=== PATIENT | male | born 1960 | race Caucasian/White ===

== ENCOUNTER 2018-02-27 03:28 | Emergency (ER) | payer OTHER | END 2018-02-27 05:11 | disposition home or self-care (01) | LOC: M ED 03:28 | DX: K91.840 Postprocedural hemorrhage of a digestive system organ or structure following a digestive system procedure (principal); F17.200 Nicotine dependence, unspecified, uncomplicated | CPT/HCPCS: 99282 ==

== ENCOUNTER 2018-12-14 16:41 | Emergency (ER) | payer OTHER ==
[~2018-12-14] VITALS: Ht 170.2 cm; Wt 72.7 kg
[2018-12-14 16:41] VITALS: BP 149/91
[2018-12-14] MEDS ORDERED: NAPROXEN 250 MG TAB PO ONE (17:15)
--- NOTE | 2018-12-14 18:35 | REP ---
Clinical: Trauma. Technique: AP, lateral, bilateral oblique views left wrist . Findings: The carpal bones, surrounding osseous structures, soft tissues, and joint spaces demonstrate generalized age-related changes. There is no evidence for acute fracture or dislocation. No subcutaneous emphysema or radiodense foreign body. Impression: Generalized age-related changes. No acute fracture or dislocation Electronically Signed by Austyn Heredia MD 12/14/2018 06:27 P
--- NOTE | 2018-12-14 18:36 | REP ---
Clinical: Trauma. Technique: AP and lateral views of the chest. Findings: Mediastinum and cardiac silhouette appear grossly normal. Lung hernandez demonstrate chronic changes superimposed bibasilar atelectasis (left greater than right). No pneumothorax. No obvious acute fracture. Impression: Bibasilar atelectasis (left greater than right). Electronically Signed by Austyn Heredia MD 12/14/2018 06:28 P
== END 2018-12-14 18:15 | disposition home or self-care (01) ==
LOC: M ED 16:41
DX: S20.212A Contusion of left front wall of thorax, initial encounter (principal); S63.502A Unspecified sprain of left wrist, initial encounter; W00.9XXA Unspecified fall due to ice and snow, initial encounter; Y92.410 Unspecified street and highway as the place of occurrence of the external cause; Y93.9 Activity, unspecified; Y99.9 Unspecified external cause status; J98.11 Atelectasis; Z72.0 Tobacco use

== ENCOUNTER → 2019-07-30 | Outpatient (REF) | payer OTHER ==
[2019-07-30 15:07] LABS: ALBUMIN 3.9 GM/DL (3.2-5.2); ALT/SGPT 172 U/L (12-78); BILIRUBIN,DIRECT 0.1 MG/DL (0.0-0.2); BILIRUBIN,TOTAL 0.4 MG/DL (0.2-1.0); TOTAL PROTEIN 7.2 GM/DL (6.4-8.2)
[2019-07-31 09:16] LABS: HEPATITIS B SURFACE ANTIBODY POSITIVE (POSITIVE)
[2019-07-31 09:26] LABS: HEPATITIS B SURFACE ANTIGEN NEGATIVE (NEGATIVE)
[2019-07-31 09:56] LABS: HIV 1&2 SCREEN CENTAUR NEGATIVE (NEGATIVE)
[2019-07-31 10:19] LABS: HEPATITIS C VIRUS ABY INDEX > 11.0 INDEX (<0.8)
== END ==
LOC: M SFHCPLAZ 11:43
PROVIDERS: ATTEND Dermatology
DX: Z79.899 Other long term (current) drug therapy (principal)

== ENCOUNTER → 2019-10-01 | Outpatient (CLI) | payer OTHER ==
--- NOTE | 2019-10-01 08:53 | REP ---
Two-view chest: 10/01/2019. Indication: Tuberculosis. Comparison: 12/14/2018. Findings: The lungs are clear. There is no pleural effusion or pneumothorax. The cardiomediastinal silhouette is unremarkable. Impression: No acute cardiopulmonary process. Electronically Signed by Babatunde Herrera DO 10/01/2019 08:45 A
--- NOTE | 2019-10-01 09:57 | REP ---
RIGHT UPPER QUADRANT ULTRASOUND: Real-time sonographic evaluation of the right upper quadrant performed. Gallbladder demonstrates multiple 2 mm polyps without evidence of gallstones, gallbladder wall thickening or pericholecystic fluid. Common bile duct is upper limits of normal in diameter at 7 mm. There is no intrahepatic biliary dilatation. Liver demonstrates somewhat increased echotexture suggesting fibrofatty infiltration. Pancreas demonstrates no gross mass. Right kidney demonstrates no hydronephrosis with normal size 10.6 cm in length. Parapelvic cysts are noted, meauring 1.5 x 0.8 x 1.3 cm, 0.9 x 0.8 x 0.7 cm and 1.8 x 1.0 x 1.1 cm. Trace fluid is seen adjacent to the dome of the liver in the midline. IMPRESSION: Multiple 2 mm polyps in the gallbladder without evidence of gallstones, gallbladder wall thickening, pericholecystic fluid or biliary dilatation. There appears to be some degree of diffuse fibrofatty infiltration of the liver. Right renal cysts. Trace ascites in the midline above the liver. Electronically Signed by Jorge Rodas MD 10/01/2019 11:46 A
[2019-10-02 12:55] LABS: HEPATITIS B SURFACE ANTIBODY POSITIVE (POSITIVE); HEPATITIS B SURFACE ANTIGEN NEGATIVE (NEGATIVE); HIV 1&2 SCREEN CENTAUR NEGATIVE (NEGATIVE)
[2019-10-05 14:07] LABS: HEPATITIS C QUANTITATION 547940 IU/mL (.)
== END ==
LOC: M RAD 08:22
PROVIDERS: ATTEND Nurse Practitioner Family
DX: N28.1 Cyst of kidney, acquired (principal); K82.4 Cholesterolosis of gallbladder; B18.2 Chronic viral hepatitis C; A15.9 Respiratory tuberculosis unspecified

== ENCOUNTER → 2019-10-06 | Outpatient (REF) | payer OTHER ==
[2019-10-06 11:52] LABS: BASO # 0.1 10^3/uL (0.0-0.2); EOS # 0.2 10^3/uL (0.0-0.5); EOS % 3.9 % (0.0-3.0); HEMATOCRIT 44.1 % (42.0-52.0); HEMOGLOBIN 14.7 g/dl (13.5-17.5); LYMPH # 1.7 10^3/uL (1.5-5.0); LYMPH % 34.3 % (24.0-44.0); MEAN CORPUSCULAR HEMOGLOBIN 29.5 pg (27.0-33.0); MEAN CORPUSCULAR HGB CONC 33.3 g/dl (32.0-36.5); MEAN CORPUSCULAR VOLUME 88.4 fl (80.0-96.0); MONO # 0.5 10^3/uL (0.0-0.8); MONO % 9.9 % (0.0-5.0); NEUTROPHILS # 2.6 10^3/uL (1.5-8.5); NEUTROPHILS % 50.5 % (36.0-66.0); PLATELET COUNT, AUTOMATED 162 10^3/uL (150-450); RED BLOOD COUNT 4.99 10^6/uL (4.30-6.10); WHITE BLOOD COUNT 5.1 10^3/uL (4.0-10.0)
[2019-10-06 12:04] LABS: INR 1.05; PROTHROMBIN TIME 13.4 SECONDS (11.8-14.0)
== END ==
LOC: M SFHCPLAZ 09:32
PROVIDERS: ATTEND Internal Medicine Infectious Disease
DX: R18.8 Other ascites (principal); B18.2 Chronic viral hepatitis C

== ENCOUNTER → 2020-02-04 | Outpatient (REF) | payer OTHER ==
[2020-02-04 13:39] LABS: BILIRUBIN,DIRECT 0.1 MG/DL (0.0-0.2); BILIRUBIN,TOTAL 0.5 MG/DL (0.2-1.0); TOTAL PROTEIN 7.5 GM/DL (6.4-8.2)
[2020-02-08 08:06] LABS: HEPATITIS C QUANTITATION HCV Not Detected IU/mL (.)
== END ==
LOC: M SFHCPLAZ 11:40
PROVIDERS: ATTEND Internal Medicine Infectious Disease
DX: B18.2 Chronic viral hepatitis C (principal)

== ENCOUNTER 2020-06-06 03:00 | Inpatient (IN) | payer OTHER ==
[2020-06-06] MEDS ORDERED: traZODone 50 MG TAB ONE (05:42)
[2020-06-06] MEDS ORDERED: HEPARIN SOD (PORCINE) 5000UNITS/ML VIAL (J1644 PER 1000UNITS) ONE (05:42)
[2020-06-06] MEDS ORDERED: FUROSEMIDE 40MG/4ML VIAL (J1940) ONE ×3 (05:42→11:26)
[2020-06-06] MEDS ORDERED: METOPROLOL TART 25 MG TABLET ONE ×3 (05:42→11:28)
[2020-06-06] MEDS ORDERED: LORazepam 1 MG TAB ONE (05:42)
[2020-06-06] MEDS ORDERED: METOPROLOL 5 MG/5 ML VIAL ONE ×2 (06:35→11:26)
[2020-06-06] MEDS ORDERED: FUROSEMIDE 40MG/4ML VIAL (J1940) As Ordered ONE ×3 (06:35→21:29)
[2020-06-06] MEDS ORDERED: METOPROLOL 5 MG/5 ML VIAL As Ordered ONE ×2 (08:02→11:26)
[2020-06-06] MEDS ORDERED: METOPROLOL TART 25 MG TABLET As Ordered ONE ×3 (11:25→23:28)
[2020-06-06] MEDS ORDERED: ACETAMINOPHEN 325 MG TAB ONE (11:26)
[2020-06-06] MEDS ORDERED: NICOTINE 14 MG/24 HR TRANSDERMAL ONE (11:26)
[2020-06-06] MEDS ORDERED: ATROPINE SULF 1MG/10ML SYRINGE (J0461) ONE (13:00)
[2020-06-06] MEDS ORDERED: NICOTINE 14 MG/24 HR TRANSDERMAL As Ordered ONE (16:19)
[2020-06-06] MEDS ORDERED: ACETAMINOPHEN 325 MG TAB As Ordered ONE (16:20)
[2020-06-06] MEDS ORDERED: HEPARIN SOD (PORCINE) 5000UNITS/ML VIAL (J1644 PER 1000UNITS) As Ordered ONE (21:29)
[2020-06-06] MEDS ORDERED: traZODone 50 MG TAB As Ordered ONE (21:29)
[2020-06-06] MEDS ORDERED: LORazepam 1 MG TAB As Ordered ONE (22:20)
[2020-06-07] MEDS ORDERED: FUROSEMIDE 40MG/4ML VIAL (J1940) As Ordered ONE (05:58)
[2020-06-07] MEDS ORDERED: METOPROLOL TART 25 MG TABLET As Ordered ONE (05:58)
[2020-06-07] MEDS ORDERED: HEPARIN SOD (PORCINE) 5000UNITS/ML VIAL (J1644 PER 1000UNITS) As Ordered ONE ×2 (05:59→21:12)
[2020-06-07] MEDS ORDERED: NICOTINE 14 MG/24 HR TRANSDERMAL ONE (10:05)
[2020-06-07] MEDS ORDERED: METOPROLOL TART 25 MG TABLET ONE ×2 (12:54→17:41)
[2020-06-07] MEDS ORDERED: RIVAROXABAN 20 MG TAB (XARELTO) ONE (17:41)
[2020-06-07] MEDS ORDERED: POTASSIUM CHLORIDE 10 MEQ SR TABLET ONE (17:41)
[2020-06-07] MEDS ORDERED: traZODone 50 MG TAB As Ordered ONE (21:12)
[2020-06-07] MEDS ORDERED: LORazepam 1 MG TAB ONE (21:36)
[2020-06-08] MEDS ORDERED: METOPROLOL TART 25 MG TABLET As Ordered ONE ×4 (00:16→18:43)
[2020-06-08] MEDS ORDERED: METOPROLOL TART 25 MG TABLET ONE ×4 (00:16→18:43)
[2020-06-08] MEDS ORDERED: NICOTINE 14 MG/24 HR TRANSDERMAL As Ordered ONE (09:41)
[2020-06-08] MEDS ORDERED: FUROSEMIDE 100MG/10ML VIAL (J1940) ONE (09:41)
[2020-06-08] MEDS ORDERED: NICOTINE 14 MG/24 HR TRANSDERMAL ONE (09:41)
[2020-06-08] MEDS ORDERED: FUROSEMIDE 100MG/10ML VIAL (J1940) As Ordered ONE (09:41)
[2020-06-08] MEDS ORDERED: ACETAMINOPHEN TAB 650MG DOSE (2X325MG) ONE (12:49)
[2020-06-08] MEDS ORDERED: ACETAMINOPHEN TAB 650MG DOSE (2X325MG) As Ordered ONE (13:04)
[2020-06-08] MEDS ORDERED: RIVAROXABAN 20 MG TAB (XARELTO) As Ordered ONE (18:43)
[2020-06-08] MEDS ORDERED: RIVAROXABAN 20 MG TAB (XARELTO) ONE (18:43)
[2020-06-08] MEDS ORDERED: ACETAMINOPHEN 650 MG SUPP As Ordered ONE (21:46)
[2020-06-08] MEDS ORDERED: ACETAMINOPHEN 650 MG SUPP ONE (21:46)
[2020-06-08] MEDS ORDERED: HEPARIN 25,000 UNITS/250 ML D5W BAG (100 UNITS/ML) (J1644 PER 1000UNITS) ONE (21:46)
[2020-06-08] MEDS ORDERED: TENECTEPLASE 50 MG KIT (TNKase) (J3101 PER 1MG) ONE (22:00)
[2020-06-08] MEDS ORDERED: HEPARIN 25,000 UNITS/250 ML D5W BAG (100 UNITS/ML) (J1644 PER 1000UNITS) As Ordered ONE (22:01)
[2020-07-03 17:21] LABS: ALBUMIN 3.5 GM/DL (3.2-5.2); BILIRUBIN,DIRECT 0.1 MG/DL (0.0-0.2); BILIRUBIN,TOTAL 0.2 MG/DL (0.2-1.0); CALCIUM LEVEL 8.1 MG/DL (8.5-10.1); CREATININE FOR GFR 1.5 MG/DL (0.70-1.30); ETHYL ALCOHOL (ETHANOL) 0.12 % (0.000-0.010); FREE T4 0.86 NG/DL (0.76-1.46); GLOMERULAR FILTRATION RATE 51.4 (>56); POTASSIUM SERUM 4.3 MEQ/L (3.5-5.1); THYROID STIMULATING HORMONE 4.38 uIU/ML (0.358-3.740); TOTAL PROTEIN 6.4 GM/DL (6.4-8.2)
[2020-07-10 14:06] LABS: BASO # 0.1 10^3/uL (0.0-0.2); BASO % 0.7 % (0.0-1.0); EOS # 0.3 10^3/uL (0.0-0.5); EOS % 2.6 % (0.0-3.0); HEMATOCRIT 42.4 % (42.0-52.0); HEMOGLOBIN 13.8 g/dl (13.5-17.5); LYMPH # 3.5 10^3/uL (1.5-5.0); LYMPH % 36.4 % (24.0-44.0); MEAN CORPUSCULAR HEMOGLOBIN 29.7 pg (27.0-33.0); MEAN CORPUSCULAR HGB CONC 32.5 g/dl (32.0-36.5); MEAN CORPUSCULAR VOLUME 91.4 fl (80.0-96.0); MONO # 0.8 10^3/uL (0.0-0.8); MONO % 8.5 % (0.0-5.0); NEUTROPHILS # 4.9 10^3/uL (1.5-8.5); NEUTROPHILS % 51.5 % (36.0-66.0); PLATELET COUNT, AUTOMATED 174 10^3/uL (150-450); RED BLOOD COUNT 4.64 10^6/uL (4.30-6.10); WHITE BLOOD COUNT 9.6 10^3/uL (4.0-10.0)
[2020-07-10 14:07] LABS: INR 1.21; PARTIAL THROMBOPLASTIN TIME 24.8 SECONDS (25.0-38.4); PROTHROMBIN TIME 15.6 SECONDS (11.8-14.0)
[2020-07-13 14:43] LABS: APPEARANCE, URINE CLEAR (CLEAR); BACTERIA, URINE AUTO NEGATIVE (NEGATIVE); BILIRUBIN, URINE AUTO NEGATIVE (NEGATIVE); BLOOD, URINE BLOOD 1+ (NEGATIVE); COLOR, URINE COLORLESS (YELLOW); GLUCOSE, URINE (UA) AUTO NEGATIVE (NEGATIVE); KETONE, URINE AUTO NEGATIVE (NEGATIVE); LEUKOCYTE ESTERASE, URINE AUTO NEGATIVE (NEGATIVE); MUCUS, URINE SMALL (NEGATIVE); NITRITE, URINE AUTO NEGATIVE (NEGATIVE); PROTEIN, URINE AUTO NEGATIVE (NEGATIVE); RBC, URINE AUTO 2 /HPF (0-3); SPECIFIC GRAVITY URINE AUTO 1.005 (1.002-1.035); SQUAMOUS EPITHELIAL CELL UR AU 0 /HPF (0-6); UROBILINOGEN, URINE AUTO 0.2 mg/dL (0.0-2.0); WBC, URINE AUTO 0 /HPF (0-3)
== END 2020-06-08 22:28 | disposition short-term general hospital (02) | DRG 190 ==
LOC: M ED 03:00 → M MSPAV 13:30
PROVIDERS: ADMIT Internal Medicine; ATTEND Internal Medicine
DX: I21.4 Non-ST elevation (NSTEMI) myocardial infarction (principal); I50.31 Acute diastolic (congestive) heart failure; J90 Pleural effusion, not elsewhere classified; N17.9 Acute kidney failure, unspecified; I11.0 Hypertensive heart disease with heart failure; I27.20 Pulmonary hypertension, unspecified; I31.3 Pericardial effusion (noninflammatory); I48.91 Unspecified atrial fibrillation; I34.0 Nonrheumatic mitral (valve) insufficiency; F10.10 Alcohol abuse, uncomplicated; B18.2 Chronic viral hepatitis C; K21.9 Gastro-esophageal reflux disease without esophagitis; F17.200 Nicotine dependence, unspecified, uncomplicated; L40.9 Psoriasis, unspecified; Z20.1 Contact with and (suspected) exposure to tuberculosis; Z79.899 Other long term (current) drug therapy

== ENCOUNTER 2020-12-31 21:59 | Emergency (ER) | payer OTHER ==
[~2020-12-31] VITALS: Ht 170.2 cm; Wt 77.3 kg
[2020-12-31] MEDS ORDERED: NS 1,000 ML IV SCH (22:04)
--- OUTSIDE RECORDS SUMMARY | 2020-12-31 22:05 | CCD ---
Author Author [facility] Organization [facility] Address Unknown Phone Unavailable Care Team Providers Care Orchestra Teacher Name Role Phone Marlon Norris MD Unavailable Unavailable Marlon Norris MD Unavailable Unavailable Marlon Norris MD Unavailable Unavailable Marlon Norris MD Unavailable Unavailable Marlon Norris MD Unavailable Unavailable Marlon Norris MD Unavailable Unavailable Marlon Norris MD Unavailable Unavailable Marlon Norris MD Unavailable Unavailable Marlon Norris MD Unavailable Unavailable Marlon Norris MD Unavailable Unavailable Marlon Norris MD Unavailable Unavailable Marlon Norris MD Unavailable Unavailable Marlon Norris MD Unavailable Unavailable Marlon Norris MD Unavailable Unavailable Marlon Norris MD Unavailable Unavailable Marlon Norris MD Unavailable Unavailable Marlon Norris MD Unavailable Unavailable Marlon Norris MD Unavailable Unavailable Marlon Norris MD Unavailable Unavailable Marlon Norris MD Unavailable Unavailable Marlon Norris MD Unavailable Unavailable Marlon Norris MD Unavailable Unavailable Marlon Norris MD Unavailable Unavailable Marlon Norris MD Unavailable Unavailable Marlon Norris MD Unavailable Unavailable Marlon Norris MD Unavailable Unavailable Marlon Norris MD Unavailable Unavailable Marlon Norris MD Unavailable Unavailable Marlon Norris MD Unavailable Unavailable Marlon Norris MD Unavailable Unavailable Marlon Norris MD Unavailable Unavailable Marlon Norris MD Unavailable Unavailable SleMarlon goodman MD Unavailable Unavailable SleMarlon goodman MD Unavailable Unavailable SleMarlon goodman MD Unavailable Unavailable SleMarlon goodman MD Unavailable Unavailable SleMarlon goodman MD Unavailable Unavailable SleMarlon goodman MD Unavailable Unavailable SlezkaMarlon MD Unavailable Unavailable SleLeanna goodmantech Unavailable Unavailable SlezkaCameronjtech Unavailable Unavailable SleMarlon goodman MD Unavailable Unavailable SleLeanna goodmantech Unavailable Unavailable SleMarlon goodman MD Unavailable Unavailable SlesammykaCameronjtech Unavailable Unavailable SleMarlon goodman MD Unavailable Unavailable SlesammykaCameronjtech Unavailable Unavailable SleMarlon goodman MD Unavailable Unavailable SleMarlon goodman MD Unavailable Unavailable SleMarlon goodman MD Unavailable Unavailable SleMarlon goodman MD Unavailable Unavailable SleMarlon goodman MD Unavailable Unavailable SleMarlon goodman MD Unavailable Unavailable SleMarlon goodman MD Unavailable Unavailable Marlon Norris MD Unavailable Unavailable SleMarlon goodman MD Unavailable Unavailable SleMarlon goodman MD Unavailable Unavailable Marlon Norris MD Unavailable Unavailable FISCHI, Cornelius HODGES MD Unavailable Unavailable FISCHI, Cornelius HODGES MD Unavailable Unavailable FISCHI, Cornelius HODGES MD Unavailable Unavailable FISCHI, Cornelius HODGES MD Unavailable Unavailable FISCHI, Cornelius HODGES MD Unavailable Unavailable FISCHI, Cornelius HODGES MD Unavailable Unavailable FISCHI, Cornelius HODGES MD Unavailable Unavailable FISCHI, Cornelius HODGES MD Unavailable Unavailable FISCHI, Cornelius HODGES MD Unavailable Unavailable FISCHI, Cornelius HODGES MD Unavailable Unavailable FISCHI, Cornelius HOGDES MD Unavailable Unavailable FISCHI, Cornelius HODGES MD Unavailable Unavailable FISCHI, Cornelius HODGES MD Unavailable Unavailable FISCHI, Cornelius HODGES MD Unavailable Unavailable FISCHI, Cornelius HODGES MD Unavailable Unavailable FISCHI, Conrelius HODGES MD Unavailable Unavailable FISCHI, Cornelius HODGES MD Unavailable Unavailable FISMARIA DE JESUS, Cornelius HODGES MD Unavailable Unavailable FISCHI, Cornelius HODGES MD Unavailable Unavailable FISCHI, Cornelius HODGES MD Unavailable Unavailable FISCHI, Cornelius HODGES MD Unavailable Unavailable FISCHI, Cornelius HODGES MD Unavailable Unavailable FISMARIA DE JESUS, Cornelius HODGES MD Unavailable Unavailable FISMARIA DE JESUS, Cornelius HODGES MD Unavailable Unavailable FISCHI, Cornelius HODGES MD Unavailable Unavailable FISCHI, Cornelius HODGES MD Unavailable Unavailable FISCHI, Cornelius HODGES MD Unavailable Unavailable FISCHI, Cornelius HODGES MD Unavailable Unavailable FISCHI, Cornelius HODGES MD Unavailable Unavailable FISCHI, Cornelius HODGES MD Unavailable Unavailable FISCHI, Cornelius HODGES MD Unavailable Unavailable FISCHI, Cornelius HODGES MD Unavailable Unavailable FISCHI, Cornelius HODGES MD Unavailable Unavailable FISCHI, Cornelius HODGES MD Unavailable Unavailable FISCHI, Cornelius HODGES MD Unavailable Unavailable FISCHI, Cornelius HODGES MD Unavailable Unavailable FISCHI, Cornelius HODGES MD Unavailable Unavailable FISCHI, Cornelius HODGES MD Unavailable Unavailable FISCHI, Cornelius HODGES MD Unavailable Unavailable FISCHI, Cornelius HODGES MD Unavailable Unavailable FISCHI, Cornelius HODGES MD Unavailable Unavailable FISCHI, Cornelius HODGES MD Unavailable Unavailable FISCHI, Cornelius HODGES MD Unavailable Unavailable FISCHI, Cornelius HODGES MD Unavailable Unavailable FISCHI, Cornelius HODGES MD Unavailable Unavailable FISCHI, Cornelius HODGES MD Unavailable Unavailable FISCHI, Cornelius HODGES MD Unavailable Unavailable FISCHI, Cornelius HODGES MD Unavailable Unavailable FISCHI, Cornelius HODGES MD Unavailable Unavailable FISCHI, Cornelius HODGES MD Unavailable Unavailable FISCHI, Cornelius HODGES MD Unavailable Unavailable FISCHI, Cornelius HODGES MD Unavailable Unavailable FISCHI, Cornelius HODGES MD Unavailable Unavailable FISCHI, Cornelius HODGES MD Unavailable Unavailable FISCHI, Cornelius HODGES MD Unavailable Unavailable FISCHI, Cornelius HODGES MD Unavailable Unavailable FISCHI, Cornelius HODGES MD Unavailable Unavailable FISCHI, Cornelius HODGES MD Unavailable Unavailable FISCHI, Cornelius HODGES MD Unavailable Unavailable FISCHI, Cornelius HODGES MD Unavailable Unavailable FISCHI, Cornelius HODGES MD Unavailable Unavailable FISCHI, Cornelius HODGES MD Unavailable Unavailable FISCHI, Cornelius HODGES MD Unavailable Unavailable FISCHI, Cornelius HODGES MD Unavailable Unavailable FISCHI, Cornelius HODGES MD Unavailable Unavailable FISCHI, Cornelius HODGES MD Unavailable Unavailable FISCHI, Cornelius HODGES MD Unavailable Unavailable FISCHI, Cornelius HODGES MD Unavailable Unavailable FISCHI, Cornelius HODGES MD Unavailable Unavailable FISCHI, Cornelius HODGES MD Unavailable Unavailable FISCHI, Cornelius HODGES MD Unavailable Unavailable FISCHI, Cornelius HODGES MD Unavailable Unavailable FISCHI, Cornelius HODGES MD Unavailable Unavailable FISCHI, Cornelius HODGES MD Unavailable Unavailable FISCHI, Cornelius HODGES MD Unavailable Unavailable FISCHI, Cornelius HODGES MD Unavailable Unavailable FISCHI, Cornelius HODGES MD Unavailable Unavailable FISCHI, Cornelius HODGES MD Unavailable Unavailable Gian Lara MD Unavailable Unavailable Gian Lara MD Unavailable Unavailable Gian Lara MD Unavailable Unavailable Gian Lara MD Unavailable Unavailable Gian Lara MD Unavailable Unavailable Gian Lara MD Unavailable Unavailable Gian Lara MD Unavailable Unavailable Gian Lara MD Unavailable Unavailable Gian Lara MD Unavailable Unavailable Gian Lara MD Unavailable Unavailable Gian Lara MD Unavailable Unavailable Gian Lara MD Unavailable Unavailable Gian Lara MD Unavailable Unavailable Jordyn Enriquez MD Unavailable Unavailable VignJordyn lozano MD Unavailable Unavailable VignJordyn lozano MD Unavailable Unavailable VignJordyn lozano MD Unavailable Unavailable VignJoby lozanoa MD Unavailable Unavailable VignJoby lozanoa MD Unavailable Unavailable VignPeter lozanodra MD Unavailable Unavailable VignJoby lozanoa MD Unavailable Unavailable VignPeter lozanodra MD Unavailable Unavailable VignJoby lozanoa MD Unavailable Unavailable VignPeter lozanodra MD Unavailable Unavailable VignPeter lozanodra MD Unavailable Unavailable Joby Enriqueza MD Unavailable Unavailable Joby Enriqueza MD Unavailable Unavailable VignJoby lozanoa MD Unavailable Unavailable Peter Enriquezdra MD Unavailable Unavailable VignaraPeter hinesdra MD Unavailable Unavailable GRAHAM, MERY DION RPA-C Unavailable Unavailable GRAHAM, MERY DION RPA-C Unavailable Unavailable GRAHAM, MERY DION RPA-C Unavailable Unavailable GRAHAM, MERY DION RPA-C Unavailable Unavailable GRAHAM, MERY DION RPA-C Unavailable Unavailable GRAHAM, MERY DION RPA-C Unavailable Unavailable GRAHAM, MERY DION RPA-C Unavailable Unavailable GRAHAM, MERY DION RPA-C Unavailable Unavailable GRAHAM, MERY DION RPA-C Unavailable Unavailable GRAHAM, MERY DION RPA-C Unavailable Unavailable GRAHAM, MERY DION RPA-C Unavailable Unavailable GRAHAM, MERY DION RPA-C Unavailable Unavailable GRAHAM, MERY DION RPA-C Unavailable Unavailable GRAHAM, MERY DION RPA-C Unavailable Unavailable GRAHAM, MERY DION RPA-C Unavailable Unavailable GRAHAM, MERY DION RPA-C Unavailable Unavailable GRAHAM, MERY DION RPA-C Unavailable Unavailable GRAHAM, MERY DION RPA-C Unavailable Unavailable GRAHAM, MERY DION RPA-C Unavailable Unavailable GRAHAM, MERY DION RPA-C Unavailable Unavailable GRAHAM, MERY DION RPA-C Unavailable Unavailable GRAHAM, MERY DION RPA-C Unavailable Unavailable GRAHAM, MERY DION RPA-C Unavailable Unavailable GRAHAM, MERY DION RPA-C Unavailable Unavailable GRAHAM, MERY DION RPA-C Unavailable Unavailable GRAHAM, MERY DION RPA-C Unavailable Unavailable GRAHAM, MERY DION RPA-C Unavailable Unavailable GRAHAM, MERY DION RPA-C Unavailable Unavailable GRAHAM, MERY DION RPA-C Unavailable Unavailable GRAHAM, MERY DION RPA-C Unavailable Unavailable GRAHAM, MERY DION RPA-C Unavailable Unavailable GRAHAM, MERY DION RPA-C Unavailable Unavailable GRAHAM, MERY DION RPA-C Unavailable Unavailable GRAHAM, MERY DION RPA-C Unavailable Unavailable GRAHAM, MERY DION RPA-C Unavailable Unavailable GRAHAM, MERY DION RPA-C Unavailable Unavailable GRAHAM, MERY DION RPA-C Unavailable Unavailable GRAHAM, MERY DION RPA-C Unavailable Unavailable GRAHAM, MERY DION RPA-C Unavailable Unavailable Jordon, Leslie PAPER TUBE MACHINE OPERATOR PAPER TUBE MACHINE OPERATOR Unavailable Unavailable [facility], RFROST GRAHAM PA DION Unavailable Unavailable Jordon, A Leslie PAPER TUBE MACHINE OPERATOR Unavailable Unavailable Jordon, A Leslie PAPER TUBE MACHINE OPERATOR Unavailable Unavailable Jordon, A Leslie PAPER TUBE MACHINE OPERATOR Unavailable Unavailable Jordon, A Leslie PAPER TUBE MACHINE OPERATOR Unavailable Unavailable Jordon, A Leslie PAPER TUBE MACHINE OPERATOR Unavailable Unavailable Jordon, A Leslie PAPER TUBE MACHINE OPERATOR Unavailable Unavailable Jordon, A Leslie PAPER TUBE MACHINE OPERATOR Unavailable Unavailable Jordon, A Leslie PAPER TUBE MACHINE OPERATOR Unavailable Unavailable Jordon, A Leslie PAPER TUBE MACHINE OPERATOR Unavailable Unavailable Jordon, A Leslie PAPER TUBE MACHINE OPERATOR Unavailable Unavailable Jordon, A Leslie PAPER TUBE MACHINE OPERATOR Unavailable Unavailable Jordon, A Leslie PAPER TUBE MACHINE OPERATOR Unavailable Unavailable Jordon, A Leslie PAPER TUBE MACHINE OPERATOR Unavailable Unavailable Jordon, A Leslie PAPER TUBE MACHINE OPERATOR Unavailable Unavailable Jordon, A Leslie PAPER TUBE MACHINE OPERATOR Unavailable Unavailable Jordon, A Elslie PAPER TUBE MACHINE OPERATOR Unavailable Unavailable Jordon, A Leslie PAPER TUBE MACHINE OPERATOR Unavailable Unavailable Jordon, A Leslie PAPER TUBE MACHINE OPERATOR Unavailable Unavailable Jordon, A Leslie PAPER TUBE MACHINE OPERATOR Unavailable Unavailable Jordon, A Leslie PAPER TUBE MACHINE OPERATOR Unavailable Unavailable Jordon, A Leslie PAPER TUBE MACHINE OPERATOR Unavailable Unavailable Jordon, A Leslie PAPER TUBE MACHINE OPERATOR Unavailable Unavailable Jordon, A Leslie PAPER TUBE MACHINE OPERATOR Unavailable Unavailable Jordon, A Leslie PAPER TUBE MACHINE OPERATOR Unavailable Unavailable Jordon, A Leslie PAPER TUBE MACHINE OPERATOR Unavailable Unavailable Jordon, A Leslie PAPER TUBE MACHINE OPERATOR Unavailable Unavailable Jordon, A Leslie PAPER TUBE MACHINE OPERATOR Unavailable Unavailable Jordon, A Leslie PAPER TUBE MACHINE OPERATOR Unavailable Unavailable Re-disclosure Warning The records that you are about to access may contain information from federally-assisted alcohol or drug abuse programs. If such information is present, then the following federally mandated warning applies: This information has been disclosed to you from records protected by federal confidentiality rules (42 CFR part 2). The federal rules prohibit you from making any further disclosure of this information unless further disclosure is expressly permitted by the written consent of the person to whom it pertains or as otherwise permitted by 42 CFR part 2. A general authorization for the release of medical or other information is NOT sufficient for this purpose. The Federal rules restrict any use of the information to criminally investigate or prosecute any alcohol or drug abuse patient.The records that you are about to access may contain highly sensitive health information, the redisclosure of which is protected by Article 27-F of the [facility] Public Health law. If you continue you may have access to information: Regarding HIV / AIDS; Provided by facilities licensed or operated by the [facility] Office of Mental Health; or Provided by the [facility] Office for People With Developmental Disabilities. If such information is present, then the following [facility] mandated warning applies: This information has been disclosed to you from confidential records which are protected by state law. State law prohibits you from making any further disclosure of this information without the specific written consent of the person to whom it pertains, or as otherwise permitted by law. Any unauthorized further disclosure in violation of state law may result in a fine or penitentiary sentence or both. A general authorization for the release of medical or other information is NOT sufficient authorization for further disc losure. Family History Family Member Name Family Member Gender Family Member Status Date o f Status Description Data Source(s) Unknown Male Problem [facility] ([facility], ) Encounters Encounter Providers Location Date Indications Data Source(s ) [facility]: [facility]: [facility]/29/2020 03:2 9:02 PM EDT [facility] Out[facility]: [facility] 08/23/2020 05:4 6:04 PM EDT [facility]: [facility] 08/22/2020 12:08:00 P M EDT [facility] Outpatient Attender: Leslie Ruvalcaba [facility] 07/29/2020 10:1 5:02 AM EDT [facility] Outpatient Attender: Leslie Ruvalcaba [facility] 07/29/2020 10:1 2:02 AM EDT [facility] Outpatient Attender: ZACK Ruvalcaba [facility] 07/29/2020 10:12:01 A M EDT [facility] Outpatient Attender: ZACK Ruvalcaba [facility] 07/28/2020 10:48:02 A M EDT [facility] Outpatient Attender: ZACK Ruvalcaba [facility] 07/28/2020 09:23:01 A M EDT [facility] 05[facility]16:03 PM EDT [facility] Outpatient Attender: DION ALFORD [facility] 07/22/2020 05:16:01 PM EDT [facility] Outpatient Attender: DION ALFORD [facility] 07/15/2020 02:14:01 PM EDT [facility] 02:14:00 PM EDT [facility] 08:51:05 AM EDT [facility] Outpatient Attender: DION ALFORD [facility] 07/11/2020 08:51:04 AM EDT [facility] Outpatient Attender: LAUREN ADAMS [facility] 06/12 04:07:03 PM EDT [facility] Outpatient Attender: DION ALFORD [facility] 07/08/2020 04:07:01 PM EDT [facility] 08:37:00 AM EDT [facility] 06/23/2020 11:22:02 A M EDT [facility] 06/23/2020 10:30:00 A M EDT [facility] Outpatient Attender: Marlon Norris MD [email or web address] 06/11 12:00:00 AM EDT - 06/23/2020 08:54:36 AM EDT [facility] Outpatient Attender: eLslie CABA 06/19/2020 06:3 7:02 PM EDT [facility] Inpatient Attender: Jordyn conner MDAttender: Gian Lara MDAttender: TRACIE GALVEZ MDAdmitter: TRACIE GALVEZ MD [id number] 12:26:45 AM EDT - 06/16/2020 11:56:00 AM EDT [facility] Patient discharged. Outpatient Attender: Leslie CABA 06/03/2020 11:0 4:01 AM EDT [facility] Outpatient Attender: ZACK CABA 06/02/2020 10:32:01 A M EDT [address] [address] 04/05/2020 12:00:00 AM EDT [facility] Outpatient Attender: Leslie CABA 04/01/2020 11:5 3:01 AM EDT [facility] Outpatient Attender: Leslie CABA 03/03/2020 12:2 2:01 AM EDT [facility] [address] [place] [phone] 02/29/2020 12:00:00 AM EDT eCW1 ([facility] [address] [place] [phone] 02/29/2020 12:00:00 AM EDT [facility]CW[facility] ([facility]) [facility] [address] [address] 02/29/2020 12:00:00 AM EDT [facility] ([facility]) [facility] [address] [address] 02/08/2020 12:00:00 AM EDT [facility] ([facility]) [facility] [address] [place] [address], [place] [address] 02/04/2020 12:00:00 AM EDT [facility] ([facility]) Outpatient Attender: ZACK DIXON FP 01/28/2020 09:01:08 P M EDT [facility] Outpatient Attender: Leslie DIXON FP 01/24/2020 12:3 4:59 PM EDT [address] [address] 01/11/2020 12:00:00 AM EST [facility] ([facility]) Outpatient Attender: Leslie DIXON FP 12/25/2019 05:0 3:59 PM EST [address] [address] 12/24/2019 12:00:00 AM EST [facility] ([facility]) [address] [address] 12/22/2019 12:00:00 AM EST [facility] ([facility]) [address] [address] 12/22/2019 12:00:00 AM EST [facility]1 ([facility]) [address] [address] 12/10/2019 12:00:00 AM EST eCW1 ([facility]) Outpatient Attender: Leslie DIXON FP 11/26/2019 08:4 2:01 AM EST [facility] Outpatient Attender: ZACK DIXON FP 11/24/2019 04:06:00 P M EST [address] [address] 11/12/2019 12:00:00 AM EST [facility] ([facility]) Medications Medication Brand Name Start Date Product Form Dose Route Admi nistrative Instructions Pharmacy Instructions Status Indications Reaction Description Data Source(s) 40 mg 12/13/2020 12:00:00 AM EST capsule,delayed release (DR/EC) 30 TAKE ONE CAPSULE BY MOUTH EVERY DAY TAKE ONE CAPSULE BY MOUTH EVERY DAY SOLD: 12/14/2020 [facility] 0.05 % 12/12/2020 12:00:00 AM EST ointment 15 APPLY TO AFFECTED AREA OF PSORIATIC PLAQUES TWO TIMES A DAY APPLY TO AFFECTED AREA OF PSORIATIC PLAQ UES TWO TIMES A DAY SOLD: 12/14/2020 [facility] 0.05 % 12/12/2020 12:00:00 AM EST gel 50 APPLY TO RASH TWO TIMES A DAY - DO NOT USE ON FACE APPLY TO RASH TWO TIMES A DAY - DO NOT USE ON FACE ERNESTO [facility] 81 mg 11/01/2020 12:00:00 AM EST tablet,delayed release (DR/EC) 30 TAKE ONE TABLET BY MOUTH EVERY DAY TAKE ONE TABLET BY MOUTH EVERY DAY SOLD: 12/14/2020 [facility] 81 mg 11/01/2020 12:00:00 AM EST tablet,delayed release (DR/EC) 30 TAKE ONE TABLET BY MOUTH EVERY DAY TAKE ONE TABLET BY MOUTH EVERY DAY SOLD: 11/09/2020 [facility] Trazodone Hydrochloride 100 MG Oral Tablet TRAZODONE HCL 10/15/2020 12:00:00 AM EST tablet 30 TAKE ONE TABLET BY MOUTH CARMINE DAY TAKE ONE TABLET BY MOUTH EVERY DAY SOLD: 11/13/2020 [facility] Trazodone Hydrochloride 100 MG Oral Tablet TRAZODONE HCL 10/15/2020 12:00:00 AM EST tablet 30 TAKE ONE TABLET BY MOUTH CARMINE DAY TAKE ONE TABLET BY MOUTH EVERY DAY SOLD: 10/21/2020 [facility] Trazodone Hydrochloride 100 MG Oral Tablet TRAZODONE HCL 10/15/2020 12:00:00 AM EST tablet 30 TAKE ONE TABLET BY MOUTH CARMINE RY DAY TAKE ONE TABLET BY MOUTH EVERY DAY SOLD: 12/14/2020 [facility] 5 mg 10/12/2020 12:00:00 AM EST tablet 60 TAKE ONE TABLET BY MOUTH TWICE A DAY TAKE ONE TABLET BY MOUTH TWICE A DAY SOLD: 10/13/2020 [facility] 80 mg 10/12/2020 12:00:00 AM EST tablet 30 TAKE ONE TABLET BY MOUTH EVERY DAY TAKE ONE TABLET BY MOUTH EVERY DAY SOLD: 11/13/2020 [facility] Ramipril 5 MG Oral Capsule RAMIPRIL 10/12/2020 12:00:00 AM EST capsul e 30 TAKE ONE CAPSULE BY MOUTH EVERY DAY TAKE ONE CAPSULE BY MOUTH EVERY DAY SOLD: 11/13/2020 [facility] Potassium Chloride 10 MEQ Extended Release Oral Tablet POTAS SIUM CHLORIDE 10/12/2020 12:00:00 AM EST tablet extended release 60 TAKE ONE TABLET BY MOUTH TWICE A DAY TAKE ONE TABLET BY MOUTH TWICE A DAY SOLD: 11/13/2020 [facility] 1 mg 10/12/2020 12:00:00 AM EST tablet 30 TAKE ONE TABLET BY MOUTH EVERY DAY TAKE ONE TABLET BY MOUTH EVERY DAY SOLD: 12/14/2020 [facility] Ramipril 5 MG Oral Capsule RAMIPRIL 10/12/2020 12:00:00 AM EST capsul e 30 TAKE ONE CAPSULE BY MOUTH EVERY DAY TAKE ONE CAPSULE BY MOUTH EVERY DAY SOLD: 12/14/2020 [facility] 40 mg 10/12/2020 12:00:00 AM EST tablet 30 TAKE ONE TABLET BY MOUTH EVERY DAY TAKE ONE TABLET BY MOUTH EVERY DAY SOLD: 11/13/2020 [facility] 5 mg 10/12/2020 12:00:00 AM EST tablet 60 TAKE ONE TABLET BY MOUTH TWICE A DAY TAKE ONE TABLET BY MOUTH TWICE A DAY SOLD: 12/14/2020 [facility] 100 mg 10/12/2020 12:00:00 AM EST tablet 30 TAKE ONE TABLET BY MOUTH EVERY DAY TAKE ONE TABLET BY MOUTH EVERY DAY SOLD: 11/13/2020 [facility] 40 mg 10/12/2020 12:00:00 AM EST tablet 30 TAKE ONE TABLET BY MOUTH EVERY DAY TAKE ONE TABLET BY MOUTH EVERY DAY SOLD: 12/14/2020 [facility] 40 mg 10/12/2020 12:00:00 AM EST tablet 30 TAKE ONE TABLET BY MOUTH EVERY DAY TAKE ONE TABLET BY MOUTH EVERY DAY SOLD: 10/13/2020 [facility] 5 mg 10/12/2020 12:00:00 AM EST tablet 60 TAKE ONE TABLET BY MOUTH TWICE A DAY TAKE ONE TABLET BY MOUTH TWICE A DAY SOLD: 11/13/2020 [facility] 80 mg 10/12/2020 12:00:00 AM EST tablet 30 TAKE ONE TABLET BY MOUTH EVERY DAY TAKE ONE TABLET BY MOUTH EVERY DAY SOLD: 10/13/2020 [facility] 100 mg 10/12/2020 12:00:00 AM EST tablet extended release 24 hr 30 TAKE ONE TABLET BY MOUTH EVERY DAY TAKE ONE TABLET BY MOUTH EVERY DAY SOLD: 11/13/2020 [facility] 1 mg 10/12/2020 12:00:00 AM EST tablet 30 TAKE ONE TABLET BY MOUTH EVERY DAY TAKE ONE TABLET BY MOUTH EVERY DAY SOLD: 11/13/2020 [facility] 100 mg 10/12/2020 12:00:00 AM EST tablet 30 TAKE ONE TABLET BY MOUTH EVERY DAY TAKE ONE TABLET BY MOUTH EVERY DAY SOLD: 10/13/2020 [facility] Potassium Chloride 10 MEQ Extended Release Oral Tablet POTAS SIUM CHLORIDE 10/12/2020 12:00:00 AM EST tablet extended release 60 TAKE ONE TABLET BY MOUTH TWICE A DAY TAKE ONE TABLET BY MOUTH TWICE A DAY SOLD: 12/14/2020 [facility] 100 mg 10/12/2020 12:00:00 AM EST tablet 30 TAKE ONE TABLET BY MOUTH EVERY DAY TAKE ONE TABLET BY MOUTH EVERY DAY SOLD: 12/14/2020 [facility] [facility] 80 mg 10/12/2020 12:00:00 AM EST tablet 30 TAKE ONE TABLET BY MOUTH EVERY DAY TAKE ONE TABLET BY MOUTH EVERY DAY SOLD: 12/14/2020 [facility] Potassium Chloride 10 MEQ Extended Release Oral Tablet POTAS SIUM CHLORIDE 10/12/2020 12:00:00 AM EST tablet extended release 60 TAKE ONE TABLET BY MOUTH TWICE A DAY TAKE ONE TABLET BY MOUTH TWICE A DAY SOLD: 10/13/2020 [facility] 100 mg 10/12/2020 12:00:00 AM EST tablet extended release 24 hr 30 TAKE ONE TABLET BY MOUTH EVERY DAY TAKE ONE TABLET BY MOUTH EVERY DAY SOLD: 12/14/2020 [facility] 100 mg 10/12/2020 12:00:00 AM EST tablet extended release 24 hr 30 TAKE ONE TABLET BY MOUTH EVERY DAY TAKE ONE TABLET BY MOUTH EVERY DAY SOLD: 10/13/2020 [facility] Ramipril 5 MG Oral Capsule RAMIPRIL 10/12/2020 12:00:00 AM EST capsul e 30 TAKE ONE CAPSULE BY MOUTH EVERY DAY TAKE ONE CAPSULE BY MOUTH EVERY DAY SOLD: 10/13/2020 [facility] 1 mg 10/12/2020 12:00:00 AM EST tablet 30 TAKE ONE TABLET BY MOUTH EVERY DAY TAKE ONE TABLET BY MOUTH EVERY DAY SOLD: 10/13/2020 [facility] 40 mg 09/15/2020 12:00:00 AM EST capsule,delayed release (DR/EC) 30 TAKE ONE CAPSULE BY MOUTH EVERY DAY TAKE ONE CAPSULE BY MOUTH EVERY DAY SOLD: 09/19/2020 [facility] 40 mg 09/15/2020 12:00:00 AM EST capsule,delayed release (DR/EC) 30 TAKE ONE CAPSULE BY MOUTH EVERY DAY TAKE ONE CAPSULE BY MOUTH EVERY DAY SOLD: 11/13/2020 [facility] 40 mg 09/15/2020 12:00:00 AM EST capsule,delayed release (DR/EC) 30 TAKE ONE CAPSULE BY MOUTH EVERY DAY TAKE ONE CAPSULE BY MOUTH EVERY DAY SOLD: 10/13/2020 [facility] 100 mg 08/23/2020 12:00:00 AM EDT tablet 30 TAKE ONE TABLET BY MOUTH EVERY DAY TAKE ONE TABLET BY MOUTH EVERY DAY SOLD: 08/26/2020 [facility] 100 mg 08/23/2020 12:00:00 AM EDT tablet 30 TAKE ONE TABLET BY MOUTH EVERY DAY TAKE ONE TABLET BY MOUTH EVERY DAY SOLD: 09/26/2020 [facility] 100 mg 07/12/2020 12:00:00 AM EDT tablet extended release 24 hr 30 TAKE ONE TABLET BY MOUTH EVERY DAY TAKE ONE TABLET BY MOUTH EVERY DAY SOLD: 08/17/2020 [facility] 100 mg 07/12/2020 12:00:00 AM EDT tablet extended release 24 hr 30 TAKE ONE TABLET BY MOUTH EVERY DAY TAKE ONE TABLET BY MOUTH EVERY DAY SOLD: 07/20/2020 [facility] Ramipril 5 MG Oral Capsule RAMIPRIL 07/12/2020 12:00:00 AM EDT capsul e 30 TAKE ONE CAPSULE BY MOUTH EVERY DAY TAKE ONE CAPSULE BY MOUTH EVERY DAY SOLD: 08/17/2020 [facility] 1 mg 07/12/2020 12:00:00 AM EDT tablet 30 TAKE ONE TABLET BY MOUTH EVERY DAY TAKE ONE TABLET BY MOUTH EVERY DAY SOLD: 07/20/2020 [facility] Potassium Chloride 10 MEQ Extended Release Oral Tablet POTAS SIUM CHLORIDE 07/12/2020 12:00:00 AM EDT tablet extended release 60 TAKE ONE TABLET BY MOUTH TWICE A DAY TAKE ONE TABLET BY MOUTH TWICE A DAY SOLD: 08/17/2020 [facility] 40 mg 07/12/2020 12:00:00 AM EDT tablet 30 TAKE ONE TABLET BY MOUTH EVERY DAY TAKE ONE TABLET BY MOUTH EVERY DAY SOLD: 08/17/2020 [facility] 5 mg 07/12/2020 12:00:00 AM EDT capsule 30 TAKE ONE CAPSULE BY MOUTH EVERY DAY TAKE ONE CAPSULE BY MOUTH EVERY DAY SOLD: 07/20/2020 [facility] 5 mg 07/12/2020 12:00:00 AM EDT tablet 60 TAKE ONE TABLET BY MOUTH TWICE A DAY TAKE ONE TABLET BY MOUTH TWICE A DAY SOLD: 07/20/2020 [facility] atorvastatin 80 MG Oral Tablet ATORVASTATIN CALCIUM 07/12/2020 1 2:00:00 AM EDT tablet 30 TAKE ONE TABLET BY MOUTH EVERY D AY TAKE ONE TABLET BY MOUTH EVERY DAY SOLD: 08/17/2020 [facility] atorvastatin 80 MG Oral Tablet ATORVASTATIN CALCIUM 07/12/2020 1 2:00:00 AM EDT tablet 30 TAKE ONE TABLET BY MOUTH EVERY D AY TAKE ONE TABLET BY MOUTH EVERY DAY SOLD: 07/20/2020 [facility] 1 mg 07/12/2020 12:00:00 AM EDT tablet 30 TAKE ONE TABLET BY MOUTH EVERY DAY TAKE ONE TABLET BY MOUTH EVERY DAY SOLD: 08/17/2020 [facility] Potassium Chloride 10 MEQ Extended Release Oral Tablet POTAS SIUM CHLORIDE 07/12/2020 12:00:00 AM EDT tablet extended release 60 TAKE ONE TABLET BY MOUTH TWICE A DAY TAKE ONE TABLET BY MOUTH TWICE A DAY SOLD: 07/20/2020 [facility] 5 mg 07/12/2020 12:00:00 AM EDT tablet 60 TAKE ONE TABLET BY MOUTH TWICE A DAY TAKE ONE TABLET BY MOUTH TWICE A DAY SOLD: 08/17/2020 [facility] 40 mg 07/12/2020 12:00:00 AM EDT tablet 30 TAKE ONE TABLET BY MOUTH EVERY DAY TAKE ONE TABLET BY MOUTH EVERY DAY SOLD: 07/20/2020 [facility] MULTIVITAMIN 07/11/2020 12:00:00 AM EDT tablet 30 TAKE ONE TABLET BY MOUTH EVERY DAY TAKE ONE TABLET BY MOUTH EVERY DAY SOLD: 07/20/2020 [facility] 100 mg 07/11/2020 12:00:00 AM EDT tablet 30 TAKE ONE TABLET BY MOUTH EVERY DAY TAKE ONE TABLET BY MOUTH EVERY DAY SOLD: 08/17/2020 [facility] 100 mg 07/11/2020 12:00:00 AM EDT tablet 30 TAKE ONE TABLET BY MOUTH EVERY DAY TAKE ONE TABLET BY MOUTH EVERY DAY SOLD: 07/20/2020 [facility] MULTIVITAMIN 07/11/2020 12:00:00 AM EDT tablet 30 TAKE ONE TABLET BY MOUTH EVERY DAY TAKE ONE TABLET BY MOUTH EVERY DAY SOLD: 08/17/2020 [facility] 100 mg 06/23/2020 12:00:00 AM EDT tablet 30 TAKE ONE TABLET BY MOUTH EVERY DAY TAKE ONE TABLET BY MOUTH EVERY DAY SOLD: 06/28/2020 [facility] 100 mg 06/23/2020 12:00:00 AM EDT tablet 30 TAKE ONE TABLET BY MOUTH EVERY DAY TAKE ONE TABLET BY MOUTH EVERY DAY SOLD: 07/20/2020 [facility] 7 mg/24 hr 06/23/2020 12:00:00 AM EDT patch 24 hour 28 APPLY 1 PATCH DAILY , REMOVE AND REPLACE EVERY 24 HOURS APPLY 1 PATCH DAILY , REMOVE AND REPLACE EVERY 24 HOURS SOLD: 06/28/2020 [facility] 7 mg/24 hr 06/23/2020 12:00:00 AM EDT patch 24 hour 28 APPLY 1 PATCH DAILY , REMOVE AND REPLACE EVERY 24 HOURS APPLY 1 PATCH DAILY , REMOVE AND REPLACE EVERY 24 HOURS SOLD: 07/20/2020 [facility] apixaban 5 MG Oral Tablet Apixaban (ELIQUIS) tablet 5 mg Apixaban (ELIQUIS) tablet 5 mg 06/16/2020 10:00:00 AM EDT 5 mg Oral active 5 mg, Oral, 2 times daily, First dose on Brigette 06/16/20 at 1000
Current dose selected for any 2 criteria of: Serum Cr < 1.5 mg/dL, age < 80 years, & weight > 60 kgDo not combine with strong 3A4 or p-Gp inhibitors (ketoconazole, itraconazole, ritonavir, clarithromycin)
[facility] Medication administered onsite clopidogrel 75 MG Oral Tablet clopidogrel (PLAVIX) tab let 75 mg clopidogrel (PLAVIX) tablet 75 mg 06/16/2020 09:00:00 AM EDT 75 mg Oral active 75 mg, Oral, Daily, First dose on Sat06/16/20 at 0900 [facility] Medication administered onsite 40 mg 06/16/2020 12:00:00 AM EDT tablet 30 TAKE ONE TABLET BY MOUTH EVERY DAY TAKE ONE TABLET BY MOUTH EVERY DAY SOLD: 06/16/2020 [facility] 5 mg 06/16/2020 12:00:00 AM EDT tablet 60 TAKE ONE TABLET BY MOUTH TWICE A DAY TAKE ONE TABLET BY MOUTH TWICE A DAY SOLD: 06/16/2020 [facility] MULTIVITAMIN 06/16/2020 12:00:00 AM EDT tablet 30 TAKE ONE TABLET BY MOUTH EVERY DAY TAKE ONE TABLET BY MOUTH EVERY DAY SOLD: 06/16/2020 [facility] apixaban 5 MG Oral Tablet Apixaban (ELIQUIS) 5 MG TABS tablet Apixaban (ELIQUIS) 5 MG TABS tablet 06/16/2020 12:00:00 AM EDT 5 mg Oral a ctive Take 1 tablet (5 mg total) by mouth 2 (two) times a day [facility] Furosemide 40 MG Oral Tablet furosemide (LASIX) 40 MG tablet furosemide (LASIX) 40 MG tablet 06/16/2020 12:00:00 AM EDT 40 mg Oral activ e Take 1 tablet (40 mg total) by mouth daily [facility] Potassium Chloride 10 MEQ Extended Relea se Oral Tablet potassium chloride (K- DUR) 10 MEQ tablet potassium chloride (K-DUR) 10 MEQ tablet 06/16/2020 12 :00:00 AM EDT 10 meq Oral active Take 1 t ablet (10 mEq total) by mouth 2 (two) times a day [facility] Potassium Chloride 10 MEQ Extended Release Oral Tablet POTAS SIUM CHLORIDE 06/16/2020 12:00:00 AM EDT tablet extended release 60 TAKE ONE TABLET BY MOUTH TWICE A DAY TAKE ONE TABLET BY MOUTH TWICE A DAY SOLD: 06/16/2020 [facility] 24 HR metoprolol succinate 100 MG Extend ed Release Oral Tablet metoprolol succinate (TOPROL-XL) 100 MG 24 hr tablet metoprolol succinate (TOPROL-XL) 100 MG 24 hr tablet 06/16/2020 12:00:00 AM EDT 100 mg Oral ac tive Take 1 tablet (100 mg total) by mouth daily [facility] Thiamine 100 MG Oral Tablet thiamine 100 MG tablet thiamine 100 MG tablet 06/16/2020 12:00:00 AM EDT 100 mg Oral active Take 1 tablet (100 mg total) by mouth daily [facility] Nitroglycerin 0.4 MG Sublingual Tablet n itroglycerin (NITROSTAT) 0.4 MG SL tablet nitroglycerin (NITROSTAT) 0.4 MG SL tablet 06/16/2020 12:00:00 A M EDT 0.[address] 1 t ablet (0.4 mg total) under the tongue every 5 (five) minutes as needed for chest pain [facility] 81 mg 06/16/2020 12:00:00 AM EDT tablet,chewable 30 CHEW ONE TABLET BY MOUTH EVERY DAY CHEW ONE TABLET BY MOUTH EVERY DAY SOLD: 06/16/2020 [facility] Ramipril 5 MG Oral Capsule ramipril (ALTACE) 5 MG caps ule ramipril (ALTACE) 5 MG capsule 06/16/2020 12:00:00 AM EDT 5 mg Oral active Take 1 capsule (5 mg total) by mouth daily [facility] 1 mg 06/16/2020 12:00:00 AM EDT tablet 30 TAKE ONE TABLET BY MOUTH EVERY DAY TAKE ONE TABLET BY MOUTH EVERY DAY SOLD: 06/16/2020 [facility] 0.4 mg 06/16/2020 12:00:00 AM EDT tablet, sublingual 25 PLACE ONE TABLET UNDER THE TONGUE EVERY 5 MINUTES FOR UP TO 3 DOSES NEEDED FOR CHEST PAIN. IF CHEST PAIN STILL PERSISTS CONTACT [address] ONE TABLET UNDER THE TONGUE EVERY 5 MINUTES FOR UP TO 3 DOSES NEEDED FOR CHEST PAIN. IF CHEST PAIN STILL PERSISTS CONTACT 911 SOLD: 06/16/2020 [employer] [facility] DAILY OZIEL (THERAGRAN) per tablet [id number] 06/16/2020 12:00:00 AM EDT 1 {tbl} Oral active Take 1 tablet by mouth d katherine [facility] Folic Acid 1 MG Oral Tablet folic acid (FOLVITE) 1 MG tablet folic acid (FOLVITE) 1 MG tablet 06/16/2020 12:00:00 AM EDT 1 mg Oral active Take 1 tablet (1 mg total) by mouth daily [facility] Aspirin 81 MG Chewable Tablet aspirin 81 MG chewable t ablet aspirin 81 MG chewable tablet 06/16/2020 12:00:00 AM EDT 81 mg Oral ac tive Chew 1 tablet (81 mg total) daily [facility] atorvastatin 80 MG Oral Tablet atorvastatin (LIPITOR) 80 MG tablet atorvastatin (LIPITOR) 80 MG tablet 06/16/2020 12:00:00 AM EDT 80 mg Oral active Take 1 tablet (80 mg total) by mouth daily [facility] 5 mg 06/16/2020 12:00:00 AM EDT capsule 30 TAKE ONE CAPSULE BY MOUTH EVERY DAY TAKE ONE CAPSULE BY MOUTH EVERY DAY SOLD: 06/16/2020 [facility] 100 mg 06/16/2020 12:00:00 AM EDT tablet extended release 24 hr 30 TAKE ONE TABLET BY MOUTH EVERY DAY TAKE ONE TABLET BY MOUTH EVERY DAY SOLD: 06/16/2020 [facility] 100 mg 06/16/2020 12:00:00 AM EDT tablet 30 TAKE ONE TABLET BY MOUTH EVERY DAY TAKE ONE TABLET BY MOUTH EVERY DAY SOLD: 06/16/2020 [facility] atorvastatin 80 MG Oral Tablet ATORVASTATIN CALCIUM 06/16/2020 1 2:00:00 AM EDT tablet 30 TAKE ONE TABLET BY MOUTH EVERY D AY TAKE ONE TABLET BY MOUTH EVERY DAY SOLD: 06/16/2020 [facility] Diphenhydramine Hydrochloride 25 MG Oral Capsule diphenhydrAMINE (BENADRYL) capsule 25 mg diphenhydrAMINE (BENADRYL) capsule 25 mg 06/15/2020 11 :00:00 PM EDT 25 mg Oral completed 25 mg, Oral, Once, Sat06/15/20 at 2300, For 1 dose, Pre-op [facility] Medication administered onsite sodium chloride 0.9% (NS) infusion [id number] 06/15/2020 11:00:00 A M EDT Intravenous aborted at 100 mL/hr, Intravenous, Continuous, Starting Sat06/15/20 at 1100, For 2 hours, Post-op [facility] Medication administered onsite iopamidol (ISOVUE-370) 76 % [id number] 06/15/2020 09:57:16 AM EDT active As needed, Starting Sat06/15/20 at 0957, Intra-Procedur e [facility] Medication administered onsite 1 ML heparin sodium, porcine 1000 UNT/ML Injection hep candice (porcine) injection heparin (porcine) injection 06/15/2020 09:49:15 AM EDT active As needed, Starting Sat06/15/20 at 0949, Intra-Procedure [facility] Medication administered onsite NITROGLYCERIN 0.4 MG/ML IV SOLN [id number] 06/15/2020 09:49:03 AM EDT active As needed, Starting Sat at 0949, Intra-Procedure [facility] Medication administered onsite lidocaine 1 % injection [id number] 06/15/2020 09:48:03 AM EDT active As needed, Starting Sat06/15/20 a t 0948, Intra-Procedure [facility] Medication administered onsite fentaNYL Citrate (PF) (SUBLIMAZE) injection [id number] 06/15/2020 09:44:56 AM EDT active As neede d, Starting Sat06/15/20 at 0944, Intra-Procedure [facility] Medication administered onsite 2 ML Midazolam 1 MG/ML Injection midazolam (VERSED) in jection midazolam (VERSED) injection 06/15/2020 09:44:43 AM EDT active As needed, Starting Sat06/15/20 at 0944, Intra-Procedure [facility] Medication administered onsite 24 HR metoprolol succinate 100 MG Extend ed Release Oral Tablet metoprolol succinate (TOPROL-XL) 24 hr tablet 100 mg metoprolol succinate (TOPROL-XL) 24 hr tablet 100 mg 06/15/2020 09:00:00 AM EDT 100 mg Oral acti ve 100 mg, Oral, Daily, First dose on Sat06/15/20 at 0900 [facility] Medication administered onsite Ramipril 5 MG Oral Capsule ramipril (ALTACE) capsule 5 mg ramipril (ALTACE) capsule 5 mg 06/15/2020 09:00:00 AM EDT 5 mg Oral activ e 5 mg, Oral, Daily, First dose on Sat06/15/20 at 0900
Hold for sbp <120
[facility] Medication administered onsite normal saline flush 0.9 % injection 3 mL [id number] 06/14/2020 10:00:00 PM EDT 3 mL Intravenous active 3 mL , Intravenous, PROTOCOL, First dose on Sat06/14/20 at 2200, Pre-op
flush per protocol, D/C Main IV fluid if appropriate
[facility] Medication administered onsite quetiapine 25 MG Oral Tablet QUEtiapine (SEROquel) tab let 25 mg QUEtiapine (SEROquel) tablet 25 mg 06/14/2020 09:00:00 PM EDT 25 mg Oral active 25 mg, Oral, Nightly, First dose on Sat06/14/20 at 2100 [facility] Medication administered onsite sodium chloride 0.9% (NS) infusion [id number] 06/14/2020 07:00:00 PM EDT 100 mL/h Intravenous aborted at 100 m L/hr, 100 mL/hr, Intravenous, Continuous, Starting Sat06/14/20 at 1900, Pre-op
Start two hours prior to scheduled start time
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
"Maximum dose of acetaminophen is 4,000 mg from all sources in 24 hours."
[facility] Medication administered onsite Metoprolol Tartrate 50 MG Oral Tablet me toprolol tartrate (LOPRESSOR) tablet 50 mg metoprolol tartrate (LOPRESSOR) tablet 50 mg 06/13/2020 11:00:00 AM EDT 50 mg Oral aborted 50 mg, Ora l, 2 times daily, First dose on Sat06/13/20 at 1100 [facility] Medication administered onsite fentaNYL Citrate (PF) (SUBLIMAZE) injection 25 mcg [id number] 06/13/2020 04:00:00 AM EDT 25 ug Intravenous completed 25 mcg, Intravenous, Once, Sat06/13/20 at 0400, For 1 dose [facility] Medication administered onsite sennosides, SENIOR LIVING 8.6 MG Oral Tablet senna (SENOKOT) tab let 8.6 mg senna (SENOKOT) tablet 8.6 mg 06/12/2020 09:00:00 PM EDT 8.6 mg Oral acti ve 8.6 mg, Oral, Nightly, First dose on 06/12/20 at 2100
Hold for loose stools.If patient is unable to swallow the tablet, nursing should crush and dissolve tablet in 10-15 ml of water prior to administration
[facility] Medication administered onsite Docusate Sodium 100 MG Oral Capsule docusate sodium (C OLACE) capsule 100 mg docusate sodium (COLACE) capsule 100 mg 06/12/2020 09:00:00 PM EDT 100 mg Oral active 100 mg, Oral, 2 times daily, First dose on 06/12/20 at 2100
hold for loose stools
[facility] Medication administered onsite 1 ML Lorazepam 2 MG/ML Injection LORazepam (ATIVAN) in jection 1 mg LORazepam (ATIVAN) injection 1 mg 06/12/2020 02:21:00 PM EDT 1 mg Intraveno us completed 1 mg, Intravenous, E very 6 hours (relative), First dose on 06/12/20 at 1500, For 3 days
immediately prior to intravenous use, lorazepam injection must be diluted with an equal volume of sodium chloride 0.9%
[facility] Medication administered onsite Ramipril 2.5 MG Oral Capsule ramipril (ALTACE) capsule 2.5 mg ramipril (ALTACE) capsule 2.5 mg 06/12/2020 09:00:00 AM EDT 2.5 mg Oral abo rted 2.5 mg, Oral, Daily, First dose on 06/12/20 at 0900
Hold for sbp <120
[facility] Medication administered onsite 1 ML Lorazepam 2 MG/ML Injection LORazepam (ATIVAN) in jection 1-3 mg LORazepam (ATIVAN) injection 1-3 mg 06/12/2020 08:27:33 AM EDT Intravenous active 1-3 mg, Intravenous, As need ed, GMAW, Starting 06/12/20 at 0827, For 7 days
GMAW Score IVP/IM dose 0 None 1 to 3 1 mg 4 to 7 2 mg 8 to 10 3 mg GMAW reassessment is every 2 hours for 5 days.If treatment is neededprior, notify provider.
[facility] Medication administered onsite Microfibrillar Rosana Hemostat MISC 1 each [id number] 06/12/2020 03 :00:00 AM EDT 1 {each} Apply externally completed 1 e ach, Apply externally, Once, 06/12/20 at 0300, For 1 dose [facility] Medication administered onsite Digoxin 0.25 MG/ML Injectable Solution digoxin (LANOXI N) injection 250 mcg digoxin (LANOXIN) injection 250 mcg 06/12/2020 03:00:00 AM EDT 2 50 ug Intravenous completed 250 mcg, Intr avenous, Every 6 hours (relative), First dose on 06/12/20 at 0300, For 2 doses [facility] Medication administered onsite dextrose 10 % infusion [id number] 06/11/2020 09:00:00 PM EDT 50 mL/h Intravenous aborted 50 mL/hr, Int ravenous, at 50 mL/hr, Continuous, Starting 06/11/20 at 2100 [facility] Medication administered onsite Digoxin 0.25 MG/ML Injectable Solution digoxin (LANOXI N) injection 500 mcg digoxin (LANOXIN) injection 500 mcg 06/11/2020 09:00:00 PM EDT 5 00 ug Intravenous completed 500 mcg, Intr avenous, Once, 06/11/20 at 2100, For 1 dose [facility] Medication administered onsite Trazodone Hydrochloride 50 MG Oral Tablet traZODone (D ESYREL) tablet 50 mg traZODone (DESYREL) tablet 50 mg 06/11/2020 09:00:00 PM EDT 50 mg Oral active 50 mg, Oral, Nightly, First dose on 06/11/20 at 2100 [facility] Medication administered onsite calcium gluconate 1 g in sodium chloride 50 mL IVPB [id number] 06/11/2020 08:00:00 AM EDT 1 g Intravenous completed 1 g, Intravenous, Administer over 60 Minutes, Once, 06/11/20 at 0800, For 1 dose [facility] Medication administered onsite Dexmedetomidine HCl 400 mcg in sodium chloride (NS) 0.9 % 10 0 mL infusion 06/11/2020 05:00:00 AM EDT Intravenous aborted 0.2-0.7 mcg/kg/hr 75 kg (3.75-13.125 mL/hr, rounded to 3.8-13.1 mL/hr), Intravenous, Continuous, Starting 06/11/20 at 0500, Until 06/11/20 at 1709, at 3.8-13.1 mL/hr [facility] Medication administered onsite Dexmedetomidine HCl 200 MCG/2ML SOLN [id number] 06/11/2020 04:19:04 AM EDT completed Starting Sat 06/11 at 0419, For 1 dose
Soco Jones: cabinet override
[facility] Medication administered onsite 1 ML Lorazepam 2 MG/ML Injection LORazepam (ATIVAN) in jection 2 mg LORazepam (ATIVAN) injection 2 mg 06/11/2020 04:00:00 AM EDT 2 mg Intraveno us completed 2 mg, Intravenous, O nce, 06/11/20 at 0400, For 1 dose
immediately prior to intravenous use, lorazepam injection must be diluted with an equal volume of sodium chloride 0.9%
[facility] Medication administered onsite potassium chloride (KLOR-CON) packet 40 mEq [id number] 06/10/2020 06:00:00 AM EDT 40 meq completed 40 mEq , Per NG tube, Every 3 hours, First dose on Sat06/10/20 at 0600, For 2 doses [facility] Medication administered onsite sennosides, S[facility] LIVING 1.76 MG/ML Oral Solution Senna (SENEXON) 8.8 MG/5ML oral syrup 8.8 mg Senna (SENEXON) 8.8 MG/5ML oral syrup 8.8 mg 06/09/2020 09:0 0:00 PM EDT 5 mL aborted 8.8 mg (5 mL), P er G Tube, Nightly, First dose on Brigette 06/09/20 at 2100
hold for loose stools
[facility] Medication administered onsite Dobutamine 2 MG/ML Injectable Solution D OBUTamine (DOBUTREX) STANDARD STRENGTH 500mg/250 mL (premix) DOBUTamine (DOBUTREX) STANDARD STRENGTH 500mg/250 mL (premix) 06/09/2020 02:00:00 PM EDT Intravenous abor spencer 0-10 mcg/kg/min 74.8 kg (0-22.44 mL/hr, rounded to 0-22.4 mL/hr), Intravenous, at 0-22.4 mL/hr, Continuous, Starting Brigette 06/09/20 at 1400
"Start at 2.5 mcg/kg/min, titrate to goal of MAP > 70, max dose 10 mcg/kg/min. Unless otherwise specified, titrate by no more than 2.5 mcg/kg/min every 5 minutes. Infuse via single port IV tubing ([employer] Set reference #[id number]). Medication and tubing is to be discarded if infusion off for 4 hours."
[facility] Medication administered onsite Dobutamine 2 MG/ML Injectable Solution D OBUTamine (DOBUTREX) 2 MG/ML PREMIX infusion DOBUTamine (DOBUTREX) 2 MG/ML PREMIX infusion 06/09/20 20 01:43:14 PM EDT completed Starti ng [facility] 06/09/20 at 1343, For 1 dose
Heather Michael: cabinet override
[facility] Medication administered onsite sodium chloride 0.9% (NS) bolus 500 mL [id number] 0 11:00:00 AM EDT 500 mL Intravenous completed 500 mL, In travenous, Administer over 1 Hours, Once, Brigette 06/09/20 at 1100, For 1 dose [facility] Medication administered onsite 24 HR Nicotine 0.875 MG/HR Transdermal P atch nicotine (NICODERM CQ) 21 MG/24HR 1 patch nicotine (NICODERM CQ) 21 MG/24HR 1 patch 06/09/2020 09:00:00 AM EDT 1 {patch} Transdermal aborted 1 patch, Transdermal, Administer over 24 Hours, Daily, First dose on Brigette 06/09/20 at 0900 [facility] Medication administered onsite Famotidine (PEPCID) injection 20 mg [id number] 06/09/2020 09:00:0 0 AM EDT 20 mg Intravenous aborted 20 mg, I ntravenous, 2 times daily, First dose on Brigette 06/09/20 at 0900
Refrigerated only product.Located in med refrigerator on unit.Dilute with sodium chloride 0.9% to equal 10 ml. Administration Rate = 20mg/2 minutes
[facility] Medication administered onsite Docusate Sodium 10 MG/ML Oral Suspension docusate (COLACE) 50 MG/5ML liquid 100 mg docusate (COLACE) 50 MG/5ML liquid 100 mg 06/09/2020 09:00:00 AM EDT 100 mg aborted 100 mg, Pe r G Tube, 2 times daily, First dose on Sat06/09/20 at 0900
hold for loose stools
[facility] Medication administered onsite Aspirin 81 MG Chewable Tablet aspirin chewable tablet 81 mg aspirin chewable tablet 81 mg 06/09/2020 09:00:00 AM EDT 81 mg Oral activ e 81 mg, Oral, Daily, First dose on Brigette 06/09/20 at 0900 [facility] Medication administered onsite 1 ML Lorazepam 2 MG/ML Injection LORazepam (ATIVAN) in jection 2 mg LORazepam (ATIVAN) injection 2 mg 06/09/2020 09:00:00 AM EDT 2 mg Intraveno us aborted 2 mg, Intravenous, E very 4 hours (relative), First dose on Brigette 06/09/20 at 0900, For 7 days
immediately prior to intravenous use, lorazepam injection must be diluted with an equal volume of sodium chloride 0.9%
[facility] Medication administered onsite DAILY OZIEL (THERAGRAN) 1 tablet [id number] 06/09/2020 09:00:00 AM EDT 1 {tbl} Oral active 1 tablet, Oral, Daily, First dose on Brigette 06/09/20 at 0900 [facility] Medication administered onsite Folic Acid 1 MG Oral Tablet folic acid (FOLVITE) table t 1 mg folic acid (FOLVITE) tablet 1 mg 06/09/2020 09:00:00 AM EDT 1 mg Oral active 1 mg, Oral, Daily, First dose on Brigette 06/09/20 at 0900 [facility] Medication administered onsite Thiamine 100 MG Oral Tablet thiamine tablet 100 mg thiamine tablet 100 mg 06/09/2020 09:00:00 AM EDT 100 mg Oral active 100 mg, Oral, Daily, First dose on Brigette 06/09/20 at 0900 [facility] Medication administered onsite atorvastatin 80 MG Oral Tablet atorvastatin (LIPITOR) tablet 80 mg atorvastatin (LIPITOR) tablet 80 mg 06/09/2020 09:00:00 AM EDT 80 mg Oral active 80 mg, Oral, Daily, First dose on Brigette 06/09/20 at 0900 [facility] Medication administered onsite clopidogrel 75 MG Oral Tablet clopidogrel (PLAVIX) tab let 75 mg clopidogrel (PLAVIX) tablet 75 mg 06/09/2020 09:00:00 AM EDT 75 mg Oral aborted 75 mg, Oral, Daily, First dose on Brigette 06/09/20 at 0900 [facility] Medication administered onsite fentaNYL (SUBLIMAZE) infusion [id number] 06/09/2020 08:00:00 AM E DT Intravenous aborted 0-200 mcg/hr (0-4 mL/hr), Intravenous, at 0-4 mL/hr, Continuous, Starting Brigette 06/09/20 at 0800, For 7 days
Initiate at 25 mcg/hr and titrate to max 200 mcg/hr to maintain CPOT less than 2 Bolus Doses as follows: (Use fentanyl bolus order to document on JAN)- If infusion rate is 0 to 100 mcg/hr, give fentanyl 25mcg IV every 30 minutes as needed for CPOT of 2 or greater. If 2 or more doses are given within 2 hours, increase infusion by 25 mcg/hr.- If infusion rate is 101 to 200 mcg/hr, give fentanyl 50 mcg IV every 30 minutes as needed for CPOT of 2 or greater. If 2 or more doses are given within 2 hours, increase infusion by 25mcg/hr to max of 200 mcg/hr. If max infusion reached, contact MD/CA.
[facility] Medication administered onsite Propofol (DIPRIVAN) infusion 1000mg/100ml [id number] 06/09/2020 08:00:00 AM EDT Intravenous aborted 0-35 mcg/kg/min 74.9 kg (0-15.729 mL/hr, rounded to 0-15.7 mL/hr), Intravenous, at 0-15.7 mL/hr, Continuous, Starting Brigette 06/09/20 at 0800
Start at 15 mcg/kg/min. Titrate by 5 mcg/kg/min every 5 to 10 minutes to maintain target RASS score 0 to -2
[facility] Medication administered onsite normal saline flush 0.9 % injection 3 mL [id number] 06/09/2020 08:00:00 AM EDT 3 mL Intravenous aborted 3 mL , Intravenous, Every 8 hours (scheduled), First dose on Brigette 06/09/20 at 0800
Rapid push positive pressure flushing shall be performed with a 10 cc normal saline syringe to check the PATENCY of a PIV site prior to any infusion therapy initiation unless resistance is met.
[facility] Medication administered onsite fentaNYL Citrate (PF) (SUBLIMAZE) injection 50 mcg [id number] 06/09/2020 07:00:00 AM EDT 50 ug Intravenous completed 50 mcg, Intravenous, Once, Brigette 06/09/20 at 0700, For 1 dose [facility] Medication administered onsite diphenhydrAMINE (BENADRYL) injection 50 mg [id number] 06/09/2020 07:00:00 AM EDT 50 mg Intravenous completed 50 mg, Intravenous, Once, Brigette 06/09/20 at 0700, For 1 dose [facility] Medication administered onsite Bisacodyl 10 MG Rectal Suppository bisacodyl (DULCOLAX ) suppository 10 mg bisacodyl (DULCOLAX) suppository 10 mg 06/09/2020 06:44:46 AM EDT 10 mg Rectal active 10 mg, Rectal, Daily PRN, constipation, Starting Brigette 06/09/20 at 0644
hold for loose stools
[facility] Medication administered onsite fentaNYL Citrate (PF) (SUBLIMAZE) injection 50 mcg [id number] 06/09/2020 06:43:57 AM EDT 50 ug Intravenous aborted 50 mcg, Intravenous, Every 15 min PRN, for pain, Starting Brigette 06/09/20 at 0643, For 7 days
Initial suggested dose is 25 to 50 mcg. If unable to control pain with 2-3 bolus doses per hour, begin continuous infusion
[facility] Medication administered onsite fentaNYL Citrate (PF) (SUBLIMAZE) 100 MCG/2ML injection [id number] 06/09/2020 06:07:47 AM EDT completed Starting Brigette 06/09/20 at 0607, For 1 dose
Bhumi Macias: cabinet override
[facility] Medication administered onsite Dexmedetomidine HCl 400 mcg in sodium chloride (NS) 0.9 % 10 0 mL infusion 06/09/2020 05:00:00 AM EDT Intravenous aborted 0.2-1.5 mcg/kg/hr 74.9 kg (3.745-28.0875 mL/hr, rounded to 3.7-28.1 mL/hr), Intravenous, Continuous, Starting Brigette 06/09/20 at 0500, Until Brigette 06/09/20 at 0913, at 3.7-28.1 mL/hr [facility] Medication administered onsite 500 ML heparin sodium, porcine 50 UNT/ML Injection heparin infusion 25,000 units in 500 mL 0.45% NaCl heparin infusion 25,000 units in 500 mL 0.45% NaCl 06/09/2020 02:00:00 AM EDT 19 U/kg/h Intravenous aborted 19 Units/kg/hr 74.9 kg (28.462 mL/hr, rounded to 28.5 mL/hr), Intravenous, at 28.5 mL/hr, Continuous, Starting Brigette 06/09/20 at 0200
For Cardiac/BridgeaPTT (seconds) Heparin Dose (weight based)< 34 Bolus: 60 units/kg IV (Maximum bolus: 5,000 units) and increase infusion 3 units/kg/hr IV34 - 50 Bolus: 30 units/kg IV (Maximum bolus: 5,000 units) and increase infusion 2 units/kg/hr IV50.1 - 58 No bolus. Increase infusion 1 unit/kg/hr IV58.1 - 87 Therapeutic, No Iayhnd28.1 - 97 Decrease infusion 1 unit/kg/hr IV 97.1 - 110Hold infusion for 30 minutes & decrease infusion 2 units/kg/hr IV> 110 Call MD if patient is bleeding. Hold infusion for 60 minutes & decrease infusion 3 units/kg/hr IVInitial heparin IV infusion rate:Do not exceed 1000 units/hr or 12 units/kg/hr initially (whichever is less)Infuse this medication only through single port tubing (SmartSite Infusion Set ref [id number]). Medication and tubing is to be discarded if infusion off for 4 hours.
[facility] Medication administered onsite normal saline flush 0.9 % injection 3 mL [id number] 06/09/2020 01:00:00 AM EDT 3 mL Intravenous aborted 3 mL , Intravenous, Every 8 hours (scheduled), First dose on Brigette 06/09/20 at 0100
Rapid push positive pressure flushing shall be performed with a 10 cc normal saline syringe to check the PATENCY of a PIV site prior to any infusion therapy initiation unless resistance is met.
[facility] Medication administered onsite 500 ML heparin sodium, porcine 50 UNT/ML Injection heparin infusion 25,000 units in 500 mL 0.45% NaCl heparin infusion 25,000 units in 500 mL 0.45% NaCl 06/09/2020 01:00:00 AM EDT 12 U/kg/h Intravenous aborted 12 Units/kg/hr, Intravenous, Continuous, Starting Brigette 06/09/20 at 0100
For Cardiac/BridgeaPTT (seconds) Heparin Dose (weight based)< 34 Bolus: 60 units/kg IV (Maximum bolus: 5,000 units) and increase infusion 3 units/kg/hr IV34 - 50 Bolus: 30 units/kg IV (Maximum bolus: 5,000 units) and increase infusion 2 units/kg/hr IV50.1 - 58 No bolus. Increase infusion 1 unit/kg/hr IV58.1 - 87 Therapeutic, No Goawui09.1 - 97 Decrease infusion 1 unit/kg/hr IV 97.1 - 110Hold infusion for 30 minutes & decrease infusion 2 units/kg/hr IV> 110 Call MD if patient is bleeding. Hold infusion for 60 minutes & decrease infusion 3 units/kg/hr IVInitial heparin IV infusion rate:Do not exceed 1000 units/hr or 12 units/kg/hr initially (whichever is less)Infuse this medication only through single port tubing (SmartSite Infusion Set ref [id number]). Medication and tubing is to be discarded if infusion off for 4 hours.
[facility] Medication administered onsite Lorazepam 2 MG Oral Tablet LORazepam (ATIVAN) 2 MG tab let LORazepam (ATIVAN) 2 MG tablet 06/09/2020 12:43:31 AM EDT complete d Starting Brigette 06/09/20 at 0043, For 1 dose
Soco Jones: cabinet override
[facility] Medication administered onsite 1 ML Lorazepam 2 MG/ML Injection LORazepam (ATIVAN) in jection 1-3 mg LORazepam (ATIVAN) injection 1-3 mg 06/09/2020 12:33:44 AM EDT Intrave nous aborted 1-3 mg, Intravenous, As needed, GMAW, Starting Brigette 06/09/20 at 0033, For 7 days
GMAW Score IVP/IM dose 0 None 1 to 3 1 mg 4 to 7 2 mg 8 to 10 3 mg GMAW reassessment is every 2 hours for 5 days.If treatment is neededprior, notify provider.
[facility] Medication administered onsite Nitroglycerin 0.4 MG Sublingual Tablet n itroglycerin (NITROSTAT) SL tablet 0.4 mg nitroglycerin (NITROSTAT) SL tablet 0.4 mg 06/09/2020 12:11:39 A M EDT 0.4 mg Sublingual active 0.4 mg, S ublingual, Every 5 min PRN, chest pain, Starting Brigette 7/30/20 at 0011
Hold for SBP less than 100 or if patient has taken Viagra (sildenafil) or Levitra (vardenafil) within 24 hours, or Cialis (tadalafil) within 48 hours
[facility] Medication administered onsite 1 ML heparin sodium, porcine 1000 UNT/ML Injection heparin (porcine) injection 100-5,000 Units heparin (porcine) injection 100-5,000 Units 06/09/2020 12:11:39 AM EDT Intravenous aborted 100- 5,000 Units, Intravenous, As needed, other, Starting Brigette 06/09/20 at 0011
Round dose to nearest 100 unitsaPTT:< 34 Bolus: 60 units/kg IV (Maximum bolus: 5,000 units) 34 - 50 Bolus: 30 units/kg IV (Maximum bolus: 5,000 units)
[facility] Medication administered onsite 50 mg 06/03/2020 12:00:00 AM EDT tablet 30 TAKE ONE TABLET BY MOUTH EVERY DAY TAKE ONE TABLET BY MOUTH EVERY DAY SOLD: 06/04/2020 [facility] 10 mg 06/03/2020 12:00:00 AM EDT tablet 30 TAKE ONE TABLET BY MOUTH EVERY DAY TAKE ONE TABLET BY MOUTH EVERY DAY SOLD: 06/04/2020 [facility] 800 mg 04/01/2020 12:00:00 AM EDT tablet 60 TAKE ONE TABLET BY MOUTH THREE TIMES A DAY NEEDED WITH FOOD TAKE ONE TABLET BY MOUTH THREE TIMES A D AY NEEDED WITH FOOD SOLD: 05/22/2020 [facility] 800 mg 04/01/2020 12:00:00 AM EDT tablet 60 TAKE ONE TABLET BY MOUTH THREE TIMES A DAY NEEDED WITH FOOD TAKE ONE TABLET BY MOUTH THREE TIMES A D AY NEEDED WITH FOOD SOLD: 06/16/2020 [facility] 800 mg 04/01/2020 12:00:00 AM EDT tablet 60 TAKE ONE TABLET BY MOUTH THREE TIMES A DAY NEEDED WITH FOOD TAKE ONE TABLET BY MOUTH THREE TIMES A D AY NEEDED WITH FOOD SOLD: 04/07/2020 [facility] 800 mg 04/01/2020 12:00:00 AM EDT tablet 60 TAKE ONE TABLET BY MOUTH THREE TIMES A DAY NEEDED WITH FOOD TAKE ONE TABLET BY MOUTH THREE TIMES A D AY NEEDED WITH FOOD SOLD: 04/27/2020 [facility] 21 mg/24 hr 03/03/2020 12:00:00 AM EDT patch 24 hour 28 APPLY ONE PATCH TO THE SKIN EVERY DAY ROTATE SITE DAILY APPLY ONE PATCH TO THE SKIN EVERY DAY ROTATE SITE DAILY SOLD: 03/07/2020 [facility] 21 mg/24 hr 03/03/2020 12:00:00 AM EDT patch 24 hour 28 APPLY ONE PATCH TO THE SKIN EVERY DAY ROTATE SITE DAILY APPLY ONE PATCH TO THE SKIN EVERY DAY ROTATE SITE DAILY SOLD: 04/27/2020 [facility] 0.1 % 03/02/2020 12:00:00 AM EDT ointment 15 APPLY TWO TIMES A DAY TO PSORIASIS AREAS ON FACE APPLY TWO TIMES A DAY TO PSORIASIS AREAS ON FACE SOLD: 03/02/2020 [facility] 0.1 % 03/02/2020 12:00:00 AM EDT ointment 15 APPLY TWO TIMES A DAY TO PSORIASIS AREAS ON FACE APPLY TWO TIMES A DAY TO PSORIASIS AREAS ON FACE SOLD: 03/30/2020 [facility] 0.05 % 02/29/2020 12:00:00 AM EDT gel 50 APPLY TO SCALP RASH TWO TIMES A DAY ; DO NOT USE ON FACE APPLY TO SCALP RASH TWO TIMES A DAY ; DO NOT USE ON FA CE SOLD: 03/02/2020 [facility] Rifampin 300 MG Oral Capsule Rifampin 300 MG 02/29/2020 12:00:00 AM EDT active 2 capsule eCW1 (Formerly [facility]) 300 mg 02/29/2020 12:00:00 AM EDT capsule 60 TAKE TWO CAPSULES BY MOUTH EVERY DAY TAKE TWO CAPSULES BY MOUTH EVERY DAY SOLD: 03/30/2020 [facility] prednicarbate 0.001 MG/MG Topical Ointment Prednicarba te 0.1 % Prednicarbate 0.1 % 02/29/2020 12:00:00 AM EDT active 1 application [email or web address] (Formerly [facility]) 0.05 % 02/29/2020 12:00:00 AM EDT gel 50 APPLY TO SCALP RASH TWO TIMES A DAY ; DO NOT USE ON FACE APPLY TO SCALP RASH TWO TIMES A DAY ; DO NOT USE ON FA CE SOLD: 04/27/2020 [facility] 300 mg 02/29/2020 12:00:00 AM EDT capsule 60 TAKE TWO CAPSULES BY MOUTH EVERY DAY TAKE TWO CAPSULES BY MOUTH EVERY DAY SOLD: 03/02/2020 [facility] 300 mg 02/29/2020 12:00:00 AM EDT capsule 60 TAKE TWO CAPSULES BY MOUTH EVERY DAY TAKE TWO CAPSULES BY MOUTH EVERY DAY SOLD: 05/27/2020 [facility] 300 mg 02/29/2020 12:00:00 AM EDT capsule 60 TAKE TWO CAPSULES BY MOUTH EVERY DAY TAKE TWO CAPSULES BY MOUTH EVERY DAY SOLD: 04/27/2020 [facility] 0.05 % 02/29/2020 12:00:00 AM EDT gel 50 APPLY TO SCALP RASH TWO TIMES A DAY ; DO NOT USE ON FACE APPLY TO SCALP RASH TWO TIMES A DAY ; DO NOT USE ON FA CE SOLD: 08/17/2020 [facility] 0.05 % 02/29/2020 12:00:00 AM EDT gel 50 APPLY TO SCALP RASH TWO TIMES A DAY ; DO NOT USE ON FACE APPLY TO SCALP RASH TWO TIMES A DAY ; DO NOT USE ON FA CE SOLD: 03/30/2020 [facility] 50 mg 02/26/2020 12:00:00 AM EDT tablet 30 TAKE ONE TABLET BY MOUTH EVERY DAY TAKE ONE TABLET BY MOUTH EVERY DAY SOLD: 04/27/2020 [facility] 50 mg 02/26/2020 12:00:00 AM EDT tablet 30 TAKE ONE TABLET BY MOUTH EVERY DAY TAKE ONE TABLET BY MOUTH EVERY DAY SOLD: 02/29/2020 [facility] 50 mg 02/26/2020 12:00:00 AM EDT tablet 30 TAKE ONE TABLET BY MOUTH EVERY DAY TAKE ONE TABLET BY MOUTH EVERY DAY SOLD: 03/30/2020 [facility] 10 mg 01/25/2020 12:00:00 AM EDT tablet 30 TAKE ONE TABLET BY MOUTH EVERY DAY TAKE ONE TABLET BY MOUTH EVERY DAY SOLD: 01/25/2020 [facility] 10 mg 01/25/2020 12:00:00 AM EDT tablet 30 TAKE ONE TABLET BY MOUTH EVERY DAY TAKE ONE TABLET BY MOUTH EVERY DAY SOLD: 03/02/2020 [facility] 10 mg 01/25/2020 12:00:00 AM EDT tablet 30 TAKE ONE TABLET BY MOUTH EVERY DAY TAKE ONE TABLET BY MOUTH EVERY DAY SOLD: 04/27/2020 [facility] 10 mg 01/25/2020 12:00:00 AM EDT tablet 30 TAKE ONE TABLET BY MOUTH EVERY DAY TAKE ONE TABLET BY MOUTH EVERY DAY SOLD: 03/30/2020 [facility] 0.05 % 01/18/2020 12:00:00 AM EDT gel 50 APPLY TO THE AFFECTED AREA OF FACE AND SCALP TWO TIMES A DAY APPLY TO THE AFFECTED AREA OF FACE AND S CALP TWO TIMES A DAY SOLD: 01/20/2020 [facility] 40 mg 12/26/2019 12:00:00 AM EST capsule,delayed release (DR/EC) 30 TAKE ONE CAPSULE BY MOUTH EVERY DAY TAKE ONE CAPSULE BY MOUTH EVERY DAY SOLD: 06/19/2020 [facility] 800 mg 12/26/2019 12:00:00 AM EST tablet 60 TAKE ONE TABLET BY MOUTH THREE TIMES A DAY NEEDED WITH FOOD TAKE ONE TABLET BY MOUTH THREE TIMES A D AY NEEDED WITH FOOD SOLD: 03/11/2020 [facility] 40 mg 12/26/2019 12:00:00 AM EST capsule,delayed release (DR/EC) 30 TAKE ONE CAPSULE BY MOUTH EVERY DAY TAKE ONE CAPSULE BY MOUTH EVERY DAY SOLD: 07/20/2020 [facility] 40 mg 12/26/2019 12:00:00 AM EST capsule,delayed release (DR/EC) 30 TAKE ONE CAPSULE BY MOUTH EVERY DAY TAKE ONE CAPSULE BY MOUTH EVERY DAY SOLD: 08/17/2020 [facility] 800 mg 12/26/2019 12:00:00 AM EST tablet 60 TAKE ONE TABLET BY MOUTH THREE TIMES A DAY NEEDED WITH FOOD TAKE ONE TABLET BY MOUTH THREE TIMES A D AY NEEDED WITH FOOD SOLD: 01/20/2020 [facility] 800 mg 12/26/2019 12:00:00 AM EST tablet 60 TAKE ONE TABLET BY MOUTH THREE TIMES A DAY NEEDED WITH FOOD TAKE ONE TABLET BY MOUTH THREE TIMES A D AY NEEDED WITH FOOD SOLD: 12/29/2019 [facility] 800 mg 12/26/2019 12:00:00 AM EST tablet 60 TAKE ONE TABLET BY MOUTH THREE TIMES A DAY NEEDED WITH FOOD TAKE ONE TABLET BY MOUTH THREE TIMES A D AY NEEDED WITH FOOD SOLD: 02/18/2020 [facility] 40 mg 12/26/2019 12:00:00 AM EST capsule,delayed release (DR/EC) 30 TAKE ONE CAPSULE BY MOUTH EVERY DAY TAKE ONE CAPSULE BY MOUTH EVERY DAY SOLD: 12/29/2019 [facility] 50 mg 11/26/2019 12:00:00 AM EST tablet 30 TAKE ONE TABLET BY MOUTH EVERY DAY TAKE ONE TABLET BY MOUTH EVERY DAY SOLD: 12/03/2019 [facility] 50 mg 11/26/2019 12:00:00 AM EST tablet 30 TAKE ONE TABLET BY MOUTH EVERY DAY TAKE ONE TABLET BY MOUTH EVERY DAY SOLD: 01/25/2020 [facility] 50 mg 11/26/2019 12:00:00 AM EST tablet 30 TAKE ONE TABLET BY MOUTH EVERY DAY TAKE ONE TABLET BY MOUTH EVERY DAY SOLD: 01/01/2020 [facility] 21 mg/24 hr 10/28/2019 12:00:00 AM EST patch 24 hour 28 APPLY 1 PATCH DAILY , MAY ROTATE SITE DAILY APPLY 1 PATCH DAILY , MAY ROTATE SITE DAILY SOLD: 11/25/2019 [facility] 800 mg 09/07/2019 12:00:00 AM EDT tablet 60 TAKE ONE TABLET BY MOUTH THREE TIMES A DAY NEEDED WITH FOOD TAKE ONE TABLET BY MOUTH THREE TIMES A D AY NEEDED WITH FOOD SOLD: 11/25/2019 [facility] 10 mg 08/27/2019 12:00:00 AM EDT tablet 30 TAKE ONE TABLET BY MOUTH EVERY DAY TAKE ONE TABLET BY MOUTH EVERY DAY SOLD: 12/24/2019 [facility] 10 mg 08/27/2019 12:00:00 AM EDT tablet 30 TAKE ONE TABLET BY MOUTH EVERY DAY TAKE ONE TABLET BY MOUTH EVERY DAY SOLD: 11/25/2019 [facility] Augmented Betamethasone 0.0005 MG/MG Topical Ointment 0.05 % BETAMETHASONE DIPROPIONATE/PROPYLENE GLYCOL 07/30/2019 12:00:00 AM EDT ointment 15 APPLY EXTERNALLY TO BODY AREAS AFFECTED BY PSORIATIC PLAQUES TWO TIMES A DAY APPLY EXTERNALLY TO BODY AREAS AFFECTED BY PSORIATIC PLAQUES TWO TIMES A DAY SOLD: 03/02/2020 [facility] Augmented Betamethasone 0.0005 MG/MG Topical Ointment 0.05 % BETAMETHASONE DIPROPIONATE/PROPYLENE GLYCOL 07/30/2019 12:00:00 AM EDT ointment 15 APPLY EXTERNALLY TO BODY AREAS AFFECTED BY PSORIATIC PLAQUES TWO TIMES A DAY APPLY EXTERNALLY TO BODY AREAS AFFECTED BY PSORIATIC PLAQUES TWO TIMES A DAY SOLD: 04/27/2020 [facility] Augmented Betamethasone 0.0005 MG/MG Topical Ointment 0.05 % BETAMETHASONE DIPROPIONATE/PROPYLENE GLYCOL 07/30/2019 12:00:00 AM EDT ointment 15 APPLY EXTERNALLY TO BODY AREAS AFFECTED BY PSORIATIC PLAQUES TWO TIMES A DAY APPLY EXTERNALLY TO BODY AREAS AFFECTED BY PSORIATIC PLAQUES TWO TIMES A DAY SOLD: 01/20/2020 [facility] Augmented Betamethasone 0.0005 MG/MG Topical Ointment 0.05 % BETAMETHASONE DIPROPIONATE/PROPYLENE GLYCOL 07/30/2019 12:00:00 AM EDT ointment 15 APPLY EXTERNALLY TO BODY AREAS AFFECTED BY PSORIATIC PLAQUES TWO TIMES A DAY APPLY EXTERNALLY TO BODY AREAS AFFECTED BY PSORIATIC PLAQUES TWO TIMES A DAY SOLD: 11/25/2019 [facility] Augmented Betamethasone 0.0005 MG/MG Topical Ointment 0.05 % BETAMETHASONE DIPROPIONATE/PROPYLENE GLYCOL 07/30/2019 12:00:00 AM EDT ointment 15 APPLY EXTERNALLY TO BODY AREAS AFFECTED BY PSORIATIC PLAQUES TWO TIMES A DAY APPLY EXTERNALLY TO BODY AREAS AFFECTED BY PSORIATIC PLAQUES TWO TIMES A DAY SOLD: 03/30/2020 [facility] Augmented Betamethasone 0.0005 MG/MG Topical Ointment 0.05 % BETAMETHASONE DIPROPIONATE/PROPYLENE GLYCOL 07/30/2019 12:00:00 AM EDT ointment 15 APPLY EXTERNALLY TO BODY AREAS AFFECTED BY PSORIATIC PLAQUES TWO TIMES A DAY APPLY EXTERNALLY TO BODY AREAS AFFECTED BY PSORIATIC PLAQUES TWO TIMES A DAY SOLD: 12/24/2019 [facility] 0.05 % 07/30/2019 12:00:00 AM EDT gel 50 APPLY TO AFFECTED AREA(S) OF FACE AND SCALP TWO TIMES A DAY FOR 30 DAYS APPLY TO AFFECTED AREA(S) OF FACE AND SCALP TWO TIMES A DAY FOR 30 DAYS SOLD: 12/24/2019 [facility] 0.05 % 07/30/2019 12:00:00 AM EDT gel 50 APPLY TO AFFECTED AREA(S) OF FACE AND SCALP TWO TIMES A DAY FOR 30 DAYS APPLY TO AFFECTED AREA(S) OF FACE AND SCALP TWO TIMES A DAY FOR 30 DAYS SOLD: 11/25/2019 [facility] Augmented Betamethasone 0.0005 MG/MG Topical Ointment 0.05 % BETAMETHASONE DIPROPIONATE/PROPYLENE GLYCOL 07/30/2019 12:00:00 AM EDT ointment 15 APPLY EXTERNALLY TO BODY AREAS AFFECTED BY PSORIATIC PLAQUES TWO TIMES A DAY APPLY EXTERNALLY TO BODY AREAS AFFECTED BY PSORIATIC PLAQUES TWO TIMES A DAY SOLD: 04/13/2020 [facility] 0.1 % 07/10/2019 12:00:00 AM EDT cream 15 APPLY TO AFFECTED AREA(S) TWO TIMES A DAY NEEDED APPLY TO AFFECTED AREA(S) TWO TIMES A DAY NEEDED SO LD: 03/30/2020 [facility] 0.1 % 07/10/2019 12:00:00 AM EDT cream 15 APPLY TO AFFECTED AREA(S) TWO TIMES A DAY NEEDED APPLY TO AFFECTED AREA(S) TWO TIMES A DAY NEEDED SO LD: 11/25/2019 [facility] 0.1 % 07/10/2019 12:00:00 AM EDT cream 15 APPLY TO AFFECTED AREA(S) TWO TIMES A DAY NEEDED APPLY TO AFFECTED AREA(S) TWO TIMES A DAY NEEDED SO LD: 12/24/2019 [facility] 0.1 % 07/10/2019 12:00:00 AM EDT cream 15 APPLY TO AFFECTED AREA(S) TWO TIMES A DAY NEEDED APPLY TO AFFECTED AREA(S) TWO TIMES A DAY NEEDED SO LD: 04/27/2020 [facility] 0.1 % 07/10/2019 12:00:00 AM EDT cream 15 APPLY TO AFFECTED AREA(S) TWO TIMES A DAY NEEDED APPLY TO AFFECTED AREA(S) TWO TIMES A DAY NEEDED SO LD: 03/02/2020 [facility] 40 mg 07/10/2019 12:00:00 AM EDT capsule,delayed release (DR/EC) 30 TAKE ONE CAPSULE BY MOUTH EVERY DAY TAKE ONE CAPSULE BY MOUTH EVERY DAY SOLD: 11/25/2019 [facility] 0.1 % 07/10/2019 12:00:00 AM EDT cream 15 APPLY TO AFFECTED AREA(S) TWO TIMES A DAY NEEDED APPLY TO AFFECTED AREA(S) TWO TIMES A DAY NEEDED SO LD: 01/20/2020 [facility] Amlodipine 10 MG Oral Tablet amLODIPine (NORVASC) 10 M G tablet amLODIPine (NORVASC) 10 MG tablet 10 mg Oral aborted T gurdeep 10 mg by mouth daily [facility] Ibuprofen 800 MG Oral Tablet ibuprofen (ADVIL,MOTRIN) 800 MG tablet ibuprofen (ADVIL,MOTRIN) 800 MG tablet 800 mg Oral aborted Take 800 mg by mouth 3 (three) times a day as needed [facility] Rifampin 300 MG Oral Capsule rifampin (RIFADIN) 300 MG capsule rifampin (RIFADIN) 300 MG capsule 600 mg Oral aborted Take 600 mg by mouth daily [facility] Trazodone Hydrochloride 50 MG Oral Tablet traZODone (D ESYREL) 50 MG tablet traZODone (DESYREL) 50 MG tablet 50 mg Oral abort ed Take 50 mg by mouth nightly [facility] Rifampin 300 MG Oral Capsule rifampin (RIFADIN) 300 MG capsule rifampin (RIFADIN) 300 MG capsule 300 mg Oral aborted Take 300 mg by mouth 2 (two) times a day [facility] Insurance Providers Payer name Policy type / Coverage type Policy ID Covered alliance party ID Covered alliance party's relationship to corado Policy [place] Plan Information [facility] [id number] SP [id number] Medicaid S [id number] S [id number] Managed Care [facility] Community Plan P [id number] S [id number] [facility] O [id number] S [id number] [facility] [id number] SP [id number] Medicaid S [id number] [facility] MEDICAID [id number] Carissa [id number] [facility] MEDICAID [id number] 1 Managed Care - [facility] Community Plan P [id number] S [id number] Managed Care - Community Plan [facility] P [id number] S [id number] [facility] [employer] Maintenance Organization (HMO) [id number] Self [id number] Problems, Conditions, and Diagnoses Code Display Name Description Problem Type Effective Dates Data Source(s) V04.81 Needs influenza immunization Needs influenza immunizat ion 07/28/2020 10:47:25 AM EDT [facility] V12.59 History of myocardial infarction History of myocardial infarction 06/23/2020 11:21:53 AM EDT [facility] [id number] Unspecified atrial fibrillation Unspecified atrial fib rillation 06/23/2020 11:21:53 AM EDT [facility] I50.41 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 combined systolic (congestive) and diastolic (congestive) heart failure 06/23/2020 11:21:53 AM EDT [facility] V85.1 BMI 23.0-23.9 BMI 23.0-23.9 06/23/2020 11:21:53 AM EDT [facility] R93.1 Cardiac LV ejection fraction 21-30% Cardiac LV e jection fraction 21-30% [id number] 06/16/2020 12:00:00 AM EDT [facility] I50.43 Acute on chronic combined sy stolic (congestive) and diastolic (congestive) heart failure Acute on chronic combined systolic (angelita estive) and diastolic (congestive) heart failure [id number] 06/10/2020 12:00:00 AM EDT [facility] N17.9 KELI (acute kidney injury) KELI (acute kidney injury) [id number] 06/09/2020 12:00:00 AM EDT [facility] F17.210 Cigarette nicotine dependence without co mplication Cigarette nicotine dependence without complication [id number] 06/09/2020 12:00:00 AM EDT [facility] F19.10 Polysubstance abuse Polysubstance abuse [id number] 06/09/2020 12:00:00 AM EDT [facility] F10.10 Alcohol abuse Alcohol abuse [id number] 06/09/2020 12:00:00 AM EDT [facility] [facility] I48.91 New onset a-fib New onset a-fib [id number] 06/09/2020 12:0 0:00 AM EDT [facility] I50.33 Acute on chronic diastolic congestive he art failure Acute on chronic diastolic congestive heart failure [id number] 06/09/2020 12:00:00 AM ED T [facility] I50.43 Acute on chronic combined sy stolic (congestive) and diastolic (congestive) heart failure Acute on chronic combined systolic (angelita Diagnosis 06/23/2020 08:21:30 AM EDT [facility] I50.33 Acute on chronic diastolic (congestive) heart failure Acute on chronic diastolic (congestive) Diagnosis 06/23/2020 08:21:30 AM EDT [facility] I48.91 Unspecified atrial fibrillation Unspecified atri al fibrillation Diagnosis 06/23/2020 08:21:30 AM EDT [facility] R57.0 Cardiogenic shock Cardiogenic shock Diagnosis 06/09/2020 12:26:45 AM EDT [facility] I21.9 Acute myocardial infarction, unspecified Acute myocardial infarction, unspecified Diagnosis 06/09/2020 12:26:45 AM EDT [facility] I21.3 ST elevation (STEMI) myocardial infarcti on of unspecified site ST elevation (STEMI) myocardial infarcti Diagnosis 06/09/2020 12:26:45 AM EDT [facility] Surgeries/Procedures Procedure Description Date Indications Data Source(s) BLOOD COUNT COMPLETE AUTOMATED CBC Add-On 06/16/2020 8:01 A M EDT 06/16/2020 12:01:00 PM EDT [facility] BASIC METABOLIC PANEL CALCIUM TOTAL BASIC METABOLIC PANEL Routi ne 06/16/2020 8:01 AM EDT 06/16/2020 12:01:00 PM EDT [facility] GLUC BLD GLUC MNTR DEV CLEARED FDA SPEC HOME USE POCT GLUCOSE Routine 06/16/2020 4:28 AM EDT 06/16/2020 08:28:00 AM EDT [facility] SWALLOWING FUNCJ W/CINERADIOGRAPY/VIDRADIOG XR MOD BARIUM SWALL OW Routine 06/15/2020 1:47 PM EDT 06/15/2020 05:47:36 PM EDT [facility] GLUC BLD GLUC MNTR DEV CLEARED FDA SPEC HOME USE POCT GLUCOSE Routine 06/15/2020 12:44 PM EDT 06/15/2020 04:44:00 PM EDT [facility] CARDIAC CATHETERIZATION CARDIAC CATHETERIZATION Routine 06/15/2020 9:[address] elevation myocardial infarction (STEMI), unspecified artery 06/15/2020 01:55:[address] elevation myocardial infarction (STEMI), unspecified artery [facility] Acute ST elevation myocardial infarction (STEMI), unspecified artery BLOOD COUNT COMPLETE AUTOMATED CBC Routine 06/15/2020 9:01 A M EDT 06/15/2020 01:01:00 PM EDT [facility] ECG ROUTINE ECG W/LEAST 12 LDS TRCG ONLY W/O I&R ECG 12-LEAD Routine 06/15/2020 5:34 AM EDT 06/15/2020 09:34:49 AM EDT [facility] GLUC BLD GLUC MNTR DEV CLEARED FDA SPEC HOME USE POCT GLUCOSE Routine 06/15/2020 5:24 AM EDT 06/15/2020 09:24:00 AM EDT [facility] THROMBOPLASTIN TIME PARTIAL PLASMA/WHOLE BLOOD APTT Routine 06/15/2020 5:01 AM EDT 06/15/2020 09:01:00 AM EDT [facility] PROTHROMBIN TIME PROTIME-INR Routine 06/15/2020 5:01 AM EDT 06/15/2020 09:01:00 AM EDT [facility] BASIC METABOLIC PANEL CALCIUM TOTAL BASIC METABOLIC PANEL Add-O n 06/15/2020 5:01 AM EDT 06/15/2020 09:01:00 AM EDT [facility] GLUC BLD GLUC MNTR DEV CLEARED FDA SPEC HOME USE POCT GLUCOSE Routine 06/14/2020 11:25 PM EDT 06/15/2020 03:25:00 AM EDT [facility] XR CHEST PORTABLE XR CHEST PORTABLE Routine 06/14/2020 6:58 PM EDT 06/14/2020 10:58:11 PM EDT [facility] GLUC BLD GLUC MNTR DEV CLEARED FDA SPEC HOME USE POCT GLUCOSE Routine 06/14/2020 5:25 PM EDT 06/14/2020 09:25:00 PM EDT [facility] GLUC BLD GLUC MNTR DEV CLEARED FDA SPEC HOME USE POCT GLUCOSE Routine 06/14/2020 12:47 PM EDT 06/14/2020 04:47:00 PM EDT [facility] GLUC BLD GLUC MNTR DEV CLEARED FDA SPEC HOME USE POCT GLUCOSE Routine 06/14/2020 5:03 AM EDT 06/14/2020 09:03:00 AM EDT [facility] NT PRO BNP NT PRO BNP STAT 06/14/2020 4:25 AM EDT 06/14/2020 08:25:00 AM EDT [facility] BLOOD COUNT COMPLETE AUTOMATED CBC Timed 06/14/2020 4:25 A M EDT 06/14/2020 08:25:00 AM EDT [facility] BASIC METABOLIC PANEL CALCIUM TOTAL BASIC METABOLIC PANEL Timed 06/14/2020 4:25 AM EDT 06/14/2020 08:25:00 AM EDT [facility] GLUC BLD GLUC MNTR DEV CLEARED FDA SPEC HOME USE POCT GLUCOSE Routine 06/13/2020 11:55 PM EDT 06/14/2020 03:55:00 AM EDT [facility] GLUC BLD GLUC MNTR DEV CLEARED FDA SPEC HOME USE POCT GLUCOSE Routine 06/13/2020 7:31 PM EDT 06/13/2020 11:31:00 PM EDT [facility] GLUC BLD GLUC MNTR DEV CLEARED FDA SPEC HOME USE POCT GLUCOSE Routine 06/13/2020 12:25 PM EDT 06/13/2020 04:25:00 PM EDT [facility] GLUC BLD GLUC MNTR DEV CLEARED FDA SPEC HOME USE POCT GLUCOSE Routine 06/13/2020 8:25 AM EDT 06/13/2020 12:25:00 PM EDT [facility] BLOOD COUNT COMPLETE AUTOMATED CBC Timed 06/13/2020 3:00 A M EDT 06/13/2020 07:00:00 AM EDT [facility] DRUG SCREEN QUALITATIVE DIGOXIN DIGOXIN LEVEL Routine 020 3:00 AM EDT 06/13/2020 07:00:00 AM EDT [facility] BASIC METABOLIC PANEL CALCIUM TOTAL BASIC METABOLIC PANEL Timed 06/13/2020 3:00 AM EDT 06/13/2020 07:00:00 AM EDT [facility] GLUC BLD GLUC MNTR DEV CLEARED FDA SPEC HOME USE POCT GLUCOSE Routine 06/12/2020 7:59 PM EDT 06/12/2020 11:59:00 PM EDT [facility] GLUC BLD GLUC MNTR DEV CLEARED FDA SPEC HOME USE POCT GLUCOSE Routine 06/12/2020 12:06 PM EDT 06/12/2020 04:06:00 PM EDT [facility] XR CHEST PORTABLE XR CHEST PORTABLE Routine 06/12/2020 6:45 AM EDT 06/12/2020 10:45:29 AM EDT [facility] GLUC BLD GLUC MNTR DEV CLEARED FDA SPEC HOME USE POCT GLUCOSE Routine 06/12/2020 5:45 AM EDT 06/12/2020 09:45:00 AM EDT [facility] THROMBOPLASTIN TIME PARTIAL PLASMA/WHOLE BLOOD APTT Routine 06/12/2020 3:20 AM EDT 06/12/2020 07:20:00 AM EDT [facility] BLOOD COUNT COMPLETE AUTOMATED CBC Timed 06/12/2020 3:20 A M EDT 06/12/2020 07:20:00 AM EDT [facility] BASIC METABOLIC PANEL CALCIUM TOTAL BASIC METABOLIC PANEL Timed 06/12/2020 3:20 AM EDT 06/12/2020 07:20:00 AM EDT [facility] GLUC BLD GLUC MNTR DEV CLEARED FDA SPEC HOME USE POCT GLUCOSE Routine 06/11/2020 11:37 PM EDT 06/12/2020 03:37:00 AM EDT [facility] GLUC BLD GLUC MNTR DEV CLEARED FDA SPEC HOME USE POCT GLUCOSE Routine 06/11/2020 8:14 PM EDT 06/12/2020 12:14:00 AM EDT [facility] GLUC BLD GLUC MNTR DEV CLEARED FDA SPEC HOME USE POCT GLUCOSE Routine 06/11/2020 5:27 PM EDT 06/11/2020 09:27:00 PM EDT [facility] THROMBOPLASTIN TIME PARTIAL PLASMA/WHOLE BLOOD APTT Routine 06/11/2020 5:26 PM EDT 06/11/2020 09:26:00 PM EDT [facility] GLUC BLD GLUC MNTR DEV CLEARED FDA SPEC HOME USE POCT GLUCOSE Routine 06/11/2020 11:18 AM EDT 06/11/2020 03:18:00 PM EDT [facility] THROMBOPLASTIN TIME PARTIAL PLASMA/WHOLE BLOOD APTT Routine 06/11/2020 11:16 AM EDT 06/11/2020 03:16:00 PM EDT [facility] GLUC BLD GLUC MNTR DEV CLEARED FDA SPEC HOME USE POCT GLUCOSE Routine 06/11/2020 5:03 AM EDT 06/11/2020 09:03:00 AM EDT [facility] TROPONIN QUANTITATIVE TROPONIN I Routine 06/11/2020 3:11 AM EDT 06/11/2020 07:11:00 AM EDT [facility] THROMBOPLASTIN TIME PARTIAL PLASMA/WHOLE BLOOD APTT Routine 06/11/2020 3:11 AM EDT 06/11/2020 07:11:00 AM EDT [facility] BLOOD COUNT COMPLETE AUTOMATED CBC Timed 06/11/2020 3:11 A M EDT 06/11/2020 07:11:00 AM EDT [facility] BASIC METABOLIC PANEL CALCIUM TOTAL BASIC METABOLIC PANEL Routi ne 06/11/2020 3:11 AM EDT 06/11/2020 07:11:00 AM EDT [facility] GLUC BLD GLUC MNTR DEV CLEARED FDA SPEC HOME USE POCT GLUCOSE Routine 06/10/2020 11:28 PM EDT 06/11/2020 03:28:00 AM EDT [facility] GLUC BLD GLUC MNTR DEV CLEARED FDA SPEC HOME USE POCT GLUCOSE Routine 06/10/2020 11:26 PM EDT 06/11/2020 03:26:00 AM EDT [facility] THROMBOPLASTIN TIME PARTIAL PLASMA/WHOLE BLOOD APTT STAT 06/10/2020 6:47 PM EDT 06/10/2020 10:47:00 PM EDT [facility] GLUC BLD GLUC MNTR DEV CLEARED FDA SPEC HOME USE POCT GLUCOSE Routine 06/10/2020 5:58 PM EDT 06/10/2020 09:58:00 PM EDT [facility] LACTATE LACTIC ACID Timed 06/10/2020 3:26 PM EDT 06/10/2020 07:26:00 PM EDT [facility] COMPREHENSIVE METABOLIC PANEL COMPREHENSIVE METABOLIC PANEL Rou zeny 06/10/2020 3:26 PM EDT 06/10/2020 07:26:00 PM EDT [facility] TROPONIN QUANTITATIVE TROPONIN I Routine 06/10/2020 1:00 PM EDT 06/10/2020 05:00:00 PM EDT [facility] THROMBOPLASTIN TIME PARTIAL PLASMA/WHOLE BLOOD APTT STAT 06/10/2020 1:00 PM EDT 06/10/2020 05:00:00 PM EDT [facility] GLUC BLD GLUC MNTR DEV CLEARED FDA SPEC HOME USE POCT GLUCOSE Routine 06/10/2020 12:06 PM EDT 06/10/2020 04:06:00 PM EDT [facility] TROPONIN QUANTITATIVE TROPONIN I Routine 06/10/2020 8:41 AM EDT 06/10/2020 12:41:00 PM EDT [facility] POTASSIUM SERUM PLASMA/WHOLE BLOOD POTASSIUM Routine 06/10/2020 8:41 AM EDT 06/10/2020 12:41:00 PM EDT [facility] THROMBOPLASTIN TIME PARTIAL PLASMA/WHOLE BLOOD APTT STAT 06/10/2020 2:44 AM EDT 06/10/2020 06:44:00 AM EDT [facility] BLOOD COUNT COMPLETE AUTOMATED CBC Timed 06/10/2020 2:44 A M EDT 06/10/2020 06:44:00 AM EDT [facility] PHOSPHORUS INORGANIC PHOSPHORUS Routine 06/10/2020 2:44 AM EDT 06/10/2020 06:44:00 AM EDT [facility] MAGNESIUM MAGNESIUM Routine 06/10/2020 2:44 AM EDT 06/10/2020 06:44:00 AM EDT [facility] HEMOGLOBIN GLYCOSYLATED A1C HEMOGLOBIN A1C Add-On 06/10/2020 2:44 AM EDT 06/10/2020 06:44:00 AM EDT [facility] BASIC METABOLIC PANEL CALCIUM TOTAL BASIC METABOLIC PANEL Routi ne 06/10/2020 2:44 AM EDT 06/10/2020 06:44:00 AM EDT [facility] GLUC BLD GLUC MNTR DEV CLEARED FDA SPEC HOME USE POCT GLUCOSE Routine 06/10/2020 1:03 AM EDT 06/10/2020 05:03:00 AM EDT [facility] GLUC BLD GLUC MNTR DEV CLEARED FDA SPEC HOME USE POCT GLUCOSE Routine 06/09/2020 6:34 PM EDT 06/09/2020 10:34:00 PM EDT [facility] THROMBOPLASTIN TIME PARTIAL PLASMA/WHOLE BLOOD APTT STAT 06/09/2020 6:30 PM EDT 06/09/2020 10:30:00 PM EDT [facility] GLUC BLD GLUC MNTR DEV CLEARED FDA SPEC HOME USE POCT GLUCOSE Routine 06/09/2020 4:44 PM EDT 06/09/2020 08:44:00 PM EDT [facility] BASIC METABOLIC PANEL CALCIUM TOTAL BASIC METABOLIC PANEL Routi ne 06/09/2020 3:16 PM EDT 06/09/2020 07:16:00 PM EDT [facility] XR CHEST PORT POST LINE PLCMNT-BIOPSY OR OTHER PROCEDU RE XR CHEST PORT POST LINE PLCMNT-BIOPSY OR OTHER PROCEDURE STAT 06/09/2020 1:21 PM EDT 06/09/2020 05:21:14 PM EDT [facility] ECHO TTHRC R-T 2D W/WOM-MODE COMPL SPEC&COLR DOP ECHOCARDIO GRAM TRANSTHORACIC Routine 06/09/2020 12:21 PM EDT 06/09/2020 04:21:57 PM EDT [facility] THROMBOPLASTIN TIME PARTIAL PLASMA/WHOLE BLOOD APTT STAT 06/09/2020 11:36 AM EDT 06/09/2020 03:36:00 PM EDT [facility] TROPONIN QUANTITATIVE TROPONIN I Timed 06/09/2020 9:12 AM EDT 06/09/2020 01:12:00 PM EDT [facility] LACTATE LACTIC ACID STAT 06/09/2020 9:12 AM EDT 06/09/2020 01:12:00 PM EDT [facility] GLUC BLD GLUC MNTR DEV CLEARED FDA SPEC HOME USE POCT GLUCOSE Routine 06/09/2020 9:10 AM EDT 06/09/2020 01:10:00 PM EDT [facility] POC ARTERIAL BLOOD GAS POC ARTERIAL BLOOD GAS Routine 020 7:23 AM EDT 06/09/2020 11:23:00 AM EDT [facility] XR CHEST PORTABLE XR CHEST PORTABLE STAT 06/09/2020 7:11 AM EDT 06/09/2020 11:11:02 AM EDT [facility] TROPONIN QUANTITATIVE TROPONIN I Timed 06/09/2020 5:53 AM EDT 06/09/2020 09:53:00 AM EDT [facility] ECG ROUTINE ECG W/LEAST 12 LDS TRCG ONLY W/O I&R ECG 12-LEAD STAT 06/09/2020 3:54 AM EDT 06/09/2020 07:54:43 AM EDT [facility] LACTATE LACTIC ACID Timed 06/09/2020 3:46 AM EDT 06/09/2020 07:46:00 AM EDT [facility] TROPONIN QUANTITATIVE TROPONIN I Routine 06/09/2020 3:45 AM EDT 06/09/2020 07:45:00 AM EDT [facility] THROMBOPLASTIN TIME PARTIAL PLASMA/WHOLE BLOOD APTT Routine 06/09/2020 3:45 AM EDT 06/09/2020 07:45:00 AM EDT [facility] URINE CULTURE HOLD SPECIMEN URINE CULTURE HOLD SPECIMEN Routine 06/09/2020 1:49 AM EDT 06/09/2020 05:49:00 AM EDT [facility] DRUG SCR QUAL 1 DRUG CLASS METH EA DRUG CLASS DRUGS O F ABUSE, URINE (STAT, ER/INPATIENT) Routine 06/09/2020 1:49 AM EDT 06/09/2020 0 5:49:00 AM EDT [facility] CMB CMB STAT 06/09/2020 1:47 AM EDT 06/09/20 20 05:47:00 AM EDT [facility] NT PRO BNP NT PRO BNP STAT 06/09/2020 1:47 AM EDT 06/09/2020 05:47:00 AM EDT [facility] TROPONIN QUANTITATIVE TROPONIN I STAT 06/09/2020 1:47 AM EDT 06/09/2020 05:47:00 AM EDT [facility] BLOOD COUNT COMPLETE AUTO&AUTO DIFRNTL WBC COUNT CBC AND DIFFER ENTIAL STAT 06/09/2020 1:47 AM EDT 06/09/2020 05:47:00 AM EDT [facility] THYROID STIMULATING HORMONE TSH TSH STAT 06/09/2020 1:47 AM EDT 06/09/2020 05:47:00 AM EDT [facility] THYROXINE FREE T4, FREE STAT 06/09/2020 1:47 AM EDT 06/09/2020 05:47:00 AM EDT [facility] PHOSPHORUS INORGANIC PHOSPHORUS STAT 06/09/2020 1:47 AM EDT 06/09/2020 05:47:00 AM EDT [facility] MAGNESIUM MAGNESIUM STAT 06/09/2020 1:47 AM EDT 06/09/2020 05:47:00 AM EDT [facility] LACTATE LACTIC ACID Routine 06/09/2020 1:47 AM EDT 06/09/2020 05:47:00 AM EDT [facility] CREATINE KINASE MB FRACTION ONLY CKMB STAT 06/09/2020 1:47 AM EDT 06/09/2020 05:47:00 AM EDT [facility] CALCIUM IONIZED CALCIUM, IONIZED STAT 06/09/2020 1:47 AM EDT 06/09/2020 05:47:00 AM EDT [facility] ALCOHOL ANY SPECIMEN EXCEPT BREATH ETHANOL STAT 06/09/2020 1: 47 AM EDT 06/09/2020 05:47:00 AM EDT [facility] COMPREHENSIVE METABOLIC PANEL COMPREHENSIVE METABOLIC PANEL STA T 06/09/2020 1:47 AM EDT 06/09/2020 05:47:00 AM EDT [facility] XR CHEST PORTABLE XR CHEST PORTABLE STAT 06/09/2020 1:07 AM EDT 06/09/2020 05:07:18 AM EDT [facility] GLUC BLD GLUC MNTR DEV CLEARED FDA SPEC HOME USE POCT GLUCOSE Routine 06/09/2020 12:24 AM EDT 06/09/2020 04:24:00 AM EDT [facility] LACTATE LACTIC ACID Routine 06/09/2020 12:10 AM EDT 06/09/2020 04:10:00 AM EDT [facility] ECG ROUTINE ECG W/LEAST 12 LDS I&R ONLY ECG 12-LEAD STAT 06/08/2020 11:57 PM EDT 06/09/2020 03:57:07 AM EDT [facility] Results ID Date Data Source [id number] 07/28/2020 09:21:54 AM EDT [facility] Measurements & CalculationsHeight: 67 inches (5 ft. 7 in.) 170.18 cm Weight: 151.6 pounds 68.91 kg Body Mass Index (BMI): 23.83BMI Interpretation: Healthy WeightBody Surface Area (BSA): 1.80Weight Management Education Done (Nutrition/Physical Activity)Vital SignsTemperature: 96.3F 35.72C tympanic Pulse Rate: 71 beats/minuteRespiratory Rate: 16 respirations/minuteBlood Pressure: 119/75 right arm sitting automaticO2 Saturation: 97% room air sittingVital Signs performed by: Shawna Jason MA, July 28, 2020 9:33 AMVital Signs performed by: Shawna Jason MA, July 28, 2020 9:33 AMMultiple Vital SignsInitial BP: 124/90Vitals #2BP: 119/75 (primary)Initial Intake Information From: patientRoom #: 9Infectious Disease / Travel ScreeningRecent travel for you or any close contacts? NoHave you had any close contact with anyone diagnosed with or under investigation for COVID-19 (coronavirus)? NoFever? NoRespiratory symptoms: cough, cold, congestion, shortness of breath, difficulty breathing? NoLoss of smell? NoLoss of taste? NoSmoking, Tobacco, Vaping or Smoke Exposure StatusSmoke Status: current every day smokerTobacco Use: YesAdv to Quit: YesDo you vape? NoPassive Smoke Exposure: NoPassive Smoke Exposure comments: familyHealthcare HistorySince your last office visit...Have you been admitted to the hospital? No - [facility] admission date reported today: 06/16/2020Have you been to an emergency room (ER) or urgent care clinic? No - urgent care for heart burn, psoriasisEmergency room (ER) or urgent care date reported today: 01/13/2019Have you seen another healthcare provider? Yes [facility] you seen a dentist? NoIntake performed by: Shawna Jason MA, July 28, 2020 9:26 AMRate Your HealthIn general, would you say your health is? FairPain AssessmentAre you currently having any pain which... You would like your provider to address? No Affects your activity level? NoDepression Screening - PHQ-2Over the last two weeks, have you... Had little interest or pleasure in doing things? Not at all Been feeling down, depressed, or hopeless? Not at all PHQ-2 Score: 0Anxiety Screening - JOSE-2Over the last two weeks, have you been... Feeling nervous, anxious, or on edge? Not at all Unable to stop or control worrying? Not at all JOSE-2 Score: 0Food InsecurityWithin the past year...Did you worry whether your food would run out before you got money to buy more? Never trueWas there a time when the food you bought didn't last and you didn't have money to get more? Never trueScreening, Brief Intervention, & Referral to Treatment (SBIRT)Pre-Screening Questions How many times have you have 5 or more drinks in a day? 0How many times have you used an illegal drug or used a prescription medication for a non-medical reason? 0Performed by: Shawna Jason MA, July 28, 2020 9:27 AMPatient History Medical History:psoriasiscardiac arreststent in heartSurgical History:left leg stent in heartFamily History:noneSocial/Personal History: Advised to Quit/Tobacco Education: YesChief Complaintfollow-up visit insomniaHistory of Present Illness (HPI)59 YO male here for insomnia follow up. Needs refill on trazodone. Requested flu shot.Pt states tolerating Trazadone well. pt states will continue at same dose for now. . Pt states was recently [facility]. Pt statesn had stent placement. Pt states followed by cardioly, pt states has follow up visit with battery tester next week. Pt states doing well. Pt denies chest pain. Pt denies dizziness. Pt denies sob. Pt denies chest palpitation. Pt states was having blood in stool so only taking blood thinner once daily. HPI performed by: Leslie DIXON, July 28, 2020 10:12 AMTransitions of Care InboundProblem ReviewProblem List was reviewed and/or updated during this visit.Medication Reconciliation & ReviewMedication List was reviewed and/or updated during this visit, including review of any oxwu-nav-riwnfat medications, herbal therapies, and/or supplements.Allergy ReviewAllergy List was reviewed and/or updated during this visit.Adult Preventive CareProvider Calculated and Reviewed all Clinical Protocols for patient today. Screening Tobacco Screening: Smoking Status: current every day smoker (07/28/2020) Tobacco Use: Currently (07/28/2020) Advised to Quit: Yes (07/28/2020)Labs/Meds/Other Counseling- Nutrition and Physical Activity:BMI Interpretation: Healthy Weight (07/28/2020) Counseling: Done (07/28/2020) Physical Activity: Done (07/28/2020)Review of Systems General: Denies loss of appetite, chills, dizziness, fatigue, fever, continued fever, headache, feeling ill, sweats, night sweats, sleep disturbances, weight loss. Eyes: Denies blurring of vision, double vision, irritation, discharge, vision loss, eye pain, eye swelling, droopy eyelid, sensitivity to light, redness, itching. Ears/Nose/Throat: Denies earache, ear d ischarge, ringing in ears, decreased hearing, nasal congestion, nosebleeds, runny nose, sore throat, hoarseness, difficulty swallowing, dry mouth, tooth pain, bleeding gums, swollen glands. Cardiovascular: Denies chest pain, palpitations, feeling faint, trouble breathing w/exertion, SOB upon lying down, SOB at night, peripheral edema, elevated blood pressure, decreased heart rate. Respiratory: Denies cough, difficulty breathing, shortness of breath, excessive sputum, coughing up blood, wheezing, chest pain. Breast: Denies discoloration, tenderness, breast changes, breast lump, nipple discharge. Gastrointestinal: Denies nausea, vomiting, bleeding, burning, itching, irritation, cramps, diarrhea. Genitourinary: Denies urinary incontinence, pain with urination, burning with urination, urinary frequency, urinary hesitancy, urinary urgency, urinary urgency at night, incomplete emptying, blood in urine. Musculoskeletal: Denies back pain, joint pain, leg pain, other pain-see comments, joint swelling, body aches, muscle aches, muscle cramps, muscle weakness, stiffness, recent injury. Skin: Denies rash, hives, redness, itching, dryness, nail changes, suspicious lesions, athlete's foot, rash on palms, rash on bottom of feet. Neurologic: Denies muscle impairment, weakness, numbness/tingling, seizures, slurred speech, feeling faint, tremors, vertigo, paralysis on one side, paralysis on both sides. Psychiatric: Denies depression, anxiety, memory loss, mental disturbance, suicidal ideation, homicidal ideation, hallucinations, paranoia, feeling stressed, hearing voices. Endocrine: Denies cold intolerance, heat intolerance, excessive thirst, excessive hunger, excessive urination, weight loss, weight gain. Physical ExamGeneral Appearance: well nourished, well hydrated, no acute distressEyes, External: conjunctivae and lids normal, EOMIRespiratory, Auscultation: clear to auscultation bilaterally; no rales, rhonchi, or wheezesRespiratory, Effort: no intercostal retractions or use of accessory musclesCardiovascular, Auscultation: S1, S2 audible; no murmur, rub, or gallop; RRRPeripheral Circulation: no clubbing, cyanosis, edema, or varicositiesAbdomen: soft, non-tender, no masses, bowel sounds normalGait & Station: normalSkin, Inspection: no rashes, lesions, or ulcerationsOrientation: oriented to time, place, and personMood & Affect: no depression, anxiety, or agitationJudgment & Insight: intactCare Management Plan Transitions of CareInboundRate Your HealthIn general, would you say your health is? FairAssessment & Plan Problems:Added: Needs influenza immunization (ICD-V04.81) (KMB14-C63.3) Assessment: Instructions: You have had your flu vaccine done today. There may be soreness at the injection site. Please report any adverse reactions.Assessed:Insomnia, unspecified (STP07-K20.00) Assessment: Instructions: Pleae continue medication as prescribed. Please try to avoid nighttime stimullants. try to avoid smoking, cell phone or television 30 minutes to an hour prior to bedtime. May take warm shower or bath prior to bedtime.History of myocardial infarction (ICD-V12.59) (WAF38-B48.2) Assessment: Instructions: Please continue medications as prescribed. Please c ontinue healthy diet and physical activities. Please try to avoid added sodum in your diet. Please report any leg swelling, shortness of bereath, dizziness or chest palpitations. Please report weight gain of 2 pounds daily or 5 pounds weekly.Nicotine dependence, cigarettes, uncomplicated (HDC64-M12.210) Assessment: Pt states smoking 5 cigarettes daily Instructions: Please continue to try cut down on your smoking with a goal to quit smoking. Please let us know if you need additional assistance in doing so.Hypertension (ICD-401.9) (ICD10- I10) Assessment: Instructions: Your Blood Pressure is at goal today. Please continue medication as prescribed. Please continue lifestyle changes to include healthy diet and physical activities. Please try to avoid added sodium in your diet. Please try to avoid processed foods.Health Screening (ICD-V70.0) (ICD10- Z13.9) Assessment: Instructions: fasting labs ordered for you today. Please return prior to your next visit to have labs done. Please fast for 8-10 hours prior.Patient Instructions/Care Plan: Insomnia- unspecified: Pleae continue medication as prescribed. Please try to avoid nighttime stimullants. try to avoid smoking, cell phone or television 30 minutes to an hour prior to bedtime. May take warm shower or bath prior to bedtime.History of myocardial infarction: Please continue medications as prescribed. Please continue healthy diet and ph ysical activities. Please try to avoid added sodum in your diet. Please report any leg swelling, shortness of bereath, dizziness or chest palpitations. Please report weight gain of 2 pounds daily or 5 pounds weekly.Nicotine dependence- cigarettes- uncomplicated: Please continue to try cut down on your smoking with a goal to quit smoking. Please let us know if you need additional assistance in doing so.Hypertension: Your Blood Pressure is at goal today. Please continue medication as prescribed. Please continue lifestyle changes to include healthy diet and physical activities. Please try to avoid added sodium in your diet. Please try to avoid processed foods.Health Screening: fasting labs ordered for you today. Please return prior to your next visit to have labs done. Please fast for 8-10 hours prior.Needs influenza immunization: You have had your flu vaccine done today. There may be soreness at the injection site. Please report any adverse reactions. Plan developed in collaboration with patient and/or familyMedications:NICOTINE 7 MG/24HR TRANSDERMAL PATCH 24 HOURFOLIC ACID 1 MG ORAL TABLETB-1 100 MG ORAL TABLETALTACE 5 MG ORAL CAPSULEKLOR-CON 10 10 MEQ ORAL TABLET EXTENDED RELEASENITROGLYCERIN 0.4 MG SUBLINGUAL TABLET SUBLINGUALMETOPROLOL SUCCINATE ER 100 MG ORAL TABLET EXTENDED RELEASE 24 HOURFUROSEMIDE 40 MG ORAL TABLETANIMI-3/VITAMIN D 1 MG ORAL CAPSULEATORVASTATIN CALCIUM 80 MG ORAL TABLETASPIRIN 81 81 MG ORAL TABLET CHEWABLEELIQUIS 5 MG ORAL TABLETTRAZODONE HCL 100 MG ORAL TABLETOMEPRAZOLE 40 MG ORAL CAPSULE DELAYED RELEASEAllergies:No Known Allergies (updated 06/23/2020) Orders:Administration of Influenza Virus Vaccine [CPT-G0008] COMP METABOLIC PANEL [CPT-18791] CBC W/DIFF [CPT-99766] LIPID PANEL [CPT-05979] TSH [CPT-95254] T-4 free [CPT-57623] Vitamin D 250H Unspecified [CPT-30347] HgBA1c [CPT-15111] PROSTATE CANCER SCREENING; PSA TEST [CPT-G0103] Adult - Ofc Vst, EST, Level IV [CPT-96319] 04530 - Immo Admin (over 19 yrs), 1st Vaccine [CPT-57072] Follow-Up Return to clinic: 4-6 weeks for follow up Clinical Visit Summary CompletedAdult Questionnaire1) Does the patient have a long-term health problem with heart disease, lung disease, asthma, kidney disease, metabolic disease (e.g., diabetes), anemia, or other blood disorder? No2) Does the patient have allergies to medications, food, a vaccine component, or latex? No3) Does the patient have cancer, leukemia, AIDS, or any other immune system problem? No4) Does the patient live with or expect to have close contact with a person whose immune system is severely compromised and who must be in protective isolation (e.g., an isolation room of a bone marrow transplant unit)? No5) Does the patient take cortisone, prednisone, other steroids, or anticancer drugs, or has the patient had radiation treatments? No6) During the past year, has the patient received a transfusion of blood or blood products, or been given immune (gamma) globulin or an antiviral drug? No7) For women: Is the patient or is there a chance she could become during the next month? No8) Has the patient ever had a serious reaction to a vaccine in the past? No9) Has the patient had a seizure or a brain or other nervous system problem? No10) Has the patient received any vaccinations in the past 4 weeks? No11) Is the patient older than age 49 years? No12) Is the patient sick today? No13) Vaccine information given and explained to patient? YesVaccines Administered/Entered:Vaccination Group: InfluenzaSeries: 1Vaccination: Flulaval Quadrivalent Intramuscular Suspension Prefilled Syringe 0.5 MLMfr / Lot# / Exp.Date: [employer] / [id number] 1Amt. Given / Route / Site: 0.5 mL / IM / Left Upper ArmNDC / CVX: [id number] / 150Administered Date: 07/28/2020 11:00VFC Eligibility: Not VFC EligibleVIS Date: 06/25/2019VIS Given / VIS Given On: Yes / 07/28/2020Comments: Administered by: Bárbara Fischer LPN Name Value Range Interpretation Code Description Data Vale rce(s) Supporting Document(s) ID Date Data Source [id number] 06/23/2020 10:47:06 AM EDT [facility] Measurements & CalculationsHeight: 67 inches (5 ft. 7 in.) 170.18 cm Weight: 149 pounds 2 oz. 67.79 kg Body Mass Index (BMI): 23.44BMI Interpretation: Healthy WeightBody Surface Area (BSA): 1.79Weight Management Education Done (Nutrition/Physical Activity)Vital SignsTemperature: 97.4F 36.33C tympanic Pulse Rate: 62 beats/minuteRespiratory Rate: 17 respirations/minuteBlood Pressure: 114/86 right arm sitting automaticO2 Saturation: 98% Vital Signs performed by: Kristina Lemon LPN, June 23, 2020 10:49 AMVital Signs performed by: Dion HIGGINS, June 23, 2020 11:07 AMInitial Intake Information From: patientRoom #: 1Infectious Disease / Travel ScreeningRecent travel for you or any close contacts? NoHave you had any close contact with anyone diagnosed with or under investigation for COVID-19 (coronavirus)? NoFever? NoRespiratory symptoms: cough, cold, congestion, shortness of breath, difficulty breathing? NoLoss of smell? NoLoss of taste? NoSmoking, Tobacco, Vaping or Smoke Exposure StatusSmoke Status: current every day smokerTobacco Use: YesAdv to Quit: YesDo you vape? NoPassive Smoke Exposure: YesHealthcare HistorySince your last office visit...Have you been admitted to the hospital? Yes - [facility] admission date reported today: 06/16/2020Have you been to an emergency room (ER) or urgent care clinic? NoHave you seen another healthcare provider? NoHave you seen a dentist? NoIntake performed by: Kristina Lemon LPN, June 23, 2020 10:50 AMRate Your [facility], would you say your health is? FairPain AssessmentAre you currently having any pain which... You would like your provider to address? No Affects your activity level? NoDepression Screening - PHQ-2Over the last two weeks, have you... Had little interest or pleasure in doing things? Not at all Been feeling down, depressed, or hopeless? Not at all PHQ-2 Score: 0Anxiety Screening - JOSE-2Over the last two weeks, have you been... Feeling nervous, anxious, or on edge? Not at all Unable to stop or control worrying? Not at all JOSE-2 Score: 0Food InsecurityWithin the past year...Did you worry whether your food would run out before you got money to buy more? NoWas there a time when the food you bought didn't last and you didn't have money to get more? NoScreening, Brief Intervention, & Referral to Treatment (SBIRT)Pre-Screening Questions How many times have you have 5 or more drinks in a day? 0How many times have you used an illegal drug or used a prescription medication for a non- medical reason? 0Performed by: Kristina Lemon LPN, June 23, 2020 10:51 AMPatient History Medical History:psoriasisSurgical History:left leg Family History:noneSocial/Personal History: Advised to Quit/Tobacco Education: YesChief Complaintfollow-up visitHistory of Present Illness (HPI)59 yo male presents for hospital d/c.Pt was admitted 06/09-06/16/2020 for acute STEMI, new onset atrial fib , alcohol/substance abuse, and acute on chronic CHF. Pt underwent catheterization, advised lifestyle modification and monitoring, started on metorpolol and Eliquis for a. fib. Pt was seen outpatient this morning by Dr. Norris cardiology for hospital follow-up, no meds were changed and he sees him back in about 6 weeks. Pt has no concerns today. Pt would like assistance with smoking cessation. Also reports insomnia that is refractory to current trazodone. Transitions of Care InboundProblem ReviewProblem List was reviewed and/or updated during this visit.Medication Reconciliation & ReviewMedication List was reviewed and/or updated during this visit, including review of any oedd-cqy-ovzeaym medications, herbal therapies, and/or supplements.Allergy ReviewAllergy List was reviewed and/or updated during this visit. Patient has no known allergies.Adult Preventive CareScreening Tobacco Screening: Smoking Status: current every day smoker (06/23/2020) Tobacco Use: Currently (06/23/2020) Advised to Quit: Yes (06/23/2020)Labs/Meds/Other Counseling- Nutrition and Physical Activity:BMI Interpretation: Healthy Weight (06/23/2020) Counseling: Done (06/23/2020) Physical Activity: Done (06/23/2020)Review of Systems General: Complains of sleep disturbances. Denies loss of appetite, chills, dizziness, fatigue, fever, headache, feeling ill. Cardiovascular: Denies chest pain, palpitations, feeling faint, peripheral edema, elevated blood pressure. Respiratory: Denies cough, difficulty breathing, shortness of breath, wheezing. Gastrointestinal: Denies nausea, vomiting, diarrhea, constipation, pain or discomfort, blood in stool, black or tarry stools. Genitourinary: Denies blood in urine. Neurologic: Denies weakness, feeling faint. Psychiatric: Denies depression, anxiety. Heme/Lymphatic: Denies bleeding. Physical ExamGeneral Appearance: well nourished, well hydrated, no acute distressEyes, External: conjunctivae and lids normal, EOMIRespiratory, Auscultation: clear to auscultation bilaterally; no rales, rhonchi, or wheezesCardiovascular, Auscultation: S1, S2 audible; no murmur, rub, or gallop; RRRPeripheral Circulation: no clubbing, cyanosis, edema, or varicositiesAbdomen: soft, non-tender, no masses, bowel sounds normalGait & Station: normalSkin, Inspection: no rashes, lesions, or ulcerationsOrientation: oriented to time, place, and personMood & Affect: no depression, anxiety, or agitationJudgment & Insight: intactCare Management Plan Transitions of CareInboundRate Your HealthIn general, would you say your health is? FairAssessment & Plan Problems:Added: BMI 23.0-23.9 (ICD-V85.1) (TDC16-F47.23)Acute combined systolic (congestive) and diastolic (congestive) heart failure (OOF37-K37.41) Assessment: Instructions: Continue as scheduled with Dr. Norris, your battery tester. Continue all medications as prescribed.History of myocardial infarction (ICD- V12.59) (FAY39-F87.2) Assessment: Instructions: Keep Nitro on you at all times for emergency useUnspecified atrial fibrillation (UHY02-J91.91) Assessment: Instructions: As above.Assessed:Insomnia, unspecified (ICD10- G47.00) Assessment: Instructions: Increase Trazodone to 100mg at bedtime. Follow-up in 4 weeks with PCP.Nicotine dependence, cigarettes, uncomplicated (FAC73-X91.210) Assessment: Instructions: Start Nicotine patch 7mg, sent to your pharmacy today. Smoking cessation counseling was recommended with patient today.Hypertension (ICD-401.9) (MQW72-B51) Assessment: Instructions: BP at goal today.Patient Instructions/Care Plan: Acute combined systolic (congestive) and diastolic (congestive) heart failure: Continue as scheduled with Dr. Norris, your battery tester. Continue all medications as prescribed.History of myocardial infarction: Keep Nitro on you at all times for emergency useUnspecified atrial fibrillation: As above.Insomnia- unspecified: Increase Trazodone to 100mg at bedtime. Follow-up in 4 weeks with PCP.Nicotine dependence- cigarettes- uncomplicated: Start Nicotine patch 7mg, sent to your pharmacy today. Smoking cessation counseling was recommended with patient today.Hypertension: BP at goal today. Plan developed in collaboration with patient and/or familyMedications:NICOTINE 7 MG/24HR TRANSDERMAL PATCH 24 HOURFOLIC ACID 1 MG ORAL TABLETB-1 100 MG ORAL TABLETALTACE 5 MG ORAL CAPSULEKLOR-CON 10 10 MEQ ORAL TABLET EXTENDED RELEASENITROGLYCERIN 0.4 MG SUBLINGUAL TABLET SUBLINGUALMETOPROLOL SUCCINATE ER 100 MG ORAL TABLET EXTENDED RELEASE 24 HOURFUROSEMIDE 40 MG ORAL TABLETANIMI-3/VITAMIN D 1 MG ORAL CAPSULEATORVASTATIN CALCIUM 80 MG ORAL TABLETASPIRIN 81 81 MG ORAL TABLET CHEWABLEELIQUIS 5 MG ORAL TABLETTRAZODONE HCL 100 MG ORAL TABLETOMEPRAZOLE 40 MG ORAL CAPSULE DELAYED RELEASEMedication Changes:Added: ELIQUIS 5 MG ORAL TABLET-take 1 tablet by mouth twice dailyASPIRIN 81 81 MG ORAL TABLET CHEWABLE-chew 1 tablet dailyATORVASTATIN CALCIUM 80 MG ORAL TABLET-take one tablet by mouth dailyANIMI-3/VITAMIN D 1 MG ORAL CAPSULE-take one tablet by mouth dailyFUROSEMIDE 40 MG ORAL TABLET-take one tablet by mouth dailyMETOPROLOL SUCCINATE ER 100 MG ORAL TABLET EXTENDED RELEASE 24 HOUR-take one tablet by mouth dailyNITROGLYCERIN 0.4 MG SUBLINGUAL TABLET SUBLINGUAL-place one tablet under tongue every five minutes as needed for chest painKLOR-CON 10 10 MEQ ORAL TABLET EXTENDED RELEASE-take one tablet by mouth 2 times a day.ALTACE 5 MG ORAL CAPSULE-take one capsule by mouth dailyB-1 100 MG ORAL TABLET-take one tablet by mouth dailyFOLIC ACID 1 MG ORAL TABLET-take 1 tablet po daily QAMRefilled:TRAZODONE HCL 100 MG ORAL TABLET-take one tablet by mouth daily Qty: 30[Tablet] Refills: 1 Method: ElectronicNew Prescription:NICOTINE 7 MG/24HR TRANSDERMAL PATCH 24 HOUR-Apply 1 patch daily, remove and replace q 24 hrs Qty: 30[Patch] Refills: 1 Method: ElectronicRemoved:IBUPROFEN 800 MG ORAL TABLET-take one tablet by mouth three times daily as needed. ( Take with food) Qty: 60[Tablet] Refills: 3, BETAMETHASONE DIPROPIONATE AUG 0.05 % EXTERNAL GEL-apply to affected area twice daily as needed, ERYTHROMYCIN BASE 250 MG ORAL CAPSULE DELAYED RELEASE PARTICLES-take one tablet by mouth twice daily for 10 days, NORVASC 10 MG ORAL TABLET-take one tablet by mouth daily Qty: 30[Tablet] Refills: 3, NICOTINE 21 MG/24HR TRANSDERMAL PATCH 24 HOUR-apply one patch daily. may rotate site daily. Qty: 30[Patch] Refills: 1, TRIAMCINOLONE ACETONIDE 0.1 % EXTERNAL CREAM-Apply to affected areas twice daily as needed Qty: 3[Tube] Refills: 3Changed:From: ORAL TRAZODONE HCL 50 MG ORAL TABLET Qty: [id number] Refills: 30[Tablet] To: TRAZODONE HCL 100 MG ORAL TABLET-take one tablet by mouth daily Qty: 30[Tablet] Refills: 1Allergies:No Known Allergies (updated 06/23/2020) Orders:Adult - Ofc Vst, EST, Level IV [CPT-39035] Follow-Up Return to clinic: in 4 weeks for follow upAdditional Follow-Up: insomnia, smoking with CassandraClinical Visit Summary Completed Name Value Range Interpretation Code Description Data Vale rce(s) Supporting Document(s) ID Date Data Source [id number] 06/23/2020 12:00:00 AM EDT [facility] Office VisitImported By: Kristina sahu LPN 06/24/2020 4:04:05 PM External Attachment: Type: Image Comment: External Document Name Value Range Interpretation Code Description Data Vale rce(s) Supporting Document(s) ID Date Data Source [id number] 06/16/2020 09:17:02 AM EDT [facility]FORMATIONPatient MR[facility] Name Date of Age Gend*PT [id number] Arnold Moreau 1960 59 years M IPPT Location Admission Date/Time Visit ID Attending [id number] 06/09/20 0026 --- Gian Lara MD([id number]) EPI ID CSN Admitting Provider [id number] Tracie Galvez MD([id number]) [facility] DISCHARGE SUMMARYPatient Name: Arnold Moreau of : 1960 Age 59 yearsPrimary Physician: Jose Romano MD PCP Tszoxeezl Date: 06/09/2020 Discharge Date:He will be discharged from [facility] to [facility] Diagnoses:Principal Problem (Resolved): Acute ST elevation myocardial infarction (STEMI)Active Problems: New onset a- fib Alcohol abuse Polysubstance abuse Cigarette nicotine dependence without complication Acute on chronic 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 Cardiac LV ejection fraction 21-30% KELI (acute kidney injury)Resolved Problems: Cardiogenic shock Pericardial effusion Acute myocardial infarction Acute respiratory failureDischarge Medications:Current Discharge Medication ListSTART taking these medications DetailsApixaban (ELIQUIS) 5 MG TABS tablet Take 1 tablet (5 mg total) by mouth 2 (two)times a dayQty: 60 tablet, Refills: 0aspirin 81 MG chewable tablet Chew 1 tablet (81 mg total) dailyQty: 30 tablet, Refills: 0atorvastatin (LIPITOR) 80 MG tablet Take 1 tablet (80 mg total) by mouth dailyQty: 30 tablet, Refills: 0DAILY OZIEL (THERAGRAN) per tablet Take 1 tablet by mouth dailyQty: 30 tablet, Refills: 0folic acid (FOLVITE) 1 MG tablet Take 1 tablet (1 mg total) by mouth dailyQty: 30 tablet, Refills: 0furosemide (LASIX) 40 MG tablet Take 1 tablet (40 mg total) by mouth dailyQty: 30 tablet, Refills: 0metoprolol succinate (TOPROL-XL) 100 MG 24 hr tablet Take 1 tablet (100 mgtotal) by mouth dailyQty: 30 tablet, Refills: 0nitroglycerin (NITROSTAT) 0.[address] 1 tablet (0.4 mg total) underthe tongue every 5 (five) minutes as needed for chest painQty: 20 tablet, Refills: 0potassium chloride (K-DUR) 10 MEQ tablet Take 1 tablet (10 mEq total) by mouth 2(two) times a dayQty: 60 tablet, Refills: 0ramipril (ALTACE) 5 MG capsule Take 1 capsule (5 mg total) by mouth dailyQty: 30 capsule, Refills: 0thiamine 100 MG tablet Take 1 tablet (100 mg total) by mouth dailyQty: 30 tablet, Refills: 0CONTINUE these medications which have NOT CHANGED Detailsomeprazole (PRILOSEC) 40 MG capsule Take 40 mg by mouth dailytraZODone (DESYREL) 50 MG tablet Take 50 mg by mouth nightlySTOP taking these medications amLODIPine (NORVASC) 10 MG tablet ibuprofen (ADVIL,MOTRIN) 800 MG tablet rifampin (RIFADIN) 300 MG capsuleFollow Up Instructions:The patient was given an after visit summary.Patient will follow up with PCP in 3-7 days.Cardiology call to scheduleItems needing special attention:Follow-up closely with primary care providerNeeds lifestyle modificationCounseled for drug abuseBrief Hospital Course:In summary this is a 59-year-old male he is very unfortunate with history ofalcohol abuse and drug abuse he tested positive for cocaine and admission [facility] post thrombo-lysis for an acute MIpatient was admitted there on 727 with dilated cardiomyopathy presumed due toalcohol abuse and diastolic CHF with exacerbation and new onset A. fibtransferred [facility] secondary to acute STelevation NC he was initially placed in critical care he was noted to havemoderate to large pericardial effusion echocardiogram at [facility] CT chestreported as mild was asymptomatic he was stabilized and repeat echo was donehere and was reviewedHe did have acute on chronic diastolic congestive heart failure which improvedwith [place] was assessed by cardiology and he underwent cardiac catheterization thatshowed mild CAD lifestyle modification was recommended he was started onmetoprolol and he is currently in rate controlled A. FibPatient will be started on anticoagulation with EliquisPatient will be discharged today in stable condition and can follow-up withsurgical specialty center care provider and cardiology as an outpatientHighly recommended lifestyle modificationPatient was advised that there is an exhibition of symptoms to clinicalattention immediatelyDischarge Exam:Blood Pressure: BP: (!) 129/93 Pulse: Heart Rate: 106Temperature: Temp: 98 F Respirations: Resp: 20Admission Weight: Weight: 74.9 kg (165 lb 2 oz) O2 Saturation: SpO2: 94 %Discharge Weight: Weight: 68.9 kg (151 lb 14.4 oz) BMI: Body mass index is 25.28kg/m .Physical Exam General alert, in no apparent distress HEENT Normal Lungs decreased breath sounds bilateral bases Heart regular rate and rhythm Abdomen soft, non-tender, non-distended, no organomegaly or masses Musculoskeletal negative Neuro normal without focal findings and mental status, speech normal, alertand oriented [id number]:Imaging:Echocardiogram done on 06/09/2020Interpretation Summary 1. Left ventricular cavity size is mildly dilated with mild increase in wallthickness. Right ventricle is mildly dilated with a significantly reducedfunction 2. LV systolic function is severely reduced with resting estimated ejectionfraction is 25-30 %. 3. The left ventricular wall motion is diffuse severe global hypokinesis 4. LV diastolic function is abnormal with elevated filling pressure 5. Left atrial size is severe biatrial enlargement 6. Estimated PA pressure is 30 mm hg . Moderate tricuspid regurgitation 7. Mild myxomatous degeneration of the mitral leaflet, mild mitral annularcalcification, moderate to severe mitral regurgitation 8. Aortic valve is mildly sclerotic, no stenosis or regurgitationXray with barium swallowIMPRESSION: No penetration or aspiration. Unremarkable swallow. Please seespeech pathology report for full details.Procedures:Cath on 06/16/2020 Mid LAD lesion is 25% stenosed. RV Branch lesion is 45% stenosed. Prox RCA to Mid RCA lesion is 35% stenosed. Angiographically mild CAD. Medical management and lifestyle modificationsrecommended.Consultants:CardsCritical careRecent Labs:BMP:Lab ResultsComponent Value Date NA 143 06/15/2020 K 4.0 06/15/2020 CL 112 (H) 06/15/2020 CO2 24 06/15/2020 ANIONGAP 7 06/15/2020 CALCIUM 8.8 06/15/2020 GLU 83 06/15/2020 BUN 13 06/15/2020 CREATININE 0.97 06/15/2020 GFRAA >60 06/15/2020 GFR NONAA >60 06/15/2020Cardiac:Lab ResultsComponent Value Date TROPONINI 20.30 (HH) 06/11/2020 PROBNP 8,895 (H) 06/14/2020CBC with Diff:Lab ResultsComponent Value Date WBC 6.8 06/15/2020 RBC 4.67 06/15/2020 HGB 13.9 06/15/2020 HCT 41.3 06/15/2020 MCV 88.5 06/15/2020 MCH 29.8 06/15/2020 MCHC 33.6 06/15/2020 RDW 14.9 (H) 06/15/2020 PLT 147 (L) 06/15/2020 MPV 9.0 06/15/2020 LYMPHOPCT 11.1 (L) 06/09/2020 MONOPCT 5.5 06/09/2020 EOSPCT 0.5 06/09/2020 BASOPCT 0.3 06/09/2020 NEUTROABS 8.6 (H) 06/09/2020 MONOABS 0.6 06/09/2020 BASOSABS 0.0 06/09/2020Coags:Lab ResultsComponent Value Date PROTIME 13.2 (H) 06/15/2020 INR 1.27 06/15/2020 APTT 26.2 06/15/2020Gian Lara MD9:16 AMTotal time spent for discharge on date of discharge: 40 minutes Name Value Range Interpretation Code Description Data Vale rce(s) Supporting Document(s) ID Date Data Source [id number] 06/16/2020 11:02:49 AM EDT [facility] Name Value Range Interpretation Code Description Data Vale rce(s) Supporting Document(s) WBC 7.8 10*3/uL (4.1-11.0) [facility] [place] RBC 4.78 10*6/uL (4.60-6.10) [facility] HGB 14.2 g/dL (13.5-18.0) [facility] HCT 42.7 % (41.0-53.0) [facility] MCV 89.4 fL (80.0-95.0) [facility] MCH 29.8 pg (27.0-32.0) [facility] MCHC 33.3 g/dL (32.0-36.0) [facility] RDW 14.6 % (10.5-14.5) H [facility] PLT 178 10*3/uL (150-450) [facility] MPV 9.5 fL (7.1-10.7) [facility] ID Date Data Source [id number] 06/16/2020 09:17:43 AM EDT [facility] Name Value Range Interpretation Code Description Data Vale rce(s) Supporting Document(s) SODIUM 144 mmol/L (136-145) [facility] POTASSIUM 4.7 mmol/L (3.6-5.2) [facility] CHLORIDE 111 mmol/L (100-108) H [facility] CO2 30 mmol/L (22-31) [facility] ANION GAP 3 mmol/L (7-16) L [facility] UREA NITROGEN 19 mg/dL (7-24) [facility] CREATININE 1.14 mg/dL (0.80-1.30) [facility] BUN/CREAT RATIO 16.7 RATIO (10.0-20.0) [facility] GLUCOSE 88 mg/dL (70-99) [facility] CALCIUM 8.9 mg/dL (8.4-10.2) [facility] GFR >60 ml/min/1.73m2 (>59) [facility] GFR ( AMER) >60 ml/min/1.73m2 (>59) [facility] GFR INTERPRETATION [facility] --NORMAL KIDNEY FUNCTION OR MILD DISEASE - GFR >OR= 60CHRONIC KIDNEY DISEASE - GFR 15 - 59RENAL FAILURE - GFR <15 Est. GFR calculation based on the MDRDstudy equation, which assumes a steadystate for creatinine. Est. GFR should notbe used for medication dosing. ID Date Data Source [id number] 06/16/2020 04:29:30 AM EDT [facility] Name Value Range Interpretation Code Description Data [facility] rce(s) Supporting Document(s) POC NOVA GLU 97 mg/dL (70-99) [facility] [place] [facility] PERFORMED BY [facility] CLINICAL STAFF ID Date Data Source [id number] 06/15/2020 01:49:46 PM EDT [address] [address] Name: ARNOLD SHEAB: 1960ex: MOrdering Provider: GIAN Covington Prov: GIAN Cardenas Provider: Procedure Performed: XR MOD BARIUM SWALLOWExam Date: 06/15/2020 13:47MRN: [id number] Number: [id number] Class: InpatientAccount #: [id number] for Exam: dysphagiaTechnique: Fluoroscopy with no digital spot images obtained.Fluoroscopy time: 77 SecondsNumber of Spot Images: 0Comparison: NoneFindings:Please see speech pathology report for full details.No penetration or aspiration. Unremarkable swallow.IMPRESSION: No penetration or aspiration. Unremarkable swallow. Please see speech pathology report for full details.Report electronically signed by: Percy Middleton On 06/15/2020 1:49 PMWorkstation ID: [id number] Name Value Range Interpretation Code Description Data Vale rce(s) Supporting Document(s) ID Date Data Source [id number] 06/15/2020 12:49:04 PM EDT [facility] Name Value Range Interpretation Code Description Data [facility] rce(s) Supporting Document(s) POC NOVA GLU 88 mg/dL (70-99) [facility] [place] [facility] CL[facility] STA[facility] ID Date Data Source [id number] 06/15/2020 10:02:42 AM EDT [facility] Name Value Range Interpretation Code Description Data Vale rce(s) Supporting Document(s) &PDF [facility] KGOHCg8iTzHEKxZu52/COKbwRBDdb9NbRDoeJCa5SUdgXQLqD2ZfmLxcXJZRAboZUdlXMDnEBENoQSfg pYy [file] D3RNTeMmi5GzTbTC9MEs5GGpQ8BAZ4eSEiQo8UYHcrTuyESsUlEY3VYLo= ID Date Data Source [id number] 06/15/2020 10:16:43 AM EDT [facility] [place] Name Value Range Interpretation Code Description Data [facility] rce(s) Supporting Document(s) WBC 6.8 10*3/uL (4.1-11.0) [facility] [place] RBC 4.67 10*6/uL (4.60-6.10) [facility] HGB 13.9 g/dL (13.5-18.0) [facility] [place] HCT 41.3 % (41.0-53.0) [facility] MCV 88.5 fL (80.0-95.0) [facility] MCH 29.8 pg (27.0-32.0) [facility] MCHC 33.6 g/dL (32.0-36.0) [facility] RDW 14.9 % (10.5-14.5) H [facility] [place] PLT 147 10*3/uL (150-450) L [facility] [place] MPV 9.0 fL (7.1-10.7) [facility] ID Date Data Source [id number] 06/15/2020 08:31:48 AM EDT [facility] Name Value Range Interpretation Code Description Data Vale rce(s) Supporting Document(s) EKG [facility] [id number]qanb3Z1D1xPTiT0PxqBFya5qzC9XwI9NmUOVxAWTCHP7OzKZy jb2 [file] 9vm/+6gY50GMN5E0y8Iq7lPxU4i3c2JE8u1gU1aUx1 gu/G/fk2gu+W4Br+S6oklMu/t0PX6+BehO+upzFft4XW3xu3k5QIpUheE/yzmoHhUKp19dtY67K7JUHt ewEQWzDjpBeL6Gu1bYXV0/zWY42HQMC0/gLfxQi+Y9SKiLyKHnH2iatc1NRgfD487UUB5Rb08TB0tRel DQsB109T3vL1L6UBkkfH9W9OP545Dp9/MnrjevYmGN 9/QT7lvOyV483O0/director of radio services/A9aKZapfA0U/Nn9OaaTocqsmXgR2Hqdjlhjb0FiyP7GWdZ0kr+i1tzI/huWj [file] EyOTcgMDAwMDAgbiAKMDAwMDAwMTQwNiAwMDAwMCBu HXytZKGyKTB6RVluLBOtSPGgHW8iMhWkDUGnZDV4NZweGJWbVESjltINXUCkSLYwLJupUQZsOSGdEZQv DKtqALLzAWIoBZR9YNAoTMVmNR6zLlTzSLSdIVJzODQzZkD4FaPvSoEImBNjsNxuhoh8RCznP8r3RKGx OOubMJ3wfdIdGRBnVvprXj7ylSS5PVUmOigVOc2Eq7OgsrY3gfYdGnVoMuK2NftiRYISSe== ID Date Data Source [id number] 06/15/2020 05:25:49 AM EDT [facility] [place] Name Value Range Interpretation Code Description Data Vale rce(s) Supporting Document(s) POC NOVA GLU 86 mg/dL (70-99) [facility] [place] [facility] PERFORMED BY [facility] CL[facility] STA[facility] ID Date Data Source [id number] 06/15/2020 08:47:27 AM EDT [facility] Name Value Range Interpretation Code Description Data [facility] rce(s) Supporting Document(s) SODIUM 143 mmol/L (136-145) [facility] POTASSIUM 4.0 mmol/L (3.6-5.2) [facility] CHLORIDE 112 mmol/L (100-108) H [facility] CO2 24 mmol/L (22-31) [facility] ANION GAP 7 mmol/L (7-16) [facility] UREA NITROGEN 13 mg/dL (7-24) [facility] CREATININE 0.97 mg/dL (0.80-1.30) [facility] BUN/CREAT RATIO 13.4 RATIO (10.0-20.0) [facility] GLUCOSE 83 mg/dL (70-99) [facility] CALCIUM 8.8 mg/dL (8.4-10.2) [facility] GFR >60 ml/min/1.73m2 (>59) [facility] GFR ( AMER) >60 ml/min/1.73m2 (>59) [facility] GFR INTERPRETATION [facility] --NORMAL KIDNEY FUNCTION OR MILD DISEASE - GFR >OR= 60CHRONIC KIDNEY DISEASE - GFR 15 - 59RENAL FAILURE - GFR <15 Est. GFR calculation based on the MDRDstudy equation, which assumes a steadystate for creatinine. Est. GFR should notbe used for medication dosing. ID Date Data Source [id number] 06/15/2020 06:27:15 AM EDT [facility] Name Value Range Interpretation Code Description Data Vale rce(s) Supporting Document(s) APTT 26.2 s (22.0-34.3) [facility] Enrique Oliver ID Date Data Source [id number] 06/15/2020 06:27:15 AM EDT [facility] Name Value Range Interpretation Code Description Data Vale rce(s) Supporting Document(s) PT 13.2 s (9.2-11.9) H [facility] INR 1.27 [facility] SUGGESTED THERAPEUTIC RANGES USING INR F ORSTABILIZED ANTICOAGULATED PATIENTS:STANDARD DOSE THERAPY INR 2.0-3.0 DVT, PE, PREVENT DVT OR EMBOLISMHIGH DOSE THERAPY INR 2.5-3.5 PREVENT EMBOLISM FROM MECHANICAL HEART VALVE ID Date Data Source [id number] 06/14/2020 11:27:03 PM EDT [facility] Name Value Range Interpretation Code Description Data Vale rce(s) Supporting Document(s) POC NOVA GLU 86 mg/dL (70-99) [facility]YSS[facility] PERFORMED BY [facility] CLIN[facility] STA[facility] ID Date Data Source [id number] 06/14/2020 08:07:50 PM EDT [address] [address] Name: ARNOLD SHEAB: 2Sex: MOrdering Provider: GUILLERMINA Bustamante Prov: GUILLERMINA DUARTEReferrjanes Provider: Procedure Performed: XR CHEST PORTABLEExam Date: 06/14/2020 18:58MRN: [id number] Number: [id number] Class: InpatientAccount #: [id number] for Exam: Heart failureTechnique: AP portable view obtained.Comparison: 06/12/2020Findings: The heart is enlarged. Small bilateral pleural effusions are seen. No well-formed pneumonia is identified. Pulmonary vasculature appears less congested.IMPRESSION: Pulmonary vasculature appears less congested. Persistent bilateral pleural effusions are seen. Lungs appear better aerated.Report electronically signed by: XIOMARA SCALES On 06/14/2020 8:07 PMWorkstation ID: [id number] - [id number] Name Value Range Interpretation Code Description Data Vale rce(s) Supporting Document(s) ID Date Data Source [id number] 06/14/2020 05:27:31 PM EDT [facility] Name Value Range Interpretation Code Description Data [facility] rce(s) Supporting Document(s) POC NOVA GLU 97 mg/dL (70-99) [facility] [place] [facility] ID Date Data Source [id number] 06/14/2020 12:49:44 PM EDT [facility] Name Value Range Interpretation Code Description Data [facility] rce(s) Supporting Document(s) POC NOVA GLU 91 mg/dL (70-99) [facility] [place] [facility] ID Date Data Source [id number] 06/14/2020 05:04:56 AM EDT [facility] Name Value Range Interpretation Code Description Data [facility] rce(s) Supporting Document(s) POC NOVA GLU 118 mg/dL (70-99) H [facility] [place] [facility] ID Date Data Source [id number] 06/14/2020 07:46:38 PM EDT [facility] Name Value Range Interpretation Code Description Data [facility] rce(s) Supporting Document(s) NT PRO BNP 8895 pg/mL (0-125) H [facility] ID Date Data Source [id number] 06/14/2020 06:35:54 AM EDT [facility] Name Value Range Interpretation Code Description Data Vlae rce(s) Supporting Document(s) WBC 6.2 10*3/uL (4.1-11.0) [facility] [place] RBC 4.31 10*6/uL (4.60-6.10) L [facility] HGB 12.8 g/dL (13.5-18.0) L [facility] [place] HCT 38.7 % (41.0-53.0) L [facility] [place] MCV 89.9 fL (80.0-95.0) [facility] MCH 29.7 pg (27.0-32.0) [facility] MCHC 33.1 g/dL (32.0-36.0) [facility] RDW 14.4 % (10.5-14.5) [facility] PLT 125 10*3/uL (150-450) L [facility] [place] MPV 9.3 fL (7.1-10.7) [facility] ID Date Data Source [id number] 06/14/2020 06:34:08 AM EDT [facility] Name Value Range Interpretation Code Description Data [facility] rce(s) Supporting Document(s) SODIUM 143 mmol/L (136-145) [facility] POTASSIUM 4.1 mmol/L (3.6-5.2) [facility] CHLORIDE 110 mmol/L (100-108) H [facility] CO2 26 mmol/L (22-31) [facility] ANION GAP 7 mmol/L (7-16) [facility] UREA NITROGEN 11 mg/dL (7-24) [facility] CREATININE 0.84 mg/dL (0.80-1.30) [facility] BUN/CREAT RATIO 13.1 RATIO (10.0-20.0) [facility] GLUCOSE 100 mg/dL (70-99) H [facility] CALCIUM 8.4 mg/dL (8.4-10.2) [facility] GFR >60 ml/min/1.73m2 (>59) [facility] GFR ( AMER) >60 ml/min/1.73m2 (>59) [facility] GFR INTERPRETATION [facility] --NORMAL KIDNEY FUNCTION OR MILD DISEASE - GFR >OR= 60CHRONIC KIDNEY DISEASE - GFR 15 - 59RENAL FAILURE - GFR <15 Est. GFR calculation based on the MDRDstudy equation, which assumes a steadystate for creatinine. Est. GFR should notbe used for medication dosing. ID Date Data Source [id number] 06/13/2020 11:57:28 PM EDT [facility] Name Value Range Interpretation Code Description Data Vale rce(s) Supporting Document(s) POC NOVA GLU 263 mg/dL (70-99) H [facility] [place] [facility] ID Date Data Source [id number] 06/13/2020 07:33:04 PM EDT [facility] Name Value Range Interpretation Code Description Data Vale rce(s) Supporting Document(s) POC NOVA GLU 103 mg/dL (70-99) H [facility] [place] [facility] ID Date Data Source [id number] 06/13/2020 12:27:25 PM EDT [facility] Name Value Range Interpretation Code Description Data [facility] rce(s) Supporting Document(s) POC NOVA GLU 107 mg/dL (70-99) H [facility] [place] [facility] ID Date Data Source [id number] 06/13/2020 08:26:43 AM EDT [facility] Name Value Range Interpretation Code Description Data [facility] rce(s) Supporting Document(s) POC NOVA GLU 92 mg/dL (70-99) [facility] [place] [facility] ID Date Data Source [id number] 06/13/2020 05:04:31 AM EDT [facility] Name Value Range Interpretation Code Description Data [facility] rce(s) Supporting Document(s) SODIUM 140 mmol/L (136-145) [facility] POTASSIUM 4.0 mmol/L (3.6-5.2) [facility] CHLORIDE 107 mmol/L (100-108) [facility] CO2 28 mmol/L (22-31) [facility] ANION GAP 5 mmol/L (7-16) L [facility] UREA NITROGEN 8 mg/dL (7-24) [facility] CREATININE 0.94 mg/dL (0.80-1.30) [facility] BUN/CREAT RATIO 8.5 RATIO (10.0-20.0) L [facility] GLUCOSE 94 mg/dL (70-99) [facility] CALCIUM 8.0 mg/dL (8.4-10.2) L [facility] GFR >60 ml/min/1.73m2 (>59) [facility] GFR ( AMER) >60 ml/min/1.73m2 (>59) [facility] GFR INTERPRETATION [facility] --NORMAL KIDNEY FUNCTION OR MILD DISEASE - GFR >OR= 60CHRONIC KIDNEY DISEASE - GFR 15 - 59RENAL FAILURE - GFR <15 Est. GFR calculation based on the MDRDstudy equation, which assumes a steadystate for creatinine. Est. GFR should notbe used for medication dosing. ID Date Data Source [id number] 06/13/2020 05:04:31 AM EDT [facility] Name Value Range Interpretation Code Description Data Vale rce(s) Supporting Document(s) DIGOXIN 1.1 ng/mL (0.8-2.0) [facility] ID Date Data Source [id number] 06/13/2020 04:21:17 AM EDT [facility] Name Value Range Interpretation Code Description Data [facility] rce(s) Supporting Document(s) WBC 5.5 10*3/uL (4.1-11.0) [facility] [place] RBC 3.77 10*6/uL (4.60-6.10) L [facility] HGB 11.2 g/dL (13.5-18.0) L [facility] HCT 35.5 % (41.0-53.0) L [facility] MCV 94.1 fL (80.0-95.0) [facility] MCH 29.6 pg (27.0-32.0) [facility] MCHC 31.5 g/dL (32.0-36.0) L [facility] RDW 14.1 % (10.5-14.5) [facility] PLT 97 10*3/uL (150-450) L [facility] MPV 9.1 fL (7.1-10.7) [facility] ID Date Data Source [id number] 06/12/2020 08:03:50 PM EDT [facility] Name Value Range Interpretation Code Description Data Vale rce(s) Supporting Document(s) POC NOVA GLU 93 mg/dL (70-99) [facility] [place] [facility] ID Date Data Source [id number] 06/12/2020 12:10:21 PM EDT [facility] Name Value Range Interpretation Code Description Data Vale rce(s) Supporting Document(s) POC NOVA GLU 105 mg/dL (70-99) H [facility] [place] [facility] ID Date Data Source [id number] 06/12/2020 08:00:32 AM EDT [address] [address] Name: ARNOLD MOREAUDOB: 1960ex: MOrdering Provider: CORNELIO ABBASIAuthoriyazmin Prov: CORNELIO Arreguin Provider: Procedure Performed: XR CHEST PORTABLEExam Date: 06/12/2020 06:45MRN: [id number] Number: [id number] Class: InpatientAccount #: [id number] for Exam: pulmonary edemaTechnique: Single AP view obtained.Comparison: 06/09/2020Findings: PICC catheter tip in the superior vena cava.Hazy bilateral pulmonary opacity mid and lower lung zones. Possible small bilateral pleural effusions. Cardiomegaly. Mediastinum otherwise unremarkable.IMPRESSION: Hazy bilateral pulmonary opacity mid and lower lung zones which could represent moderate to advanced pulmonary edema. Bilateral pneumonia is a less likely consideration. Cardiac [place]. Probable small bilateral pleural effusions. Consider CHF.Report electronically signed by: IVÁN AWAD On 06/12/2020 8:00 AMWorkstation ID: [id number] - [id number] Name Value Range Interpretation Code Description Data Vale rce(s) Supporting Document(s) ID Date Data Source [id number] 06/12/2020 05:47:20 AM EDT [facility] Name Value Range Interpretation Code Description Data Vale rce(s) Supporting Document(s) POC NOVA GLU 90 mg/dL (70-99) [facility] [place] [facility] ID Date Data Source [id number] 06/12/2020 04:39:35 AM EDT [facility] Name Value Range Interpretation Code Description Data Vale rce(s) Supporting Document(s) SODIUM 142 mmol/L (136-145) [facility] POTASSIUM 4.4 mmol/L (3.6-5.2) [facility] CHLORIDE 111 mmol/L (100-108) H [facility] CO2 27 mmol/L (22-31) [facility] ANION GAP 4 mmol/L (7-16) L [facility] UREA NITROGEN 16 mg/dL (7-24) [facility] CREATININE 1.05 mg/dL (0.80-1.30) [facility] BUN/CREAT RATIO 15.2 RATIO (10.0-20.0) [facility] GLUCOSE 93 mg/dL (70-99) [facility] CALCIUM 8.1 mg/dL (8.4-10.2) L [facility] GFR >60 ml/min/1.73m2 (>59) [facility] GFR ( AMER) >60 ml/min/1.73m2 (>59) [facility] GFR INTERPRETATION [facility] --NORMAL KIDNEY FUNCTION OR MILD DISEASE - GFR >OR= 60CHRONIC KIDNEY DISEASE - GFR 15 - 59RENAL FAILURE - GFR <15 Est. GFR calculation based on the MDRDstudy equation, which assumes a steadystate for creatinine. Est. GFR should notbe used for medication dosing. ID Date Data Source [id number] 06/12/2020 04:06:25 AM EDT [facility] Name Value Range Interpretation Code Description Data Vale rce(s) Supporting Document(s) APTT 76.9 s (22.0-34.3) H [facility] ID Date Data Source [id number] 06/12/2020 04:00:09 AM EDT [facility] Name Value Range Interpretation Code Description Data [facility] rce(s) Supporting Document(s) WBC 5.4 10*3/uL (4.1-11.0) [facility] [place] RBC 4.00 10*6/uL (4.60-6.10) L [facility] HGB 11.8 g/dL (13.5-18.0) L [facility] HCT 36.6 % (41.0-53.0) L [facility] MCV 91.4 fL (80.0-95.0) [facility] MCH 29.4 pg (27.0-32.0) [facility] MCHC 32.1 g/dL (32.0-36.0) [facility] RDW 14.2 % (10.5-14.5) [facility] PLT 90 10*3/uL (150-450) L [facility] MPV 8.9 fL (7.1-10.7) [facility] ID Date Data Source [id number] 06/11/2020 11:39:44 PM EDT [facility] Name Value Range Interpretation Code Description Data Vale rce(s) Supporting Document(s) POC NOVA GLU 95 mg/dL (70-99) [facility] [place] [facility] ID Date Data Source [id number] 06/11/2020 08:15:55 PM EDT [facility] Name Value Range Interpretation Code Description Data [facility] rce(s) Supporting Document(s) POC NOVA GLU 77 mg/dL (70-99) [facility] [place] [facility] ID Date Data Source [id number] 06/11/2020 05:29:28 PM EDT [facility] Name Value Range Interpretation Code Description Data Vale rce(s) Supporting Document(s) POC NOVA GLU 82 mg/dL (70-99) [facility] [place] [facility] ID Date Data Source [id number] 06/11/2020 05:55:01 PM EDT [facility] Name Value Range Interpretation Code Description Data Vale rce(s) Supporting Document(s) APTT 65.4 s (22.0-34.3) H [facility] ID Date Data Source [id number] 06/11/2020 11:20:10 AM EDT [facility] Name Value Range Interpretation Code Description Data Vale rce(s) Supporting Document(s) POC NOVA GLU 85 mg/dL (70-99) [facility] [place] [facility] ID Date Data Source [id number] 06/11/2020 11:46:06 AM EDT [facility] Name Value Range Interpretation Code Description Data Vale rce(s) Supporting Document(s) APTT 63.9 s (22.0-34.3) H [facility] ID Date Data Source [id number] 06/11/2020 05:05:52 AM EDT [facility] Name Value Range Interpretation Code Description Data Vale rce(s) Supporting Document(s) POC NOVA GLU 105 mg/dL (70-99) H [facility] [place] [facility] ID Date Data Source [id number] 06/11/2020 04:43:56 AM EDT [facility] Name Value Range Interpretation Code Description Data Vale rce(s) Supporting Document(s) TROPONIN I 20.30 ng/mL (<0.05) [facility] [place] Less than 0.05: Myocardial injury unlike lyGreater than or equal to 0.05: Highly suggestive of myocardial injuryCorrelation with rise and/or fall ofserial troponins, clinical symptomsand ECG changes is necessary.ALERTED CRITICAL [place] [address] [place] [id number] ON 06/11/20 AT 4:42 [place] [id number] ID Date Data Source [id number] 06/11/2020 04:43:56 AM EDT [facility] Name Value Range Interpretation Code Description Data Vale rce(s) Supporting Document(s) SODIUM 144 mmol/L (136-145) [facility] POTASSIUM 4.4 mmol/L (3.6-5.2) [facility] CHLORIDE 112 mmol/L (100-108) H [facility] CO2 28 mmol/L (22-31) [facility] ANION GAP 4 mmol/L (7-16) L [facility] UREA NITROGEN 22 mg/dL (7-24) [facility] CREATININE 1.11 mg/dL (0.80-1.30) [facility] BUN/CREAT RATIO 19.8 RATIO (10.0-20.0) [facility] GLUCOSE 98 mg/dL (70-99) [facility] CALCIUM 7.9 mg/dL (8.4-10.2) L [facility] GFR >60 ml/min/1.73m2 (>59) [facility] GFR ( AMER) >60 ml/min/1.73m2 (>59) [facility] GFR INTERPRETATION [facility] --NORMAL KIDNEY FUNCTION OR MILD DISEASE - GFR >OR= 60CHRONIC KIDNEY DISEASE - GFR 15 - 59RENAL FAILURE - GFR <15 Est. GFR calculation based on the MDRDstudy equation, which assumes a steadystate for creatinine. Est. GFR should notbe used for medication dosing. ID Date Data Source [id number] 06/11/2020 04:27:02 AM EDT [facility] Name Value Range Interpretation Code Description Data Vale rce(s) Supporting Document(s) APTT 53.0 s (22.0-34.3) H [facility] ID Date Data Source [id number] 06/11/2020 04:12:32 AM EDT [facility] Name Value Range Interpretation Code Description Data Vale rce(s) Supporting Document(s) WBC 6.1 10*3/uL (4.1-11.0) [facility] [place] RBC 4.26 10*6/uL (4.60-6.10) L [facility] HGB 12.6 g/dL (13.5-18.0) L [facility] HCT 39.4 % (41.0-53.0) L [facility] MCV 92.5 fL (80.0-95.0) [facility] MCH 29.6 pg (27.0-32.0) [facility] MCHC 32.0 g/dL (32.0-36.0) [facility] RDW 14.9 % (10.5-14.5) H [facility] PLT 104 10*3/uL (150-450) L [facility] MPV 8.9 fL (7.1-10.7) [facility] ID Date Data Source [id number] 06/10/2020 11:30:17 PM EDT [facility] Name Value Range Interpretation Code Description Data Vale rce(s) Supporting Document(s) POC NOVA GLU 85 mg/dL (70-99) [facility] [place] [facility] ID Date Data Source [id number] 06/10/2020 11:30:17 PM EDT [facility] Name Value Range Interpretation Code Description Data [facility] rce(s) Supporting Document(s) POC NOVA GLU 73 mg/dL (70-99) [facility] [place] [facility] ID Date Data Source [id number] 06/10/2020 07:21:50 PM EDT [facility] Name Value Range Interpretation Code Description Data Vale rce(s) Supporting Document(s) APTT 51.5 s (22.0-34.3) H [facility] ID Date Data Source [id number] 06/10/2020 06:01:20 PM EDT [facility] Name Value Range Interpretation Code Description Data Vale rce(s) Supporting Document(s) POC NOVA GLU 117 mg/dL (70-99) H [facility] [place] [facility] ID Date Data Source [id number] 06/10/2020 05:17:15 PM EDT [facility] Name Value Range Interpretation Code Description Data Vale rce(s) Supporting Document(s) SODIUM 141 mmol/L (136-145) [facility] POTASSIUM 4.7 mmol/L (3.6-5.2) [facility] CHLORIDE 112 mmol/L (100-108) H [facility] CO2 26 mmol/L (22-31) [facility] ANION GAP 3 mmol/L (7-16) L [facility] UREA NITROGEN 25 mg/dL (7-24) H [facility] CREATININE 1.29 mg/dL (0.80-1.30) [facility] BUN/CREAT RATIO 19.4 RATIO (10.0-20.0) [facility] GLUCOSE 119 mg/dL (70-99) H [facility] CALCIUM 7.9 mg/dL (8.4-10.2) L [facility] TOTAL PROTEIN 5.6 g/dL (6.4-8.2) L [facility] ALBUMIN 3.0 g/dL (3.5-4.6) L [facility] GLOBULIN 2.6 g/dL (2.7-4.3) L [facility] ALB/GLOB RATIO 1.2 RATIO [facility] ALKALINE PHOSPHATASE 45 U/L (45-117) [facility] BILIRUBIN,TOTAL 0.4 mg/dL (0.0-1.0) [facility] PLEASE NOTE:Total bilirubin results may be falselyelevated in patients taking Eltrombopag. AST (SGOT) 162 U/L (11-39) [facility] ALT (SGPT) 64 U/L (12-78) [facility] GFR 57 ml/min/1.73m2 (>59) L [facility] GFR ( AMER) >60 ml/min/1.73m2 (>59) [facility] GFR INTERPRETATION [facility] --NORMAL KIDNEY FUNCTION OR MILD DISEASE - GFR >OR= 60CHRONIC KIDNEY DISEASE - GFR 15 - 59RENAL FAILURE - GFR <15 Est. GFR calculation based on the MDRDstudy equation, which assumes a steadystate for creatinine. Est. GFR should notbe used for medication dosing. ID Date Data Source [id number] 06/10/2020 04:11:16 PM EDT [facility] Name Value Range Interpretation Code Description Data Vale rce(s) Supporting Document(s) LACTIC ACID 0.6 mmol/L (0.4-2.0) [facility]AH ID Date Data Source [id number] 06/10/2020 03:01:27 PM EDT [facility] Name Value Range Interpretation Code Description Data Vale rce(s) Supporting Document(s) TROPONIN I 28.40 ng/mL (<0.05) [facility] [place] Less than 0.05: Myocardial injury unlike lyGreater than or equal to 0.05: Highly suggestive of myocardial injuryCorrelation with rise and/or fall ofserial troponins, clinical symptomsand ECG changes is necessary.ALERTED CRITICAL RESULT [id number] [place] [id number] [place] [id number] AT 1500 BY [id number] ID Date Data Source [id number] 06/10/2020 01:58:45 PM EDT [facility] Name Value Range Interpretation Code Description Data Vale rce(s) Supporting Document(s) APTT 65.3 s (22.0-34.3) [facility]SE [facility] ID Date Data Source [id number] 06/10/2020 12:09:21 PM EDT [facility] Name Value Range Interpretation Code Description Data Vale rce(s) Supporting Document(s) POC NOVA GLU 102 mg/dL (70-99) H [facility] PERFORMED BY [facility] CLINICAL STAFF ID Date Data Source [id number] 06/10/2020 10:28:49 AM EDT [facility] Name Value Range Interpretation Code Description Data Vale rce(s) Supporting Document(s) TROPONIN I 36.90 ng/mL (<0.05) [facility] [place] Less than 0.05: Myocardial injury unlike lyGreater than or equal to 0.05: Highly suggestive of myocardial injuryCorrelation with rise and/or fall ofserial troponins, clinical symptomsand ECG changes is necessary.ALERTED CRITICAL RESULT BUZZARAIlya([id number]) [place] [address] ON 06/10/20 AT 1027 [place] [address] ID Date Data Source [id number] 06/10/2020 10:21:55 AM EDT [facility] Name Value Range Interpretation Code Description Data Vale rce(s) Supporting Document(s) POTASSIUM 4.2 mmol/L (3.6-5.2) [facility] ID Date Data Source [id number] 06/11/2020 11:10:33 AM EDT [facility] Name Value Range Interpretation Code Description Data Vale rce(s) Supporting Document(s) HEMOGLOBIN A1C @ 5.8 % (4.0-6.0) [facility] Performed using Siemens Troy immunoassa y.Care must be taken when interpreting AnG1winviyjs in patients with a hemoglobin variantor decreased erythrocyte lifespan. Values 5.7 - 6.4% suggest prediabetes.Values >=6.5% are diagnostic for diabetes.REFERENCE: DIABETES CARE 2018: 41(S13-S27).PERFORMED AT [address] [place] [address] EST AVERAGE GLUCOSE 120 mg/dL [facility] ID Date Data Source [id number] 06/10/2020 06:33:14 AM EDT [facility] Name Value Range Interpretation Code Description Data Vale rce(s) Supporting Document(s) APTT 93.7 s (22.0-34.3) [facility] ALERTED CRITICAL RESULT TOAMANDA ([id number]) [place] 06.[place] [address] [place] 0632 [place] [address] ID Date Data Source [id number] 06/10/2020 03:39:53 AM EDT [facility] Name Value Range Interpretation Code Description Data Vale rce(s) Supporting Document(s) PHOSPHORUS 3.3 mg/dL (2.5-4.5) [facility] ID Date Data Source [id number] 06/10/2020 03:39:53 AM EDT [facility] Name Value Range Interpretation Code Description Data Vale rce(s) Supporting Document(s) MAGNESIUM 2.3 mg/dL (1.7-2.4) [facility] ID Date Data Source [id number] 06/10/2020 03:39:53 AM EDT [facility] Name Value Range Interpretation Code Description Data Vale rce(s) Supporting Document(s) SODIUM 142 mmol/L (136-145) [facility] POTASSIUM 3.3 mmol/L (3.6-5.2) L [facility] CHLORIDE 109 mmol/L (100-108) H [facility] CO2 28 mmol/L (22-31) [facility] ANION GAP 5 mmol/L (7-16) L [facility] UREA NITROGEN 27 mg/dL (7-24) H [facility] CREATININE 1.29 mg/dL (0.80-1.30) [facility] BUN/CREAT RATIO 20.9 RATIO (10.0-20.0) [facility] GLUCOSE 79 mg/dL (70-99) [facility] CALCIUM 7.7 mg/dL (8.4-10.2) L [facility] GFR 57 ml/min/1.73m2 (>59) L [facility] GFR ( AMER) >60 ml/min/1.73m2 (>59) [facility] GFR INTERPRETATION [facility] --NORMAL KIDNEY FUNCTION OR MILD DISEASE - GFR >OR= 60CHRONIC KIDNEY DISEASE - GFR 15 - 59RENAL FAILURE - GFR <15 Est. GFR calculation based on the MDRDstudy equation, which assumes a steadystate for creatinine. Est. GFR should notbe used for medication dosing. ID Date Data Source [id number] 06/10/2020 03:12:26 AM EDT [facility] Name Value Range Interpretation Code Description Data Vale rce(s) Supporting Document(s) WBC 6.6 10*3/uL (4.1-11.0) [facility] [place] RBC 4.28 10*6/uL (4.60-6.10) L [facility] HGB 12.7 g/dL (13.5-18.0) [facility] HCT 39.3 % (41.0-53.0) [facility] MCV 91.8 fL (80.0-95.0) [facility] MCH 29.6 pg (27.0-32.0) [facility] MCHC 32.3 g/dL (32.0-36.0) [facility] RDW 15.2 % (10.5-14.5) [facility] PLT 114 10*3/uL (150-450) [facility] MPV 8.5 fL (7.1-10.7) [facility] ID Date Data Source [id number] 06/10/2020 01:05:53 AM EDT [facility] Name Value Range Interpretation Code Description Data Vale rce(s) Supporting Document(s) POC NOVA GLU 94 mg/dL (70-99) [facility] [place] [facility] ID Date Data Source [id number] 06/09/2020 06:37:32 PM EDT [facility] Name Value Range Interpretation Code Description Data Vale rce(s) Supporting Document(s) POC NOVA GLU 92 mg/dL (70-99) [facility] [place] [facility] ID Date Data Source [id number] 06/09/2020 07:07:16 PM EDT [facility] Name Value Range Interpretation Code Description Data Vale rce(s) Supporting Document(s) APTT 49.8 s (22.0-34.3) [facility] ID Date Data Source [id number] 06/09/2020 04:47:18 PM EDT [facility] Name Value Range Interpretation Code Description Data Vale rce(s) Supporting Document(s) POC NOVA GLU 72 mg/dL (70-99) [facility] [place] [facility] ID Date Data Source [id number] 06/09/2020 04:37:22 PM EDT [facility] Name Value Range Interpretation Code Description Data Vale rce(s) Supporting Document(s) SODIUM 145 mmol/L (136-145) [facility] POTASSIUM 3.8 mmol/L (3.6-5.2) [facility] CHLORIDE 113 mmol/L (100-108) H [facility] CO2 29 mmol/L (22-31) [facility] ANION GAP 3 mmol/L (7-16) L [facility] UREA NITROGEN 32 mg/dL (7-24) H [facility] CREATININE 1.36 mg/dL (0.80-1.30) H [facility] BUN/CREAT RATIO 23.5 RATIO (10.0-20.0) [facility] GLUCOSE 79 mg/dL (70-99) [facility] CALCIUM 8.3 mg/dL (8.4-10.2) L [facility] GFR 54 ml/min/1.73m2 (>59) L [facility] GFR ( AMER) >60 ml/min/1.73m2 (>59) [facility] GFR INTERPRETATION [facility] --NORMAL KIDNEY FUNCTION OR MILD DISEASE - GFR >OR= 60CHRONIC KIDNEY DISEASE - GFR 15 - 59RENAL FAILURE - GFR <15 Est. GFR calculation based on the MDRDstudy equation, which assumes a steadystate for creatinine. Est. GFR should notbe used for medication dosing. ID Date Data Source [id number] 06/09/2020 01:42:24 PM EDT [address] [id number] Name: ARNOLD SHEAB: 1960ex: MOrderjanes Provider: TRACIE Wong Prov: TRACIE Cabrera Provider: Procedure Performed: XR CHEST PORT POST LINE PLCMNT-BIOPSY OR OTHER PROCEDUREExam Date: 06/09/2020 13:21MRN: [id number] Number: [id number] Class: InpatientAccount #: [id number] for Exam: confirm PICC tip location.Technique: Single AP view obtained.Comparison: June 09, 2020Findings: A new right-sided PICC line is present with the tip projecting over the distal superior vena cava in satisf actory position.The endotracheal tube and nasogastric tube are in satisfactory position.Pulmonary edema and bilateral pleural effusions is noted which is unchanged.IMPRESSION: PICC line is in satisfactory position. Pulmonary edema and bilateral pleural effusions no significant change from previous study earlier today.Report electronically signed by: CYRIL FLETCHER On 06/09/2020 1:42 PMWorkstation ID: [id number] Name Value Range Interpretation Code Description Data Vale rce(s) Supporting Document(s) ID Date Data Source [id number] 06/09/2020 01:05:17 PM EDT [facility] Name Value Range Interpretation Code Description Data Vale rce(s) Supporting Document(s) &PDF [facility] EOZFAs7wGtKBLyRy30/BSYsmUVKkt7MhBZofLLh6ERgyPJSiU4DsvYevWGGIUszPFsoVKRpUHHIbAWwr waW SjI0ievRIftjYYi3Mkb7YcmAwdpmrRNlQnUi9HTtLjMR6vda5DWQIsIF1zyz0IZOV8XF9SnIo0SYXeK1 GnWHLaURTqn5IvDK7FID1ydFgwFGb8AC0+XKerVBQ0faRqvX0OOUTTOauu7hJNxq+w/2MdBCFDvX5E2X 7eMwyS70VlFsI1StIdZ1GysdXikXxlYw/QagSy48iE 5LLcdeNZ1guBh+K3Ow9zJaTk38+oF/cFX6L3Q80NG9PNA/JtO4wkQdfwqfNSOEz+HmgVigPkYeyjfeYH zYB+hjl63MyJq4LCriRjHftoR/W+q8ObUy3YBNXJ3WzfSx1Xz52B9zgZMRiAIm4+RqPPyGONFSGOlEiZ CazXDWeqXFK0HhdtIqG2IfO38EW0QOlTEClGic1g8Y 3pKrQmWAMazJPTZIy3YUzWiXaB22KBn3/Mv60m39KNJxUhW9TJj91XA0Lmf/RSh8FF8SyOfmaM0N1YP3 nGXerSGDnKwylWbTIK62XTtI8xPPOOOfkdUGDS7pBWyoOwe/rR1NBKNGd3oY0rkItY3/sLivYZApM/g0 Ib85CSPvfLY0DyUUy3Ahpir+AGplh7VMHWZAXgnwfT r3zQPf5vMfIvThx0pCDjP7ZrS7+UL6VErFKtQWF31sstnXYWd5VSU2xjQFmXCjcdNljVDjirA9nw/n/V AEvWHHIspcf2rCxLTw4GAHsI5re0DPZEvdEw3c4YRULdWP42FNFhIeN64jxd1zHKGkoAwl4PTw3wXk2Y sGRsj+N4aeQOv6IxQ2I8Lh2usCkxS0plB4BgXeG33e H1n4o10t828jggBVWAmBHjqUKGM8I7ALdRkYFIDk56NSldbLBaiXrnKeY5F9ZHF2S0fmc+2AEm7XdAdM jBwTuhH9V63RrRlhROo7zH9yXn2lIpbIk44JXxmdHP5ijSKlHICSc2Vl7/bKZMwtpmesm/pEqUz6LLwt Susana/BuSyVgPtmkcnR+6V9CuAbv5yC+7rswSBk1Qq1p [file] ICAgICAgICAgICAgICAgICAgICAgICAgICAgICAgICAgICAgICAgICAgICAgICAgICAgICAgICAgICAg ICAgICAgICAgICAgICAgICAgICAgICAgICAgICAgDQogICAgICAgICAgICAgICAgICAgICAgICAgICAg ICAgICAgICAgICAgICAgICAgICAgICAgICAgICAgIC AgICAgICAgICAgICAgICAgICAgICAgICAgICAgICAgICAgICAgICAgDQogICAgICAgICAgICAgICAgIC AgICAgICAgICAgICAgICAgICAgICAgICAgICAgICAgICAgICAgICAgICAgICAgICAgICAgICAgICAgIC AgICAgICAgICAgICAgICAgICAgICAgDQogICAgICAg ICAgICAgICAgICAgICAgICAgICAgICAgICAgICAgICAgICAgICAgICAgICAgICAgICAgICAgICAgICAg ICAgICAgICAgICAgICAgICAgICAgICAgICAgICAgICAgDQogICAgICAgICAgICAgICAgICAgICAgICAg ICAgICAgICAgICAgICAgICAgICAgICAgICAgICAgIC AgICAgICAgICAgICAgICAgICAgICAgICAgICAgICAgICAgICAgICAgICAgDQogICAgICAgICAgICAgIC AgICAgICAgICAgICAgICAgICAgICAgICAgICAgICAgICAgICAgICAgICAgICAgICAgICAgICAgICAgIC AgICAgICAgICAgICAgICAgICAgICAgICAgDQogICAg ICAgICAgICAgICAgICAgICAgICAgICAgICAgICAgICAgICAgICAgICAgICAgICAgICAgICAgICAgICAg ICAgICAgICAgICAgICAgICAgICAgICAgICAgICAgICAgICAgDQogICAgICAgICAgICAgICAgICAgICAg ICAgICAgICAgICAgICAgICAgICAgICAgICAgICAgIC AgICAgICAgICAgICAgICAgICAgICAgICAgICAgICAgICAgICAgICAgICAgICAgDQogICAgICAgICAgIC AgICAgICAgICAgICAgICAgICAgICAgICAgICAgICAgICAgICAgICAgICAgICAgICAgICAgICAgICAgIC AgICAgICAgICAgICAgICAgICAgICAgICAgICAgDQog ICAgICAgICAgICAgICAgICAgICAgICAgICAgICAgICAgICAgICAgICAgICAgICAgICAgICAgICAgICAg QQAtGXKvIHHzZNEjUFRkZQZuEBJsDAJqDXPxCHXsEOWpXARlYUZgFPo7P6rhDEPqAWXdPM3jJKk2Bg2+ ZKiVCxLkJAU6aeVguG9VGA0bo6FlCQmeSSLof1AzXO q1QI5KJSSoULqkFH4BSKkjtl3SNTFbIYShmOWUe8ypGmWrEPI7RXJjBmggDF0BFNWoT5bggwUgKXOqUO LLPQaiXUJCIYwoQFMQVDAxZLUqFlTlVKwpXI0Oa1DwdYH6FRt+Mo0CIQ3vk5JjCNo2ZbKiWY1cjr2RYC zRTmBcC4Z9iPPvF7F6ZLugTp3UZISeGWFmLWNpXKXQ EBhpZD6JUK8xjmG2PD6ZjUPhRFSyVFJlkMPnLFf3S10maFWbNCyeBZ7GCXJ+Wilbert+Ow3LKDYmFOZuSYNn LaNzYDNVImRiZ33kkHPtRIHnVDGnIXYvLm5VIFHhD2XyusOjzXrapoFiZQUrWLLDKZ3PRJrputRqlEXa gHhaXQ66zDlqFD2GUj9ZAsToYO5niq1OpMVrQo1AIS J0Sw4SQJMqADBaWBFzFBW0ROYmQvAxYXetEHJdJXCjJEL8YRLzVNBkPF7GWsFnYQRqSwO4MOWbNKKmLP Jgho6SMZPxJOX1TwN7YSCyPQSoZSLqZGjqSKYwIAVxLMi4WEDvJBKpNA6BGqPnUSNyAKIwRnZyQWAoNJ Sxip7RTDQxYLOxEsN1SCMrQRIvMXNwRWkuWEHnBGY4 FFWtWJXcAEOsEI3ZEvDeZZFnDXUjEHLqTDHxHRXrnv1VKFIhSXFmKyH0FbUiMEErABLtZHfyVBByJVB4 FdzqEXZqVXSzAA2SGpFmLOWxPUi1YERnYTXuWRYric3DHOFeOBZmBKD2HqLwYUCyMJMoZGmzMFImTMNx TVFrCOLuGEUfIR8YBsAiWOBqVUSjODjdQCSfMQKlvf 5QTOQiFYAxXMB2FoHkUJTjYTNeKEjyYXCeEHLtRCLlOOSfLOPmAP4UPsWwOXZfENF6KBLtHQHmMXVexf 1VNXOrOCIhGTw1WEGfLRPmBCZxKVddPGNzMQQnOqm3PEIgMULjBL5HBzHqABYuVCU2ZTusKWObDHOcor 0XGQKiQSZcAhR0BrHeAKEuMYHhHSbrDOGzYXI4MSRl TSRgIPZlFW7GKxUmXITbMMNcFOSrRLFcTVFdry2JIKQtDRDgSQZhMuCjNNQnZJTfZNhiRLSdFQS0CdW1 YXEoJJSuOM7BBxUiYADeIuU4LqIfLRLkJODowk5XUYNyWTArJHO2KUPlGTKdRKQdXRdbJLTyGMZ1AWA2 UMHgRLZrUJ7PVuFlSWLhPgL1WXocNGElRBOqnv1PFQ YhSMIdSZE9KHGuAGNjINVaOOtuNTWyHFA5DCLlHVDiVOPsEO9AQzTqDWDtTCY0YnogQPBlZSKxei0VSH FzTTF2Pvm6IOGiZMWkTZRwOAblOAKnXDT0DnGyJHCqFPIzNL3CApNzXKRyIXC3ZYUmHGSoVVQjuq4ZYT DjTFQ6BAJ0EVMbZARkFINrFWkrABZeFMZ1QcZwXTDo VSTuCE0DVkSuCWMvEbKxXdrfBTYdJXRnue0CSOXfOCM6DhF9MJCfGEUbLLWcOXttXELmMDkaPTB5TBMw CWReWJ6OHlYvMYHrOoJmClniZVNoPZWxpf0PQMRtNIH8TgZ7ZoAdAMNkNOCmPLo8ghZsnEZbBDp9II4F Y6RpwhMeKVOTEd4Zv242HOJbMLPgMz1WR5ihVy6tBG JsMERWFt1LUTp8NFUoZXMxCpDkH3FpZeV2CqE8YILwVHwuDqHgVFX1NQG+SWluExQ4BiJ4BWWtKjGqMB RdFVy8DcX3V7FvJkEhUauyLY1sYQKNIo8+RGlqgLPwgSttKQNQTrpaKwdjXNabMZGLIf0E ID Date Data Source [id number] 06/09/2020 12:21:49 PM EDT [facility] Name Value Range Interpretation Code Description Data Vale rce(s) Supporting Document(s) APTT 39.9 s (22.0-34.3) H [facility] ID Date Data Source [id number] 06/09/2020 10:10:35 AM EDT [facility] INFORMATIONPatient MRN Name Date of Age Gend*PT [id number] Arnold Moreau 1960 59 years M IPPT Location Admission Date/Time Visit ID Attending [id number] 06/09/20 0026 --- Tracie Galvez MD ([id number]) EPI ID CSN Admitting Provider [id number] Tracie Galvez MD([id number]) Attestation signed by Carolina Holman MD at 06/09/2020 10:10 AMI saw and evaluated the patient and reviewed Marah Ya NP's note. I agreewith the history, physical and medical decision makingSignature: GONZALO Avinaate: June 09, 2020Time: 10:10 AM Critical Care History & PhysicalWayne SingerMRN: [id number]: 1960dmission Date: (Not on file)Length of Stay:0ICU Admission Date: 06/09/20Attending: YOLANDA Summersurrent ICU Attending: Dr. Hinkle Care (outpatient): No primary care provider on file.AHD/Code status:No OrderAssessment and PlanAssessment and Plan:59 y o M, with hx of ETOH and drug abuse, [facility]. Pt was admitted there on 06/06 with dilatedcardiomyopathy presumed d/t alcohol abuse, diastolic CHF exacerbation, and newonset afib. Transferred to [facility] for interventional cardiology. Acute ST elevation myocardial infarction (STEMI)/ Cardiogenic shock Acute EKG changes this evening with ST elevations in inferior leads wi thhemodynamic decline . Received 300mg ASA, 600mg Plavix, and TNK prior totransfer. Continued ST elevations in inferior leads - but improved fromprevious. STAT labs - trend cardiac enzymes. Check lactate and trend Continue heparin infusion Continue Epinephrine infusion to keep MAP > 65, HR > 60 Continue daily ASA, Plavix, Statin Thyroid panel, fasting lipid panel in am ECHO in am NPO for possible cardiac catheterization in the am. D/w Dr. Galvez Pericardial effusion Was noted to have mod/large pericardial effusion on ECHO at [facility]. CTChest reported as mild. Was asymptomatic. Seen/evaluated by cardiology. Therewas no evidence of tamponade and no indication for operative intervention. Repeat ECHO in am If significant change in hemodynamics - will need to keep tamponade on DDx.Will need STAT ECHO. Acute on chronic diastolic congestive heart failure Findings of R sided heart failure on ECHO at [facility]. Has been diuresed onlasix. ECHO in am Hold lasix, BB, and CORA-I for now d/t shock state New onset a-fib Rate controlled. Hold BB. Continue heparin infusion Alcohol abuse At least 4 "rum & cokes"/day. GMAW with fixed and symptom triggered scoring Daily thiamine, folic, acid, MVI Polysubstance abuse Hx of extensive drug abuse - multiple drugs. Denies recent use but can nottell me when he last used. Utox Cigarette nicotine dependence without complication Continue Nicotine patch Smoking cessation education prior to dischargeDVT Prophylaxis: Heparin infusionCurrent HistoryInformant: chart review, patientReason for ICU admission: STEMI, cardiogenic shockHPI:HPI59 y o M, hx of polysubstance abuse, HTN, GERD, and Hep C (s/p treatment)transferred from [facility] with acute inferior wall STEMI. [facility] with complaint of penile and lower extremityswelling x 2 days. He reported 1-2 week hx of progressively worsening SOB/ARIZA,and orthopnea. He denied any chest pain or palpitations. He was admitted forAfib with RVR and CHF exacerbation. Underwent a CT chest and Echocardiogramshowing pericardial effusion w/out tamponade. LVEF 44%, with mod/sev Mitralinsufficiency, dilated cardiomyopathy,and mod-severe pulmonary HTN. EKG showedafib. Treated with BB, diuretics, and anticoagulation (Xarelto). On 06/08,patient became hypotensive and bradycardic. Reported L sided chest pain.Received 0.4mg atropine x 2. EKG findings consistent with inferior wall STEMI.Received 300mg ASA UT, 600mg Plavix, 50mg Tenecteplase, 4500 units IV heparin,and heparin infusion. [facility] reqiuring Epinephrine infusion.Past Medical History:Past Medical History:Diagnosis Date Exposure to TB in [facility] GERD (gastroesophageal reflux disease) Hepatitis C s/p treatment HTN (hypertension) Nicotine dependence Polysubstance abuse PsoriasisPast Surgical History:Past Surgical History:Procedure Laterality Date HERNIA REPAIR ORTHOPEDIC SURGERY L leg fracture/traumticMedications:Medications Prior to AdmissionMedication Sig Dispense Refill Last Dose amLODIPine (NORVASC) 10 MG tablet Take 10 mg by mouth daily ibuprofen (ADVIL,MOTRIN) 800 MG tablet Take 800 mg by mouth every 8 (eight)hours as needed for pain traZODone (DESYREL) 50 MG tablet Take 50 mg by mouth nightlyAllergies:Patient has no known drug allergies.Family History:Family HistoryProblem Relation Age of Onset Heart disease FatherSocial History:Social HistoryTobacco Use Smoking status: Current Every Day Smoker Packs/day: 1.00 Years: 40.00 Pack years: 40.00 Smokeless tobacco: Never UsedSubstance Use Topics Alcohol use: Yes Frequency: 4 or more times a week Drinks per session: 3 or 4 Drug use: Yes Types: Cocaine, Heroin, Marijuana Comment: "multiple different drugs"ROS:Review of Systems - History obtained from chart review and the patientGeneral ROS: negative for - chills, fatigue or feverPsychological ROS: negativeOphthalmic ROS: negativeENT ROS: negativeAllergy and Immunology ROS: negativeHematological and Lymphatic ROS: negativeEndocrine ROS: negativeRespiratory ROS: positive for - chronic coughnegative for - shortness of breathCardiovascular ROS: positive for - L sided chest pressure, no radiationGastrointestinal ROS: no abdominal pain, change in bowel habits, or black orbloody stoolsGenito-Urinary ROS: no dysuria, trouble voiding, or hematuriaMusculoskeletal ROS: positive for - back pain- chronic, restless legNeurological ROS: negativeDermatological ROS: negativePhysical ExamVS:BP 110/75 | Pulse 66 | Temp 98 F (Tympanic) | Resp (!) 44 | Wt 74.9 kg(165 lb 2 oz) | SpO2 99%Temp (72hrs), Av F, Min:98 F, Max:98 FTemp: [98 F] 98 FHeart Rate: [63-78] 66Resp: [33-44] 44BP: (96-110)/(64-75) 110/75Physical ExamConstitutional: He is oriented to person, place, and time.59 y o M, restless/agitated, awake, alert, oriented, NADHENT:Head: Normocephalic and atraumatic.Mouth/Throat: Mucous membranes are normal.Missing dentition.Eyes: Pupils are equal, round, and reactive to light. Conjunctivae are normal.No scleral icterus.Neck: Neck supple.Cardiovascular: S1 normal, S2 normal, normal heart sounds, intact distal pulsesand normal pulses. A regularly irregular rhythm present. Bradycardia present.Afib, rate 50s, no edemaPulmonary/Chest: Effort normal.Coarse breath sounds bilaterally, no wheezingAbdominal: Soft. Normal appearance and bowel sounds are normal. He exhibits nodistension. There is no tenderness.Neurological: He is alert and oriented to person, place, and time.Skin: Skin is warm, dry and intact.Multiple tattoosPsychiatric: His mood appears anxious. He is agitated.RestlessLabs, Imaging, and other DiagnosticsLabs, Imaging, and other Diagnostics:Lactate:Lab ResultsComponent Value Date LACTATE 4.9 (HH) 06/08/2020Labs pendingThe above impression and plan was discussed with Dr. Galvez and Dr. Rutledge. Anychanges to the above plan will be based on patient's clinical status and furtherdiagnostic testing.Critical Care Provider StatementCritical care time (minutes): 60Critical care time was exclusive of: separately billable procedures andtreating other patientsCritical care was necessary to treat or prevent imminent or life-threateningdeterioration of the following conditions: cardiac failure, circulatoryfailure, shock, toxidromeSignature: Marah Ya NPDate: June 09, 2020Time: 12:10 AM Name Value Range Interpretation Code Description Data Vale rce(s) Supporting Document(s) ID Date Data Source [id number] 06/09/2020 11:16:42 AM EDT [facility] Name Value Range Interpretation Code Description Data Vale rce(s) Supporting Document(s) TROPONIN I 74.80 ng/mL (<0.05) HH [facility] [place] Less than 0.05: Myocardial injury unlike lyGreater than or equal to 0.05: Highly suggestive of myocardial injuryCorrelation with rise and/or fall ofserial troponins, clinical symptomsand ECG changes is necessary.ALERTED CRITICAL RESULT TAYLOR(0160) [place] [address] [place] [address] ON 06/09/20 [place] [address]3 [place] [id number] ID Date Data Source [id number] 06/09/2020 10:14:47 AM EDT [facility] Name Value Range Interpretation Code Description Data Vale rce(s) Supporting Document(s) LACTIC ACID 1.5 mmol/L (0.4-2.0) [facility]AH ID Date Data Source [id number] 06/09/2020 09:12:14 AM EDT [facility] Name Value Range Interpretation Code Description Data Vale rce(s) Supporting Document(s) POC NOVA GLU 114 mg/dL (70-99) H [facility] PERFORMED BY [facility] CLIN[facility] STAFF ID Date Data Source [id number] 06/09/2020 09:05:54 AM EDT [facility] INFORMATIONPatient MRN Name Date of Age Gend*PT [id number] Arnold Moreau 1960 59 years M IPPT Location Admission Date/Time Visit ID Attending [id number] 06/09/20 0026 --- Tracie Galvez MD ([id number]) EPI ID CSN Admitting Provider [id number] Tracie Galvez MD([id number])Interventional Cardiology Patient is a 59-year-old man with a [facility] [place] status post successfulthrombolytis. ST's have returned to baseline. He is in atrial fibrillation.He was admitted [facility] to [facility] with a dilated cardiomyopathyand CHF felt to be due to drug abuse. The referring doctors were not able togive me much information since their computers were down. The patientapparently does not have any prior cardiac history as per his history. Wereceived verbal report that the patient had a pericardial effusion but not feltsufficient to be drained. We plan to obtain an echocardiogram today.The patient has been combative possibly secondary to withdrawal. He had to beintubated and restrained for his protection this morning. He is hemodynamicallystable and pressors have been discontinued. He is actually hypertensive at thispoint in time. Continue supportive care with heparin drip. Agree with ativan.He is not currently suitable for coronary angiography. Once he is awake andcoherent again, plan to revisit the issue and see if he is willing to proceedwith a cath.The ICU was informed that I am not in the hospital this afternoon and to callthe on-call cardiology consultation service or on-call interventionalist ifassistance is needed.Tracie Galvez MD [facility] Name Value Range Interpretation Code Description Data Vale rce(s) Supporting Document(s) ID Date Data Source [id number] 06/09/2020 07:44:16 AM EDT [address] [id number] Name: ARNOLD MOREAUB: 4Sex: MOrdering Provider: MARAH Perdomo Prov: MARAH Delgado Provider: Procedure Performed: XR CHEST PORTABLEExam Date: 06/09/2020 01:07MRN: [id number] Number: [id number] Class: InpatientAccount #: [id number] for Exam: CHEST PAINTechnique: AP portable view obtained.Comparison: NoneFindings: Cardiac silhouette is enlarged. There is some groundglass opacity at both bases which may represent layering pleural fluid. There is likely some basilar atelectasis or infiltrate as well. Upper lungs appear clear.IMPRESSION: Probable bilateral layering effusions and basilar atelectasis or infiltrate.Report electronically signed by: ABNER RICK On 06/09/2020 7:44 AMWorkstation ID: [id number] - [id number] Name Value Range Interpretation Code Description Data Vale rce(s) Supporting Document(s) ID Date Data Source [id number] 06/09/2020 07:43:44 AM EDT [address] [address]Igpyfem Name: ARNOLD SHEAB: 2Sex: MOrdering Provider: SVEN LOZANOAuthoriyazmin Prov: SVEN LOZANOReferrjanes Provider: Procedure Performed: XR CHEST PORTABLEExam Date: 06/09/2020 07:11MRN: [id number] Number: [id number] Class: InpatientAccount #: [id number] for Exam: Endotrachial Tube PositioningTechnique: AP portable view obtained.Comparison: June 09, 2020Findings: Endotracheal and nasogastric tubes appear in satisfactory position.There is increased density within the lung hernandez consistent with edema. The heart is enlarged. Small right pleural effusion is noted.IMPRESSION: Pulmonary edema with right pleural effusion. Endotracheal and nasogastric tubes appear in satisfactory position.Report electronically signed by: CYRIL FLETCHER On 06/09/2020 7:43 AMWorkstation ID: [id number] Name Value Range Interpretation Code Description Data Vale rce(s) Supporting Document(s) ID Date Data Source [id number] 06/09/2020 07:56:26 AM EDT [facility] Name Value Range Interpretation Code Description Data Vale rce(s) Supporting Document(s) POC TEMPERATURE [facility] 37.0C POC SOURCE [facility] PUNCTURE SITE [facility] O2 THERAPY [facility] POC FIO2 60 [facility] JOBY TEST [facility] MODE [facility] TIDAL VOLUME 500 mL [facility] RATE 16 BPM [facility] PEEP/MAP 8 CM H2O [facility] PRESSURE SUPPORT 14 CM H2O [facility] SP RATE 2 BMP [facility] POC PH 7.42 pH (7.35-7.45) [facility] POC PCO2 32.9 MMHG (32.0-48.0) [facility] POC PO2 73 MMHG (83-108) L [facility] POC SAT O2 95 % (95-99) [facility] POC BASE DEFICIT 3 MMOL/L (0-2) H [facility] POC HCO3 21.3 MMOL/L (21.0-29.0) [facility] POC TOTAL CO2 22 MMOL/L (23.0-32.0) L [facility] PERFORMED BY [facility] ID Date Data Source [id number] 06/09/2020 06:50:54 AM EDT [facility] INFORMATIONPatient MRN Name Date of Age Gend*PT [id number] Arnold Moreau 1960 59 years M IPPT Location Admission Date/Time Visit ID Attending Provider --- --- --- --- EPI ID CSN Admitting Prov ider [id number] ---AirwayPatient location during procedure: ICUUrgency: emergentDifficult airway: noAdvanced airway equipment used: yesStaffingPerformed by: Ilya Jaimes MDAnesthesiologist: Ilya Jaimes MDIndications and Patient ConditionIndications for airway management: respiratory distressSedation: propofol (50 mg)Paralytics: rocuroniumPressors Bolus: nonePreoxygenated: yesPatient position: sniffingIn-line stabilization: noMask ventilation: 1 - vent by maskFinal Airway/ApproachesFinal airway type: ETTNumber of attempts at final approach: 1Number of other approaches attempted: 0Final Airway DetailsFinal ETT airway: ETT - singleCuffed: yesTechnique used for successful ETT placement: GlidescopeCricoid pressure: noRSI: noInsertion site: oralBlade type/size: MAC 4 (Glidescope #4)ETT size: 8.0 mmMeasured from: lipsETT to lips: 23 cmPlacement verified by: chest auscultation and + [id number]: equal breath sounds bilateralGrade view: grade I - full view of glottis Name Value Range Interpretation Code Description Data Vale rce(s) Supporting Document(s) ID Date Data Source [id number] 06/09/2020 06:16:43 AM EDT [facility] Name Value Range Interpretation Code Description Data Vale rce(s) Supporting Document(s) EKG [facility] NBYERa4pUeRDUfVny3DqJdTfOXWqUI2quku5P7S7kPPcT9RroOHxr5rtV8GkM7QqBHAtINYRPL0HdUZt jb2 [file] 7iByZ3tM4ow312k55f3tSQpZ72d203UQgpMlqX38MI [place]+oHv2GBJLwDYV/Kmp92kxl6vE/CFmGbMOQvuqm/hYYCuSsVWpNV15PaUDNNoPHo9Myo8m4c44O5jl [file] b70Wdos4ykKnp10Znqb7icUlk42Ez921i4gw545j5tg091m8yw9+6fnoi2y7iXeR8q2PBgf6q0Qdyu4p 8Ltzk386Zgnk1WRX6iysKsxFJKK9wL58qLcLY3gza3 U2L34SkA69BpHKgmiX9fUtfMhLOunxnf2dC5by54sokpYIt7ma66sydqAVc2gf71wsfAALw8rjF3JdvT THp8hgE2JxrLKJh8wyvv725h0mo382j4ft942x2gt152o8ca1+qbDhc8fvpFkC3t3MDkh4x7Cfqg9n2W doemvPBEWBBeCOsX/u//uq9K/8Ezx3lnP4G/4RzAp9 JjnDYx5KGdWhRMQ7DJbQCz/ilh/iTPF7fcYkQ6uqyJ+xLSLyppFJbx2HFrwufWanHJgBc/0q/a5L4g/d J//nPF6lddGHUx33sW5zb29/Xoy/IAvGrdfpHhr5i/66+ggJ3lzrNMBrLg++oSHQiDvyG/Eb4B63DthS 0VJ41me38Dkt5db8rK/o7zpjPLJfU+qU8CHzEp1N0z /7L0s14t8zhvG1dl9YVnQQc3JkIykNMUy5K2lSzz15zutANr0shEAi+sR5WdW8aIb84fpFE+kF/BB/1N TC2gAsi8Lpl+HybJsPkFQp1t66Mc3wBr3hF4iqLC7tDuyrNJ/WA2CocmlkFij+oUPVaed898lL248gdo 3ppIwri9iv9Hg/1cmDt3H55+sy9lpX8g39E7+6YVKr ib909LhP77/0vxAguV36Pl+/3WQlL+X4LCuAFRw435cvwc/J6Vi3ii2M4/M9y8fcdSzZH4568MD69/Vc tfi5qW583dbaO+X3/R4bx170n+eAXbwA0Z9j9n7Oi2xGX66kjowmNnqzw82aUbahJ9R/H3w8J0VywhLW 1T0KzXEb/XkuB90/mlL/WibM9xeS99gDZ/wpCO/oa3 HALzNzB/YyP/Bh/4N7Tc6OARswnvcnWVoIh4T+bvXsi/fb3cQom7gCs6rWrI6413HHk74S/wCL5btQD/ 2pi/+zT/g//JOj5acZ5J/N8Zg17qQunrfiv2YDgRda5Wc6A1+WB9Pvi+B+G6DE4s7wT/u9fzg/X59Pos 1BOji5lykXP8Rn2AYnxoKF/hfiOw6YnpI+R35O//0X 5N1PJn7eOcbump//nkJrP/BbZX7bz/EUqm3cMk8Y+vzP6+Bch2LxLqbvRI9/F831/WuLrPL7+wg78jf/ +B4xIPL8y/A2o2fD2iV434iu85j4YYR/Mt8K1P4pZT4v4WusqU37UogV2CZKj42z2p8u/5q+/wIjyg2x 9/Xbj8Hge7T0FEK0NYlP0Z3A9+ob+C/i709+Kr4n/x 1cszv/l+X1K+m6Ab9Hkif01Tco7OuBWMoi1dza/4Mf0C6sWB58f3/2djB59h3f0d+J3tLEU5VImn8GyF r/7Amgd28eGeqji4UirdJyfMe68qXLMtedUkMGqBzHJxY78c1UsM/Dfyb+Q/4N//X7H+HwnwlSS+elbq k65KME98CcN7WCuuwn66Om42QAW+nsCib7M38nC/L7 24hMto0p4qY8/VE2A9xzF5F+lsK6EKpXyImzy7+KbN48l2+XulB5Kb2D1Ixy+++sItT0d/Uv740Tziyi 3z10+3/+KrSr/6ntEL98xDrAxVpE8el4F8IZoU1J8fPUNXEJRc2M0FMzQ3DU6g0I2TjpDbN1UpE/74H+ 1Dr9Y08or9YM/37HG+pD3jvKp93blAmKOlm/jqpWuP 90FAMq8ac/F9tyM/vu/Q7017wa4i0/yjv6HmpDo2LTjUTrjjjci4+VuV5UDbywz/o7P6/3IU+SZ5Umtn x/nxbv/UMc2dEAv/6OB/dDB/R170wl3/0S2huXhxO6UeDCjxypw/+9l9gc0rMs/1xzPwq63jetGB/16v 7rvFDiO/g4+jPf3/mK4I08weV2oa/ltBUb8h45POvz 09nB2i4Dno6kqrw/EsTku8ps8+J3Zi6DM+qp8Cd6v9duoGkT+I15DlgJ2CF/BU9IWVyvG+Ol0aP9+HiV 61jindNfl8ewQ21WilK7mX/RVFfgWfXq/uc8QnQ+jh2iOGT028O/cl4pfe+8EF/hX7w7iwAg/3darb6f lnldmeLfu8Dn3Aae1G193cg8t37/2+N+ywi2vVm0TN bQ7fLtb58br/5QyqCvk1ddlP36Y/F75v6q/ufnyl/qgl6xwfG7ViQ4R5xXOrxANMQ4koosoq7B38QDVg Vp3HthrI3B2/LhkqhpJH0Kbc46+tub19nPb3er6Tswe1A4b1Qcg7kupwNIpZk9K419IudzT/pw8v8zBn ln3D3hDs+9bW+99lmL/W+9/7iPDj0/qN+4TwC9/xrJ nnjucKG/Lc0Qosv/kkKlI8i5LCrp/10B28pNsfs9P+/j9upMZ9FJnvt++ZdK7fONu/MriIY8Le6nLsMa rj1E0U2TMwEOm/eb3yfwYLe/+6iZd6wxymuJu671O+thLRf7A0Tc0IMSohOji9DhQX6mg6INi5eP9MUT 4PrHT8DknD6xcgxU+B/tpR59O4WezG2s5c+OqFkR/f d+L7cvafr88tpHB+7iPXzah0gCqRkupEpnkn0Y5MhikJv+bpsv7blUE8zka84V1bekFO/LJkgI3lsnDj fMxRn0Q+zN/UX1V+zN/UX1UY8/dg/qb+KuWQ+qsKb+AOfiFqj73/X4X+SqG/KyeyKRihuh4OW12BWB0u +GIV3qz4mt+vo/K5Hpkdn6l/OpnuH+5K8ymNM+9/df T+V8dG+v7+g/dNX/2zdLR+944pR6z7Z/E98q9fiN/8SzGp81mu/spM9z3cf2+KqdJscuu7g3u5w4oUfG I+1navmfou9Z1Fnv8/6nzYZiGogaA9/5bnXU8mdEpaR1DlH0cmk2gybK5cpkXeXjj0J/7Wt6s4+DvaEz 2LwVViCkfl01sn94UHusFq/bPm+HYNv2I3ZL31Xhvy /7+6ev+rq/Kxnlnku2uRK4Nnp4jCNfP5K46SPiydAl/zfLDC+W0Z49bp9Mq9QdOvvrc+/b7Je+NHJ/I3 jbtH3y1XXA1SF/e6IA85ar7/28b6u26w8kAf5x4b2beAenksjv/G1H58JdcXy9EOO9cqkrkyIYP/DfM3 9Ifa7r3/Tx9D1qDoi3edfs1ydTpt+Uyp6mHIE/e877 65+0I6Ezvxv2jh0K6aJamVshUfbXtCt81y6edb3X0/Rs54DcQ4szk+zw3/+ay232Js5sXknt++ivxGF1 5K7s3ck0ND/6Oulm71q4RvB41oXn5//a1fvguu1Qmhy25dc4/FV6fa+evvsQr/0iPDv/5nik1cf/e4vp Puy7q/cYi7j45sqYsv1f07YCkylmm8cD0+0diZ4t8W uy69tbBqjNTj41kgjXpzhlyort0PROf/qYHxHJi/bG7ZEZckwsToSn4iKhAhpx2Bt4v5Bubc+StPdS8F v+qCnzsTRt6j67oApYTpKkVUsQqDv4RAGx6xzAF+HM+JUgJedDtNS19nOD/4suI0T9VJEr+H0Zz2T04H /mj1WLnm4mzf0FboCC/cdsLIWJAzduo30u5cELucOl Pso/P45Z/pd/6+MNLv/A0UL4qW2m/5/g8V44Plp7V+v/qrv1UeZHT/1imvzC4+76csh13S6+/8vY/ivr Ns1s57808E+5sxWSW3tlYkv005R4Vxzth8gJ37e5ffrxK0fH456FJ5GCmgpVNX+c0cEd61eugJ+z7DfQ BX9yju+7e/kKXPRw3v9LW/hX9Ma7H++1vhg/Tb32zb vIrYjfYK9g/5xavfoAGWdob4ixXJt91dPU86yc98+MG39lB3+Krkc/HVS/eW/5CPUmlfh4+T8D0hP8/V z274myVtfil6cV+zvXGb+Htzyo4aH4q431EknqAMg2Wps30O1pBLNb1Y+l6oWepu/vsifA1OqsC+0BJf WYWtwxvpvT+e2wjyafqhd3ctKe860R+yPB+sPBP5+7 mouXM9ga2rC601kZLYifAY09mGgkQY40qXkx80m10wNomjmO/B/4B/536M326K+iuD/pwcplXkz5v7K8 nhn3cszOqOKTvxw1YH+g0zR/7Fw8s2se3sxsRs/6/ZBh+71cZgB6g1/pybsyMztxb8P8M+yqC/MuivDP org/4ZuU1a1A/M+0pBvCQh1jjoB75iI7NatNr+wXD/ hbc4vzR2d8RR0qbpgOBzIHXwk/pMQm2ksU/F1nfYXQjRn/R+wRJfVbj3+kK4PCUvN1O/9/d7vdkPnkPt 3h/kl4kizfujIj/zz5Z4d8/mdMYAuxrydC4uwl/e5xila4Z95scK+1eW+Cq/ZeznLaczpgw33R7wC43y ogvjJ8wTVQrcya/N16B676vyGeCpyrTRuUi//Z0pk4 fsAg5yOq1E/tu9EvjSx+wTU4LcK3+lHBJfncy/Plxnia+kQIEhUqagj2xpgz3OHVo8S7Kx6l6c0Jf3L1 i/p/XtdjB/D+Yv9Fc+Gj/76Pvenvory/SJ/PLxd+viKAzvH69mmDv/X4f+yuv+VeY38G/7tr9IqgY/gE /JJq6q6rk/keP+lc/Wx/dv721J/SvH/SvH+aDPvq/i s+evz56/PtHfun+P7v3v3hY/Ji9j7O9heAdfKiNv0Af4W4v8ly11b7Gk4qfO/sql9/Jose Luis+f3y4Ki91+6 9H0Gh/3FLaNepqsjfr609g+RS6/PLvi+Esjf+yyHyvDW3IWkES/9VYYXxnPqr+9m2aB9Gt33L4LKTisF 2Nccn92/bill+euFu/zKkYzwvjOeF/h07swTC9B/gK1 8H6Zi/4o8o7n0niH72/Y54suJ7/Kx6y0GgHM6yg26PpGbhI/fbXfs+oWv/e6tn8RxfbaT0lBUK++2ufX /C5KU19i5epV/Qbg1hyW3o2//RynDfZ/DSX2V6/g5cfC7996L/6vYhU4ml78xi27m6103L6FOeGS68FC Pol6DytI44q6Hqnn/KNqT+Cfy2FHlf6gab8cQKC6i9 nwn93c8gsRU7F9bxr4w3hdmdFrgriHm0xWV0/kt8LY00Cq1ue/PA+hwYz7h/5bh/5bh/5bh/5bh/5YHx DJmByyV4kD2f/yQSA0cK7z715o3Yo2N/3eOAD/qL+1eO++2+0V/cb/eN/u5Qe63Y9rW/G/3d/f7Icb/d N+iytfX70Ln/cb/dcb/dd9/P8Y3+bvyPTu+PHPfb/U ykt/7PZ28751z/lfxP35/003jScf/KT9/fcNy/8rp/Katelin+P/GN4Gm75u6f8v1Rl+mq0u2mW1+Vc/DiK6 [file] BAE9JtkH0EqezPV4Jr6H7CqQtI9VgmYtPryYrw0YhNiGsQXgRDImZ8/lGAj0N/B9E19V/tP8N/qb+Ricki gKhwCECziB0CE7kbUy/ZsQILu822scRvqpWkxC/VBcodjAh7ntN4F/5uzN+D/p008hEkk3rBn/4uR/p7 nYV0fN+t0ZHzm4tF/2WbM2uDgkpR/V4PDyoaR/kP0s +X/76xqPbcJxZfuPe/94HFF+4yrG9WzQPA/Ug5AnnG1AN7++V249KGe2gHEr7nDT+g/n0p2ZtYL06bUg /7M7dyb1F6c1v1Wk/f+0pdylMPm51FUl0E3bXeKw2VN99V9/oyFHgnd2Mqh2/jFMOpbioc2LqiEAjCw0 oc4kSBN62+/4WV+Kh5Df2c2Ktq/n2xtpPPYt2KXs2o jAGls8ov6A/+DvudVp8c/Df4H+Tv9Wql/iq/8Ws5hZuI00f7YyJqG6foblzw+O5da0imk2ev41eH58Ic 821Dz63/63U6P7k+vf+15aTZe11oJyRBag0t3dI2Tq/5Rarvir3U8Ua0+z2CBZp1ictg8b1EhCc/9Bue +a9+I+v64as/RDQeU2FQ0apIl3pF5LjDgb60BaNerL ghWIaTtz59iMXquOwv35vCSO4ruJ/83dmXcjumlJx9141p5yQ9zlqTxg9qyI61o68+UDqQ+/qhMPZ9/F CY+o62WIa5OOIBtt2xbIeZADcK9B2mogAkZZdtxWR5qxFvopTh9a3PtwEDfY7Q9pp27d3/WomvUiY+kX 1Sh4k0nfxXq+KrSr/8jicGaqec4rD+biW+qvwGPob8 Rr3cr5hMq879x312rRcp1VgRqmS/31hs6Era4bDK1Hl0uAP09i17CBEhXl+Fch7n84s2qm1A4NPy+BjS Rye671ehvegy/xPR0f4It1F+kH4+PcZ9w/DS9+u954y578z+u/Ub9/gML551zylR7Co8/fQGK/VXxdOQ 3iwHjH60af21vO+D/9v2Kp7q3LvRHC+va4ammreMtr kcfN/RMkBo3sls2+dHK/TPZkXrhbjlcsz9O/47nnOdSXxV+bE+n438G+kH+c83/qQt2T0bUcaM58m+c0 2UU6xrgMXbcTOWQ04r8Nk1NbiuGDykGh77/72QJeibu65n3Zp0riG81h6g81sQ6t+1zoTRE0TnIbH7uw 8idNieHuO+Q+hu976F4Ot7fy+p+xwd9hT3ZWWSF/1G 3dq6Qe49Pvsy0UOlWFbpb0HrGxrtqS2SsKgbyB6a/3i3TRpcy+6bg/a70WpFt9/0/+g+OPjCt7/Ztouv YgleEg4D3Oc0A2EtLJ/dy8UrxKJ/lX1M/VXlD+S//d0V/jRMhi9joZ/8pnU+JSRq28g3jwOTWiRH4Ltx g8oll3CwHoLQtwhsd6c/Vs7HAcCxkh20/K/iB0uged t6DuuPUv/Eu7ceP4i9wevg+RDAggxKb4DfYpNh/Hn7Cve1Q/K3/yh24sV1QwQ5woxsQsMwp1w6WfT/0t UeOH8HRekj8frkqWEymUaCpfXOwY02oHry9kU52r4D+PKs5n/cUA9It39eKH384gLm+BjSez+h6aljbs 1/9dlqrT1Kum0/8puOii20+Wsi860gNFap775RDu64 ROAvfNfbi6/aRxL6XYZWtyt+/b3/oWz36P4Rs54vtBT225Las/y9+OrxsQ/b0jfHP17YI2f9nxk1zrpj fSP/Dqlf51kVZEn7GiZ7gk+Lo91LC5J+i6+qrqu/glugp06Q/uR5+don69qcs5bjM52U5eXeIHR8d2+p v8r/WjR+4pN7Gg0AyNt9/8x2r9il/651Xh6k9HcKay 4q86f+qsL4/6b+biQS9zYmqhPn//LMN7T6cw/du2X26pHmqESHk6Sq284cBpWVxqUkg929N/VXlR/9Pe zr1j3oU+mvuiTBPpFr1hrN+DhxP1GK+vNrxqt6dQq+zPDw1Wzhre4A2PguyZclz1p64FhY3jlvNGyZf6 bngy/75Q7afN9weajTygk/06d3rTTEbvjGP+9aYTgf WJgHSa7HdAwv0+Mz1yry2Q/YRIk2nPbqUYv6XZRJ0m+oracle database developer/7qhZHe+yNL/QKO7LJkfhzDEsh33nd9sVU+ amce/y28tc2sRuZrl9fq+yqW+ivN9N7/5zw1eq5Y4ue2N6s4w8Or1u9eug5qXmWPZ56r5C+NTG+8YdJ4 wxJfRfJc3//FEl+9MNIN+a7nbc4taMv44pctxMRn7G lI7/Sgn3F91/gqrTMHw13Z+CgeFiz8RiqyuxQ4MARan1bi2A1O/g8KrqC83wtAA/1d6G+eD54Kt/zrfL YYLp57bM+cWg983yhkndyQdU9X+fs89N6+7zDy4/qJL5dum+SP/qp3+4GvTPu+mWnrY++d+4jJDL0POr UffF/N1eH17zBxXaEYYY6am0YJE68By8Eu5TUwy4kK /FJ57Ca953+AvGXYZl3pxi2mV/pr6K+Plo9j/uoyo2bmt8Oe9yu986z6A+xbGii8T/rfdN16J2DyuN+f 79/r9O+4I6haM610B093w/0H6X1/3uTSDnosjoU9cdCW+dhJ27Ohu42JkvrS/C34VnI2HnwWKhn+0fp2 Cwf/QDq+g4uoqidsbI1g4mdbn2c+rauOs8g7u/cL98 C4Hqvp3/7Idp+nWOKr/KfsxhuW+qv8l/3/OB0p0hPa6a21xkVyVZjAMVdcg+Po29iXwyhf/22+Lbh4fs 0eEXWpy+QDEH7SV+X/ePmveu2f/69k/6/+Iyd297/93jWS/1ta73b7+qtV5X/nnls5gTuuTVA+lT+3/N VfzZQrUn+Vayzlq/zvu/YX8jcf1/suD3sd6S+Hg8z/ jdeqzG+6mu135rAkkI76PaLr9/v17M+Vrzzn/+qv/BiyXWS6srBbVjeq8hAa/euPZJvnOwddc/sD7402 /OrmqU0TXig9fk91+vxro+9/ivW615wve775apKg45No/uq+XezgycbdM3jri8bzp/Vgo+2FUt7CE539 PShsTpBWyuv0uvJ8KCex0DjC2uxW9TqJnS4JXPZ4eb 2avQ0hhWe32usp6vDU0xDbGk1g1g7dZP6z9LuBj6T+0YvCmwexb4jG0uY8lR8F+WpXuvsz+3xks+2Bbf b1jf8OkNv6pd2/3u9xgvy8Z8D7ZgzIybrB51a4rxv1lVzr8SFzqq9jxx3c93dvS284/Pplz5ddbnH9it u2+n7B1kJ+671b7G0pks+rzLI7gjy5CRaAOa8Z/kH+ DU1yd87Giem9UOvzN2c+y98XHgTXBIm8u1XD+qvKXyi/I2U9Lir+3932DLYN+Yb8/t2saNpJ+yvb/X9k P9Hl2oEr58NT635GlP2u9jub54rTpwV+9sKrq296lKyaL89hb7Hm+hxL/ZVk+sobd2+2kY0n7bygJbfl 5R+ZD7lkbTu0W1ZKg5fbljo8y6OitCS9n/JVlU/9Va Vbf2XW+hxL/dXK/UP6yq9p0i/okVQ2oTHT+wcnA11cl779eAjpyj/IP/2+rD9IJi7+WsyvjMdxU6t5AC zn4bX42aU7b6R+FwbW2rfkVBYD1ouveA0d6cSK3ungtlAG8j9lgF68h9+W8lX+12K0QguvT9yx92+dtl tp9S0DzQHcMaIneWeBVuo6Fkm2i1Rf6Vjm8VxGEa+P 7Cj6Y/1/nfqrSre+3U7r2+0zdCdfAC2FWgboIBILEo3/SrE6kTrFF2i+qtJoB+MNvN/YyG/7HAtF+9r7 NA7J5c4R89WUqv2r+qv8jlJ/ld/Z0Q3KIxpqk4Vd4v4u482Czl/ve14V8sXy/vtl138i/avzB9sDr8/P P8zZzuXo1XW9lxhzD/poedKvfJWyqI/2T/ElU6owcM tPSrbpaOfqn+//dKt85C2eVB2Zd4628vEgvC/k0u/Avv8YUm7o8nBiEO/7q0p/19nm3XYjEt22vU5n+p MfXNo/xaXlSS/3WjVtgvnsJ27pGey/zOiXW77E+4evSP99rdn2t1Th901p1oEaiOMFf5v3WRF+/sd99v nIIV/6WUWstdSj7/N4pH2k5eYVq0++T/F5kH/w3EB+ +9x8hrlB73F+xZjHA61H3VjqjSjJawcrLX8XD1140aM9wxhId0H8qsuQhZ+f3tjT/njkmnXl0LfB74El +sZ4d+hurOk2d6rrk/fsedgL+evbT/vhC8QR1/mAlCL2Pv6maMyfVnXd0+57vSd97BX+2x/Kk5bplDb7 dhm584yGh9H4sR4w2o9GjHL+OK6r+6/tn+UY42mEs4 r3C/7V41GOzr09WR/9Va5/bf8yT/ur/Na0/SW97K/m2bn0E2g4e0QKh4q7ZaMa/x+5Yb+alzna9Wu57E 2ZW+mh1Qcc764/f93ant/O1L8a6613/4lws1Ebwli9U0a55p0nkogX/KPBhkb5nej6e3t0xEGd/79e9u 6UyimYmrZ5GOePzak+035Gdw4VojPOYoua/+C5bQ/s 3iEGa4C/9oP/anGPG5Am/Yaflicd+iuHfOVnI3+ohAM7KKFsah496y/GC/t2L/mzxjpAj6Ojqcy76xR9 nPJVrtto/19P+SrLRJ/0Ttmux1Az/ET5hfw+42a3op2mS0/1Gx74/d5AjsAhjO//13t6rmjwhshY+fGV P7C/Oqm/qrR87Z/R/s5ntD/WYi0mCQhpXz380xNb/q rqbuT3+fcMRfuGfEO+I9+R3+/3jH6/J/VXL/2bzyL9ll1F8Xp900X+qkfzx5ix3XoOLL8b90rT71B1qn 3S+2NNJt2i8Pkx6w8lUN+/K5z9WvhrJ8IwKZ+0//6Z7b9/nD925E+y3gsmgz8/nzmR3/LkvK7Kkpwkiu 34Ffx5qj/yqsoT1e9er1w70QrH52h95NAD0VH1h/4/ [file] [id number]+AyxuoCRaqTrmOMVIINJbPQRwDvNoYZ9S ID Date Data Source [id number] 06/09/2020 06:16:37 AM EDT [facility] Name Value Range Interpretation Code Description Data Vale rce(s) Supporting Document(s) EKG [facility] CSLZZs4lBrTHExUif4IoYaPfTXEwHK6yvur2C5R0kLYeN6IaqDMss0slS8GxL4KoXYPoDGLBVX8MiJUb jb2 [file] 5RfwM/5huYb+J9Iaq9ol+E6RXx+5GTaf0J/NMNU6CRzM+Uzzcv+Xq+x/CciQCpTh4xmldDCIo9h4+Leonardo TrhxqewKjRd2PqkqVohDn22hsyzgZpxr/Y9wcf2ijZ/mpkuXS/h7+dRw6mmDI/+f4+nvdp753/NpZ77k r/uiuNsOuv5uYGe2+pY1/56uxT/4fPC52rBhZhqapk Vy/d/R7+qsZz+Bn2ndJwyY+OTeUrnyjHfA9/1oE7T1O9L012d75cx/ePfvpqm1A8zZt+jvn53rY3flfF 9a10r/vE+iZ/Qp99dUqJvE5CAsgh/FWlZ+/Q9ajJna+13BnaRhejh879bqN/6D3Jf2vyB6xi1K74ClIW 3kBk94qUnpBrI9NIUCq4rYnvP1zAOou/gWei/kL9hX WUyeXpYG3d9duaBFpCM9pztOrMMuAsW2vKL0UM5560zuSbXCeSnGFoXTFSsnPqehR6iKE/VboE6/2Q/F S5lD38hjuT56wpVxku/DVN720akHi3sSN/pxUfo5wr+Ukx3M/RI3A5ZgrY1yeHbw7t/UMYKg5I66y8Mk HE+iZ/VfUD/JQ6y9bovrgpX6faM9F/xx26NS6Gtg0V fda1tdrhEtpucD5eB2V7/qwXO7I7ZhnTy/o43v1/ZEss9SMZP0+MA6oSn4s0wUrIQ3R0PK8he6uTESoN /vX4f0n+qtIK/Ge+dsxEyL2f/W6McwO/oxzzdcw3+avsK5p/qqYvhesRH6497s+wvtH/+xJY3+SvKo31 Uuli0C6R8ToO//sS2M/CP4200//A+Q2cX/YIEp8tyq 0/z+QfBy4aa414Y96yv+9M/rcqkiT4HD7A4l7/8+uyTs6KnyJtD/4+v/PbKHeU9/13x2Q6i235+vxOyK 6k0JkJ3lzQ+dVM/jqxsy9Zs3xehI63ASZ+BgJ03ySM+oFTn2e42adu7M3+P8amSl3o7/b5siel39f3lr T6g6kVcphkyN/A0/KcKZhvya+nyLMa65M+o9u681nQ mdOup1wML09z/98J+dWE/BlGxxTsr853F8F3rYRi1wx51IS7tm7+/52z7+j8P7jSkjv7S8saSOYtcK/E yRk678C+mqiibGzw8kGres3v1J/jmko0qew+xo9UUeg1+r6aC/kW3xh9wY0g//fn6u/UAG8z9qg4I0hr 5H06ZmZaN7C2YsXTY2awgamv6klqj0Q1K/mrPC/a8s mp2M+6UF8/wDAa32kRX85Lm/9swO5prKCpHWgj4L4dovswJS30JB21IomgFL3A+txck5sMo8IyTnfxpo G+hvnaxjhxXyV/GsD3wXU+myocvNvhpvy0kdycr2J+yV/lmiZ/deS9c0/gWR/JYLlbdR2gRE+g6yUSfE djfTfWdzvGg/s5+ascW/XWZ94bWd0edutJ6oxGM/ez 50946ByEvQR/Yia1YQ1xEREp/DrOb/JXVceBH+sL/di96meFS69mga4pbGsNs1yW+znw/Q3sZ/BXM3B+ A9+kdV3G3T+V9W51nmKvE2N+qvg6eC6bMG+/R+vr/by+Xt/6WSM9ob5toKxKc9H3c+/VI1f4EMPyegQ0 K1dWQcratX1i3Xyr9+/dpp2UUSk4R/OGI10KwDvJ73 4v2U66Bq/vGr2+qnmBw35W9VUl+Wdhj3Sn375o5G81oW+tYSg/841s+6qr1tjW+d7W8+TqWO+99G++qS q3hjcpZ4jL91pP4+clzT+v5K+OjGil/GnBmJgHywoXa84m+HIcz7iRvFDeq448JVb/6snRvz09y1J55a s6fhg2Yv7kH9CNF3f+85Vqe+R1X47/aEl7jo99U5Vo v79rNv+5sV6la2O28j1n+aukw+z/sPW5i5WKtnFYj8f3dK/ODs8xA6vhGU3PjjuK3o9T6ya6Q27+kr+q defsFIHl2l4H+dNitq7tr+NUcr4Cc3bGc1eK7wnRxe85VqBi/EJ+tSC/Wnx2B/dQ2qt1gM5AM+RBfrXw Om+Vf2ekoqkjZ1hcllYuEfwcuALhGVz6Vk3ikoQWy9 qqwIPzC/8eEszn9kmR+QisM2OOG9Ukgtgtz5aalre43cU807hB+KsF/yqB99CJLQ7OxbHOx5h3OxrRbe bHruSvqnyj/gb+/u2ygG8SeZcr8/cMK/mrm+76e6Ac+nt2t2CF/WBeh31eyoKxC8G473ZK9iyWTigGlJ 2KR6upiyo36odi0026hpw1A2fq/yrh35Uulm49mycf vi6oj/V1rK/j/Dq+q36s6ih/3vzGcpxfx/j8drOHqhgpL3n9mfxSmT8Y7trp0v4A+tdvU2ujOtLCS/zV WaaxmH8OwA0hQvb3CmtzYnQJT/YpHhyNPzi2eh2d4+j9rF/k7rEiI71+7yEWNgzXzSs1qS/Ln/Xr+Sr4 K/07xudjyd86UfReWN+g0ve9aHN5eU/POvp+VvBXOv p/UJO/8kz3/ayj/xd09P+UEa08yEYM/geQW6a9F/gbX0sQrGlzN+p2awryK/7qyzqO+r7zNrE2f5Ih6K 5ec32DgnKhxiVj4smBr07zFh2mWoqgmM1aB7rdsO0kA1O6fl5es5WHH3DxdSBTQfx4bjekmkij9os/xn E4t7fjoLeBVxw2mcOb4qNz+h/+0pLadV7Wwc4tj79m /Ab8mO/pd210Sp+Mlhy5Ig18/wy7aRCjwvKO61dAA58/bvVrhGwbI6JqYInRt/BINLl3exaWy6ww9CuY 0/+Rrvcvj9fis+lylDe/bMUl2Jk3eapGV3Dmz2LUV92832m8STFq/YhGxsgq6AI3F7vX1MH0Z6+iyV9V vee1uXitGn7A26tXbVr2SfNEdc/yLqiJO842hwSu1J +Ef8h1vU8Fb6Fl8zMFK98es/U13FeG+8o2+sV+Igjnv4rySG20eo6qSR/y1p3ta2dpBt1b598c4O0f+3 ljfTfWd/f/ryZ/VXUUeLCfN/Jw3ho1xRSlU7ombYQ/b+xnb/2REb9mh00TfX+pN/+s4K/UW7+f2wfKbe 4N7FoqMfyTmik/M90poa91+P66Y/z4Rzmy70/v/wUN nF/IrzQGynF+A9/fEODp/bRSVJtAnLQ7TazbQA1P+oef33qbDbj+v4Hzm/tZ4Uq8kTX/krk11D1i+uGx 5K+i0m+a3Xg2U1b+goeB6EzUt2IzDG/LJ+3X5JSqOdZUlN+Sp4QeoTU00bJh3qc/fYN+8KOvzII4SZe+ katM4hg2GfXVdldoGskob1xP8G7t0W8v8X4acxr1Yy uaN+v+d36rn0n14PpZBQwdjvTl4pUuumWGdEjnh9X/ixvqkfrHT/82bq2wsdI+fAv15rixPm3N660x tB+vit8oWHuj3/aqEhSxqQW6Jyfr06D57mM1He1tebhQ/k58xd0q47+76yqSjHfPG+3eZG/p2iSLeGx8 9XIl2bbv7On/8XW/3/k9EJIwPOwgwdm2MG2ah1jKS/ jTBoWu4f0Jmr4/pQg/mRPR7idV1D3wkA/Lcsr0YB/4MG+ZVBfmWK+UI/bBLavN1Py4lDKB/1+wb5lUF+ ZXh/ZarAg/ML/aCpoRzrC/cOFckmRO9yiE/zay1/Nmt+0qy/Yzk8cOhPK+YFBknNRP1f0C1d9LHw7H+G /Jv7m1PaZRs/BiZ8bWAC43C+0Eo/rNH4f1K89IdK55 d76z4Mfm/6mf6bSTsNx4nd/33bLa+zvVDe//sG+IQjJe7A+QaeDTwOPGm/QXfj49CL88oX69vw+SvJ9E H0dhfXJ/9tLxlboE6pxvTDarzumf1IGu/3OeaKcgP+oapCvbeKuPX9CzuDXA5O0As/jvML/npV70NS29 j+yxY8p8NLE7s0DTfWhqefvr0kN/nG2A5/NUe2/c1X vftVomqaoF2wTa5POp1tpvn/+aZNzTGzOQW/tP/9R9w44j9GAe/1GP1EneAAf7y+/SAp6frTM4OeeA45 Vb5J3l+/B96QX+7m3FE11/v1K647v7C5B+W9n/zW31mYn8ab4GqsZ/mrGsN+1Dl5mx6HtvSVT/e08b59 f/3+eeN9+07+Tnssk8YEI97KPvEIJa0pbHcn6h5af8 SKwcfVkraOAI1AhHE7kx4i8+SwDy4B9ze/QT94mqDubyvitS5ilVWoHMP44pQA/qrKV/eb/FWlFfUxXz GMx1C+0e/RVgd1qw9+gbnB2po+2rPtNfZs+5M8S1a8xkoNDD7qt8hzGwCy40M726w8yz0zTwXhnw+8k7 +q9Ea/G+CT8uZK9TZD5sV3w9Y9ha+7E5kE055mo8VN a7ve4Sn9Ixij6mh57aca6jTViw2gav/Z96b0j9kt0mo69Gp1szY1yC8Yj/EUde8j9iLrKkyocf5CqUWG 2s77l40jm6+33JtW43f86ZuGg4s2dg9l82oV26OOlT2/dds6+k110b350k3c8gg4M15FiippCWp/SjuR gVwxuY2KVvo24Do9/mw6G+Z7+EktP7czzd+zxSU9I4 8X4d70xFzJbs1F4xdooZ2D4a/tw1/P3Hkx9020IkgwkFrbDhAk3IaAZ5584zG/F32O2egP9Ozy6L3Xj7 psnDU5O4ul9V0wGX/4Hjnu5+Zq2dr18+Nsx/fIcV+Tk8fzigf3d+34HsF+cMN+dLkaD9tHml10lr4fh0 DHp3n371795HZq/DJUy6Hn+auto service instructor/Z5hR+tDN/SDG/rB Df5qQz+0O3B1366r2Ub52zmfeV/gINc7pC+Ut/2KtaojigkHZwKlhD6zoK/yr+WT/rW+zL+ku6QUsA+C 1jowkc393BG+LfSrqK/VBsp3dI+Wt9J6ba6cnwFaR5m8wrh/H/kYKO//I8f7dh+L9ee3rS/bSh6CndX2 Mt0neq25+//IR39/fbR9mQ/Md2C+o/F5Tq3aJe5RGR DjZ3vqdQmD3I/BBesrE+KJO471x/T/r8M/g4uhvP/2CKrl86OqB868Xg+TrlmW8fI7r70Av/t9v00Sp4 jvFJT3+qbmQ8iu39zUj1Ltaeg4cLbhfo+AO60vuA/03Lezh3sAhqAbOJ+r9d0O+PXOtjQ50+6QXznetz nqEe70hSP+5Xh/5av/k2o1flPf/f/rq+0kcbT06Wt/ 931hP6/+3/cVKO/7VT29dpQV+mw6ne92VGdhP0U0JuEM/mGJbcDtn7RMrsc+IMppG4seU22RJ+4ryK8c 79tdA+ADgKT4n7ez1jl2knKo4U08Y+4xeC9q9kjL/Xmmo5IKt9cqJ0aqs6ciJQPjs/cD1d5t2R/BIb9y 2A/2lx71rc0jo+NRUcftJ97vsfTcyRC/6ONm5E66fp qUmH538Pp+Md+N+eJ9u+T0rI3UZiot6v042AhV+ETbh3BVi00lB5EqcI03u5Jw+3/SkwK0bOyb58W+k7 +p6oiIVqDB1vi7EkQgdrn/8bIrZFqI8/7CR13fQX0AS5ajZsx+v+MfMMbPRx0GyU96+CsHf+Cvqwc3bb G3edqg93I5XGsXK6370CWzuf/lvZ/j6/kG+KsAfxVf 32mrq56NcPwcU/YvJsaupiW9KHX/LnTBAm4weH0O+GcLqlOCMcAxUcK0uMB+MPC+TgFvDnxoQI5Jc+0l A/uUUV3QA1UP+Q7Md2C+A/MdG/8ykuFmJbkPvO9R+A9E3zxbwmqvMMAugnYItvszbxMbumaWtbuXhB5t HfB/FeWoDcwBmN0J3B6S4BqO/w6M7wSghYz34gsfv6 4E65wR55qcNrMu335A1VlEYhd6a8H0LXz+VeahVcS5gXvpQotXCkoxZfC6nDI+DNHgmSl0IRxcMfE9b8 H6+fvs0NEu6YlGWLW2dbhP5LmtH2On/odMx1oH5X+FWH1L0td7GKzdZdX4fJe2P1bb/UIsrC/0gwH/DA H+KqAfDOgHA/7JLf2WNaE+5p2miR3CvE6zZW46XrN/ I4ya9UH+oDeuFZKJh6zTEVtpulG+ArR7owPT4yprgm3QpcOrbyFY+ji/hvML/ipM0S/OL/qsMW2VwS9T a/1+4ULHcOC883bKlm+40X1O96fkqRxp2qyH4GDfu8+Iw1+ieSiAwfWs8lv4ZEQ3C237jYiz/ss5vBLz b55oeWfAj/UDct26IiaJn155yf98rEn89QhyOIaV0k vi8FeS+/uoD3DaBr4wn792++HtDyoc+pjha5NnU4R+FB70nUfmixuKlmyQuvgMAe8l4M2sGX4J+L8Kb3 1DcTfOlgggYs6nD8MR2hhg+kqs3l5h4cGLAF9i/W/A/8SU0zP0XibV2bsC5UxeWThilpN+PcBfBfirgP oyWZ0X7UrH/ddp7mBgpgH6GE4g8/kM4MWgrWl/DNxQ frAj/AtpsygCenohjLF85/fBO+Q7ippO7RaK4v5hf+y/THAEpAGEWr/Mo/NpIJdz3UP1xx26yluN2BDb vke/AWdv3+jesse+y/R4bKdcsRkYkQP3ixNl1lAhUAqbOFtPIziaeWd8Lo7J+YlL3u5t8FB7NjBsNMw7Bo+ [file] [id number]== ID Date Data Source [id number] 06/09/2020 07:33:59 AM EDT [facility] Name Value Range Interpretation Code Description Data Vale rce(s) Supporting Document(s) TROPONIN I 98.10 ng/mL (<0.05) [facility] Less than 0.05: Myocardial injury unlike lyGreater than or equal to 0.05: Highly suggestive of myocardial injuryCorrelation with rise and/or fall ofserial troponins, clinical symptomsand ECG changes is necessary.ALERTED CRITICAL RESULT DAWN([id number]) [place] [address] ON 06.09.2020 [place] [address]003 [place] [id number] ID Date Data Source [id number] 06/09/2020 04:37:31 AM EDT [facility] Name Value Range Interpretation Code Description Data Vale rce(s) Supporting Document(s) LACTIC ACID 3.2 mmol/L (0.4-2.0) H [facility] ID Date Data Source [id number] 06/09/2020 05:26:59 AM EDT [facility] Name Value Range Interpretation Code Description Data Vale rce(s) Supporting Document(s) TROPONIN I 50.40 ng/mL (<0.05) HH [facility] [place] Less than 0.05: Myocardial injury unlike lyGreater than or equal to 0.05: Highly suggestive of myocardial injuryCorrelation with rise and/or fall ofserial troponins, clinical symptomsand ECG changes is necessary.ALERTED CRITICAL RESULT TOSTACIE ([id number]) [place] [address] ON 06/09/20 [place] 0527 [place] [id number] ID Date Data Source [id number] 06/09/2020 04:11:48 AM EDT [facility] Name Value Range Interpretation Code Description Data Vale rce(s) Supporting Document(s) APTT 37.1 s (22.0-34.3) H [facility] ID Date Data Source [id number] 06/09/2020 03:53:31 AM EDT [facility] Name Value Range Interpretation Code Description Data Vale rce(s) Supporting Document(s) AMPHETAMINES,URINE (NEG) [facility] BARBITURATES,URINE (NEG) [facility] BENZODIAZEPINE,URINE (NEG) [facility] CANNABINOIDS,URINE (NEG) A [facility] COCAINE,URINE (NEG) A [facility] OPIATES,URINE (NEG) [facility] NOTE: Oxycodone is not sufficientlydetec spencer by this screening assay. A moresensitive assay is available upon request. PHENCYCLIDINE,URINE (NEG) [facility] PLEASE NOTE: [facility] [place] ARE REPORTED POSITIVE WHEN THE RESULT SEXCEED THE THRESHOLD (CUTOFF) INDICATED. ALIST OF POTENTIAL INTERFERENCES FOR EACHMETHOD CAN BE MADE AVAILABLE UPON REQUEST.CONFIRMATION OF A POSITIVE SCREEN CAN BE PERFORMED BY A REFERENCE LABORATORY IFREQUEST IS MADE WITHIN 48 HRS. PERFORMEDBY [address] [place] [address] ID Date Data Source [id number] 06/09/2020 03:26:05 AM EDT [facility] Name Value Range Interpretation Code Description Data Vale rce(s) Supporting Document(s) URN CULTURE HOLD [facility] FOR ADD ON CULTURE ID Date Data Source [id number] 06/09/2020 03:39:36 AM EDT [facility] Name Value Range Interpretation Code Description Data Vale rce(s) Supporting Document(s) CKMB 55.7 ng/mL (0.0-5.0) HH [facility] [facility] ALERTED CRITICAL RESULT [id number] [place] IN D3 00059 AT 0320 ON 06/09/20 81833 CKMB RELATIVE INDEX 8.9 {index_val} (0.0-4.0) H [facility] ID Date Data Source [id number] 06/09/2020 03:21:39 AM EDT [facility] Name Value Range Interpretation Code Description Data Vale rce(s) Supporting Document(s) FREE THYROXINE @ 0.95 ng/dL (0.76-1.46) [facility] AT [address] [place] [place] [address] N [place] [address] ID Date Data Source [id number] 06/09/2020 03:21:39 AM EDT [facility] Name Value Range Interpretation Code Description Data Vale rce(s) Supporting Document(s) TSH,ULTRASENSITIVE @ 10.800 mIU/L (0.360-4.170) H [facility] PER[facility] AT [address] [place] [place] [address] N Y [address] ID Date Data Source [id number] 06/09/2020 03:21:39 AM EDT [facility] Name Value Range Interpretation Code Description Data Vale rce(s) Supporting Document(s) NT PRO BNP 43808 pg/mL (0-125) H [facility] [place] ID Date Data Source [id number] 06/09/2020 03:21:39 AM EDT [facility] Name Value Range Interpretation Code Description Data Vale rce(s) Supporting Document(s) TROPONIN I 40.00 ng/mL (<0.05) [facility] [place] Less than 0.05: Myocardial injury unlike lyGreater than or equal to 0.05: Highly suggestive of myocardial injuryCorrelation with rise and/or fall ofserial troponins, clinical symptomsand ECG changes is necessary.ALERTED CRITICAL RESULT [id number] [place] IN D3 49207 AT 0320 ON 06/09/20 06734 ID Date Data Source [id number] 06/09/2020 03:21:39 AM EDT [facility] Name Value Range Interpretation Code Description Data Vale rce(s) Supporting Document(s) PHOSPHORUS 4.8 mg/dL (2.5-4.5) H [facility] ID Date Data Source [id number] 06/09/2020 03:21:39 AM EDT [facility] Name Value Range Interpretation Code Description Data Vale rce(s) Supporting Document(s) CK 629 U/L (39-308) [facility] ID Date Data Source [id number] 06/09/2020 03:21:39 AM EDT [facility] Name Value Range Interpretation Code Description Data Vale rce(s) Supporting Document(s) SODIUM 140 mmol/L (136-145) [facility] POTASSIUM 3.9 mmol/L (3.6-5.2) [facility] CHLORIDE 108 mmol/L (100-108) [facility] CO2 27 mmol/L (22-31) [facility] ANION GAP 5 mmol/L (7-16) L [facility] UREA NITROGEN 32 mg/dL (7-24) [facility] CREATININE 1.88 mg/dL (0.80-1.30) [facility] BUN/CREAT RATIO 17.0 RATIO (10.0-20.0) [facility] GLUCOSE 144 mg/dL (70-99) H [facility] CALCIUM 8.3 mg/dL (8.4-10.2) L [facility] TOTAL PROTEIN 6.7 g/dL (6.4-8.2) [facility] ALBUMIN 3.4 g/dL (3.5-4.6) L [facility] GLOBULIN 3.3 g/dL (2.7-4.3) [facility] ALB/GLOB RATIO 1.0 RATIO [facility] ALKALINE PHOSPHATASE 62 U/L (45-117) [facility] BILIRUBIN,TOTAL 0.5 mg/dL (0.0-1.0) [facility] PLEASE NOTE:Total bilirubin results may be falselyelevated in patients taking Eltrombopag. AST (SGOT) 92 U/L (11-39) H [facility] ALT (SGPT) 51 U/L (12-78) [facility] GFR 37 ml/min/1.73m2 (>59) L [facility] GFR ( AMER) 45 ml/min/1.73m2 (>59) L [facility] GFR INTERPRETATION [facility] --NORMAL KIDNEY FUNCTION OR MILD DISEASE - GFR >OR= 60CHRONIC KIDNEY DISEASE - GFR 15 - 59RENAL FAILURE - GFR <15 Est. GFR calculation based on the MDRDstudy equation, which assumes a steadystate for creatinine. Est. GFR should notbe used for medication dosing. ID Date Data Source [id number] 06/09/2020 03:08:07 AM EDT [facility] Name Value Range Interpretation Code Description Data Vale rce(s) Supporting Document(s) CALCIUM IONIZED 4.68 mg/dL (4.64-5.28) [facility] IONIZED CALCIUM NORMALIZED TO PH 7.40 AN D 37 DEGREES C. ID Date Data Source [id number] 06/09/2020 03:06:53 AM EDT [facility] Name Value Range Interpretation Code Description Data Vale rce(s) Supporting Document(s) MAGNESIUM 2.2 mg/dL (1.7-2.4) [facility] ID Date Data Source [id number] 06/09/2020 03:06:53 AM EDT [facility] Name Value Range Interpretation Code Description Data Vale rce(s) Supporting Document(s) ETHANOL <3 mg/dL (0-3) [facility] ID Date Data Source [id number] 06/09/2020 02:39:06 AM EDT [facility] Name Value Range Interpretation Code Description Data Vale rce(s) Supporting Document(s) WBC 10.4 10*3/uL (4.1-11.0) [facility] RBC 5.06 10*6/uL (4.60-6.10) [facility] HGB 15.1 g/dL (13.5-18.0) [facility] HCT 46.4 % (41.0-53.0) [facility] MCV 91.8 fL (80.0-95.0) [facility] MCH 29.8 pg (27.0-32.0) [facility] MCHC 32.4 g/dL (32.0-36.0) [facility] RDW 15.0 % (10.5-14.5) [facility] PLT 166 10*3/uL (150-450) [facility] MPV 9.0 fL (7.1-10.7) [facility] NEUT % 82.6 % (35.0-75.0) [facility] LYMPH % 11.1 % (16.0-52.0) L [facility] MONO % 5.5 % (0.0-8.0) [facility] EOS % 0.5 % (0.0-5.0) [facility] BASO % 0.3 % (0.0-4.0) [facility] NEUT # 8.6 10*3/uL (1.8-7.7) [facility] LYMPH # 1.2 10*3/uL (1.2-4.8) [facility] MONO # 0.6 10*3/uL (0.0-0.8) [facility] Eosinophils [#/volume] in Blood by Automated count 0.1 10*3/uL (0.0-0 .5) [facility] BASO # 0.0 10*3/uL (0.0-0.2) [facility] ID Date Data Source [id number] 06/09/2020 02:25:25 AM EDT [facility] Name Value Range Interpretation Code Description Data Vale rce(s) Supporting Document(s) LACTIC ACID 3.2 mmol/L (0.4-2.0) H [facility] [place] ID Date Data Source [id number] 06/09/2020 07:56:16 AM EDT [facility] Name Value Range Interpretation Code Description Data Vale rce(s) Supporting Document(s) POC NOVA GLU 188 mg/dL (70-99) H [facility] BY [facility] STA[facility] ID Date Data Source [id number] 06/10/2020 11:49:13 AM EDT [facility] Name Value Range Interpretation Code Description Data Vale rce(s) Supporting Document(s) LACTIC ACID 4.9 mmol/L (0.4-2.0) HH [facility] ALERTED CRITICAL RESULT TOAMANDA [id number] D3 [id number] [id number] ID Date Data Source [id number] 06/08/2020 09:30:00 PM EDT [facility] [address] Name Value Range Interpretation Code Description Data Vale rce(s) Supporting Document(s) TSH 6.240 microintl units/mL 0.358-3.740 H [facility] ID Date Data Source [id number] 06/08/2020 06:00:00 AM EDT [facility] 134 [address] Name Value Range Interpretation Code Description Data Vale rce(s) Supporting Document(s) ID Date Data Source [id number] 06/08/2020 06:00:00 AM EDT [facility] Name Value Range Interpretation Code Description Data Vale rce(s) Supporting Document(s) HCT 41.7 % 42.0-52.0 L [facility] HGB 13.9 g/dL 13.5-17.5 N [facility] MCH 33.3 G/DL pg 32.0-36.5 N [facility] MCHC 30.0 PG % 27.0-33.0 [facility] PLATELETS 141 10 10*3/mm3 150-450 L [facility] RBC 4.64 10 10*6/mm3 4.30-6.10 N [facility] Health RDW 13.7 % 11.5-14.5 [facility] WBC TOTAL 6.2 4.0-10.0 N [facility] ID Date Data Source [id number] 06/07/2020 06:00:00 AM EDT [facility] Name Value Range Interpretation Code Description Data Vale rce(s) Supporting Document(s) BG FASTING 91 mg/dL 70-100 N [facility] y Health ID Date Data Source [id number] 06/06/2020 08:00:00 AM EDT [facility] Name Value Range Interpretation Code Description Data Vale rce(s) Supporting Document(s) [facility] URIN 1.005 1.002-1.035 N [facility] UA COLOR COLORLESS YELLOW N [facility] Health ID Date Data Source [id number] 06/06/2020 06:35:00 AM EDT [facility] Name Value Range Interpretation Code Description Data Vale rce(s) Supporting Document(s) HCT 42.4 % 42.0-52.0 N [facility] HGB 13.8 g/dL 13.5-17.5 N [facility] MCH 32.5 G/DL pg 32.0-36.5 N [facility] Health MCHC 29.7 PG % 27.0-33.0 [facility] PLATELETS 174 10 10*3/mm3 150-450 N [facility] RBC 4.64 10 10*6/mm3 4.30-6.10 N [facility] RDW 14.3 % 11.5-14.5 [facility] WBC TOTAL 9.6 4.0-10.0 N [facility] ID Date Data Source [id number] 06/06/2020 06:35:00 AM EDT [facility] Name Value Range Interpretation Code Description Data Vale rce(s) Supporting Document(s) BG FASTING 71 mg/dL 70-100 N [facility] T4, FREE 0.86 ng/dL 0.76-1.46 N [facility] TSH 4.380 microintl units/mL 0.358-3.740 H [facility] ID Date Data Source HEPATITIS C QUANT BY PCR 02/04/2020 12:00:00 AM EDT eCW1 ([facility]) Name Value Range Interpretation Code Description Data Vale rce(s) Supporting Document(s) HCV Not Detected . HEPATITIS C QUANTIT ATION eCW1 ([facility]) TNP . Hepatitis C log10 eCW1 ([facility]) ID Date Data Source LIVER PROFILE 02/04/2020 12:00:00 AM EDT eCW1 ([facility]) Name Value Range Interpretation Code Description Data Vale rce(s) Supporting Document(s) 22 12-78 ALT/SGPT eCW1 ([facility]) 15 7-37 AST/SGOT eCW1 ([facility]) 0.1 0.0-0.2 BILIRUBIN,DIRECT eCW1 ([facility]) 0.5 0.2-1.0 BILIRUBIN,TOTAL eCW1 ([facility]) 7.5 6.4-8.2 TOTAL PROTEIN eCW1 ([facility]) 83 45-117 ALKALINE PHOSPHATASE eCW1 ([facility]) 4.0 3.2-5.2 ALBUMIN eCW1 ([facility]) 1.14 1.00-1.93 ALBUMIN/GLOBULIN RATIO eCW1 ([facility]) Procedure Social History Code Duration Value Status Description Data Source(s ) Alcohol intake 06/16/2020 12:00:00 AM EDT Yes completed [facility] Cigarette pack-years 06/16/2020 12:00:00 AM EDT UNK completed [facility] Cigarettes smoked current (pack per day) - Reported 06/16/20 20 12:00:00 AM EDT UNK completed [facility] Smoking 06/16/2020 12:00:00 AM EDT Current every day smoker co mpleted Current every day smoker [facility] Vital Signs ID Date Data Source UNK Name Value Range Interpretation Code Description Data Source(s) Oxygen saturation in Arterial blood by Pulse oximetry 98 % 98 % [facility] Respiratory rate 22 /min 22 /min [facility] Body temperature 36.5 Krista 36.5 Krista [facility] Heart rate 88 /min 88 /min [facility] Diastolic blood pressure 93 mm[Hg] 93 mm[Hg] [facility] Systolic blood pressure 139 mm[Hg] 139 mm[Hg] [facility] Body mass index (BMI) [Ratio] 25.28 kg/m2 25.28 kg/m2 [facility] Body weight 68.901 kg 68.901 kg [facility] Body height 165.1 cm 165.1 cm [facility] Diastolic blood pressure 62 mm[Hg] 62 mm[Hg] eCW1 ([facility]) Systolic blood pressure 104 mm[Hg] 104 mm[Hg] e CW1 ([facility]) Body temperature 96.1 [degF] 96.1 [degF] eCW1 ( [facility]) Respiratory rate 16 /min 16 /min eCW1 ([facility]) Heart rate 75 /min 75 /min eCW1 ([facility]) Body mass index (BMI) [Ratio] 24.74 kg/m2 24.74 kg/m2 W1 ([facility]) Body height 67 [in_us] 67 [in_us] eCW1 ([facility]) Body weight Measured 158 [lb_av] 158 [lb_av] eC W1 ([facility]) Patient Treatment Plan of Care Planned Activity Planned Date Details Description Data Source (s) Potassium Chloride 10 MEQ Extended Release Oral Tablet 06/16/2020 12:00:00 AM EDT [facility] Furosemide 40 MG Oral Tablet 06/16/2020 12:00:00 AM EDT [facility] apixaban 5 MG Oral Tablet 06/16/2020 12:00:00 AM EDT [facility] Ramipril 5 MG Oral Capsule 06/16/2020 12:00:00 AM EDT [facility] Thiamine 100 MG Oral Tablet 06/16/2020 12:00:00 AM EDT [facility] Nitroglycerin 0.4 MG Sublingual Tablet 06/16/2020 12:00:00 AM EDT [facility] 24 HR metoprolol succinate 100 MG Extended Release Ora l Tablet 06/16/2020 12:00:00 AM EDT [facility] Folic Acid 1 MG Oral Tablet 06/16/2020 12:00:00 AM EDT [facility] DAILY OZIEL (THERAGRAN) per tablet 06/16/2020 12:00:00 AM EDT [facility] atorvastatin 80 MG Oral Tablet 06/16/2020 12:00:00 AM EDT [facility] Aspirin 81 MG Chewable Tablet 06/16/2020 12:00:00 AM EDT [facility] Rifampin 300 MG Oral Capsule 02/29/2020 12:00:00 AM EDT eCW1 ([facility]) prednicarbate 0.001 MG/MG Topical Ointment 02/29/2020 12:00:00 AM E DT eCW1 ([facility]) Rifampin 300 MG Oral Capsule [facility] Ibuprofen 800 MG Oral Tablet [facility] Trazodone Hydrochloride 50 MG Oral Tablet [facility] Rifampin 300 MG Oral Capsule [facility] Amlodipine 10 MG Oral Tablet [facility]
[2020-12-31] MEDS ORDERED: ASPIRIN 325 MG TAB PO ONE (22:15)
[2020-12-31] MEDS ORDERED: FURO40TA2 (22:38)
[2020-12-31] MEDS ORDERED: FOLI1TAB11 (22:38)
[2020-12-31] MEDS ORDERED: ASPI81TA26 (22:38)
[2020-12-31] MEDS ORDERED: TRAZ-189 (22:38)
[2020-12-31] MEDS ORDERED: B-1100TA2 (22:38)
[2020-12-31] MEDS ORDERED: ATOR80TA59 (22:38)
[2020-12-31] MEDS ORDERED: METO1TAB33 (22:38)
[2020-12-31] MEDS ORDERED: RAMI1CAP24 (22:38)
[2020-12-31] MEDS ORDERED: ELIQ5TAB (22:38)
[2020-12-31] MEDS ORDERED: POTA1TAB23 (22:38)
[2020-12-31 22:39] LABS: BASO % 0.3 % (0.0-1.0); EOS # 0.2 10^3/uL (0.0-0.5); EOS % 1.5 % (0.0-3.0); HEMATOCRIT 45.3 % (42.0-52.0); HEMOGLOBIN 14.9 g/dl (13.5-17.5); LYMPH # 1.8 10^3/uL (1.5-5.0); LYMPH % 18.2 % (24.0-44.0); MEAN CORPUSCULAR HEMOGLOBIN 29.9 pg (27.0-33.0); MEAN CORPUSCULAR HGB CONC 32.9 g/dl (32.0-36.5); MEAN CORPUSCULAR VOLUME 90.8 fl (80.0-96.0); MONO # 0.5 10^3/uL (0.0-0.8); MONO % 5.3 % (2.0-8.0); NEUTROPHILS # 7.2 10^3/uL (1.5-8.5); PLATELET COUNT, AUTOMATED 163 10^3/uL (150-450); RED BLOOD COUNT 4.99 10^6/uL (4.30-6.10); WHITE BLOOD COUNT 9.8 10^3/uL (4.0-10.0)
--- NOTE | 2020-12-31 22:43 | REPVR ---
PROCEDURE INFORMATION: Exam: CT Head Without Contrast Exam date and time: 12/31/2020 10:11 PM Age: 60 years old Clinical indication: Altered mental status/memory loss TECHNIQUE: Imaging protocol: Computed tomography of the head without contrast. Radiation optimization: All CT scans at this facility use at least one of these dose optimization techniques: automated exposure control; mA and/or kV adjustment per patient size (includes targeted exams where dose is matched to clinical indication); or iterative reconstruction. COMPARISON: No relevant prior studies available. FINDINGS: Brain: Mild volume loss. No acute intracranial hemorrhage, midline shift or intracranial mass effect. Cerebral ventricles: No hydrocephalus. Bones/joints: Unremarkable. No acute fracture. Paranasal sinuses: Visualized sinuses are unremarkable. No fluid levels. Mastoid air cells: Visualized mastoid air cells are well aerated. Soft tissues: Unremarkable. IMPRESSION: No acute intracranial abnormality. Electronically signed by: Tin Alfonso On 12/31/2020 22:44:00 PM
--- NOTE | 2020-12-31 22:44 | REPVR ---
PROCEDURE INFORMATION: Exam: XR Chest, 1 View Exam date and time: 12/31/2020 10:08 PM Age: 60 years old Clinical indication: Other: Cp TECHNIQUE: Imaging protocol: XR of the chest Views: 1 view. COMPARISON: CT Chest without contrast 06/08/2020 11:33 AM FINDINGS: Lungs: Unremarkable. No consolidation. Pleural spaces: Unremarkable. No pleural effusion. No pneumothorax. Heart/Mediastinum: Cardiac silhouette is magnified by portable technique. Vasculature: Elongation of the thoracic aorta. Bones/joints: Unremarkable. IMPRESSION: No acute process. Electronically signed by: Tin Alfonso On 12/31/2020 22:44:52 PM
[2020-12-31] MEDS ORDERED: GI COCKTAIL 50ML BTL(HYOSCYAMINE/MAALOX/LIDOCAINE VISCOUS)(1:3:1) PO ONE (23:00)
--- OUTSIDE RECORDS SUMMARY | 2020-12-31 23:07 | CCD ---
Author Author [facility] Organization [facility] Address Unknown Phone Unavailable Care Team Providers Care Community [facility] Nurse Staff Name Role Phone Marlon Norris MD Unavailable [...] FISCHI, Cornelius HODGES MD Unavailable Unavailable FISCHI, Corneilus HODGES MD Unavailable Unavailable FISCHI, Cornelius HODGES [...] Unavailable Gian Lara MD Unavailable Unavailable Gian aLra MD Unavailable Unavailable Gian Lara MD Unavailable [...] Unavailable GRAHAM, MERY DION RPA-C Unavailable Unavailable RGAHAM, MERY DION RPA-C Unavailable Unavailable GRAHAM, MERY [...] MERY DION RPA-C Unavailable Unavailable Jordon, Leslie PATIENTS TRANSPORTER PATIENTS TRANSPORTER Unavailable Unavailable [facility], RFROST GRAHAM PA DION Unavailable Unavailable Jordon, A Leslie PATIENTS TRANSPORTER Unavailable Unavailable Jordon, A Leslie PATIENTS TRANSPORTER Unavailable Unavailable Jordon, A Elslie PATIENTS TRANSPORTER Unavailable Unavailable Jordon, A Leslie PATIENTS TRANSPORTER Unavailable Unavailable Jordon, A Leslie PATIENTS TRANSPORTER Unavailable Unavailable Jordon, A Leslie PATIENTS TRANSPORTER Unavailable Unavailable Jordon, A Leslie PATIENTS TRANSPORTER Unavailable Unavailable Jordon, A Leslie PATIENTS TRANSPORTER Unavailable Unavailable Jordon, A Leslie PATIENTS TRANSPORTER Unavailable Unavailable Jordon, A Leslie PATIENTS TRANSPORTER Unavailable Unavailable Jordon, A Leslie PATIENTS TRANSPORTER Unavailable Unavailable Jordon, A Leslie PATIENTS TRANSPORTER Unavailable Unavailable Jordon, A Leslie PATIENTS TRANSPORTER Unavailable Unavailable Jordon, A Leslie PATIENTS TRANSPORTER Unavailable Unavailable Jordon, A Leslie PATIENTS TRANSPORTER Unavailable Unavailable Jordon, A Leslie PATIENTS TRANSPORTER Unavailable Unavailable Jordon, A Leslie PATIENTS TRANSPORTER Unavailable Unavailable Jordon, A Leslie PATIENTS TRANSPORTER Unavailable Unavailable Jordon, A Leslie PATIENTS TRANSPORTER Unavailable Unavailable Jordon, A Leslie PATIENTS TRANSPORTER Unavailable Unavailable Jordon, A Leslie PATIENTS TRANSPORTER Unavailable Unavailable Jordon, A Leslie PATIENTS TRANSPORTER Unavailable Unavailable Jordon, A Leslie PATIENTS TRANSPORTER Unavailable Unavailable Jordon, A Leslie PATIENTS TRANSPORTER Unavailable Unavailable Jordon, A Leslie PATIENTS TRANSPORTER Unavailable Unavailable Jordon, A Leslie PATIENTS TRANSPORTER Unavailable Unavailable Jordon, A Leslie PATIENTS TRANSPORTER Unavailable Unavailable Jordon, A Leslie PATIENTS TRANSPORTER Unavailable Unavailable Re-disclosure Warning The records that [...] is protected by Article 27-F of the [facility] Public Health law. If you continue you may have access to information: Regarding HIV / AIDS; Provided by facilities licensed or operated by the [facility] Office of Mental Health; or Provided by the [facility] Office for People With Developmental Disabilities. If such information is present, then the following [facility] mandated warning applies: This information has been [...] law may result in a fine or [place] health [place] sentence or both. A general authorization for the release of medical or other information is NOT sufficient authorization for further disc losure. Family History Family Member Name Family Member Gender Family Member Status Date o f Status Description Data Source(s) Unknown Male Problem [facility] ([facility], ) Encounters Encounter Providers Location Date Indications Data Source(s ) [facility]/2020 03:2 9:02 PM EDT [facility]: [facility] 08/23/2020 05:4 6:04 PM EDT [facility] 08/22/2020 12:08:00 P M EDT [facility] Outpatient Attender: Leslie Ruvalcaba [facility] 07/29/2020 10:1 5:02 AM EDT [facility] Outpatient Attender: Leslie Ruvalcaba [facility] 07/29/2020 10:1 2:02 AM EDT [facility] Outpatient Attender: ZACK Ruvalcaba [facility] 07/29/2020 10:12:01 A M EDT [facility] Outpatient Attender: ZACK Ruvalcaba [facility] 07/28/2020 10:48:02 A M EDT [facility] Outpatient Attender: ZACK Ruvalcaba [facility] 07/28/2020 09:23:01 A M EDT [facility] 05:16:03 PM EDT [facility] Outpatient Attender: DION [facility]ORD [facility] 07/22/2020 05:16:01 PM EDT [facility] Outpatient Attender: DION ALFORD [facility] 07/15/2020 02:14:01 PM EDT [facility] 02:14:00 PM EDT [facility] 08:51:05 AM EDT [facility] Outpatient Attender: DION [facility]ORD [facility] 07/11/2020 08:51:04 AM EDT [facility] Outpatient Attender: LAUREN ADAMS [facility] 06/12 04:07:03 PM EDT [facility] Outpatient Attender: DION AL[facility]ORD [facility] 07/08/2020 04:07:01 PM EDT [facility] 08:37:00 AM EDT [facility]: [facility] 06/23/2020 11:22:02 A M EDT [facility] Outpatient Att[facility]: [facility] 06/23/2020 10:30:00 A M EDT [facility] Outpatient Attender: Marlon Norris MD [email or web address] 06/11 12:00:00 AM EDT - 06/23/2020 08:54:36 AM EDT [facility] Outpatient Attender: Leslie CABA 06/19/2020 06:3 7:02 PM EDT [facility] Inpatient Attender: Jordyn conner MDAttender: Gian Lara MDAttender: TRACIE GALVEZ MDAdmitter: TRACIE GALVEZ MD [id number] 12:26:45 AM EDT - 06/16/2020 11:56:00 AM EDT [facility] Patient discharged. Outpatient Attender: Leslie CABA 06/03/2020 11:0 4:01 AM EDT [facility] Outpatient Attender: ZACK CABA 06/02/2020 10:32:01 A M EDT [address] [address] 04/05/2020 12:00:00 AM EDT [facility] Outpatient Attender: Leslie CABA 04/01/2020 11:5 3:01 AM EDT [facility] Outpatient Attender: Leslie CABA 03/03/2020 12:2 2:01 AM EDT [facility] [address] [place] [phone] 02/29/2020 12:00:00 AM EDT eCW1 ([facility]) [facility] [address] [place] [phone] 02/29/2020 12:00:00 AM EDT [facility] ([facility]) [facility] [place] [address] 02/29/2020 12:00:00 AM EDT [facility]CW1 ([facility]) [facility] [place] [address] 02/08/2020 12:00:00 AM EDT [facility]CW1 ([facility] [address] [place] [address] [address] 02/04/2020 12:00:00 AM EDT eCW1 ([facility]) Outpatient Attender: ZACK DIXON FP 01/28/2020 09:01:08 P M EDT [facility] Outpatient Attender: Leslie DIXON FP 01/24/2020 12:3 4:59 PM EDT [address] [address] 01/11/2020 12:00:00 AM EST [facility]CW1 ([facility]) Outpatient Attender: Leslie DIXON FP 12/25/2019 05:0 3:59 PM EST [address] [address] 12/24/2019 12:00:00 AM EST [facility]CW1 ([facility] [address] [address] 12/22/2019 12:00:00 AM EST eCW1 ([facility] [address] [address] 12/22/2019 12:00:00 AM EST eCW1 ([facility]) [address] [address] 12/10/2019 12:00:00 AM EST eCW1 ([facility]) Outpatient Attender: Leslie DIXON FP 11/26/2019 08:4 2:01 AM EST [facility] Outpatient Attender: ZACK DIXON FP 11/24/2019 04:06:00 P M EST [address] [address] 11/12/2019 12:00:00 AM EST eCW1 ([facility]) Medications Medication Brand Name Start Date [...] or p-Gp inhibitors (ketoconazole, itraconazole, ritonavir, clarithromycin)
[facility] Medication administered onsite clopidogrel 75 MG Oral Tablet clopidogrel (PLAVIX) tab let 75 mg clopidogrel (PLAVIX) tablet 75 mg 06/16/2020 09:00:00 AM EDT 75 mg Oral active 75 mg, Oral, Daily, First dose on Sat06/16/20 at 0900 [facility] Medication administered onsite 40 mg 06/16/2020 12:00:00 AM EDT tablet 30 TAKE ONE TABLET BY MOUTH EVERY DAY TAKE ONE TABLET BY MOUTH EVERY DAY SOLD: 06/16/2020 [facility] 5 mg 06/16/2020 12:00:00 AM EDT tablet 60 TAKE ONE TABLET BY MOUTH TWICE A DAY TAKE ONE TABLET BY MOUTH TWICE A DAY SOLD: 06/16/2020 [facility] MULTIVITAMIN 06/16/2020 12:00:00 AM EDT tablet 30 TAKE ONE TABLET BY MOUTH EVERY DAY TAKE ONE TABLET BY MOUTH EVERY DAY SOLD: 06/16/2020 [facility] apixaban 5 MG Oral Tablet Apixaban (ELIQUIS) 5 MG TABS tablet Apixaban (ELIQUIS) 5 MG TABS tablet 06/16/2020 12:00:00 AM EDT 5 mg Oral a ctive Take 1 tablet (5 mg total) by mouth 2 (two) times a day [facility] Furosemide 40 MG Oral Tablet furosemide (LASIX) 40 MG tablet furosemide (LASIX) 40 MG tablet 06/16/2020 12:00:00 AM EDT 40 mg Oral activ e Take 1 tablet (40 mg total) by mouth daily [facility] Potassium Chloride 10 MEQ Extended Relea se Oral Tablet potassium chloride (K- DUR) 10 MEQ tablet potassium chloride (K-DUR) 10 MEQ tablet 06/16/2020 12 :00:00 AM EDT 10 meq Oral active Take 1 t ablet (10 mEq total) by mouth 2 (two) times a day [facility] Potassium Chloride 10 MEQ Extended Release Oral Tablet POTAS SIUM CHLORIDE 06/16/2020 12:00:00 AM EDT tablet extended release 60 TAKE ONE TABLET BY MOUTH TWICE A DAY TAKE ONE TABLET BY MOUTH TWICE A DAY SOLD: 06/16/2020 [facility] 24 HR metoprolol succinate 100 MG Extend ed Release Oral Tablet metoprolol succinate (TOPROL-XL) 100 MG 24 hr tablet metoprolol succinate (TOPROL-XL) 100 MG 24 hr tablet 06/16/2020 12:00:00 AM EDT 100 mg Oral ac tive Take 1 tablet (100 mg total) by mouth daily [facility] Thiamine 100 MG Oral Tablet thiamine 100 MG tablet thiamine 100 MG tablet 06/16/2020 12:00:00 AM EDT 100 mg Oral active Take 1 tablet (100 mg total) by mouth daily [facility] Nitroglycerin 0.4 MG Sublingual Tablet n itroglycerin (NITROSTAT) 0.4 MG SL tablet nitroglycerin (NITROSTAT) 0.4 MG SL tablet 06/16/2020 12:00:00 A M EDT 0.[address] 1 t ablet (0.4 mg total) under the tongue every 5 (five) minutes as needed for chest pain [facility] 81 mg 06/16/2020 12:00:00 AM EDT tablet,chewable 30 CHEW ONE TABLET BY MOUTH EVERY DAY CHEW ONE TABLET BY MOUTH EVERY DAY SOLD: 06/16/2020 [facility] Ramipril 5 MG Oral Capsule ramipril (ALTACE) 5 MG caps ule ramipril (ALTACE) 5 MG capsule 06/16/2020 12:00:00 AM EDT 5 mg Oral active Take 1 capsule (5 mg total) by mouth daily [facility] 1 mg 06/16/2020 12:00:00 AM EDT tablet 30 TAKE ONE TABLET BY MOUTH EVERY DAY TAKE ONE TABLET BY MOUTH EVERY DAY SOLD: 06/16/2020 [email or web address] 0.4 mg 06/16/2020 12:00:00 AM EDT tablet, sublingual 25 PLACE ONE TABLET UNDER THE TONGUE EVERY 5 MINUTES FOR UP TO 3 DOSES NEEDED FOR CHEST PAIN. IF CHEST PAIN STILL PERSISTS CONTACT [address] ONE TABLET UNDER THE TONGUE EVERY 5 MINUTES FOR UP TO 3 DOSES NEEDED FOR CHEST PAIN. IF CHEST PAIN STILL PERSISTS CONTACT 911 SOLD: 06/16/2020 [facility] DAILY OZIEL (THERAGRAN) per tablet 51714-289-12 06/16/2020 12:00:00 AM EDT 1 {tbl} Oral active Take 1 tablet by mouth d katherine [facility] Folic Acid 1 MG Oral Tablet folic acid (FOLVITE) 1 MG tablet folic acid (FOLVITE) 1 MG tablet 06/16/2020 12:00:00 AM EDT 1 mg Oral active Take 1 tablet (1 mg total) by mouth daily [facility] Aspirin 81 MG Chewable Tablet aspirin 81 MG chewable t ablet aspirin 81 MG chewable tablet 06/16/2020 12:00:00 AM EDT 81 mg Oral ac tive Chew 1 tablet (81 mg total) daily [facility] atorvastatin 80 MG Oral Tablet atorvastatin (LIPITOR) 80 MG tablet atorvastatin (LIPITOR) 80 MG tablet 06/16/2020 12:00:00 AM EDT 80 mg Oral active Take 1 tablet (80 mg total) by mouth daily [facility] 5 mg 06/16/2020 12:00:00 AM EDT [...] Sat06/15/20 at 2300, For 1 dose, Pre-op [facility] Medication administered onsite sodium chloride 0.9% (NS) infusion 7853-1885-32 06/15/2020 11:00:00 A M EDT Intravenous aborted at 100 mL/hr, Intravenous, Continuous, Starting Sat06/15/20 at 1100, For 2 hours, Post-op [facility] Medication administered onsite iopamidol (ISOVUE-370) 76 % [id number] 06/15/2020 09:57:16 AM EDT active As needed, Starting Sat06/15/20 at 0957, Intra-Procedur e [facility] Medication administered onsite 1 ML heparin sodium, porcine 1000 UNT/ML Injection hep candice (porcine) injection heparin (porcine) injection 06/15/2020 09:49:15 AM EDT active As needed, Starting Sat06/15/20 at 0949, Intra-Procedure [facility] Medication administered onsite NITROGLYCERIN 0.4 MG/ML IV SOLN [id number] 06/15/2020 09:49:03 AM EDT active As needed, Starting Sat at 0949, Intra-Procedure [facility] Medication administered onsite lidocaine 1 % injection [id number] 06/15/2020 09:48:03 AM EDT active As needed, Starting Sat06/15/20 a t 0948, Intra-Procedure [facility] Medication administered onsite fentaNYL Citrate (PF) (SUBLIMAZE) injection [id number] 06/15/2020 09:44:56 AM EDT active As neede d, Starting Sat06/15/20 at 0944, Intra-Procedure [facility] Medication administered onsite 2 ML Midazolam 1 MG/ML Injection midazolam (VERSED) in jection midazolam (VERSED) injection 06/15/2020 09:44:43 AM EDT active As needed, Starting Sat06/15/20 at 0944, Intra-Procedure [facility] Medication administered onsite 24 HR metoprolol succinate 100 MG Extend ed Release Oral Tablet metoprolol succinate (TOPROL-XL) 24 hr tablet 100 mg metoprolol succinate (TOPROL-XL) 24 hr tablet 100 mg 06/15/2020 09:00:00 AM EDT 100 mg Oral acti ve 100 mg, Oral, Daily, First dose on Sat06/15/20 at 0900 [facility] Medication administered onsite Ramipril 5 MG Oral Capsule ramipril (ALTACE) capsule 5 mg ramipril (ALTACE) capsule 5 mg 06/15/2020 09:00:00 AM EDT 5 mg Oral activ e 5 mg, Oral, Daily, First dose on Sat06/15/20 at 0900
Hold for sbp <120
[facility] Medication administered onsite normal saline flush 0.9 % injection 3 mL [id number] 06/14/2020 10:00:00 PM EDT 3 mL Intravenous active 3 mL , Intravenous, PROTOCOL, First dose on Sat06/14/20 at 2200, Pre-op
flush per protocol, D/C Main IV fluid if appropriate
[facility] Medication administered onsite quetiapine 25 MG Oral Tablet QUEtiapine (SEROquel) tab let 25 mg QUEtiapine (SEROquel) tablet 25 mg 06/14/2020 09:00:00 PM EDT 25 mg Oral active 25 mg, Oral, Nightly, First dose on Sat06/14/20 at 2100 [facility] Medication administered onsite sodium chloride 0.9% (NS) infusion 7282-1242-10 06/14/2020 07:00:00 PM EDT 100 mL/h Intravenous aborted at 100 m L/hr, 100 mL/hr, Intravenous, Continuous, Starting Sat06/14/20 at 1900, Pre-op
Start two hours prior to scheduled start time
[facility] Medication administered onsite Diphenhydramine Hydrochloride 25 MG Oral Capsule diphenhydrAMINE (BENADRYL) capsule 25 mg diphenhydrAMINE (BENADRYL) capsule 25 mg 06/14/2020 07 :00:00 PM EDT 25 mg Oral completed 25 mg, Oral, scallop binder, Sat06/14/20 at 1900, For 1 dose, Pre-op [facility] Medication administered onsite Acetaminophen 325 MG Oral Tablet acetaminophen (TYLENO L) 325 MG tablet 650 mg acetaminophen (TYLENOL) 325 MG tablet 650 mg 06/14/2020 06:34:01 PM EDT 650 mg Oral active 650 mg, Or al, Every 4 hours PRN, headaches, and non cardiac pain, Starting Sat06/14/20 at 1834, Pre-op
"Maximum dose of acetaminophen is 4,000 mg from all sources in 24 hours."
[facility] Medication administered onsite Metoprolol Tartrate 50 MG Oral Tablet me toprolol tartrate (LOPRESSOR) tablet 50 mg metoprolol tartrate (LOPRESSOR) tablet 50 mg 06/13/2020 11:00:00 AM EDT 50 mg Oral aborted 50 mg, Ora l, 2 times daily, First dose on Sat06/13/20 at 1100 [facility] Medication administered onsite fentaNYL Citrate (PF) (SUBLIMAZE) injection 25 mcg [id number] 06/13/2020 04:00:00 AM EDT 25 ug Intravenous completed 25 mcg, Intravenous, Once, Sat06/13/20 at 0400, For 1 dose [facility] Medication administered onsite sennosides, [facility]ING [...] 10-15 ml of water prior to administration
[facility] Medication administered onsite Docusate Sodium 100 MG Oral Capsule docusate sodium (C OLACE) capsule 100 mg docusate sodium (COLACE) capsule 100 mg 06/12/2020 09:00:00 PM EDT 100 mg Oral active 100 mg, Oral, 2 times daily, First dose on 06/12/20 at 2100
hold for loose stools
[facility] Medication administered onsite 1 ML Lorazepam [...] an equal volume of sodium chloride 0.9%
[facility] Medication administered onsite Ramipril 2.5 MG Oral Capsule ramipril (ALTACE) capsule 2.5 mg ramipril (ALTACE) capsule 2.5 mg 06/12/2020 09:00:00 AM EDT 2.5 mg Oral abo rted 2.5 mg, Oral, Daily, First dose on 06/12/20 at 0900
Hold for sbp <120
[facility] Medication administered onsite 1 ML Lorazepam [...] 5 days.If treatment is neededprior, notify provider.
[facility] Medication administered onsite Microfibrillar Rosana Hemostat MISC 1 each [id number] 06/12/2020 03 :00:00 AM EDT 1 {each} Apply externally completed 1 e ach, Apply externally, Once, 06/12/20 at 0300, For 1 dose [facility] Medication administered onsite Digoxin 0.25 MG/ML Injectable Solution digoxin (LANOXI N) injection 250 mcg digoxin (LANOXIN) injection 250 mcg 06/12/2020 03:00:00 AM EDT 2 50 ug Intravenous completed 250 mcg, Intr avenous, Every 6 hours (relative), First dose on 06/12/20 at 0300, For 2 doses [facility] Medication administered onsite dextrose 10 % infusion [id number] 06/11/2020 09:00:00 PM EDT 50 mL/h Intravenous aborted 50 mL/hr, Int ravenous, at 50 mL/hr, Continuous, Starting 06/11/20 at 2100 [facility] Medication administered onsite Digoxin 0.25 MG/ML Injectable Solution digoxin (LANOXI N) injection 500 mcg digoxin (LANOXIN) injection 500 mcg 06/11/2020 09:00:00 PM EDT 5 00 ug Intravenous completed 500 mcg, Intr avenous, Once, 06/11/20 at 2100, For 1 dose [facility] Medication administered onsite Trazodone Hydrochloride 50 MG Oral Tablet traZODone (D ESYREL) tablet 50 mg traZODone (DESYREL) tablet 50 mg 06/11/2020 09:00:00 PM EDT 50 mg Oral active 50 mg, Oral, Nightly, First dose on 06/11/20 at 2100 [facility] Medication administered onsite calcium gluconate 1 g in sodium chloride 50 mL IVPB [id number] 0-01 06/11/2020 08:00:00 AM EDT 1 g Intravenous completed 1 g, Intravenous, Administer over 60 Minutes, Once, 06/11/20 at 0800, For 1 dose [facility] Medication administered onsite Dexmedetomidine HCl 400 mcg in sodium chloride (NS) 0.9 % 10 0 mL infusion 06/11/2020 05:00:00 AM EDT Intravenous aborted 0.2-0.7 mcg/kg/hr 75 kg (3.75-13.125 mL/hr, rounded to 3.8-13.1 mL/hr), Intravenous, Continuous, Starting 06/11/20 at 0500, Until 06/11/20 at 1709, at 3.8-13.1 mL/hr [facility] Medication administered onsite Dexmedetomidine HCl 200 MCG/2ML SOLN [id number] 06/11/2020 04:19:04 AM EDT completed Starting Sat 06/11 at 0419, For 1 dose
Soco Jones: cabinet override
[facility] Medication administered onsite 1 ML Lorazepam 2 MG/ML Injection LORazepam (ATIVAN) in jection 2 mg LORazepam (ATIVAN) injection 2 mg 06/11/2020 04:00:00 AM EDT 2 mg Intraveno us completed 2 mg, Intravenous, O nce, 06/11/20 at 0400, For 1 dose
immediately prior to intravenous use, lorazepam injection must be diluted with an equal volume of sodium chloride 0.9%
[facility] Medication administered onsite potassium chloride (KLOR-CON) packet 40 mEq [id number] 06/10/2020 06:00:00 AM EDT 40 meq completed 40 mEq , Per NG tube, Every 3 hours, First dose on Sat06/10/20 at 0600, For 2 doses [facility] Medication administered onsite sennosides, [facility] 1.76 MG/ML Oral Solution Senna (SENEXON) 8.8 MG/5ML oral syrup 8.8 mg Senna (SENEXON) 8.8 MG/5ML oral syrup 8.8 mg 06/09/2020 09:0 0:00 PM EDT 5 mL aborted 8.8 mg (5 mL), P er G Tube, Nightly, First dose on Brigette 06/09/20 at 2100
hold for loose stools
[facility] Medication administered onsite Dobutamine 2 MG/ML [...] minutes. Infuse via single port IV tubing ([employer]Site Infusion Set reference #[id number]). Medication and tubing is to be discarded if infusion off for 4 hours."
[facility] Medication administered onsite Dobutamine 2 MG/ML Injectable Solution D OBUTamine (DOBUTREX) 2 MG/ML PREMIX infusion DOBUTamine (DOBUTREX) 2 MG/ML PREMIX infusion 06/09/20 20 01:43:14 PM EDT completed Starti ng [facility] 06/09/20 at 1343, For 1 dose
Heather Michael: cabinet override
[facility] Medication administered onsite sodium chloride 0.9% (NS) bolus 500 mL [id number] 0 11:00:00 AM EDT 500 mL Intravenous completed 500 mL, In travenous, Administer over 1 Hours, Once, Brigette 06/09/20 at 1100, For 1 dose [facility] Medication administered onsite 24 HR Nicotine 0.875 MG/HR Transdermal P atch nicotine (NICODERM CQ) 21 MG/24HR 1 patch nicotine (NICODERM CQ) 21 MG/24HR 1 patch 06/09/2020 09:00:00 AM EDT 1 {patch} Transdermal aborted 1 patch, Transdermal, Administer over 24 Hours, Daily, First dose on Brigette 06/09/20 at 0900 [facility] Medication administered onsite Famotidine (PEPCID) injection 20 mg [id number] 06/09/2020 09:00:0 0 AM EDT 20 mg Intravenous aborted 20 mg, I ntravenous, 2 times daily, First dose on Brigette 06/09/20 at 0900
Refrigerated only product.Located in med refrigerator on unit.Dilute with sodium chloride 0.9% to equal 10 ml. Administration Rate = 20mg/2 minutes
[facility] Medication administered onsite Docusate Sodium 10 MG/ML Oral Suspension docusate (COLACE) 50 MG/5ML liquid 100 mg docusate (COLACE) 50 MG/5ML liquid 100 mg 06/09/2020 09:00:00 AM EDT 100 mg aborted 100 mg, Pe r G Tube, 2 times daily, First dose on Sat06/09/20 at 0900
hold for loose stools
[facility] Medication administered onsite Aspirin 81 MG Chewable Tablet aspirin chewable tablet 81 mg aspirin chewable tablet 81 mg 06/09/2020 09:00:00 AM EDT 81 mg Oral activ e 81 mg, Oral, Daily, First dose on Brigette 06/09/20 at 0900 [facility] Medication administered onsite 1 ML Lorazepam [...] an equal volume of sodium chloride 0.9%
[facility] Medication administered onsite DAILY OZIEL (THERAGRAN) 1 tablet [id number] 06/09/2020 09:00:00 AM EDT 1 {tbl} Oral active 1 tablet, Oral, Daily, First dose on Brigette 06/09/20 at 0900 [facility] Medication administered onsite Folic Acid 1 MG Oral Tablet folic acid (FOLVITE) table t 1 mg folic acid (FOLVITE) tablet 1 mg 06/09/2020 09:00:00 AM EDT 1 mg Oral active 1 mg, Oral, Daily, First dose on Brigette 06/09/20 at 0900 [facility] Medication administered onsite Thiamine 100 MG Oral Tablet thiamine tablet 100 mg thiamine tablet 100 mg 06/09/2020 09:00:00 AM EDT 100 mg Oral active 100 mg, Oral, Daily, First dose on Brigette 06/09/20 at 0900 [facility] Medication administered onsite atorvastatin 80 MG Oral Tablet atorvastatin (LIPITOR) tablet 80 mg atorvastatin (LIPITOR) tablet 80 mg 06/09/2020 09:00:00 AM EDT 80 mg Oral active 80 mg, Oral, Daily, First dose on Brigette 06/09/20 at 0900 [facility] Medication administered onsite clopidogrel 75 MG Oral Tablet clopidogrel (PLAVIX) tab let 75 mg clopidogrel (PLAVIX) tablet 75 mg 06/09/2020 09:00:00 AM EDT 75 mg Oral aborted 75 mg, Oral, Daily, First dose on Brigette 06/09/20 at 0900 [facility] Medication administered onsite fentaNYL (SUBLIMAZE) infusion [id number] 06/09/2020 08:00:00 AM E DT Intravenous aborted [...] mcg/hr. If max infusion reached, contact MD/CA.
[facility] Medication administered onsite Propofol (DIPRIVAN) infusion 1000mg/100ml [id number] 06/09/2020 08:00:00 AM EDT Intravenous aborted 0-35 mcg/kg/min 74.9 kg (0-15.729 mL/hr, rounded to 0-15.7 mL/hr), Intravenous, at 0-15.7 mL/hr, Continuous, Starting Brigette 06/09/20 at 0800
Start at 15 mcg/kg/min. Titrate by 5 mcg/kg/min every 5 to 10 minutes to maintain target RASS score 0 to -2
[facility] Medication administered onsite normal saline flush 0.9 % injection 3 mL [id number] 06/09/2020 08:00:00 AM EDT 3 mL Intravenous aborted 3 mL , Intravenous, Every 8 hours (scheduled), First dose on Brigette 06/09/20 at 0800
Rapid push positive pressure flushing shall be performed with a 10 cc normal saline syringe to check the PATENCY of a PIV site prior to any infusion therapy initiation unless resistance is met.
[facility] Medication administered onsite fentaNYL Citrate (PF) (SUBLIMAZE) injection 50 mcg [id number] 06/09/2020 07:00:00 AM EDT 50 ug Intravenous completed 50 mcg, Intravenous, Once, Brigette 06/09/20 at 0700, For 1 dose [facility] Medication administered onsite diphenhydrAMINE (BENADRYL) injection 50 mg [id number] 06/09/2020 07:00:00 AM EDT 50 mg Intravenous completed 50 mg, Intravenous, Once, Brigette 06/09/20 at 0700, For 1 dose [facility] Medication administered onsite Bisacodyl 10 MG Rectal Suppository bisacodyl (DULCOLAX ) suppository 10 mg bisacodyl (DULCOLAX) suppository 10 mg 06/09/2020 06:44:46 AM EDT 10 mg Rectal active 10 mg, Rectal, Daily PRN, constipation, Starting Brigette 06/09/20 at 0644
hold for loose stools
[facility] Medication administered onsite fentaNYL Citrate (PF) (SUBLIMAZE) injection 50 mcg [id number] 06/09/2020 06:43:57 AM EDT 50 ug Intravenous aborted 50 mcg, Intravenous, Every 15 min PRN, for pain, Starting Brigette 06/09/20 at 0643, For 7 days
Initial suggested dose is 25 to 50 mcg. If unable to control pain with 2-3 bolus doses per hour, begin continuous infusion
[facility] Medication administered onsite fentaNYL Citrate (PF) (SUBLIMAZE) 100 MCG/2ML injection [id number] 06/09/2020 06:07:47 AM EDT completed Starting Brigette 06/09/20 at 0607, For 1 dose
Bhumi Macias: cabinet override
[facility] Medication administered onsite Dexmedetomidine HCl 400 mcg in sodium chloride (NS) 0.9 % 10 0 mL infusion 06/09/2020 05:00:00 AM EDT Intravenous aborted 0.2-1.5 mcg/kg/hr 74.9 kg (3.745-28.0875 mL/hr, rounded to 3.7-28.1 mL/hr), Intravenous, Continuous, Starting Brigette 06/09/20 at 0500, Until Brigette 06/09/20 at 0913, at 3.7-28.1 mL/hr [facility] Medication administered onsite 500 ML heparin [...] 1 unit/kg/hr IV58.1 - 87 Therapeutic, No Evmacm34.1 - 97 Decrease infusion 1 unit/kg/hr IV [...] single port tubing (SmartSite Infusion Set ref [id number]). Medication and tubing is to be discarded if infusion off for 4 hours.
[facility] Medication administered onsite normal saline flush 0.9 % injection 3 mL [id number] 06/09/2020 01:00:00 AM EDT 3 mL Intravenous aborted 3 mL , Intravenous, Every 8 hours (scheduled), First dose on Brigette 06/09/20 at 0100
Rapid push positive pressure flushing shall be performed with a 10 cc normal saline syringe to check the PATENCY of a PIV site prior to any infusion therapy initiation unless resistance is met.
[facility] Medication administered onsite 500 ML heparin [...] 1 unit/kg/hr IV58.1 - 87 Therapeutic, No Zfmfmv21.1 - 97 Decrease infusion 1 unit/kg/hr IV [...] single port tubing (SmartSite Infusion Set ref [id number]). Medication and tubing is to be discarded if infusion off for 4 hours.
[facility] Medication administered onsite Lorazepam 2 MG Oral Tablet LORazepam (ATIVAN) 2 MG tab let LORazepam (ATIVAN) 2 MG tablet 06/09/2020 12:43:31 AM EDT complete d Starting Brigette 06/09/20 at 0043, For 1 dose
Soco Jones: cabinet override
[facility] Medication administered onsite 1 ML Lorazepam [...] 5 days.If treatment is neededprior, notify provider.
[facility] Medication administered onsite Nitroglycerin 0.4 MG [...] hours, or Cialis (tadalafil) within 48 hours
[facility] Medication administered onsite 1 ML heparin [...] 30 units/kg IV (Maximum bolus: 5,000 units)
[facility] Medication administered onsite 50 mg 06/03/2020 [...] 12:00:00 AM EDT active 2 capsule eCW1 (Pending Sale To [facility]) 300 mg 02/29/2020 12:00:00 AM EDT capsule 60 TAKE TWO CAPSULES BY MOUTH EVERY DAY TAKE TWO CAPSULES BY MOUTH EVERY DAY SOLD: 03/30/2020 [facility] prednicarbate 0.001 MG/MG Topical Ointment Prednicarba te 0.1 % Prednicarbate 0.1 % 02/29/2020 12:00:00 AM EDT active 1 application eCW1 (Pending Sale To [facility]) 0.05 % 02/29/2020 12:00:00 AM EDT gel [...] T gurdeep 10 mg by mouth daily [facility] Ibuprofen 800 MG Oral Tablet ibuprofen (ADVIL,MOTRIN) 800 MG tablet ibuprofen (ADVIL,MOTRIN) 800 MG tablet 800 mg Oral aborted Take 800 mg by mouth 3 (three) times a day as needed [facility] Rifampin 300 MG Oral Capsule rifampin (RIFADIN) 300 MG capsule rifampin (RIFADIN) 300 MG capsule 600 mg Oral aborted Take 600 mg by mouth daily [facility] Trazodone Hydrochloride 50 MG Oral Tablet traZODone (D ESYREL) 50 MG tablet traZODone (DESYREL) 50 MG tablet 50 mg Oral abort ed Take 50 mg by mouth nightly [facility] Rifampin 300 MG Oral Capsule rifampin (RIFADIN) 300 MG capsule rifampin (RIFADIN) 300 MG capsule 300 mg Oral aborted Take 300 mg by mouth 2 (two) times a day [facility] Insurance Providers Payer name Policy type / Coverage type Policy ID Covered green party ID Covered green party's relationship to [place] Policy [place] Plan Information [facility] [id number] SP [id number] Medicaid S [id number] S [id number] Managed Care - [facility] Community Plan P [id number] S [id number] [facility] O [id number] S [id number] [facility] COMMUNITY PLAN [facility] [id number] SP [id number] Medicaid S [id number] S [id number] [facility] MEDICAID [id number] Carissa [id number] [facility] MEDICAID [id number] Managed Care - [facility] Community Plan P [id number] S [id number] Managed Care - Community Plan [facility] P [id number] S [id number] [facility] [employer] Maintenance Organization (HMO) [id number] Self [id number] Problems, Conditions, and Diagnoses Code Display Name Description Problem Type Effective Dates Data Source(s) V04.81 Needs influenza immunization Needs influenza immunizat ion 07/28/2020 10:47:25 AM EDT [facility] V12.59 History of myocardial infarction History of myocardial infarction 06/23/2020 11:21:53 AM EDT [facility] [id number] Unspecified atrial fibrillation Unspecified atrial fib rillation 06/23/2020 11:21:53 AM EDT [facility] I50.41 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 combined systolic (congestive) and diastolic (congestive) heart failure 06/23/2020 11:21:53 AM EDT [facility] V85.1 BMI 23.0-23.9 BMI 23.0-23.9 06/23/2020 11:21:53 AM EDT [facility] R93.1 Cardiac LV ejection fraction 21-30% Cardiac LV e jection fraction 21-30% [id number] 06/16/2020 12:00:00 AM EDT [facility] I50.43 Acute on chronic combined sy stolic (congestive) and diastolic (congestive) heart failure Acute on chronic combined systolic (angelita estive) and diastolic (congestive) heart failure [id number] 06/10/2020 12:00:00 AM EDT [facility] N17.9 KELI (acute kidney injury) KELI (acute kidney injury) [id number] 06/09/2020 12:00:00 AM EDT [facility] F17.210 Cigarette nicotine dependence without co mplication Cigarette nicotine dependence without complication [id number] 06/09/2020 12:00:00 AM EDT [facility] F19.10 Polysubstance abuse Polysubstance abuse [id number] 06/09/2020 12:00:00 AM EDT [facility] F10.10 Alcohol abuse Alcohol abuse [id number] 06/09/2020 12:00:00 AM EDT [facility] I48.91 New onset a-fib New onset a-fib [id number] 06/09/2020 12:0 0:00 AM EDT [facility] I50.33 Acute on chronic diastolic congestive he art failure Acute on chronic diastolic congestive heart failure [id number] 06/09/2020 12:00:00 AM ED T [facility] I50.43 Acute on chronic combined sy stolic (congestive) and diastolic (congestive) heart failure Acute on chronic combined systolic (angelita Diagnosis 06/23/2020 08:21:30 AM EDT [facility] I50.33 Acute on chronic diastolic (congestive) heart failure Acute on chronic diastolic (congestive) Diagnosis 06/23/2020 08:21:30 AM EDT [facility] I48.91 Unspecified atrial fibrillation Unspecified atri al fibrillation Diagnosis 06/23/2020 08:21:30 AM EDT [facility] R57.0 Cardiogenic shock Cardiogenic shock Diagnosis 06/09/2020 12:26:45 AM EDT [facility] I21.9 Acute myocardial infarction, unspecified Acute myocardial infarction, unspecified Diagnosis 06/09/2020 12:26:45 AM EDT [facility] I21.3 ST elevation (STEMI) myocardial infarcti on of unspecified site ST elevation (STEMI) myocardial infarcti Diagnosis 06/09/2020 12:26:45 AM EDT [facility] Surgeries/Procedures Procedure Description Date Indications Data Source(s) BLOOD COUNT COMPLETE AUTOMATED CBC Add-On 06/16/2020 8:01 A M EDT 06/16/2020 12:01:00 PM EDT [facility] BASIC METABOLIC PANEL CALCIUM TOTAL BASIC METABOLIC PANEL Routi ne 06/16/2020 8:01 AM EDT 06/16/2020 12:01:00 PM EDT [facility] GLUC BLD GLUC MNTR DEV CLEARED FDA SPEC HOME USE POCT GLUCOSE Routine 06/16/2020 4:28 AM EDT 06/16/2020 08:28:00 AM EDT [facility] SWALLOWING FUNCJ W/CINERADIOGRAPY/VIDRADIOG XR MOD BARIUM SWALL OW Routine 06/15/2020 1:47 PM EDT 06/15/2020 05:47:36 PM EDT [facility] GLUC BLD GLUC MNTR DEV CLEARED FDA SPEC HOME USE POCT GLUCOSE Routine 06/15/2020 12:44 PM EDT 06/15/2020 04:44:00 PM EDT [facility] CARDIAC CATHETERIZATION CARDIAC CATHETERIZATION Routine 06/15/2020 9:[address] elevation myocardial infarction (STEMI), unspecified artery 06/15/2020 01:55:[address] elevation myocardial infarction (STEMI), unspecified artery [facility] Acute ST elevation myocardial infarction (STEMI), unspecified artery BLOOD COUNT COMPLETE AUTOMATED CBC Routine 06/15/2020 9:01 A M EDT 06/15/2020 01:01:00 PM EDT [facility] ECG ROUTINE ECG W/LEAST 12 LDS TRCG ONLY W/O I&R ECG 12-LEAD Routine 06/15/2020 5:34 AM EDT 06/15/2020 09:34:49 AM EDT [facility] GLUC BLD GLUC MNTR DEV CLEARED FDA SPEC HOME USE POCT GLUCOSE Routine 06/15/2020 5:24 AM EDT 06/15/2020 09:24:00 AM EDT [facility] THROMBOPLASTIN TIME PARTIAL PLASMA/WHOLE BLOOD APTT Routine 06/15/2020 5:01 AM EDT 06/15/2020 09:01:00 AM EDT [facility] PROTHROMBIN TIME PROTIME-INR Routine 06/15/2020 5:01 AM EDT 06/15/2020 09:01:00 AM EDT [facility] BASIC METABOLIC PANEL CALCIUM TOTAL BASIC METABOLIC PANEL Add-O n 06/15/2020 5:01 AM EDT 06/15/2020 09:01:00 AM EDT [facility] GLUC BLD GLUC MNTR DEV CLEARED FDA SPEC HOME USE POCT GLUCOSE Routine 06/14/2020 11:25 PM EDT 06/15/2020 03:25:00 AM EDT [facility] XR CHEST PORTABLE XR CHEST PORTABLE Routine 06/14/2020 6:58 PM EDT 06/14/2020 10:58:11 PM EDT [facility] GLUC BLD GLUC MNTR DEV CLEARED FDA SPEC HOME USE POCT GLUCOSE Routine 06/14/2020 5:25 PM EDT 06/14/2020 09:25:00 PM EDT [facility] GLUC BLD GLUC MNTR DEV CLEARED FDA SPEC HOME USE POCT GLUCOSE Routine 06/14/2020 12:47 PM EDT 06/14/2020 04:47:00 PM EDT [facility] GLUC BLD GLUC MNTR DEV CLEARED FDA SPEC HOME USE POCT GLUCOSE Routine 06/14/2020 5:03 AM EDT 06/14/2020 09:03:00 AM EDT [facility] NT PRO BNP NT PRO BNP STAT 06/14/2020 4:25 AM EDT 06/14/2020 08:25:00 AM EDT [facility] BLOOD COUNT COMPLETE AUTOMATED CBC Timed 06/14/2020 4:25 A M EDT 06/14/2020 08:25:00 AM EDT [facility] BASIC METABOLIC PANEL CALCIUM TOTAL BASIC METABOLIC PANEL Timed 06/14/2020 4:25 AM EDT 06/14/2020 08:25:00 AM EDT [facility] GLUC BLD GLUC MNTR DEV CLEARED FDA SPEC HOME USE POCT GLUCOSE Routine 06/13/2020 11:55 PM EDT 06/14/2020 03:55:00 AM EDT [facility] GLUC BLD GLUC MNTR DEV CLEARED FDA SPEC HOME USE POCT GLUCOSE Routine 06/13/2020 7:31 PM EDT 06/13/2020 11:31:00 PM EDT [facility] GLUC BLD GLUC MNTR DEV CLEARED FDA SPEC HOME USE POCT GLUCOSE Routine 06/13/2020 12:25 PM EDT 06/13/2020 04:25:00 PM EDT [facility] GLUC BLD GLUC MNTR DEV CLEARED FDA SPEC HOME USE POCT GLUCOSE Routine 06/13/2020 8:25 AM EDT 06/13/2020 12:25:00 PM EDT [facility] BLOOD COUNT COMPLETE AUTOMATED CBC Timed 06/13/2020 3:00 A M EDT 06/13/2020 07:00:00 AM EDT [facility] DRUG SCREEN QUALITATIVE DIGOXIN DIGOXIN LEVEL Routine 020 3:00 AM EDT 06/13/2020 07:00:00 AM EDT [facility] BASIC METABOLIC PANEL CALCIUM TOTAL BASIC METABOLIC PANEL Timed 06/13/2020 3:00 AM EDT 06/13/2020 07:00:00 AM EDT [facility] GLUC BLD GLUC MNTR DEV CLEARED FDA SPEC HOME USE POCT GLUCOSE Routine 06/12/2020 7:59 PM EDT 06/12/2020 11:59:00 PM EDT [facility] GLUC BLD GLUC MNTR DEV CLEARED FDA SPEC HOME USE POCT GLUCOSE Routine 06/12/2020 12:06 PM EDT 06/12/2020 04:06:00 PM EDT [facility] XR CHEST PORTABLE XR CHEST PORTABLE Routine 06/12/2020 6:45 AM EDT 06/12/2020 10:45:29 AM EDT [facility] GLUC BLD GLUC MNTR DEV CLEARED FDA SPEC HOME USE POCT GLUCOSE Routine 06/12/2020 5:45 AM EDT 06/12/2020 09:45:00 AM EDT [facility] THROMBOPLASTIN TIME PARTIAL PLASMA/WHOLE BLOOD APTT Routine 06/12/2020 3:20 AM EDT 06/12/2020 07:20:00 AM EDT [facility] BLOOD COUNT COMPLETE AUTOMATED CBC Timed 06/12/2020 3:20 A M EDT 06/12/2020 07:20:00 AM EDT [facility] BASIC METABOLIC PANEL CALCIUM TOTAL BASIC METABOLIC PANEL Timed 06/12/2020 3:20 AM EDT 06/12/2020 07:20:00 AM EDT [facility] GLUC BLD GLUC MNTR DEV CLEARED FDA SPEC HOME USE POCT GLUCOSE Routine 06/11/2020 11:37 PM EDT 06/12/2020 03:37:00 AM EDT [facility] GLUC BLD GLUC MNTR DEV CLEARED FDA SPEC HOME USE POCT GLUCOSE Routine 06/11/2020 8:14 PM EDT 06/12/2020 12:14:00 AM EDT [facility] GLUC BLD GLUC MNTR DEV CLEARED FDA SPEC HOME USE POCT GLUCOSE Routine 06/11/2020 5:27 PM EDT 06/11/2020 09:27:00 PM EDT [facility] THROMBOPLASTIN TIME PARTIAL PLASMA/WHOLE BLOOD APTT Routine 06/11/2020 5:26 PM EDT 06/11/2020 09:26:00 PM EDT [facility] GLUC BLD GLUC MNTR DEV CLEARED FDA SPEC HOME USE POCT GLUCOSE Routine 06/11/2020 11:18 AM EDT 06/11/2020 03:18:00 PM EDT [facility] THROMBOPLASTIN TIME PARTIAL PLASMA/WHOLE BLOOD APTT Routine 06/11/2020 11:16 AM EDT 06/11/2020 03:16:00 PM EDT [facility] GLUC BLD GLUC MNTR DEV CLEARED FDA SPEC HOME USE POCT GLUCOSE Routine 06/11/2020 5:03 AM EDT 06/11/2020 09:03:00 AM EDT [facility] TROPONIN QUANTITATIVE TROPONIN I Routine 06/11/2020 3:11 AM EDT 06/11/2020 07:11:00 AM EDT [facility] THROMBOPLASTIN TIME PARTIAL PLASMA/WHOLE BLOOD APTT Routine 06/11/2020 3:11 AM EDT 06/11/2020 07:11:00 AM EDT [facility] BLOOD COUNT COMPLETE AUTOMATED CBC Timed 06/11/2020 3:11 A M EDT 06/11/2020 07:11:00 AM EDT [facility] BASIC METABOLIC PANEL CALCIUM TOTAL BASIC METABOLIC PANEL Routi ne 06/11/2020 3:11 AM EDT 06/11/2020 07:11:00 AM EDT [facility] GLUC BLD GLUC MNTR DEV CLEARED FDA SPEC HOME USE POCT GLUCOSE Routine 06/10/2020 11:28 PM EDT 06/11/2020 03:28:00 AM EDT [facility] GLUC BLD GLUC MNTR DEV CLEARED FDA SPEC HOME USE POCT GLUCOSE Routine 06/10/2020 11:26 PM EDT 06/11/2020 03:26:00 AM EDT [facility] THROMBOPLASTIN TIME PARTIAL PLASMA/WHOLE BLOOD APTT STAT 06/10/2020 6:47 PM EDT 06/10/2020 10:47:00 PM EDT [facility] GLUC BLD GLUC MNTR DEV CLEARED FDA SPEC HOME USE POCT GLUCOSE Routine 06/10/2020 5:58 PM EDT 06/10/2020 09:58:00 PM EDT [facility] LACTATE LACTIC ACID Timed 06/10/2020 3:26 PM EDT 06/10/2020 07:26:00 PM EDT [facility] COMPREHENSIVE METABOLIC PANEL COMPREHENSIVE METABOLIC PANEL Rou zeny 06/10/2020 3:26 PM EDT 06/10/2020 07:26:00 PM EDT [facility] TROPONIN QUANTITATIVE TROPONIN I Routine 06/10/2020 1:00 PM EDT 06/10/2020 05:00:00 PM EDT [facility] THROMBOPLASTIN TIME PARTIAL PLASMA/WHOLE BLOOD APTT STAT 06/10/2020 1:00 PM EDT 06/10/2020 05:00:00 PM EDT [facility] GLUC BLD GLUC MNTR DEV CLEARED FDA SPEC HOME USE POCT GLUCOSE Routine 06/10/2020 12:06 PM EDT 06/10/2020 04:06:00 PM EDT [facility] TROPONIN QUANTITATIVE TROPONIN I Routine 06/10/2020 8:41 AM EDT 06/10/2020 12:41:00 PM EDT [facility] POTASSIUM SERUM PLASMA/WHOLE BLOOD POTASSIUM Routine 06/10/2020 8:41 AM EDT 06/10/2020 12:41:00 PM EDT [facility] THROMBOPLASTIN TIME PARTIAL PLASMA/WHOLE BLOOD APTT STAT 06/10/2020 2:44 AM EDT 06/10/2020 06:44:00 AM EDT [facility] BLOOD COUNT COMPLETE AUTOMATED CBC Timed 06/10/2020 2:44 A M EDT 06/10/2020 06:44:00 AM EDT [facility] PHOSPHORUS INORGANIC PHOSPHORUS Routine 06/10/2020 2:44 AM EDT 06/10/2020 06:44:00 AM EDT [facility] MAGNESIUM MAGNESIUM Routine 06/10/2020 2:44 AM EDT 06/10/2020 06:44:00 AM EDT [facility] HEMOGLOBIN GLYCOSYLATED A1C HEMOGLOBIN A1C Add-On 06/10/2020 2:44 AM EDT 06/10/2020 06:44:00 AM EDT [facility] BASIC METABOLIC PANEL CALCIUM TOTAL BASIC METABOLIC PANEL Routi ne 06/10/2020 2:44 AM EDT 06/10/2020 06:44:00 AM EDT [facility] GLUC BLD GLUC MNTR DEV CLEARED FDA SPEC HOME USE POCT GLUCOSE Routine 06/10/2020 1:03 AM EDT 06/10/2020 05:03:00 AM EDT [facility] GLUC BLD GLUC MNTR DEV CLEARED FDA SPEC HOME USE POCT GLUCOSE Routine 06/09/2020 6:34 PM EDT 06/09/2020 10:34:00 PM EDT [facility] THROMBOPLASTIN TIME PARTIAL PLASMA/WHOLE BLOOD APTT STAT 06/09/2020 6:30 PM EDT 06/09/2020 10:30:00 PM EDT [facility] GLUC BLD GLUC MNTR DEV CLEARED FDA SPEC HOME USE POCT GLUCOSE Routine 06/09/2020 4:44 PM EDT 06/09/2020 08:44:00 PM EDT [facility] BASIC METABOLIC PANEL CALCIUM TOTAL BASIC METABOLIC PANEL Routi ne 06/09/2020 3:16 PM EDT 06/09/2020 07:16:00 PM EDT [facility] XR CHEST PORT POST LINE PLCMNT-BIOPSY OR OTHER PROCEDU RE XR CHEST PORT POST LINE PLCMNT-BIOPSY OR OTHER PROCEDURE STAT 06/09/2020 1:21 PM EDT 06/09/2020 05:21:14 PM EDT [facility] ECHO TTHRC R-T 2D W/WOM-MODE COMPL SPEC&COLR DOP ECHOCARDIO GRAM TRANSTHORACIC Routine 06/09/2020 12:21 PM EDT 06/09/2020 04:21:57 PM EDT [facility] THROMBOPLASTIN TIME PARTIAL PLASMA/WHOLE BLOOD APTT STAT 06/09/2020 11:36 AM EDT 06/09/2020 03:36:00 PM EDT [facility] TROPONIN QUANTITATIVE TROPONIN I Timed 06/09/2020 9:12 AM EDT 06/09/2020 01:12:00 PM EDT [facility] LACTATE LACTIC ACID STAT 06/09/2020 9:12 AM EDT 06/09/2020 01:12:00 PM EDT [facility] GLUC BLD GLUC MNTR DEV CLEARED FDA SPEC HOME USE POCT GLUCOSE Routine 06/09/2020 9:10 AM EDT 06/09/2020 01:10:00 PM EDT [facility] POC ARTERIAL BLOOD GAS POC ARTERIAL BLOOD GAS Routine 020 7:23 AM EDT 06/09/2020 11:23:00 AM EDT [facility] XR CHEST PORTABLE XR CHEST PORTABLE STAT 06/09/2020 7:11 AM EDT 06/09/2020 11:11:02 AM EDT [facility] TROPONIN QUANTITATIVE TROPONIN I Timed 06/09/2020 5:53 AM EDT 06/09/2020 09:53:00 AM EDT [facility] ECG ROUTINE ECG W/LEAST 12 LDS TRCG ONLY W/O I&R ECG 12-LEAD STAT 06/09/2020 3:54 AM EDT 06/09/2020 07:54:43 AM EDT [facility] LACTATE LACTIC ACID Timed 06/09/2020 3:46 AM EDT 06/09/2020 07:46:00 AM EDT [facility] TROPONIN QUANTITATIVE TROPONIN I Routine 06/09/2020 3:45 AM EDT 06/09/2020 07:45:00 AM EDT [facility] THROMBOPLASTIN TIME PARTIAL PLASMA/WHOLE BLOOD APTT Routine 06/09/2020 3:45 AM EDT 06/09/2020 07:45:00 AM EDT [facility] URINE CULTURE HOLD SPECIMEN URINE CULTURE HOLD SPECIMEN Routine 06/09/2020 1:49 AM EDT 06/09/2020 05:49:00 AM EDT [facility] DRUG SCR QUAL 1 DRUG CLASS METH EA DRUG CLASS DRUGS O F ABUSE, URINE (STAT, ER/INPATIENT) Routine 06/09/2020 1:49 AM EDT 06/09/2020 0 5:49:00 AM EDT [facility] CMB CMB STAT 06/09/2020 1:47 AM EDT 06/09/20 20 05:47:00 AM EDT [facility] NT PRO BNP NT PRO BNP STAT 06/09/2020 1:47 AM EDT 06/09/2020 05:47:00 AM EDT [facility] TROPONIN QUANTITATIVE TROPONIN I STAT 06/09/2020 1:47 AM EDT 06/09/2020 05:47:00 AM EDT [facility] BLOOD COUNT COMPLETE AUTO&AUTO DIFRNTL WBC COUNT CBC AND DIFFER ENTIAL STAT 06/09/2020 1:47 AM EDT 06/09/2020 05:47:00 AM EDT [facility] THYROID STIMULATING HORMONE TSH TSH STAT 06/09/2020 1:47 AM EDT 06/09/2020 05:47:00 AM EDT [facility] THYROXINE FREE T4, FREE STAT 06/09/2020 1:47 AM EDT 06/09/2020 05:47:00 AM EDT [facility] PHOSPHORUS INORGANIC PHOSPHORUS STAT 06/09/2020 1:47 AM EDT 06/09/2020 05:47:00 AM EDT [facility] MAGNESIUM MAGNESIUM STAT 06/09/2020 1:47 AM EDT 06/09/2020 05:47:00 AM EDT [facility] LACTATE LACTIC ACID Routine 06/09/2020 1:47 AM EDT 06/09/2020 05:47:00 AM EDT [facility] CREATINE KINASE MB FRACTION ONLY CKMB STAT 06/09/2020 1:47 AM EDT 06/09/2020 05:47:00 AM EDT [facility] CALCIUM IONIZED CALCIUM, IONIZED STAT 06/09/2020 1:47 AM EDT 06/09/2020 05:47:00 AM EDT [facility] ALCOHOL ANY SPECIMEN EXCEPT BREATH ETHANOL STAT 06/09/2020 1: 47 AM EDT 06/09/2020 05:47:00 AM EDT [facility] COMPREHENSIVE METABOLIC PANEL COMPREHENSIVE METABOLIC PANEL STA T 06/09/2020 1:47 AM EDT 06/09/2020 05:47:00 AM EDT [facility] XR CHEST PORTABLE XR CHEST PORTABLE STAT 06/09/2020 1:07 AM EDT 06/09/2020 05:07:18 AM EDT [facility] GLUC BLD GLUC MNTR DEV CLEARED FDA SPEC HOME USE POCT GLUCOSE Routine 06/09/2020 12:24 AM EDT 06/09/2020 04:24:00 AM EDT [facility] LACTATE LACTIC ACID Routine 06/09/2020 12:10 AM EDT 06/09/2020 04:10:00 AM EDT [facility] ECG ROUTINE ECG W/LEAST 12 LDS I&R ONLY ECG 12-LEAD STAT 06/08/2020 11:57 PM EDT 06/09/2020 03:57:07 AM EDT [facility] Results ID Date Data Source [id number] 07/28/2020 09:21:54 AM EDT [facility] Measurements & CalculationsHeight: 67 inches (5 [...] been admitted to the hospital? No - [facility] admission date reported today: 06/16/2020Have you been to an emergency room (ER) or urgent care clinic? No - urgent care for heart burn, psoriasisEmergency room (ER) or urgent care date reported today: 01/13/2019Have you seen another healthcare provider? Yes - [facility]Have you seen a dentist? NoIntake performed by: [...] pt states has follow up visit with customer training specialist next week. Pt states doing well. Pt [...] during this visit, including review of any [id number] medications, herbal therapies, and/or supplements.Allergy ReviewAllergy List [...] & Plan Problems:Added: Needs influenza immunization (ICD-V04.81) (XJH38-Y88.3) Assessment: Instructions: You have had your flu vaccine done today. There may be soreness at the injection site. Please report any adverse reactions.Assessed:Insomnia, unspecified (POQ47-O73.00) Assessment: Instructions: Pleae continue medication as prescribed. Please try to avoid nighttime stimullants. try to avoid smoking, cell phone or television 30 minutes to an hour prior to bedtime. May take warm shower or bath prior to bedtime.History of myocardial infarction (ICD-V12.59) (CBQ75-J58.2) Assessment: Instructions: Please continue medications as prescribed. Please c ontinue healthy diet and physical activities. Please try to avoid added sodum in your diet. Please report any leg swelling, shortness of bereath, dizziness or chest palpitations. Please report weight gain of 2 pounds daily or 5 pounds weekly.Nicotine dependence, cigarettes, uncomplicated (DNK70-J29.210) Assessment: Pt states smoking 5 cigarettes daily [...] Influenza Virus Vaccine [CPT-G0008] COMP METABOLIC PANEL [CPT-88518] CBC W/DIFF [CPT-05918] LIPID PANEL [CPT-00257] TSH [CPT-53832] T-4 free [CPT-24262] Vitamin D 250H Unspecified [CPT-65150] HgBA1c [CPT-87453] PROSTATE CANCER SCREENING; PSA TEST [CPT-G0103] Adult - Ofc Vst, EST, Level IV [CPT-18864] 45349 - Immo Admin (over 19 yrs), 1st Vaccine [CPT-59830] Follow-Up Return to clinic: 4-6 weeks for [...] Syringe 0.5 MLMfr / Lot# / Exp.Date: GlaxBondandDeni / [id number] 1Amt. Given / Route / Site: 0.5 mL / IM / Left Upper ArmNDC / CVX: [id number] / 150Administered Date: 07/28/2020 11:00VFC Eligibility: Not VFC EligibleVIS Date: 06/25/2019VIS Given / VIS Given On: Yes / 07/28/2020Comments: Administered by: Bárbara Fischer LPN Name Value Range Interpretation Code Description Data Vale rce(s) Supporting Document(s) ID Date Data Source [id number] 06/23/2020 10:47:06 AM EDT [facility] Measurements & CalculationsHeight: 67 inches (5 [...] been admitted to the hospital? Yes - [facility] admission date reported today: 06/16/2020Have you been to an emergency room (ER) or urgent care clinic? NoHave you seen another healthcare provider? NoHave you seen a dentist? NoIntake performed by: Kristina Lemon LPN, June 23, 2020 10:50 AMRate [facility], would you say your health is? FairPain [...] during this visit, including review of any uqtv-qhx-dqfprtw medications, herbal therapies, and/or supplements.Allergy ReviewAllergy List [...] FairAssessment & Plan Problems:Added: BMI 23.0-23.9 (ICD-V85.1) (PJO21-S91.23)Acute combined systolic (congestive) and diastolic (congestive) heart failure (UHP26-Q09.41) Assessment: Instructions: Continue as scheduled with Dr. Norris, your customer training specialist. Continue all medications as prescribed.History of myocardial infarction (ICD- V12.59) (ENE18-O49.2) Assessment: Instructions: Keep Nitro on you at all times for emergency useUnspecified atrial fibrillation (MDQ84-I42.91) Assessment: Instructions: As above.Assessed:Insomnia, unspecified (ICD10- G47.00) Assessment: Instructions: Increase Trazodone to 100mg at bedtime. Follow-up in 4 weeks with PCP.Nicotine dependence, cigarettes, uncomplicated (GCN13-I27.210) Assessment: Instructions: Start Nicotine patch 7mg, sent to your pharmacy today. Smoking cessation counseling was recommended with patient today.Hypertension (ICD-401.9) (ECP07-B37) Assessment: Instructions: BP at goal today.Patient Instructions/Care Plan: Acute combined systolic (congestive) and diastolic (congestive) heart failure: Continue as scheduled with Dr. Norris, your customer training specialist. Continue all medications as prescribed.History of myocardial [...] TRAZODONE HCL 50 MG ORAL TABLET Qty: [id number] Refills: 30[Tablet] To: TRAZODONE HCL 100 MG ORAL TABLET-take one tablet by mouth daily Qty: 30[Tablet] Refills: 1Allergies:No Known Allergies (updated 06/23/2020) Orders:Adult - Ofc Vst, EST, Level IV [CPT-58084] Follow-Up Return to clinic: in 4 weeks for follow upAdditional Follow-Up: insomnia, smoking with CassandraClinical Visit Summary Completed Name Value Range Interpretation Code Description Data Vale rce(s) Supporting Document(s) ID Date Data Source [id number] 06/23/2020 12:00:00 AM EDT [facility] Office VisitImported By: Kristina sahu LPN 06/24/2020 4:04:05 PM External Attachment: Type: Image Comment: External Document Name Value Range Interpretation Code Description Data Vale rce(s) Supporting Document(s) ID Date Data Source [id number] 06/16/2020 09:17:02 AM EDT [facility] INFORMATIONPatient MRN Name Date of Age Gend*PT [id number] Arnold Moreau 1960 59 years M IPPT Location Admission Date/Time Visit ID Attending [id number] 06/09/20 0026 --- Gian Lara MD([id number]) EPI ID CSN Admitting Provider [id number] Tracie Galvez MD([id number]) [facility] DISCHARGE SUMMARYPatient Name: Arnold Moreau of : 1960 Age 59 yearsPrimary Physician: Jose Romano MD PCP [id number] Date: 06/09/2020 Discharge Date:He will be discharged from [facility] to [facility] Diagnoses:Principal Problem (Resolved): Acute ST elevation myocardial [...] for cocaine and admission [facility] post thrombo-lysis for an acute MIpatient was admitted there on 727 with dilated cardiomyopathy presumed due toalcohol abuse and diastolic CHF with exacerbation and new onset A. [facility]transfer[facility] secondary to acute STelevation PA he was initially placed in critical care he was noted to havemoderate to large pericardial effusion echocardiogram at [facility] CT chestreported as mild was asymptomatic [...] today in stable condition and [facility] an [...] and mental status, speech normal, alertand oriented [id number]:Imaging:Echocardiogram done on 06/09/2020Interpretation Summary 1. Left ventricular [...] rce(s) Supporting Document(s) ID Date Data Source [id number] 06/16/2020 11:02:49 AM EDT [facility] Name Value Range Interpretation Code Description Data Vale rce(s) Supporting Document(s) WBC 7.8 10*3/uL (4.1-11.0) [facility] [place] RBC 4.78 10*6/uL (4.60-6.10) [facility] HGB 14.2 g/dL (13.5-18.0) [facility] HCT 42.7 % (41.0-53.0) [facility] MCV 89.4 fL (80.0-95.0) [facility] MCH 29.8 pg (27.0-32.0) [facility] MCHC 33.3 g/dL (32.0-36.0) [facility] RDW 14.6 % (10.5-14.5) H [facility] PLT 178 10*3/uL (150-450) [facility] MPV 9.5 fL (7.1-10.7) [facility] ID Date Data Source [id number] 06/16/2020 09:17:43 AM EDT [facility] Name Value Range Interpretation Code Description Data Vale rce(s) Supporting Document(s) SODIUM 144 mmol/L (136-145) [facility] POTASSIUM 4.7 mmol/L (3.6-5.2) [facility] CHLORIDE 111 mmol/L (100-108) H [facility] CO2 30 mmol/L (22-31) [facility] ANION GAP 3 mmol/L (7-16) L [facility] UREA NITROGEN 19 mg/dL (7-24) [facility] CREATININE 1.14 mg/dL (0.80-1.30) [facility] BUN/CREAT RATIO 16.7 RATIO (10.0-20.0) [facility] GLUCOSE 88 mg/dL (70-99) [facility] CALCIUM 8.9 mg/dL (8.4-10.2) [facility] GFR >60 ml/min/1.73m2 (>59) [facility] GFR ( AMER) >60 ml/min/1.73m2 (>59) [facility] GFR INTERPRETATION [facility] --NORMAL KIDNEY FUNCTION OR MILD DISEASE - GFR >OR= 60CHRONIC KIDNEY DISEASE - GFR 15 - 59RENAL FAILURE - GFR <15 Est. GFR calculation based on the MDRDstudy equation, which assumes a steadystate for creatinine. Est. GFR should notbe used for medication dosing. ID Date Data Source [id number] 06/16/2020 04:29:30 AM EDT [facility] Name Value Range Interpretation Code Description Data [facility] rce(s) Supporting Document(s) POC NOVA GLU 97 mg/dL (70-99) [facility] PERFORMED BY [facility] ID Date Data Source [id number] 06/15/2020 01:49:46 PM EDT [address] [address]Fkgrteo Name: ARNOLD SHEAB: 1960ex: MOrdering Provider: GIAN Covington Prov: GIAN Cardenas Provider: Procedure Performed: XR MOD BARIUM SWALLOWExam Date: 06/15/2020 13:47MRN: [id number] Number: [id number] Class: InpatientAccount #: [id number] for Exam: dysphagiaTechnique: Fluoroscopy with no digital spot images obtained.Fluoroscopy time: 77 SecondsNumber of Spot Images: 0Comparison: NoneFindings:Please see speech pathology report for full details.No penetration or aspiration. Unremarkable swallow.IMPRESSION: No penetration or aspiration. Unremarkable swallow. Please see speech pathology report for full details.Report electronically signed by: Percy Middleton On 06/15/2020 1:49 PMWorkstation ID: [id number] Name Value Range Interpretation Code Description Data Vale rce(s) Supporting Document(s) ID Date Data Source [id number] 06/15/2020 12:49:04 PM EDT [facility] Name Value Range Interpretation Code Description Data Vale rce(s) Supporting Document(s) POC NOVA GLU 88 mg/dL (70-99) [facility] [place] [facility] ID Date Data Source [id number] 06/15/2020 10:02:42 AM EDT [facility] Name Value Range Interpretation Code Description Data Vale rce(s) Supporting Document(s) &PDF [facility] IFEUNf8dGoSOIvEq59/YANfzVQEme0NjDTcgPCx0NHaoKQXbL7SynLpsIIBGCqnFQxyZFXuUAJVgEMou pYy [file] S8TJVmRha0KqZnUS5ZTg9ZStK3KEF4tKJdLs4PICotYutGKwDqUV0PRWt= ID Date Data Source [id number] 06/15/2020 10:16:43 AM EDT [facility] Name Value Range Interpretation Code Description Data Vale rce(s) Supporting Document(s) WBC 6.8 10*3/uL (4.1-11.0) [facility] [place] RBC 4.67 10*6/uL (4.60-6.10) [facility] HGB 13.9 g/dL (13.5-18.0) [facility] HCT 41.3 % (41.0-53.0) [facility] MCV 88.5 fL (80.0-95.0) [facility] MCH 29.8 pg (27.0-32.0) [facility] MCHC 33.6 g/dL (32.0-36.0) [facility] RDW 14.9 % (10.5-14.5) H [facility] PLT 147 10*3/uL (150-450) L [facility] MPV 9.0 fL (7.1-10.7) [facility] ID Date Data Source [id number] 06/15/2020 08:31:48 AM EDT [facility] Name Value Range Interpretation Code Description Data Vale rce(s) Supporting Document(s) EKG [facility] YDUCDu2eMnCHOhJyd6EiFmYdAFPlZZ0ylea0H6V1yOXqU5JduOMyx2dzW7FcP1EnPWViXWKVQC5YdMFu jb2 [file] vs/j1dke04+/t9R7sO/f61F/9t29O6TGyTw/33+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+pvSN0+/7621q8mV82khdQ/87Vju7/594zt+u5 [file] 9vm/+1lT38ASF6P3q3Dl8uNtE2j8o4QZ3d0pF9hUx0 gu/G/fk2gu+W4Br+L0ifgEo/t0PX6+BehO+zdfIag8WB4pu1r6GRnHzbZ/pxveAcPOu20vpU28C4PPSl rtUXQpGsvLoO3Au5hTQU2/iDP88GTAN3/gLfxQi+U9IXuEkTItU2edhc3ZQlrR120JPK4Op62AF6mWvu KBjL497F4aU9Y4FCvcfO7S2DT664Kq5/MnrjevYmGN 9/TF2xgIjM683W0/mail carrier/V2pPQujwQ3I/Ti8JhtOwkrrcCdU8Xviyyxoq5TtnW9HUdF3oq+i1tzI/huWj [file] EyOTcgMDAwMDAgbiAKMDAwMDAwMTQwNiAwMDAwMCBu WNsxYQCjHEE4YOkgJQQjNOLeYW5pSdQjEPJrMRQ3XCmtWXQgZSVohhTPIPJvFHLoFMlpIMYlBZWgBDXk NWvaCKSrLABcBXL0OUYuZXTqYR4jLiBrZSYrVWCdFAUsGlU5AwDrKyYDnIYjgSkmjxf1LEdtP4c3HIRo NPnbDG4aciBxGPJeXbbrRo6isEZ7LDKiVjdLIi8Oj6StckY9guOaCkJdDaE2GcbrBELTQx== ID Date Data Source [id number] 06/15/2020 05:25:49 AM EDT [facility] Name Value Range Interpretation Code Description Data Vale rce(s) Supporting Document(s) POC NOVA GLU 86 mg/dL (70-99) [facility] [place] [facility] ID Date Data Source [id number] 06/15/2020 08:47:27 AM EDT [facility] Name Value Range Interpretation Code Description Data Vale rce(s) Supporting Document(s) SODIUM 143 mmol/L (136-145) [facility] POTASSIUM 4.0 mmol/L (3.6-5.2) [facility] CHLORIDE 112 mmol/L (100-108) H [facility] CO2 24 mmol/L (22-31) [facility] ANION GAP 7 mmol/L (7-16) [facility] UREA NITROGEN 13 mg/dL (7-24) [facility] CREATININE 0.97 mg/dL (0.80-1.30) [facility] BUN/CREAT RATIO 13.4 RATIO (10.0-20.0) [facility] GLUCOSE 83 mg/dL (70-99) [facility] CALCIUM 8.8 mg/dL (8.4-10.2) [facility] GFR >60 ml/min/1.73m2 (>59) [facility] GFR ( AMER) >60 ml/min/1.73m2 (>59) [facility] GFR INTERPRETATION [facility] --NORMAL KIDNEY FUNCTION OR MILD DISEASE - GFR >OR= 60CHRONIC KIDNEY DISEASE - GFR 15 - 59RENAL FAILURE - GFR <15 Est. GFR calculation based on the MDRDstudy equation, which assumes a steadystate for creatinine. Est. GFR should notbe used for medication dosing. ID Date Data Source [id number] 06/15/2020 06:27:15 AM EDT [facility] Name Value Range Interpretation Code Description Data Vale rce(s) Supporting Document(s) APTT 26.2 s (22.0-34.3) [facility] Enrique Oliver ID Date Data Source [id number] 06/15/2020 06:27:15 AM EDT [facility] Name Value Range Interpretation Code Description Data Vale rce(s) Supporting Document(s) PT 13.2 s (9.2-11.9) H [facility] INR 1.27 [facility] SUGGESTED THERAPEUTIC RANGES USING INR F ORSTABILIZED ANTICOAGULATED PATIENTS:STANDARD DOSE THERAPY INR 2.0-3.0 DVT, PE, PREVENT DVT OR EMBOLISMHIGH DOSE THERAPY INR 2.5-3.5 PREVENT EMBOLISM FROM MECHANICAL HEART VALVE ID Date Data Source [id number] 06/14/2020 11:27:03 PM EDT [facility] Name Value Range Interpretation Code Description Data Vale rce(s) Supporting Document(s) POC NOVA GLU 86 mg/dL (70-99) [facility] ALYSS[facility] PERFOR[facility] BY [facility] ID Date Data Source [id number] 06/14/2020 08:07:50 PM EDT [address] [address]Waxwsvp Name: ARNOLD SHEAB: 2Sex: MOrdering Provider: GUILLERMINA Bustamante Prov: GUILLERMINA DUARTEReferrjanes Provider: Procedure Performed: XR CHEST PORTABLEExam Date: 06/14/2020 18:58MRN: [id number] Number: [id number] Class: InpatientAccount #: [id number] for Exam: Heart failureTechnique: AP portable view obtained.Comparison: 06/12/2020Findings: The heart is enlarged. Small bilateral pleural effusions are seen. No well-formed pneumonia is identified. Pulmonary vasculature appears less congested.IMPRESSION: Pulmonary vasculature appears less congested. Persistent bilateral pleural effusions are seen. Lungs appear better aerated.Report electronically signed by: XIOMARA SCALES On 06/14/2020 8:07 PMWorkstation ID: [id number] Name Value Range Interpretation Code Description Data Vale rce(s) Supporting Document(s) ID Date Data Source [id number] 06/14/2020 05:27:31 PM EDT [facility] Name Value Range Interpretation Code Description Data Vale rce(s) Supporting Document(s) POC NOVA GLU 97 mg/dL (70-99) [facility] [place] [facility] ID Date Data Source [id number] 06/14/2020 12:49:44 PM EDT [facility] Name Value Range Interpretation Code Description Data Vale rce(s) Supporting Document(s) POC NOVA GLU 91 mg/dL (70-99) [facility] [place] [facility] ID Date Data Source [id number] 06/14/2020 05:04:56 AM EDT [facility] Name Value Range Interpretation Code Description Data Vale rce(s) Supporting Document(s) POC NOVA GLU 118 mg/dL (70-99) H [facility] [place] [facility] ID Date Data Source [id number] 06/14/2020 07:46:38 PM EDT [facility] Name Value Range Interpretation Code Description Data Vale rce(s) Supporting Document(s) NT PRO BNP 8895 pg/mL (0-125) H [facility] ID Date Data Source [id number] 06/14/2020 06:35:54 AM EDT [facility] Name Value Range Interpretation Code Description Data Vale rce(s) Supporting Document(s) WBC 6.2 10*3/uL (4.1-11.0) [facility] [place] RBC 4.31 10*6/uL (4.60-6.10) L [facility] HGB 12.8 g/dL (13.5-18.0) L [facility] HCT 38.7 % (41.0-53.0) L [facility] MCV 89.9 fL (80.0-95.0) [facility] MCH 29.7 pg (27.0-32.0) [facility] MCHC 33.1 g/dL (32.0-36.0) [facility] RDW 14.4 % (10.5-14.5) [facility] PLT 125 10*3/uL (150-450) L [facility] MPV 9.3 fL (7.1-10.7) [facility] ID Date Data Source [id number] 06/14/2020 06:34:08 AM EDT [facility] Name Value Range Interpretation Code Description Data Vale rce(s) Supporting Document(s) SODIUM 143 mmol/L (136-145) [facility] POTASSIUM 4.1 mmol/L (3.6-5.2) [facility] CHLORIDE 110 mmol/L (100-108) H [facility] CO2 26 mmol/L (22-31) [facility] ANION GAP 7 mmol/L (7-16) [facility] UREA NITROGEN 11 mg/dL (7-24) [facility] CREATININE 0.84 mg/dL (0.80-1.30) [facility] BUN/CREAT RATIO 13.1 RATIO (10.0-20.0) [facility] GLUCOSE 100 mg/dL (70-99) H [facility] CALCIUM 8.4 mg/dL (8.4-10.2) [facility] GFR >60 ml/min/1.73m2 (>59) [facility] GFR ( AMER) >60 ml/min/1.73m2 (>59) [facility] GFR INTERPRETATION [facility] --NORMAL KIDNEY FUNCTION OR MILD DISEASE - GFR >OR= 60CHRONIC KIDNEY DISEASE - GFR 15 - 59RENAL FAILURE - GFR <15 Est. GFR calculation based on the MDRDstudy equation, which assumes a steadystate for creatinine. Est. GFR should notbe used for medication dosing. ID Date Data Source [id number] 06/13/2020 11:57:28 PM EDT [facility] Name Value Range Interpretation Code Description Data Vale rce(s) Supporting Document(s) POC NOVA GLU 263 mg/dL (70-99) H [facility] [place] [facility] ID Date Data Source [id number] 06/13/2020 07:33:04 PM EDT [facility] Name Value Range Interpretation Code Description Data Vale rce(s) Supporting Document(s) POC NOVA GLU 103 mg/dL (70-99) H [facility] [place] [facility] ID Date Data Source [id number] 06/13/2020 12:27:25 PM EDT [facility] Name Value Range Interpretation Code Description Data Vale rce(s) Supporting Document(s) POC NOVA GLU 107 mg/dL (70-99) H [facility] [place] [facility] ID Date Data Source [id number] 06/13/2020 08:26:43 AM EDT [facility] Name Value Range Interpretation Code Description Data Vale rce(s) Supporting Document(s) POC NOVA GLU 92 mg/dL (70-99) [facility] [place] [facility] ID Date Data Source [id number] 06/13/2020 05:04:31 AM EDT [facility] Name Value Range Interpretation Code Description Data [facility] rce(s) Supporting Document(s) SODIUM 140 mmol/L (136-145) [facility] POTASSIUM 4.0 mmol/L (3.6-5.2) [facility] CHLORIDE 107 mmol/L (100-108) [facility] CO2 28 mmol/L (22-31) [facility] ANION GAP 5 mmol/L (7-16) L [facility] UREA NITROGEN 8 mg/dL (7-24) [facility] CREATININE 0.94 mg/dL (0.80-1.30) [facility] BUN/CREAT RATIO 8.5 RATIO (10.0-20.0) L [facility] GLUCOSE 94 mg/dL (70-99) [facility] CALCIUM 8.0 mg/dL (8.4-10.2) L [facility] GFR >60 ml/min/1.73m2 (>59) [facility] GFR ( AMER) >60 ml/min/1.73m2 (>59) [facility] GFR INTERPRETATION [facility] --NORMAL KIDNEY FUNCTION OR MILD DISEASE - GFR >OR= 60CHRONIC KIDNEY DISEASE - GFR 15 - 59RENAL FAILURE - GFR <15 Est. GFR calculation based on the MDRDstudy equation, which assumes a steadystate for creatinine. Est. GFR should notbe used for medication dosing. ID Date Data Source [id number] 06/13/2020 05:04:31 AM EDT [facility] Name Value Range Interpretation Code Description Data Vale rce(s) Supporting Document(s) DIGOXIN 1.1 ng/mL (0.8-2.0) [facility] ID Date Data Source [id number] 06/13/2020 04:21:17 AM EDT [facility] Name Value Range Interpretation Code Description Data [facility] rce(s) Supporting Document(s) WBC 5.5 10*3/uL (4.1-11.0) [facility] [place] RBC 3.77 10*6/uL (4.60-6.10) L [facility] HGB 11.2 g/dL (13.5-18.0) L [facility] HCT 35.5 % (41.0-53.0) L [facility] MCV 94.1 fL (80.0-95.0) [facility] MCH 29.6 pg (27.0-32.0) [facility] MCHC 31.5 g/dL (32.0-36.0) L [facility] RDW 14.1 % (10.5-14.5) [facility] PLT 97 10*3/uL (150-450) L [facility] MPV 9.1 fL (7.1-10.7) [facility] ID Date Data Source [id number] 06/12/2020 08:03:50 PM EDT [facility] Name Value Range Interpretation Code Description Data Vale rce(s) Supporting Document(s) POC NOVA GLU 93 mg/dL (70-99) [facility] [place] [facility] ID Date Data Source [id number] 06/12/2020 12:10:21 PM EDT [facility] Name Value Range Interpretation Code Description Data [facility] rce(s) Supporting Document(s) POC NOVA GLU 105 mg/dL (70-99) H [facility] [place] [facility] ID Date Data Source [id number] 06/12/2020 08:00:32 AM EDT [address] [id number] Name: ARNOLD MOREAUDOB: 1960ex: MOrdering Provider: CORNELIO ABBASIAuthoriyazmin Prov: CORNELIO Arreguin Provider: Procedure Performed: XR CHEST PORTABLEExam Date: 06/12/2020 06:45MRN: [id number] Number: [id number] Class: InpatientAccount #: [id number] for Exam: pulmonary edemaTechnique: Single AP view obtained.Comparison: 06/09/2020Findings: PICC catheter tip in the superior vena cava.Hazy bilateral pulmonary opacity mid and lower lung zones. Possible small bilateral pleural effusions. Cardiomegaly. Mediastinum otherwise unremarkable.IMPRESSION: Hazy bilateral pulmonary opacity mid and lower lung zones which could represent moderate to advanced pulmonary edema. Bilateral pneumonia is a less likely consideration. Cardiac Alvo. Probable small bilateral pleural effusions. Consider CHF.Report electronically signed by: IVÁN AWAD On 06/12/2020 8:00 AMWorkstation ID: [id number] Name Value Range Interpretation Code Description Data Vale rce(s) Supporting Document(s) ID Date Data Source [id number] 06/12/2020 05:47:20 AM EDT [facility] Name Value Range Interpretation Code Description Data [facility] rce(s) Supporting Document(s) POC NOVA GLU 90 mg/dL (70-99) [facility] [place] [facility] ID Date Data Source [id number] 06/12/2020 04:39:35 AM EDT [facility] Name Value Range Interpretation Code Description Data [facility] rce(s) Supporting Document(s) SODIUM 142 mmol/L (136-145) [facility] POTASSIUM 4.4 mmol/L (3.6-5.2) [facility] CHLORIDE 111 mmol/L (100-108) H [facility] CO2 27 mmol/L (22-31) [facility] ANION GAP 4 mmol/L (7-16) L [facility] UREA NITROGEN 16 mg/dL (7-24) [facility] CREATININE 1.05 mg/dL (0.80-1.30) [facility] BUN/CREAT RATIO 15.2 RATIO (10.0-20.0) [facility] GLUCOSE 93 mg/dL (70-99) [facility] CALCIUM 8.1 mg/dL (8.4-10.2) L [facility] GFR >60 ml/min/1.73m2 (>59) [facility] GFR ( AMER) >60 ml/min/1.73m2 (>59) [facility] GFR INTERPRETATION [facility] --NORMAL KIDNEY FUNCTION OR MILD DISEASE - GFR >OR= 60CHRONIC KIDNEY DISEASE - GFR 15 - 59RENAL FAILURE - GFR <15 Est. GFR calculation based on the MDRDstudy equation, which assumes a steadystate for creatinine. Est. GFR should notbe used for medication dosing. ID Date Data Source [id number] 06/12/2020 04:06:25 AM EDT [facility] Name Value Range Interpretation Code Description Data Vale rce(s) Supporting Document(s) APTT 76.9 s (22.0-34.3) H [facility] ID Date Data Source [id number] 06/12/2020 04:00:09 AM EDT [facility] Name Value Range Interpretation Code Description Data Vale rce(s) Supporting Document(s) WBC 5.4 10*3/uL (4.1-11.0) [facility] RBC 4.00 10*6/uL (4.60-6.10) L [facility] HGB 11.8 g/dL (13.5-18.0) L [facility] HCT 36.6 % (41.0-53.0) L [facility] MCV 91.4 fL (80.0-95.0) [facility] MCH 29.4 pg (27.0-32.0) [facility] [facility] MCHC 32.1 g/dL (32.0-36.0) [facility] RDW 14.2 % (10.5-14.5) [facility] PLT 90 10*3/uL (150-450) L [facility] MPV 8.9 fL (7.1-10.7) [facility] ID Date Data Source [id number] 06/11/2020 11:39:44 PM EDT [facility] Name Value Range Interpretation Code Description Data Vale rce(s) Supporting Document(s) POC NOVA GLU 95 mg/dL (70-99) [facility] ID Date Data Source [id number] 06/11/2020 08:15:55 PM EDT [facility] Name Value Range Interpretation Code Description Data Vale rce(s) Supporting Document(s) POC NOVA GLU 77 mg/dL (70-99) [facility] ID Date Data Source [id number] 06/11/2020 05:29:28 PM EDT [facility] Name Value Range Interpretation Code Description Data Vale rce(s) Supporting Document(s) POC NOVA GLU 82 mg/dL (70-99) [facility] ID Date Data Source [id number] 06/11/2020 05:55:01 PM EDT [facility] Name Value Range Interpretation Code Description Data Vale rce(s) Supporting Document(s) APTT 65.4 s (22.0-34.3) H [facility] ID Date Data Source [id number] 06/11/2020 11:20:10 AM EDT [facility] Name Value Range Interpretation Code Description Data Vale rce(s) Supporting Document(s) POC NOVA GLU 85 mg/dL (70-99) [facility] ID Date Data Source [id number] 06/11/2020 11:46:06 AM EDT [facility] Name Value Range Interpretation Code Description Data Vale rce(s) Supporting Document(s) APTT 63.9 s (22.0-34.3) H [facility] ID Date Data Source [id number] 06/11/2020 05:05:52 AM EDT [facility] Name Value Range Interpretation Code Description Data Vale rce(s) Supporting Document(s) POC NOVA GLU 105 mg/dL (70-99) H [facility] ID Date Data Source [id number] 06/11/2020 04:43:56 AM EDT [facility] Name Value Range Interpretation Code Description Data Vale rce(s) Supporting Document(s) TROPONIN I 20.30 ng/mL (<0.05) [facility] [place] Less than 0.05: Myocardial injury unlike lyGreater than or equal to 0.05: Highly suggestive of myocardial injuryCorrelation with rise and/or fall ofserial troponins, clinical symptomsand ECG changes is necessary.ALERTED CRITICAL [place] [address] [place] [address] ON 06/11/20 AT 4:42 [place] [address]11 ID Date Data Source [id number] 06/11/2020 04:43:56 AM EDT [facility] Name Value Range Interpretation Code Description Data Vale rce(s) Supporting Document(s) SODIUM 144 mmol/L (136-145) [facility] POTASSIUM 4.4 mmol/L (3.6-5.2) [facility] CHLORIDE 112 mmol/L (100-108) H [facility] CO2 28 mmol/L (22-31) [facility] ANION GAP 4 mmol/L (7-16) L [facility] UREA NITROGEN 22 mg/dL (7-24) [facility] CREATININE 1.11 mg/dL (0.80-1.30) [facility] BUN/CREAT RATIO 19.8 RATIO (10.0-20.0) [facility] GLUCOSE 98 mg/dL (70-99) [facility] CALCIUM 7.9 mg/dL (8.4-10.2) L [facility] GFR >60 ml/min/1.73m2 (>59) [facility] GFR ( AMER) >60 ml/min/1.73m2 (>59) [facility] GFR INTERPRETATION [facility] --NORMAL KIDNEY FUNCTION OR MILD DISEASE - GFR >OR= 60CHRONIC KIDNEY DISEASE - GFR 15 - 59RENAL FAILURE - GFR <15 Est. GFR calculation based on the MDRDstudy equation, which assumes a steadystate for creatinine. Est. GFR should notbe used for medication dosing. ID Date Data Source [id number] 06/11/2020 04:27:02 AM EDT [facility] Name Value Range Interpretation Code Description Data Vale rce(s) Supporting Document(s) APTT 53.0 s (22.0-34.3) H [facility] ID Date Data Source [id number] 06/11/2020 04:12:32 AM EDT [facility] Name Value Range Interpretation Code Description Data Vale rce(s) Supporting Document(s) WBC 6.1 10*3/uL (4.1-11.0) [facility] [place] RBC 4.26 10*6/uL (4.60-6.10) L [facility] HGB 12.6 g/dL (13.5-18.0) L [facility] HCT 39.4 % (41.0-53.0) L [facility] MCV 92.5 fL (80.0-95.0) [facility] MCH 29.6 pg (27.0-32.0) [facility] MCHC 32.0 g/dL (32.0-36.0) [facility] RDW 14.9 % (10.5-14.5) H [facility] PLT 104 10*3/uL (150-450) L [facility] MPV 8.9 fL (7.1-10.7) [facility] ID Date Data Source [id number] 06/10/2020 11:30:17 PM EDT [facility] Name Value Range Interpretation Code Description Data Vale rce(s) Supporting Document(s) POC NOVA GLU 85 mg/dL (70-99) [facility] ID Date Data Source [id number] 06/10/2020 11:30:17 PM EDT [facility] Name Value Range Interpretation Code Description Data Vale rce(s) Supporting Document(s) POC NOVA GLU 73 mg/dL (70-99) [facility] ID Date Data Source [id number] 06/10/2020 07:21:50 PM EDT [facility] Name Value Range Interpretation Code Description Data Vale rce(s) Supporting Document(s) APTT 51.5 s (22.0-34.3) H [facility] ID Date Data Source [id number] 06/10/2020 06:01:20 PM EDT [facility] Name Value Range Interpretation Code Description Data Vale rce(s) Supporting Document(s) POC NOVA GLU 117 mg/dL (70-99) H [facility] ID Date Data Source [id number] 06/10/2020 05:17:15 PM EDT [facility] Name Value Range Interpretation Code Description Data Vale rce(s) Supporting Document(s) SODIUM 141 mmol/L (136-145) [facility] POTASSIUM 4.7 mmol/L (3.6-5.2) [facility] CHLORIDE 112 mmol/L (100-108) H [facility] CO2 26 mmol/L (22-31) [facility] ANION GAP 3 mmol/L (7-16) L [facility] UREA NITROGEN 25 mg/dL (7-24) H [facility] CREATININE 1.29 mg/dL (0.80-1.30) [facility] BUN/CREAT RATIO 19.4 RATIO (10.0-20.0) [facility] GLUCOSE 119 mg/dL (70-99) H [facility] CALCIUM 7.9 mg/dL (8.4-10.2) L [facility] TOTAL PROTEIN 5.6 g/dL (6.4-8.2) L [facility] ALBUMIN 3.0 g/dL (3.5-4.6) L [facility] GLOBULIN 2.6 g/dL (2.7-4.3) L [facility] ALB/GLOB RATIO 1.2 RATIO [facility] ALKALINE PHOSPHATASE 45 U/L (45-117) [facility] BILIRUBIN,TOTAL 0.4 mg/dL (0.0-1.0) [facility] PLEASE NOTE:Total bilirubin results may be falselyelevated in patients taking Eltrombopag. AST (SGOT) 162 U/L (11-39) H [facility] ALT (SGPT) 64 U/L (12-78) [facility] GFR 57 ml/min/1.73m2 (>59) L [facility] GFR ( AMER) >60 ml/min/1.73m2 (>59) [facility] GFR INTERPRETATION [facility] --NORMAL KIDNEY FUNCTION OR MILD DISEASE - GFR >OR= 60CHRONIC KIDNEY DISEASE - GFR 15 - 59RENAL FAILURE - GFR <15 Est. GFR calculation based on the MDRDstudy equation, which assumes a steadystate for creatinine. Est. GFR should notbe used for medication dosing. ID Date Data Source [id number] 06/10/2020 04:11:16 PM EDT [facility] Name Value Range Interpretation Code Description Data Vale rce(s) Supporting Document(s) LACTIC ACID 0.6 mmol/L (0.4-2.0) [facility] ID Date Data Source [id number] 06/10/2020 03:01:27 PM EDT [facility] Name Value Range Interpretation Code Description Data Vale rce(s) Supporting Document(s) TROPONIN I 28.40 ng/mL (<0.05) [facility] [place] Less than 0.05: Myocardial injury unlike lyGreater than or equal to 0.05: Highly suggestive of myocardial injuryCorrelation with rise and/or fall ofserial troponins, clinical symptomsand ECG changes is necessary.ALERTED CRITICAL RESULT [place] [address] [place] D3[place] [address] ON 654954 AT 1500 BY 42776 ID Date Data Source [id number] 06/10/2020 01:58:45 PM EDT [facility] Name Value Range Interpretation Code Description Data Vale rce(s) Supporting Document(s) APTT 65.3 s (22.0-34.3) H [facility] ID Date Data Source [id number] 06/10/2020 12:09:21 PM EDT [facility] Name Value Range Interpretation Code Description Data Vale rce(s) Supporting Document(s) POC NOVA GLU 102 mg/dL (70-99) H [facility]FOR[facility] BY [facility] ID Date Data Source [id number] 06/10/2020 10:28:49 AM EDT [facility] Name Value Range Interpretation Code Description Data Vale rce(s) Supporting Document(s) TROPONIN I 36.90 ng/mL (<0.05) [facility] [place] Less than 0.05: Myocardial injury unlike lyGreater than or equal to 0.05: Highly suggestive of myocardial injuryCorrelation with rise and/or fall ofserial troponins, clinical symptomsand ECG changes is necessary.ALERTED CRITICAL RESULT BUZZARAIlya(87351) [place] [address] ON 06/10/20 AT 1027 [place] [address] ID Date Data Source [id number] 06/10/2020 10:21:55 AM EDT [facility] Name Value Range Interpretation Code Description Data Vale rce(s) Supporting Document(s) POTASSIUM 4.2 mmol/L (3.6-5.2) [facility] ID Date Data Source [id number] 06/11/2020 11:10:33 AM EDT [facility] Name Value Range Interpretation Code Description Data Vale rce(s) Supporting Document(s) HEMOGLOBIN A1C @ 5.8 % (4.0-6.0) [facility] Performed using Siemens Lenorah immunoassa y.Care must be taken when interpreting OoO0gdyfnorq in patients with a hemoglobin variantor decreased erythrocyte lifespan. Values 5.7 - 6.4% suggest prediabetes.Values >=6.5% are diagnostic for diabetes.REFERENCE: DIABETES CARE 2018: 41(S13-S27).PERFORMED AT [address] [place] [id number] EST AVERAGE GLUCOSE 120 mg/dL [facility] ID Date Data Source [id number] 06/10/2020 06:33:14 AM EDT [facility] Name Value Range Interpretation Code Description Data Vale rce(s) Supporting Document(s) APTT 93.7 s (22.0-34.3) HH [facility] ALERTED CRITICAL RESULT TOAMANDA ([id number]) [place] [address] AT 0632 BY [address]89 ID Date Data Source [id number] 06/10/2020 03:39:53 AM EDT [facility] Name Value Range Interpretation Code Description Data Vale rce(s) Supporting Document(s) PHOSPHORUS 3.3 mg/dL (2.5-4.5) [facility] ID Date Data Source [id number] 06/10/2020 03:39:53 AM EDT [facility] Name Value Range Interpretation Code Description Data Vale rce(s) Supporting Document(s) MAGNESIUM 2.3 mg/dL (1.7-2.4) [facility] ID Date Data Source [id number] 06/10/2020 03:39:53 AM EDT [facility] Name Value Range Interpretation Code Description Data Vale rce(s) Supporting Document(s) SODIUM 142 mmol/L (136-145) [facility] POTASSIUM 3.3 mmol/L (3.6-5.2) L [facility] CHLORIDE 109 mmol/L (100-108) H [facility] CO2 28 mmol/L (22-31) [facility] ANION GAP 5 mmol/L (7-16) L [facility] UREA NITROGEN 27 mg/dL (7-24) H [facility] CREATININE 1.29 mg/dL (0.80-1.30) [facility] BUN/CREAT RATIO 20.9 RATIO (10.0-20.0) H [facility] GLUCOSE 79 mg/dL (70-99) [facility] CALCIUM 7.7 mg/dL (8.4-10.2) L [facility] GFR 57 ml/min/1.73m2 (>59) L [facility] GFR ( AMER) >60 ml/min/1.73m2 (>59) [facility] GFR INTERPRETATION [facility] --NORMAL KIDNEY FUNCTION OR MILD DISEASE - GFR >OR= 60CHRONIC KIDNEY DISEASE - GFR 15 - 59RENAL FAILURE - GFR <15 Est. GFR calculation based on the MDRDstudy equation, which assumes a steadystate for creatinine. Est. GFR should notbe used for medication dosing. ID Date Data Source [id number] 06/10/2020 03:12:26 AM EDT [facility] Name Value Range Interpretation Code Description Data Vale rce(s) Supporting Document(s) WBC 6.6 10*3/uL (4.1-11.0) [facility] RBC 4.28 10*6/uL (4.60-6.10) L [facility] HGB 12.7 g/dL (13.5-18.0) L [facility] HCT 39.3 % (41.0-53.0) L [facility] MCV 91.8 fL (80.0-95.0) [facility] MCH 29.6 pg (27.0-32.0) [facility] MCHC 32.3 g/dL (32.0-36.0) [facility] RDW 15.2 % (10.5-14.5) H [facility] PLT 114 10*3/uL (150-450) L [facility] MPV 8.5 fL (7.1-10.7) [facility] ID Date Data Source [id number] 06/10/2020 01:05:53 AM EDT [facility] Name Value Range Interpretation Code Description Data Vale rce(s) Supporting Document(s) POC NOVA GLU 94 mg/dL (70-99) [facility] ID Date Data Source [id number] 06/09/2020 06:37:32 PM EDT [facility] Name Value Range Interpretation Code Description Data Vale rce(s) Supporting Document(s) POC NOVA GLU 92 mg/dL (70-99) [facility] ID Date Data Source [id number] 06/09/2020 07:07:16 PM EDT [facility] Name Value Range Interpretation Code Description Data Vale rce(s) Supporting Document(s) APTT 49.8 s (22.0-34.3) H [facility] ID Date Data Source [id number] 06/09/2020 04:47:18 PM EDT [facility] Name Value Range Interpretation Code Description Data Vale rce(s) Supporting Document(s) POC NOVA GLU 72 mg/dL (70-99) [facility] ID Date Data Source [id number] 06/09/2020 04:37:22 PM EDT [facility] Name Value Range Interpretation Code Description Data Vale rce(s) Supporting Document(s) SODIUM 145 mmol/L (136-145) [facility] POTASSIUM 3.8 mmol/L (3.6-5.2) [facility] CHLORIDE 113 mmol/L (100-108) H [facility] CO2 29 mmol/L (22-31) [facility] ANION GAP 3 mmol/L (7-16) L [facility] UREA NITROGEN 32 mg/dL (7-24) H [facility] CREATININE 1.36 mg/dL (0.80-1.30) H [facility] BUN/CREAT RATIO 23.5 RATIO (10.0-20.0) H [facility] GLUCOSE 79 mg/dL (70-99) [facility] CALCIUM 8.3 mg/dL (8.4-10.2) L [facility] GFR 54 ml/min/1.73m2 (>59) L [facility] GFR ( AMER) >60 ml/min/1.73m2 (>59) [facility] GFR INTERPRETATION [facility] --NORMAL KIDNEY FUNCTION OR MILD DISEASE - GFR >OR= 60CHRONIC KIDNEY DISEASE - GFR 15 - 59RENAL FAILURE - GFR <15 Est. GFR calculation based on the MDRDstudy equation, which assumes a steadystate for creatinine. Est. GFR should notbe used for medication dosing. ID Date Data Source [id number] 06/09/2020 01:42:24 PM EDT [address] [address]Gmsqdpk Name: ARNOLD SHEAB: 1960ex: MOrderjanes Provider: TRACIE Wong Prov: TRACIE Cabrera Provider: Procedure Performed: XR CHEST PORT POST LINE PLCMNT-BIOPSY OR OTHER PROCEDUREExam Date: 06/09/2020 13:21MRN: [id number] Number: [id number] Class: InpatientAccount #: [id number] for Exam: confirm PICC tip location.Technique: Single [...] CYRIL FLETCHER On 06/09/2020 1:42 PMWorkstation ID: [id number] Name Value Range Interpretation Code Description Data Vale rce(s) Supporting Document(s) ID Date Data Source [id number] 06/09/2020 01:05:17 PM EDT [facility] Name Value Range Interpretation Code Description Data Vale rce(s) Supporting Document(s) &PDF [facility] LKDNWd0bPlXLUxZk62/MPDdhCTGad7MuBQxeJYz3KThyTYLnL6EzsTpuQESRYnwMWkuZNHoEGWAqEOwh waW CfI2cnxLWxgqBAq5Eeh5QobNzwdftPEwObVy9NRsXcRS5zyr9DADXcVC7vik3NKLW0XZ7CxOy0MIGpK6 AsLWAkZEMyn4ZyKI0UPV9zrGxiEIq3SS9+XUgcTDW3ibKwvS4MIWCLQwbh8dTUsu+w/5AqMXLNfL2B7C 4jAzhQ99AwLeD0VgIdW8EtqpSowLeyEs/PqhMn60tQ 9LLpjlVU7udGd+I9Nk7mZoXb67+oF/yKP7X8E92AW8TWT/VdI2yzHbqrmtVLIKe+HmgVigPkYeyjfeYH zYB+vay57ZwUv7XAdzPdOricX/W+i6BxKg4SKVYO8XwpHr4Cm23P1zqZNRtKJk0+RqPPyGONFSGOlEiZ UtqUFYskBHD6UzeuLeF4EwR17BW8CIkZTQcRnt9a7Q 3rVwRxWDQtpSEVRKo4QZaGjOfZ15ZUd3/Gy41b56YQQvHxN9WHd29HY0Ldl/JGn3VP2AyIoljZ8W8WV9 rGGrgGRRiUafmEwJVR56LWyI6jURZFJbldRKFB5uZFxuMzm/pM6QFQRUt8aB7qlSyR9/sLivYZApM/g0 If54LGNvfBL9TxOUk3Dymmx+BXqxz9TVZNXYRpufgV t1vTYp4qHzZfDvc9zLAvX5SvJ7+CY9GChGBkYHK40zjjlWDOg7BUU3vrHJwGGcziTvvFHwrdE5ya/n/V DZeFFOUzijt4gVjAKm9TQGkA3qa9TVELunXn3q8ESTXlGC67CZUmIdL22ueo7jTDGbjUud9QMx9lOu0S sGRsj+J7kwAWn8GnF6U5Yp8exBumY1daW0JqYmT13d M1o8k09m710gndAERVwYKwfTWXR1V9DSsWpVPMCg62TLmecSCbhNgxBiN4D3LYC3H5iyg+6FPo2JwXmX pCuVicB7Q93AnEmiWNk9jH6aPh5wHumLr91MArepVL9axTMaRLLPo1Ep9/bKZMwtpmesm/mTtYq2QWin Susana/BuSyVgPtmkcnR+6K1QeYio5bO+2pqhIGo2Uz2p [file] BgZj1Ycob/at7UAC5+HALF-WAY+13DfU+I5QJpa8BfV3iImstIRv2ajWkJKKrzOVKR2SHsuRnJW3oBwJJgL4K [file] ICAgICAgICAgICAgICAgICAgICAgICAgICAgICAgICAgICAgICAgICAgICAgICAgICAgICAgICAgICAg ICAgICAgICAgICAgICAgICAgICAgICAgICAgICAgDQogICAgICAgICAgICAgICAgICAgICAgICAgICAg ICAgICAgICAgICAgICAgICAgICAgICAgICAgICAgIC AgICAgICAgICAgICAgICAgICAgICAgICAgICAgICAgICAgICAgICAgDQogICAgICAgICAgICAgICAgIC AgICAgICAgICAgICAgICAgICAgICAgICAgICAgICAgICAgICAgICAgICAgICAgICAgICAgICAgICAgIC AgICAgICAgICAgICAgICAgICAgICAgDQogICAgICAg ICAgICAgICAgICAgICAgICAgICAgICAgICAgICAgICAgICAgICAgICAgICAgICAgICAgICAgICAgICAg ICAgICAgICAgICAgICAgICAgICAgICAgICAgICAgICAgDQogICAgICAgICAgICAgICAgICAgICAgICAg ICAgICAgICAgICAgICAgICAgICAgICAgICAgICAgIC AgICAgICAgICAgICAgICAgICAgICAgICAgICAgICAgICAgICAgICAgICAgDQogICAgICAgICAgICAgIC AgICAgICAgICAgICAgICAgICAgICAgICAgICAgICAgICAgICAgICAgICAgICAgICAgICAgICAgICAgIC AgICAgICAgICAgICAgICAgICAgICAgICAgDQogICAg ICAgICAgICAgICAgICAgICAgICAgICAgICAgICAgICAgICAgICAgICAgICAgICAgICAgICAgICAgICAg ICAgICAgICAgICAgICAgICAgICAgICAgICAgICAgICAgICAgDQogICAgICAgICAgICAgICAgICAgICAg ICAgICAgICAgICAgICAgICAgICAgICAgICAgICAgIC AgICAgICAgICAgICAgICAgICAgICAgICAgICAgICAgICAgICAgICAgICAgICAgDQogICAgICAgICAgIC AgICAgICAgICAgICAgICAgICAgICAgICAgICAgICAgICAgICAgICAgICAgICAgICAgICAgICAgICAgIC AgICAgICAgICAgICAgICAgICAgICAgICAgICAgDQog ICAgICAgICAgICAgICAgICAgICAgICAgICAgICAgICAgICAgICAgICAgICAgICAgICAgICAgICAgICAg UFGnZKPqYOYrJYMgIMIrCVQjSBJdXVXsKMQeJWItMYCzFOGyWCRjXMb4O4muBYXfPAJsFC2wZJd3Gc3+ QAtKNtGtSKA6sbWkrS1PCA1ta5PdXZweUMLie8DdVZ p5ZM8AINFpTNekVA8NCFgdto1YJPBbQRIxwQSIy6epWeMmLXS7HXGfAguzUK0FNUYxT5xdctHzWVIeEC EJYWknZTOADVzaZKRLAEOrERDePmMzBSekGX3Zh9ZhgIF9VGe+Pp8LUE1lu0BfOPq6ChPuXA9tif5NWD aMRrIyT0N6nGGoX4M2YLiaDx7WATImRZNwHRRuVAOX FAexAM4QDI4smdT2CB8KqPXuQBQdZFUbwGKeAGt3X99nxIWwXDldMB2HSWB+Wilbert+Hn7GXGXuFDGvUECe DsQwYUJWGrAmJ93byRAwXYXvTFArIWXoPa3OBXWiQ1XffjSkeIqbqzKoJNDpVMAHOD0UZAtukpXekGWw qYwcQC26nLkcEM4CNv9MDuYoEW6fyd5DqKSsEp7DZK Z2Lj3STGPmTKQdMIXvNOL0IBXpHhKnKZvtMILgAJTgIPK8XRNuAAVlVI2XNeGkWTXpLrO9GFBmCVQxZA Gmvn6OVHKiGGI8XfO7LGBrGYGyGFAzFXcaFZTvQKYwECs3ZJQmNEIuDY9RGdYgZXMfPDYlMwTrYLSaZZ Qrvy9FYAToSBEqYuD5GZOmECFdKKSeDKwiWBPsMPH3 OBOxKWZzZPJuQV1QIrHoTWFxMNIhNHCkUWOnOLPnhy4FPKIvDELxKkM9BpIrLNMdLOZeLWzgXDSmSWN6 LwiuCPLmMRTpES6RFxVwPITjZEq5CMVaAYPoLWUopa6EGTFkTUAyDNL7XaDdFOQuVVCpXTsqQVUdMASi CJIcVGYyCHZbNE5EOeQbCWLePCHiKOpuPXIfVTItcu 7ADMGuTUHcYBR7YiRmBHFwZTErBQtyTSTwNJQoRVRsEFLlWDGyAA8KBnKeQQOaCDG1SITyPOBvWMLfdh 2GSOKkPTEzPLn2EWVlGJKgZJRlFYgqSASnJJIzIkg5DFTsGBVbPM2SBlInSZUzOEB1YLacYQAqXZMkrv 7SJFJsQEWcVqK4CaSuSABrZDLjXRsoPHDsKHS9PZOu QVSrKAVhYB5OGbLuXXEfBMDkYOQlFJMgGVLajj1OMEOjIEWwKSHjTtIjIEDhVIBmTWpyGVEgHPK8PkL6 ROZbPWPuFJ7UIuZsYUPuFmH5DwIxWENwVXSuxf7CHCFxSBLsUAA8MKVfNDTxKXTzIOnpDNFgPXV9SZI4 RDMgBPJiHQ8IZdKgYDXjXxH6SXyfIITuBLWjnx5JMJ WoMPUbNJO2FLAfNWMaLGYiLXztBPPvTHD2NQEeHNOvUEOqWL6HMoBrRUMnHBV0JcgdJCJmHPQncj0UOL TiSCA5Hvu4CCLcISXjEJBsXMytVQLgATZ8YiUtDOHvMDEkUH7KHeFdCWSpXGX5ZEFmVXElIYVzkj1HDH XqUYR5RXF1ONVfGBUmMQJaBFfdCSYgXUQ6KpFiCXEq LDCoIU4CWzKfGMRvJzLfPukgRJPlPUOxiy3XZPVxAOX4OuN7QXGtXQExZRSeRMgdNQZhEMqoKZG1VPPt PQPsSG5YEnSmVPTuDkQwMzkfOOViJLPsku3BFTRiTUE3XlV0YiVtEIZvTTNjNOv8muGidUJgRUf4NX5J B6BgspLwBYNYUz4Xy244CZNpHHHtHp7ES5rlAw1mJI GgTUCQMk1TIEq4ZSTbWFVcTjGyO3BxSbF1IzP6OOVzOJodIrGqGRS6TWB+USlvEiP2YiO7KHDdImUwJY OqQDw7EkT0E0XlXjGlXxpeAH6dGTKJOs6+QRmwkGQduZwzWPLUOogiXkstUSqyDFYUMm2O ID Date Data Source [id number] 06/09/2020 12:21:49 PM EDT [facility] Name Value Range Interpretation Code Description Data Vale rce(s) Supporting Document(s) APTT 39.9 s (22.0-34.3) H [facility] ID Date Data Source [id number] 06/09/2020 10:10:35 AM EDT [facility] [place] INFORMATIONPatient MRN Name Date of Age Gend*PT [id number] Arnold Moreau 1960 59 years M IPPT Location Admission Date/Time Visit ID Attending [id number] 06/09/20 0026 --- Tracie Galvez MD ([id number]) EPI ID CSN Admitting Provider [id number] Tracie Galvez MD([id number]) Attestation signed by Carolina Holman MD at 06/09/2020 10:10 AMI saw and evaluated the patient and reviewed Marah Ya NP's note. I agreewith the history, physical and medical decision makingSignature: GONZALO Avinaate: June 09, 2020Time: 10:10 AM Critical Care History & PhysicalWayne SingerMRN: [id number]: 1960dmission Date: (Not on file)Length of Stay:0ICU Admission Date: 06/09/20Attending: YOLANDA Summersurrent ICU Attending: Dr. Hinkle Care (outpatient): No primary care provider on file.AHD/Code status:No OrderAssessment and PlanAssessment and Plan:59 y o M, with hx of ETOH and drug abuse[facility]. Pt was admitted there on 06/06 with dilatedcardiomyopathy presumed d/t alcohol abuse, diastolic CHF exacerbation, and newonset afib. Transferred to [facility] for interventional cardiology. Acute ST elevation myocardial [...] have mod/large pericardial effusion on ECHO at [facility]. CTChest reported as mild. Was asymptomatic. Seen/evaluated by cardiology. Therewas no evidence of tamponade and no indication for operative intervention. Repeat ECHO in am If significant change in hemodynamics - will need to keep tamponade on DDx.Will need STAT ECHO. Acute on chronic diastolic congestive heart failure Findings of R sided heart failure on ECHO at [facility]. Has been diuresed onlasix. ECHO in [...] GERD, and Hep C (s/p treatment)transferred from [facility] with acute inferior wall STEMI. Ptpresent[facility] with complaint of penile [...] consistent with inferior wall STEMI.Received 300mg ASA [place], 600mg Plavix, 50mg Tenecteplase, 4500 units IV heparin,and heparin infusion. Transferred to [facility] management. [facility].Past Medical History:Past Medical History:Diagnosis Date Exposure to TB in retirement GERD (gastroesophageal reflux disease) Hepatitis C s/p [...] rce(s) Supporting Document(s) ID Date Data Source [id number] 06/09/2020 11:16:42 AM EDT [facility] Name Value Range Interpretation Code Description Data Vale rce(s) Supporting Document(s) TROPONIN I 74.80 ng/mL (<0.05) [facility] [place] Less than 0.05: Myocardial injury unlike lyGreater than or equal to 0.05: Highly suggestive of myocardial injuryCorrelation with rise and/or fall ofserial troponins, clinical symptomsand ECG changes is necessary.ALERTED CRITICAL RESULT TAYLOR([id number]) [place] [address] ON 06/09/20 [place] 1113 [place] [address] ID Date Data Source [id number] 06/09/2020 10:14:47 AM EDT [facility] Name Value Range Interpretation Code Description Data Vale rce(s) Supporting Document(s) LACTIC ACID 1.5 mmol/L (0.4-2.0) [facility] ID Date Data Source [id number] 06/09/2020 09:12:14 AM EDT [facility] Name Value Range Interpretation Code Description Data Vale rce(s) Supporting Document(s) POC NOVA GLU 114 mg/dL (70-99) H [facility] PERFORMED BY [facility] STAFF ID Date Data Source [id number] 06/09/2020 09:05:54 AM EDT [facility] [place] [place] INFORMATIONPatient MRN Name Date of Age Gend*PT [id number] Arnold Moreau 1960 59 years M IPPT Location Admission Date/Time Visit ID Attending [id number] 06/09/20 0026 --- Tracie Galvez MD ([id number]) EPI ID CSN Admitting Provider [id number] Tracie Galvez MD([id number])Interventional Cardiology Patient is a 59-year-old man with a [facility] status post successfulthrombolytis. ST's have returned to baseline. He is in atrial fibrillation.He was [facility] with a dilated cardiomyopathyand CHF felt to [...] on-call interventionalist ifassistance is needed.Tracie Galvez MD [facility] Name Value Range Interpretation Code Description Data Vale rce(s) Supporting Document(s) ID Date Data Source [id number] 06/09/2020 07:44:16 AM EDT [address] [id number] Name: ARNOLD MOREAUB: 2Sex: MOrdering Provider: MARAH Perdomo Prov: MARAH Delgado Provider: Procedure Performed: XR CHEST PORTABLEExam Date: 06/09/2020 01:07MRN: [id number] Number: [id number] Class: InpatientAccount #: [id number] for Exam: CHEST PAINTechnique: AP portable view obtained.Comparison: NoneFindings: Cardiac silhouette is enlarged. There is some groundglass opacity at both bases which may represent layering pleural fluid. There is likely some basilar atelectasis or infiltrate as well. Upper lungs appear clear.IMPRESSION: Probable bilateral layering effusions and basilar atelectasis or infiltrate.Report electronically signed by: ABNER RICK On 06/09/2020 7:44 AMWorkstation ID: [id number] - [id number] Name Value Range Interpretation Code Description Data Vale rce(s) Supporting Document(s) ID Date Data Source [id number] 06/09/2020 07:43:44 AM EDT [address] [id number] Name: ARNOLD SHEAB: 2Sex: MOrdering Provider: SVEN LOZANOAuthoriyazmin Prov: SVEN LOZANOReferrjanes Provider: Procedure Performed: XR CHEST PORTABLEExam Date: 06/09/2020 07:11MRN: [id number] Number: [id number] Class: InpatientAccount #: [id number] for Exam: Endotrachial Tube PositioningTechnique: AP portable [...] CYRIL FLETCHER On 06/09/2020 7:43 AMWorkstation ID: [id number] - [id number] Name Value Range Interpretation Code Description Data Vale rce(s) Supporting Document(s) ID Date Data Source [id number] 06/09/2020 07:56:26 AM EDT [facility] Name Value Range Interpretation Code Description Data Vale rce(s) Supporting Document(s) POC TEMPERATURE [facility] 37.0C POC SOURCE [facility] PUNCTURE SITE [facility] O2 THERAPY [facility] POC FIO2 60 [facility] JOBY TEST [facility] MODE [facility] TIDAL VOLUME 500 mL [facility] RATE 16 BPM [facility] PEEP/MAP 8 CM H2O [facility] PRESSURE SUPPORT 14 CM H2O [facility] SP RATE 2 BMP [facility] POC PH 7.42 pH (7.35-7.45) [facility] POC PCO2 32.9 MMHG (32.0-48.0) [facility] POC PO2 73 MMHG (83-108) L [facility] POC SAT O2 95 % (95-99) [facility] POC BASE DEFICIT 3 MMOL/L (0-2) H [facility] POC HCO3 21.3 MMOL/L (21.0-29.0) [facility] POC TOTAL CO2 22 MMOL/L (23.0-32.0) L [facility] PERFORMED BY [facility] ID Date Data Source [id number] 06/09/2020 06:50:54 AM EDT [facility] INFORMATIONPatient MRN Name Date of Age Gend*PT [id number] Arnlod Moreau 1960 59 years M IPPT Location Admission Date/Time Visit ID Attending Provider --- --- --- --- EPI ID CSN Admitting Prov ider [id number] ---AirwayPatient location during procedure: ICUUrgency: emergentDifficult airway: [...] cmPlacement verified by: chest auscultation and + [id number]: equal breath sounds bilateralGrade view: grade I - full view of glottis Name Value Range Interpretation Code Description Data Vale rce(s) Supporting Document(s) ID Date Data Source [id number] 06/09/2020 06:16:43 AM EDT [facility] Name Value Range Interpretation Code Description Data Vale rce(s) Supporting Document(s) EKG [facility] VQPPHg2yZcHMLgEij7KiMcTzZCWnEX2srvl3M1H0iIHhU1LkePAyw9clJ1YkB2AbKWEeVSAUIE8DgYNc jb2 [file] 8pWlW2yX9nv785d44d2tZDcH65v972WUzhCpzG31KI [place]+mNd5BXESbBDJ/Axd37jvs0oI/CFmGbMOQvuqm/vUARqGhKUgTF98ZmWCSFfQJt5Izy0i3m10Q2jf [file] x31Kxfj9frRrr94Cdtu1gaXra05Zh818t7da246y5os422w7pf3+5emgo7p0pXmE6f9MBbe6m3Mgjp3o 0Vysx208Mdiy0MJM7bqtCyzOEEG8vW55hHuEN9kar5 H9A83WfT90DuDRtbuB5sEibOzYSbttma3kP3qo13iiaoOJs0xx76puymSKb3jt30ecsLOZe3saS3LfsD RZf5jsO4FmwTJQo4kcsh906o6ox145h3hb692f8uu772e4ts0+ocUny4ojxYhR0a3TYqn6h5Zxxn1y9W doemvPBEWBBeCOsX/u//uq9K/3Pje9kbO2I/4RzAp9 YmmRLs9GRzSbDRQ7YCzFBr/ilh/yABR3ahKpR1gpsP+uCYWitxLOqq2OCyxhqCgyGUyDo/0q/a5L4g/d J//pYZ7lmjNWRq41oK0ke31/Xoy/PRwKaglhFos6n/66+bbO6cknYUQcKc++oSHQiDvyG/Td2F92EioR 6YT95ll90Sju4zd7mZ/y8mleCKGtZ+hT8PPfWr2W9r /9Z5j09s0jheZ5yc5XJfEYm0GfRvgUVFh1F4yDkz75yecFDp2nkGSx+pW3HdJ1yYj67inKP+kF/BB/1N UD8mIck6Avb+LipEmYuNAt1u48Mg9tJt4hX4foNV1zWktjZB/QD0BctnwyBad+nHBBsin467uJ763ssw 7yaCjvq4bo1Me/4hrLy4X70+pw4uvU3s95O1+6YVKr ko338RlP00/7xlIfmX49Si+/3WQlL+T4VFgLQZi991vjmk/Y9Vs5rm9S0/X5b1llnRpOO7268OC27/Vc cmo8eN313oxqG+X3/D2ap779o+xPKfxK4W1v7i0Vi8xDN38wpcuzGfeup18bMmukU1V/Q6c2V1EglsQS 6J1HbVDe/XkuB90/mlL/LacW7luX17yYN/wpCO/oa3 HALzNzB/YyP/Bh/2C5Rn3CCEteafgzNSyLi5D+bvXsi/jg1oIol4tMx4bPgY4112HLg52Z/xRV5glAG/ 2pi/+zT/g//GIz6klI7I/V0Wi47gSfjzheo0ROhAon8Dv6G1+WB9Pvi+B+L1BZ4d5eV/u9fzg/X59Pos 8ANky3gjgZT6Fo1GPzzhTG/oapLx5WmgJ+R35O//0X 1K3APq6hMnddez//nkJrP/AxGL6xv/EOwp4mDt3K+vzP6+Evg7XyHavmSZ8/F831/WuLrPL7+wg78jf/ +G7wJHN3t/W0h5aB2gQ922zp46c6EDZ/Fz0I0C7rWA4t2FymfP27GkbR1OEHj80y4k8j/5q+/nSdxq6m 9/Fnz2Axt0O6YVW2VDpB1P1R5+ob+C/i709+Kr4n/x 1cszv/l+X1K+a3Wd6Eluq54Ppn8YgUBDci3xgx/8Kz7P0ePD08f1/1qxF97h5v8s+H1rEVI2IEbz2YnR r/0Zsvf23aZfyke2CeshMzpHp31hCGZqocUqZGwNgGOlK60a2GdX/Dfyb+Q/4N//X7H+HwnwlSS+elbq w64JBG87VfM1AHiusv15Re35DDS+mfIoh7J81qF/L7 81iGsb1l4aZ8/EV4C9zdS1A+beF0ZWhPmQgjl1+SpT15i7+RwuU0Tv0J4Gpu+++sItT0d/Wa425Rbknv 3z10+3/+KrSr/8ccHI51wKqPzHoJ3qa3T8HGsE2J5oXLQIIAJd5S2BXiA5EO2b9V3YdbMmD8MzA/74H+ 8Dp5O79ts8YC/37HG+eH1suDn05qzYcDPxw/jqpWuP 50WNJl7bk/F9tyM/vu/O5299bb6b6/fjj0JyrXh1OYmJCtldsfu9+KsG1PXvumm/o7P6/3IU+QG2Jjsd x/nxbv/WYd2wIXk/6OB/dDB/H330wk9/8L9ikEbbV1DmENivaep/+0g4fk0xYr/9qrJen76npuHE/16v 7rvFDiO/g4+jPf3/eF5C73srL6py/ueHXs9k98VOet 55gR7c5Bou6stha/KqAwh6pz4+R6Qc2VJ+ca5In8k0fgnDgV+U61LmtZ7UG/RZ3QUTsxV+Ol0aP9+HiV 36axvuEtm7ieM33YexS1aH/RVFfgWfXq/uc8QnQ+as3hEYH934J/cl4pfe+8EF/vX1c8dmXm/7tuxg9s peolggNah3Iv5Vkf7W633gq1h50/2+N+lkj7uZa2YA eN2uZuy53ap/8DlzJua7cwvX34H/F75v6q/ufnyl/mtq1zfqD2JlH6Q2bQBmbWIVM8bwiubl7C17OTVe Lm7ImuuZ6J0/OhtaaaFA4Trt73+yec78eXl2en9Hefg1R2j7Ovv1vwfoKHiXw1O326XjlpX/wf2b5dRt du6F5dAm+9bW+99lmL/W+9/7iPDj0/qN+4TwC9/xrJ nnjucKG/Iu4Adsj/jpOxM9d3NSka/65I07xEhfp2E+/z3hwJJ5ZYziq++MiH0eJUq/NwyNG4At9nIrLc ha1F9V7EPfLDg/xh4jssMMl/+3pWr6hktarZr656J+xyUYz4Y7De6TXGgpVrg8WbED3kj7SWb3uC1ROT 5YgKP0LxtT2mblpV+B/nhM91A4ZahD6d9q+OqFkR/f d+S2gwwvv93jlYY+8cEPihn1dFkKqafAbfnc3D1FglhWv+nqfx1qcDV0ifw55P1dopMW/KXlqF7rzuUo eVoQq9C+zN/UX1V+zN/UX1UY8/dg/qb+KuWQ+qsKb+ATxvMlf05/X4X+SqG/ZkujUUhnow0BB79BCA5n +GJZ4ww6ur+vo/C6Olkci4k/OpnuH+2N5zpTQ+9/df T+V8dG+v7+g/dNX/2zdLR+833gP5k5F/W61q8vjC/0AoJr78ad/jcR1h4lo0+DqeCodft9j0r9x6gAbS I+7sprjfca1L3Kjm2/6hoIMwQocaZ7/8azTK3iqHmgP6NrH3ymr2uqeP1ubkMrPzs8V/7Wt6s4+DvaEz 4BhLPzVupd89vf04VTprLu/bPm+VNQh4E6NW29Gmhp /7+6ev+rq/Luawyxx5vYS4Tbs0aOMkS2N16QCdwrTc/zfLDC+L6H09jt4Sd9NrBrcbp+/b7Je+NHJ/I3 tajV2b9UJR0KL/s0LK15bz3/97u7x03x9zXn7b1s9lmDndrcqd/K9T33NzwIf0AWE3ytncvqFIR/DfM3 0Jgr8t2/Zh9N2sZgi1ahjp6kdElm+Vny5fDVF/e877 65+4K6Cuqbs5zt9S2zOjuThcJgxHxYf78q5haq5G5/Oc50GlX8ynx+zw3/+kg192Yr3xAfow++ivxGF1 7B6j0gg4FI/8Kktz71z8DzL60cAx3//b4khuzo0Jjqw53ji6/FV6fa+evvsQr/0iPDv/5bgk3sz/e4vp Puy7q/tCn3w23qzWjx7q79VXiaazb6vD8+6fsD9m2N kz41hyGskBTe42teoKzjzsuwwd3EEGo/qYHxHJi/dL6OICibxxMyIg0oNfHnqw6Tk6w3Zuca+LbLtQ2W v+fIrbiSTv6o13iPvDRwNqIJjBxAo9EEYr4miJD+HM+OIvZrtHnWG28lEJ/2vdH3T8YJNm+P2Ik3F50K /cw3MKsw6nmp1NawYQ/jxtINQVPukul79x4zUAoaVi Pso/P45Z/pd/6+MNLv/I0EO0wG5z/5/u0F95Gko1K+v/xkv9OrUKE/0bwyaM5+98bki53T1+/8vY/ivr Ot4u78260Z+5tkGFI4uzQgp683Z0Sllpp8bM25f7ytviZ9gJ301RW5LOoslBZZ+v5mFu60ewnU+z7DfQ BX9yju+7e/pBQBVj2a5SK/cZ1Jq6J++1vhg/Tb32zb xSiBtwGB3i/8agqruEXXhhk5rgSXa22iAE35of30+US32gU8+Krkc/HVS/eW/0HEQraic3+Z0E2lY4/V c450ozMgewy9hT+zvXGb+Beomv0xW5w637JzgpAPx1Byi43X1aAAEn8N+y2gUnrl/bumbR2LlcJ+0BJf WYWtwxvpvT+f2gmtyldmx5wlUl428N+yPB+sPBP5+7 rhaUK3ze1sB709rMSVynUB27tSijZQ47lAlv35b61aXggjvJ/B/4B/101Y741F+iuD/vjjfyRax4h7D8 gvh4vsbCbGGPhuj7OQ+g0zR/4Sk2t2bo2pfaGg/6/ZBh+89dVaH8a0/jnudvZyjxo7E8I+yqC/MuivDP org/2OeP8g0P/M+8lXwZPb3dauA72zJ0TtiYa+wXD/ ozx7ewJ6f1UJ9msvlOHdYAGom/hUHl6acS/A6gfQNSnEz/R+wRJfVbj3+hZ2CBPhQ3J/9/y9xomWjsLl 3h/ww3athinoWz/wc0T8c7/bfJJHvxdppH3mkf/e3gzkv4Q92yyR+1eW+Cq/PfhpLqfimfc05Q8gL82u fsbtF1mMCHlekv/X44J945ueArPptoPQkBs//Z0pk4 viFq6cHu4M/ho0VkbQg+pAK9NgV6+lHBJfncy/Plxnia+lJOOmChbuo2hwzc3QENz9A7Vq9j1r1Vr9O2 i/p/XtdjB/D+Yv9Fc+Gj/76Pvenvory/SJ/PLxd+txJZzqC55fhXu/X4f+yuv+VeY38G/8yy6JihK/gE /IMu1c9xz/keP+lc/Wx/fs902P/SvH/SvH+aDPvq/i s+evz56/PtHfun+I1l1e9yD/Ec5h0Y4bdSdwSeUu4Wv1W2g9lp92e7Ra9nfC/sql9/Jose Luis+d9v9My46+6 9H0Gh/0NLtNgqfitox075i+RS6/PLvi+Esjf+iyLgcWY6BYaYC/9VYYXxnPqr+1o3dX3Vp51A5LWXuaR 5Rdyz50/bill+euFu/zKkYzwvjOeF/p86niDU6P/gK1 8H6Zi/5i4c1n1wxT54/H38wyR9/Bs9v3PtCW4yh90MtJgqF/fbXfs+oWv/h4wx3SfywvN0hYZS++2ufX /R4GO18w2owY/Eoj0hkJ4o1//RynDfZ/DSX2V6/u4mpU4828G/9jDaT8el27jn92r9322N6ZNqGE75OD Xoo0HsdC81l6Utpw/KNqT+Pag5USij5qbl4cCYT4b5 tut80g0yfOW3K5uga5q7wcyaGfnhcAf8iKE8/ik0LR54An3yq/PA+hwYz7h/5bh/5bh/5bh/5bh/5YHx JBxZhsF8dN3x/nVGM0tG5o705r6Hv6Z/3eOAD/qL+1eO++2+0V/cb/eN/w9Cd79Z9iR/G/3d/f7Icb/d N+ekttG56Ky/cb/dcb/dd9/P8Y3+bvyPTu+PHPfb/U ykt/1ZJ92826f/lfxP35/003jScf/KT9/fcNy/8rp/Katelin+P/BP3Od60j0h1h2Zy+op2e0vM3+Vc/DiK6 [file] senior care+fyl/Ii+C+Op2LKCBqYE1oPMf/dQR24bX69zXe3OVvc2uOKyEY1i8aSl+fynlKfhDiR/lMmHahMel [file] HPI2RgcD9IxnjNJ3Gh7L6VdGrY5NtjZhHaaMui7PpIyDbVPgUXUyD3/lGAj0N/B9E19V/tP8N/qb+Ricki bUsrGIHdfT9XU6rnEu/UiIYSp412kwJhmhNodQ/GUqfraEy4wlC4N/5uzN+D/y270vWzh7dXn/4uR/p7 nYV0fN+g0WOxp1xB/8CxP6qEtdrU/L4GVrzjJ/kP0s +X/76xqPbcJxZfuPe/94HFF+2xfQ8MaEYU/Ti7HzoM5NO5++F616PDh2xIKl0eQT+g/k2n7BwMB17qYc /4R6ylf4H4d6x9Yp/f+9uxpxDMm14BFg8D2xMcZc8SW08H8/jhWHwnp5Pkz7/zZWXotifu5YhfYNzAg4 do7fQSY79+/4WV+Yy5Ax3z8Yax/l2odcOGNf8ZSp9q nFVid5rc1Y/+KxetGw4j/Df4H+Tv9Wql/iq/6Na1lBlY93a3YoKuF1rfoakd+F5ju7unc4cc17nP02Rn 655Hk09/35X3H7u+vf+89oSDu55bOgPAwa1f3eE3Em/2Qspbiq0E1Su7+i2FDOt7vaff6w3HnIc/9Bue +a9+I+v64as/NGZsC4MS8ndSo5bC0FaRvj82DaYhqA plOAsOon19aHTyoHbu39kUSK1jwK/11kiBstyfzXv0981z7zT4vvsVly7lcG56v90+UDqQ+/qhMPZ9/F CY+j64QGd7YVDXya8njXeCXDwW8Y8hjkBxSXcarNI9ukLyjbVw4a8LgqZOkP5C9lu26t7/WomvUiY+kX 4Kx4k4nfgEw+KrSr/3awrIdxie5dH+biW+qvwGPob8 Ut6pg1kBo374j450eJjq8HxEoqP/85vk9Tda4uCT9Ar1hZJ55y69UYFxMv+Pxo0h84d5rv0G0MGp+BjS Aqe313sdquzq/uKU3k7Pz1Y+kH4+PcZ9w/DS9+n744x198c+u/Ub9/vFU115howV8Hv8/fQGK/VXxdOQ 1bsAjO10xs58iW+D/0r5Bg4m7OhTLX+kp1mrwiiZdm kcfN/VGwQl6rlr5+dHK/UNShTmyzcjvls4P/47nnOdSXxV+bE+n438G+kH+c83/fKw4H3rOmgO22c+c0 9SJ1mytDNijIAJV18m6Mu1KkelKMkkTl47/28FRvmqn60a5Uz4ioC84z3k09yG8x+0lvUCD5OlCrX0in 8idNieHuO+Q+gd536S1Le3aj+p+ryj8yQ3UWJOL/1G 9gs5Rq32Xldo9UJcGDzsp3NzXrdgmJ7UgCnwjI2h/9m9STmqa+6bg/c74KrUq9/0/+g+OPjCt7/Ztouv QzoxXi5J6Mf2F5UiHH/fd2GytGG/lX1M/VXlD+S//d0V/eXMza7fjB/8pnU+ESSt95a9auLLUiBK6Yjy i2jxq7KaArHWyzgbh2p/It0UAyZpfu13/K/eK6emkw d5FnfIQn/Nc3kaO6q4lbsk+JSItoyUd5WnVgBf/Uf4Aom1G/K3/kh57wH0IvT4osvhNfKqv3k9YrN/0t IgWM2TWrvi2gdteWYniIlZgqZFkX80oCjw1pY79c0S+PKs5n/rAL6Oe58kKI544wRz+BjSez+f3xszer 1/2mxguB4Hez8/8trSax16+Ptb129aPXsp208JBi91 ROAvfNfbi6/xXgO6SAIGveg+/b3/jNu97M0Dy43vgIM392Ilz/y9+OrxsQ/w3ptDP22ME0q7tcz2pfay fSP/Ucav63qCZGd2WjS1uu+Me77AF4Z+i6+qrqu/mwmms74X/uR5+nnb89sjw2ufX42C8pRgSAW9h7+p v8r/WjR+9xS2As0CbNd5/5i9s6oz/907Hh3y5UzXrv 4q86f+qsL4/6b+lcYH7bPfmdYz//KCJ7U3ey/rv4X93uZkmHDDc9Ku004wSeENibQib480L/VXlR/9Pe zu4f4aO+ruqwLXDzQf1njC+UhqR0TI+mYpdju4pOa+pQNn4Lacod2X2CwbnQknh6u12ZdV7klcRPtAs8 bngy/30J2ywD7riweRsrd/30y2xBMKvihVR+9aYTgf WDmTIg6RlStm1+Rq5fcc8G/BPTj5eXqrXUd6EGXQ0w+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/7qhZHe+yNL/ZZX2FKqknySVvy99vz1xBY+ amce/z83op7yMgSqb0px+yqW+ivN9N7/0zy5mx0P1af5K3j4a9Ce6r4oog9sJzVEH85m0N+NTG+8YdJ4 wxJfRfJc3//FEl+9MNIN+u2etf2oyOe77vylkUWm0M lI7/Ovg1K95/ckmRFQi43J+ZftCej1TufpieG2PKWjx2iz0F3O/x0ZfdY19zgGU/1d6G+eD54Kt/zrfL BFOc49dB+zOo135nbypfxIxY0M+fs89N6+7zDy4/qTZ6uqk+SP/qp3+4GvTPu+mWnrY++d+9gXUK6YOr UffF/U3zH30dHuDjNNWT7lp7QCG47Sq5Dz4MJma5sW /JP77Pk724+WlEAFNg7dxc4fC/pr6K+Plo9j/mjdq8bqe8Wj5mz286y7X+hfHvj1R/pssY53Z1MwyJ+f 79/r9O+4M5xlQ591A459n/0H6X1/3xLHEhqltmT1sfNA+nxL22Gdc79TkoeN/P78LsN6FjySYdu+0fp2 Cwf/QDq+j0yhbdzwwW1p3xkte9g+lkkLw9b1r/cL98 U0Aeda1/7Idp+nWOKr/KfsxhuW+qv8l/3/CY1r1aPi9b03dhWgZZiTHJhbe+Hh05kDrqfc/22+Lbh4fs 0eEXWpy+JULY8OQ+X/gHjrjn3g/69k/6/+Ovd035/93jWS/8we17d5+qtV5X/rern8nPqiYCT+lT+3/N VfzZQrUn+Vayzlq/zvu/HA6kni3/szJ7zt5U+Hg8z/ jdeqzG+8ga255tDotQ05SpFa7/v17M+Vrzzn/+qv/DfkREE7gdEqHkow0tTy/euPZJvnOwddc/rB7748 /EtefD7FGhv7dr68+vxro+9/meK931frd116gvVj78Tc/uq+IwlifdkdW6hjj7ybw/Vgo+2LRu6CH463 UKjeVjJRmah3feH1RQcl9SrE8qgM5OiGaO8TGYA5hs 2nuQ1gqPx47ruo1pFA9tLiPl8t3z0oLI5o2DtGj3C+3WsJdqshw9uK8xR8cO7L+WpXuvsz+3xks+2Bbf d5vu1GqUr6yo9/7h8koly2P7G6FlgZejeI86t5tku6nFnc7XPlnp9pvo0e38lrN669/Xsih9fyaiQ2gx u2+n7B1kJ+276s6G9tnz+szCL8zgr0RFlWSi8U/kH+ ZM9ph35Qshb7KSolQ0w+y47WDxLGXVw0e5XM+qvKXyi/L1Y4Ewf+3932DLYN+Yb8/h4adIxC+yvb/X9k O6Go1qLl98TZ295FaF9x4gqr73bGvnN+7ySpm612mSipD91sn7Qf+hxL/ZVk+sobd2+5sA0a4cuzHxdw 5R+VD5gsxOx6B7YOn5lujzl8f5AseJX9v/JVlU/9Va Vbf2XW+hxL/dXK/BK7zs4z0t/chCR3xSRI+anbY95kd496qIcbud/IP/2+uK4EAw7+PnbqbKahW1m0DA ru4wQ88eH2p6M+BnfZ6zecJRPX3jkrfD5n1lGL7aeaoqRC1g6gnG69o1+W8lX+36G9DnqcO7uz16+dtl jy5T2NfAAlZwFiiYuSAqd9Xkf9q6Xc9Asp5GmFZz+P 7Cj6Y/1/nfqrSre+3U7r2+8szXegOL9ILwtzIKEIWt9/EiO2xCjJR6z+qtJoB+MNvN/YyG/7HAtF+9r7 GF3E2z9M62BXat9z+qv8jlJ/ld/C5A5YOxmdp4Im4u3c263Lyn/km15N2gRr/wod261l/wdaK9lHo1/P Y6uSmgWg1OA9zycrU/poedKvfJWyqI/2T/TnK6xkpV tPSrbpaOfqn+//cPz17B3nLP2Fg2765fFtmJ/k0u/Doj1FVa6g6cAtEL/7q0p/01kl1EHyIp54sH3e+p MfXNo/xaXlSS/9HyIivexeD20qAjf/hIkEL81M+1ifZV02pis8k7Ul714x2eQroAZKm4b2MEK+/sd99v nIIV/4EHZmtjKm3/D3oD5m1lRRs6++T/F5kH/w3EB+ +3s2xihU83Z+uHiPK49Q9TaqkRgIpjarZR1ZH9944yA4ezrWs5B9mrfGgS+f3tjT/ognovAy3ZwY86Tk +sZ4d+spfEb3u6lqi/fsedgL+evbT/jbT2KV9/zCzSU9Gs4zlCxaAwYt4+65hCh29AZ+2x/Kv1gmtBt2 gcm240zJk7N2mL6a3y9OvJK+OK6r+6/tn+LE53kVs7 r3C/2H89JTyp49XD/9Va5/bf8yT/ur/Na0/SW97K/z4jh0P9n6s4KHx5w6LyJi/x+5Yb+yrkyp1My82D 2ZW+kh6Inc348/f93ant/X5W1p1674/7xom6Bqizd4U7z77e8peoiA/SZTqgv6spu3n5g9aXNg/79e9u 6FjbrXnkC3BPoXhqw+344Rln4NdxCXKbuf/+C5bQ/s 1hVFl3K/9oP/qrHMX2Zt/Yaflicd+iuHfOVnI3+qwXC7OOZxeq525d/GC/t2L/jreqxVw5Chavd33wU5 nPJVrtto/19P+SrLRJ/1Dskuh7Gm/ET5hfw+27q0cv1pH6/1Gx74/o2VynEruJ//82u3auzcuczG+fGV P7C/Oqm/qrR87Z/R/s5ntD/NEb5wTPylXk908rRw/q rqbuT3+fcMRfuGfEO+I9+R3+/3jH6/J/VXL/7gugV2po5H5Wl490D+yycez7ed2WjDXZ3l82uC70O9jj 3S+2IYPp8z9Ear1j8qNC+/I2g3QrcgS7YkBO+0//6Z7b9/nB504I+g4zvzbb7/nzmR3/RbqY8Lkeqlzm 82Ygd1vo/wekjP0b0zs9e88JkW81t88HOF5UI5s/4/ [file] ZPCs4Yb571JKAyZNDXRaa+ImgxsOLrgUsmCKFVBHGyWEZiOrXeRS6S ID Date Data Source [id number] 06/09/2020 06:16:37 AM EDT [facility] Name Value Range Interpretation Code Description Data Vale rce(s) Supporting Document(s) EKG [facility] SHSTXb3uIxYKRtKvn1XsYhAyQQKiHJ7agmr4T3P9qMUvM1AqeDHqi7dsR8FkY5XqUOQnYZKNFR2ViEJc jb2 [file] 5RfwM/5huYb+P6Kzi8nd+E6RXx+8YEcm7V/XJDK1MOuY+Uzzcv+Xq+x/EskIJlQc0mydbESEm2k4+Leonardo FncmblrRxVf8IjzbXgpVu69ohyozVudr/X0ngu2qiE/mpkuXS/h7+qTz4cgAO/+f4+zsxy137/NpZ77k r/ydaQwWce3hRKm8+pY1/56uxT/2xVP56hQhBnjjix Vy/d/R7+qsZz+As8pgHtxM+OTeUrnyjHfA9/1wO6H2P1L344l53fm/dWipxfl9K3eHy+zyu64vM5nipC 9a10r/vE+iZ/Nt78wPhPwC8RUsnd/FWlZ+/C5exIvi+95ExhJseaa490veO/1T7Hj6ncO4xt6J57FbGO 0mOv32pCixReG8UMMPf3tNfuT5iJYui/gWei/kL9hX OUnsHxEW5i1ylqHShWS1opcTvPWdDzB3zKZ0ZI3831glAiDJsDpHMtDGSPkdCtwtA1iCA/VboE6/2Q/F X6zY70zmdU79kuGzoz/EFY642vyWe4cAH/ktFgz3ie+Ukx3M/BZ8K8DtqU3bvIpy4o/ZQQIe4Q58y1Nx HE+iZ/VfUD/TA2k0urzbicK4cjQ3N/yz90TB4Wcn0L awo4tcomEbfnjL3eZ4B7/mgMC9X3ScdFm/o43v1/QFow5DTTI6+MR6lOb3a1iEzVY1E8UE5ab4uUCJhU /vX4f0n+qtIK/Ge+lyaZcJ2f/W6McwO/oxzzdcw3+avsK5p/xfTlwfiYH5750a+wvtH/+xJY3+SvKo31 Ufim1P4S4WfP//sS2M/GL5859//A+Q2cX/FVAo1dks 0/z+ZiIj7qi281E49ye+9M/aydcwP7GJ7T5o0/8+kvLy5GauFbO/4+v/PbKHeU9/16n0R8v365+vxOyK 1h4IfO0lyK+dVM/xwrgu6Ae5bgfN09MWS+ShX01nMQ+tHTx2l51tax9Y7+D6qcXc5c4/k3sdog99e2jj E3i3oBfpsxcU/A0/KcKZhvya+xcPIo64J+e4d917aE eiWmb8dCP19x/98J+dWE/OrBkiJrb493E4V1dNSd6gb81WD0fz4+/52z7+l8C7uSocr8B5nhKNZvpI/E vAd709D+kemieDkx6zTxgr4v4F/eozy1rco+va4WWlb6+r6aC/mY2ww4rR7t//fn6u/UKJ6i2ss2J2cr 0C14AlCbU3W9SqCOT6kuppne1mkcs2R0Z/mrPC/a8s mp2M+6UF8/uHBe76wVU97Dc/2awO6wvIOaDWow6H0ilwduKE31TO46BbzjJY7H+badh4mGf4TeIjbfjk G+hvnaxjhxXyV/VgL1iFP+kqtnmXyment1drgfb1X+yV/lmiZ/deS9c0/gWR/IHVtdjS3yBH+z4xLYdL djfTfWdzvGg/s5+ascW/ELK08oAx8nksbS2mgYQ/ez 57358KoQkRO/Tqp9DM7hEASd/DrOb/JXVceBH+sL/nm00wbRS06fkg3mqKpFt2bB+znw/Q3sZ/BXM3B+ A9+ycS9O4P+P9C55hcXqU0W+fux6rX5rOT+/R+vr/by+Xt/9INW8ux7qhWiGa4C5b+/YI5f8NODnwqQ9 V3fYPdtvlT8x5Rjh3+/zna6BCSw2M/IDJ31NeNvL67 3q2L55Ps/vGr2+mmtPc20B0KVu+Epqw5Hc381q6J74lQ+tYSg/841s+2db1kyK+d7W8+TqWO+99G++qS l0thgdR6lY64dW6+clzT+v5K+OjGil/HyIxPuGrcfXj61c+NRgq7pImCInu515TCz/1ptDvv56m7F58o s7kcm5Zh5tS0ZJM2u+85Vqe+R1X47/sMp2el20L0Ry v79rNv+7oQ5ow6U91e9v+aukw+z/hTR4k1NMenNZm0b0pK/XGj9nK9gnIK5CwnvO9o5D5ks3W02+kr+q fojuAZKf8p5B+uWcyn2cu+FWxl5Nu8qSa1zX2ojXiy46KiIl/EJ+tSC/Wnx2B/yN7vf4xP8HA+RBfrXw Om+Be6xbgooxP3iyjdQcSxxvfTCiNQj1Cf4edhIFa5 qqwIPzC/7mDrvt7llP+VfoS9YKJ1Akpqxfk7eopow54yH416qG+KsF/apD52IWJD5HcpLLm2u1PhhKee bHruSvqnyj/gb+/y1ynA6FfZga1/cMK/mrm+76e6Ac+io2v6DE/UJoq47mkeBcO0K956KE8sgACrnNlJ 7TC6sjebt31uam5687rcy2K0fa/cdn96Hrbx74rgja vi6oj/V1rK/j/Dq+q21l7ph/3vzGcpxfx/x0xdBGsvdfD3c9twjUfO1H9ilx4p6P+qyiP3ciYpXBX/zV HxbbtF4LwQ1sOwx3TulxBqKJP/StQdqVWhc4ed9t8+j9rF/k4uBkI00+1mDTSdxFtKg5bI/Ln/Xr+Sr4 K/06dngqfo93HlXdYW+a1dm4eYH1oL/POvp+VvBXOv p/UJO/8kz3/ayj/xd09P+CWy03aJCE/jjTA2q4M/hbI3hVlCpqO+v3dpvvT/7qyzqO+l8vEmT1x9Wd0W 4yv23ObnGrlqCy7rvNo30iMh8lAqgwxU7lU1laqU0jH6D1qt5cm2OSB7LkqDNWWet9ruikltta3qd/xn S2b9masKsRHqx3fvSz5yRq+h/+6jNgwY0Niv3yp86a /Ab8mO/ts157Zi+Ipxy5Xj53/jf2iFNvcwPK01wPY48/zqLcqNvjP4HpLPgAv/GLFGu2swnTm6kl2AxA 0/+Szmqfh9qsp+lylDe/tZRt9Xn0qljMR2Flr6ROA21359o9BDHa/FpQhoyb6PF7B8uX4WY4A8+iyV9V dmo6jEtgZr2E93sVkEd3XuZFvx/yQmuIS069vvRn5Y +Dd7a6pF9Id5Zu4cKZK32kf/U13FeG+8o2+sV+Ymrcx8tdFP57vq8oYY/w9b6rj6eyNr7r002c8V1q+3 ljfTfWd/f/ryZ/VXUUeLCfN/Oy1hf6eICmE8evaBP/b+xnb/3TTp2wo91PkX+pN/+s4K/UW7+f8wvPlx 9T7HmzSfuBjsk/E33qgr09+P66Y/o1Rzsp24/v/wUN nF/IrzQGynF+A9/fEODp/lKHXAsHeRJ9FhvfHE8J+kix99obKwb+v4Hzm/cU2Rm7yFJ/cei75Z4m+uGx 5K+i0m+v5Yu8G6t+wlnA9LcIm7SuPN/LJ+8K4UAuOyHDjN+Xy5XblXU42kXg0qd/fYN+7ZYcuNH2SRq+ ewyA3rf6HfSXdvzkXbcks4nO6P5x9N5s5H1dsep5Ey uaN+v+h49io5p22YaNTQlvfnKv3iWynaVNmBuoo1H/ixvqkfrHT/22hn3phsQ+mYn74yfwMe5X466l tB+mxs1gFUns4/bfXrUpmTK7Zmma42Y77eN8Es9ntwvQ/e56in1m54+76yqSjHfPG+3eZG/j5dIEhJs8 7IAi7oln5Dm/8XW/3/r6UCKyYJkdatm6NP4ru6yGJ/ fXMgVd0o5Iua9/pQg/nHIX3ncY5L9vfM/Eofi5FD/4MG+ZVBfmWK+UI/rHWbeQ2Qz1rPMX/1+wb5lUF+ ZXh/ZarAg/ML/aCpoRzrC/pZSobsNH2uwG/zay1/Nmt+0qy/Uod7yEtDZ+RPEstXVQ9w4Q8i4GCy0H+G /Wy6k7FxOZw/SqL3oFNS89W+0Eo/vYE5n6C03CoJ77 m72z1Smf/0la9bVKlWd4dj/33bLa+zvVDe//sG+ZPsFp2I+QaeDTwOPGm/EBwf75WA85uZ86nm+SvJ9E I1fxmBR/9hSvfwmD4setJXoozqqu0LWu/3OeaKcgP+hycSygrSnFE7UqoRME6U3Zp/jvML/zrA67ZF37 j+baX4s3KDN8q9GDpXugsqzj2rE/nG2A5/NUe2/c1X yqmKdfjagY0vKn9QYp0oyxv/+aZNzTGzOQW/tP/2U8d61n4VWi/7EJ5GfjMPm8h+/CPv9yyLZ6NfmE50 Vb5J3l+/B96QX+7u6YF51/b3V121q4A3Z+W9n/qZ91mUb4fr4MqzO/mrGsN+7Aj7et4AobNEM/e08b59 f/3+eeN9+07+Xxuhx8MRZ53NHjVUAq1mwZbe8g4nc7 CHcynTzbuZJH1YbXU7zz0b5+EpBo4Q8ud/XT78dzJxtcsumQ2jeUEwIHW15fWA/qrKV/eb/FWlFfUxXz GMx1C+0e/BXig4gz3+yleF2cf+2rPtNfZs+6G3H6s1ksyBID8dn9lrPnDn96N033v2ze1rRoQotu+8k7 +q9Ea/G+FE3zLT3GWP6yE3q3N3ng+4M1lU549yq8NU r1ad2Dv5Jiij9zj88xnv6yKKwv1lnh/H21r9u4zi0hd58Qv2otW0fV8Zw/OUso1c4dLdDjhufq3RwRPE 0j87y87hg3+34FfK23g85GtKk5x6ga3x44lH50YHvT4/dds6+z537z020i9v0wv5F27DgmjgTYa/SjuR jFbgkH3XCta76Mp7/mw6G+Z7+SfvT2ftnz+naKH2C8 5J3w01tIdQgo1I4vszoO1L4s/tw1/A6Vmt7382WvcmlLluXjLe5KwEG7686tI/I70Z7doA4Xjt8H2Mk5 yinIC5O9zh8T2gQD/4Hjnu5+Op8ig46+Nsx/fIcV+Yx2zflrp4g+34HsF+cMN+nFrvE3jKla38be4td6 NAa0v828102FVh/LHEv3Pc+supervisor corduroy cutting/Z5hR+tDN/SDG/rB Df5qQz+7J9T9136c6Zh92qilfX/fMLe4fZ+Ut/7CvvgvsttSJvJrfL0wqQ/yr+WT/rW+zL+he0REhD+C 5kkjjl691IU+LfSrqK/RFsa3bH+Ao8Y0if5daaPuC2u5jws/H/kYKO//I8f7dh+T1kh0mU/vTl2NweR9 Wt8lio83+//IR39/fbR9mQ/Md2C+o/Y4Lg3cMg7HQV YjY4rtjJnB1S/BBesrE+YVR593z/T/r8M/g4uhvP/7GJff06UzE817Uf+XlglA6pX3j09Ha/h7s54Bz8 jvFJT3+uxgV1mc67vKn6Efgbs5qVhoah+WC08kqR/94Kemx3fNfrDfPF+r9d0O+ILNjwV39+6QXznetz tvGr94rYX+5Xh/5av/j9g4ohOf/f/rq+7fzkR69Iu/ 931hP6/+3/cVKO/6VC28sxEQ+aq7cm03EOzgZ7C6ZnPS/aOBacEyd9JOiam+DVuoP2fsY45MX+4ryK8c 79tdA+JXmOI2v6ga3rq2jiQh7E98P+4xkS7m3wyM/Kwep9EJa8pyF0gml8neYRCbv/qV2m8l3H/BIb9y 2A/4jo81mc7ds+HZKbzlZ91byhUyzVK/7IYz2K42ms fPpF739Hl+Md+N+eJ9u+B8lA9UPmve8y358GrM+DAjw7QRm94lP0IqqR06r0Qe+3/KtmY3mFyt23G+k7 +d9ovFJnWN8qu1EbCefqb/2uMkKEtJ7/2NP76oCN0JX3icWia+v+KtLUnJYk1JwE95+CsHf+Nyxkv2qd X0emsh10T7MBuTE7777YSvht/lvZ/j6/kG+KsAfxVf 63ikh11LrUdmS/YjNoxcvyK2FNK/JgJMAq0rlY5V+LpNobDVPlMnNtF1lFE+MPC+RnMbXmhoHU5Zp+0l A/wRIR3CN9NZ+Q7Md2C+A/MdG/5mbcIcIibEvW7P+T4Y1vqqdrulMXHhavMHpanrqbUukzuQbshXrC6z HfB/HvIkOjvSaN0N1A2V2MiX/f1Q9oUawOa76zbmn3 7E23jL79hxKqRc207I4UcTIaf3q0Z7LAm+PbsmQqL2qDyuIwfVNbftMdH0tMQ+DWZzrTn7XEsfPmO9x8 H6+xsa2NXk6PlYLWD6skiG6WiqY6Bk/gdPr1rQ6L+KAR4R4dg9YQclBfQ3fZh0L4zk/UIsrC/0gwH/DA H+KqAfDOgHA/8MWk9CCfD+0f4nmF9NsJ0iDF13JkX/ T9nk5MM+fZlnFTZZb0rNIZmjdiB+NoG4dcKS8heyem1MyfOqinPA+ji/hvML/ipM0S/OL/jxJL0IwY1O a/1+3ZOMmCW479dJvf+11Y5I54opoAfa0ocK5GVub6+Iw1+jkLwUvzXt0of1OJM1W415hKpa/fs3mVHa b76pbEhHp/QJpp96HweVs623zo11kNv07BwdNEvQ9t vi8FeS+/jsC4YlJc9vi686++HtDyoc+xlxa3OqV1C+FK49pGslzrvQvegCuoxSUt5j3Z7xEZ4P+L8Kb3 2TjSbQxgmcQy9wI2BP5saz+nji6f1z7vHERC7a/W/A/5MY8lI9BzhC3ngE4DfdABwomiS+PcBfBfirgP cjAJ0I1ZnO/dmf1gMngtH4MJ7i4/xE2ROrmYb/DNxQ frAj/HkmkvtWmytvnXY24/fBO+F2gmyK9YwM9g4rv+y/THAEpAGEWr/Mo/JxNNvf0QO7wj78egaB8VEf vke/AWdv3+jesse+y/J6kCsmaDdMnTK4xsEa2oGzJKbyCQrDAvulwOl3Of6G+LnR1j9d8WV7EbEtEQb8Jt+ [file] [id number]== ID Date Data Source [id number] 06/09/2020 07:33:59 AM EDT [facility] Name Value Range Interpretation Code Description Data Vale rce(s) Supporting Document(s) TROPONIN I 98.10 ng/mL (<0.05) [facility] Less than 0.05: Myocardial injury unlike lyGreater than or equal to 0.05: Highly suggestive of myocardial injuryCorrelation with rise and/or fall ofserial troponins, clinical symptomsand ECG changes is necessary.ALERTED CRITICAL RESULT DAWN([id number]) [place] [address] ON 06.09.2020 [place] [address] [id number] ID Date Data Source [id number] 06/09/2020 04:37:31 AM EDT [facility] Name Value Range Interpretation Code Description Data Vale rce(s) Supporting Document(s) LACTIC ACID 3.2 mmol/L (0.4-2.0) H [facility] ID Date Data Source [id number] 06/09/2020 05:26:59 AM EDT [facility] Name Value Range Interpretation Code Description Data Vale rce(s) Supporting Document(s) TROPONIN I 50.40 ng/mL (<0.05) HH [facility] [place] Less than 0.05: Myocardial injury unlike lyGreater than or equal to 0.05: Highly suggestive of myocardial injuryCorrelation with rise and/or fall ofserial troponins, clinical symptomsand ECG changes is necessary.ALERTED CRITICAL RESULT TOSTACIE ([id number]) [place] [id number] ON 06/09/20 AT [address]27 [place] [id number] ID Date Data Source [id number] 06/09/2020 04:11:48 AM EDT [facility] Name Value Range Interpretation Code Description Data Vale rce(s) Supporting Document(s) APTT 37.1 s (22.0-34.3) H [facility] ID Date Data Source [id number] 06/09/2020 03:53:31 AM EDT [facility] Name Value Range Interpretation Code Description Data Vale rce(s) Supporting Document(s) AMPHETAMINES,URINE (NEG) [facility] BARBITURATES,URINE (NEG) [facility] BENZODIAZEPINE,URINE (NEG) [facility] CANNABINOIDS,URINE (NEG) A [facility] COCAINE,URINE (NEG) A [facility] OPIATES,URINE (NEG) [facility] NOTE: Oxycodone is not sufficientlydetec spencer by this screening assay. A moresensitive assay is available upon request. PHENCYCLIDINE,URINE (NEG) [facility] PLEASE NOTE: [facility] [place] ARE REPORTED POSITIVE WHEN THE RESULT SEXCEED THE THRESHOLD (CUTOFF) INDICATED. ALIST OF POTENTIAL INTERFERENCES FOR EACHMETHOD CAN BE MADE AVAILABLE UPON REQUEST.CONFIRMATION OF A POSITIVE SCREEN CAN BE PERFORMED BY A REFERENCE LABORATORY IFREQUEST IS MADE WITHIN 48 HRS. PERFORMEDBY [address] [place] [address] ID Date Data Source [id number] 06/09/2020 03:26:05 AM EDT [facility] Name Value Range Interpretation Code Description Data Vale rce(s) Supporting Document(s) URN CULTURE HOLD [facility] FOR ADD ON CULTURE ID Date Data Source [id number] 06/09/2020 03:39:36 AM EDT [facility] Name Value Range Interpretation Code Description Data Vale rce(s) Supporting Document(s) CKMB 55.7 ng/mL (0.0-5.0) HH [facility] ALERTED CRITICAL RESULT [id number] GAVIRIA IN D3 [id number] AT 0320 ON 06/09/20 [id number] CKMB RELATIVE INDEX 8.9 {index_val} (0.0-4.0) [facility] ID Date Data Source [id number] 06/09/2020 03:21:39 AM EDT [facility] Name Value Range Interpretation Code Description Data Vale rce(s) Supporting Document(s) FREE THYROXINE @ 0.95 ng/dL (0.76-1.46) [facility] AT [address] [place] [address] N Y [address] ID Date Data Source [id number] 06/09/2020 03:21:39 AM EDT [facility] Name Value Range Interpretation Code Description Data Vale rce(s) Supporting Document(s) TSH,ULTRASENSITIVE @ 10.800 mIU/L (0.360-4.170) [facility] AT [address] [place] [address] N Y [address] ID Date Data Source [id number] 06/09/2020 03:21:39 AM EDT [facility] Name Value Range Interpretation Code Description Data Vale rce(s) Supporting Document(s) NT PRO BNP 21092 pg/mL (0-125) [facility] [place] ID Date Data Source [id number] 06/09/2020 03:21:39 AM EDT [facility] Name Value Range Interpretation Code Description Data Vale rce(s) Supporting Document(s) TROPONIN I 40.00 ng/mL (<0.05) [facility] [place] Less than 0.05: Myocardial injury unlike lyGreater than or equal to 0.05: Highly suggestive of myocardial injuryCorrelation with rise and/or fall ofserial troponins, clinical symptomsand ECG changes is necessary.ALERTED CRITICAL RESULT [id number] [place] D3 [id number] AT 0320 ON 06/09/20 [id number] ID Date Data Source [id number] 06/09/2020 03:21:39 AM EDT [facility] Name Value Range Interpretation Code Description Data Vale rce(s) Supporting Document(s) PHOSPHORUS 4.8 mg/dL (2.5-4.5) [facility] ID Date Data Source [id number] 06/09/2020 03:21:39 AM EDT [facility] Name Value Range Interpretation Code Description Data Vale rce(s) Supporting Document(s) CK 629 U/L (39-308) [facility] ID Date Data Source [id number] 06/09/2020 03:21:39 AM EDT [facility] Name Value Range Interpretation Code Description Data Vale rce(s) Supporting Document(s) SODIUM 140 mmol/L (136-145) [facility] POTASSIUM 3.9 mmol/L (3.6-5.2) [facility] CHLORIDE 108 mmol/L (100-108) [facility] CO2 27 mmol/L (22-31) [facility] ANION GAP 5 mmol/L (7-16) L [facility] UREA NITROGEN 32 mg/dL (7-24) [facility] CREATININE 1.88 mg/dL (0.80-1.30) [facility] BUN/CREAT RATIO 17.0 RATIO (10.0-20.0) [facility] GLUCOSE 144 mg/dL (70-99) [facility] CALCIUM 8.3 mg/dL (8.4-10.2) [facility] TOTAL PROTEIN 6.7 g/dL (6.4-8.2) [facility] ALBUMIN 3.4 g/dL (3.5-4.6) [facility] GLOBULIN 3.3 g/dL (2.7-4.3) [facility] ALB/GLOB RATIO 1.0 RATIO [facility] ALKALINE PHOSPHATASE 62 U/L (45-117) [facility] BILIRUBIN,TOTAL 0.5 mg/dL (0.0-1.0) [facility] PLEASE NOTE:Total bilirubin results may be falselyelevated in patients taking Eltrombopag. AST (SGOT) 92 U/L (11-39) [facility] ALT (SGPT) 51 U/L (12-78) [facility] GFR 37 ml/min/1.73m2 (>59) L [facility] GFR ( AMER) 45 ml/min/1.73m2 (>59) [facility] GFR INTERPRETATION [facility] --NORMAL KIDNEY FUNCTION OR MILD DISEASE - GFR >OR= 60CHRONIC KIDNEY DISEASE - GFR 15 - 59RENAL FAILURE - GFR <15 Est. GFR calculation based on the MDRDstudy equation, which assumes a steadystate for creatinine. Est. GFR should notbe used for medication dosing. ID Date Data Source [id number] 06/09/2020 03:08:07 AM EDT [facility] Name Value Range Interpretation Code Description Data Vale rce(s) Supporting Document(s) CALCIUM IONIZED 4.68 mg/dL (4.64-5.28) [facility] IONIZED CALCIUM NORMALIZED TO PH 7.40 AN D 37 DEGREES C. ID Date Data Source [id number] 06/09/2020 03:06:53 AM EDT [facility] Name Value Range Interpretation Code Description Data Vale rce(s) Supporting Document(s) MAGNESIUM 2.2 mg/dL (1.7-2.4) [facility] ID Date Data Source [id number] 06/09/2020 03:06:53 AM EDT [facility] Name Value Range Interpretation Code Description Data Vale rce(s) Supporting Document(s) ETHANOL <3 mg/dL (0-3) [facility] ID Date Data Source [id number] 06/09/2020 02:39:06 AM EDT [facility] Name Value Range Interpretation Code Description Data Vale rce(s) Supporting Document(s) WBC 10.4 10*3/uL (4.1-11.0) [facility] RBC 5.06 10*6/uL (4.60-6.10) [facility] HGB 15.1 g/dL (13.5-18.0) [facility] HCT 46.4 % (41.0-53.0) [facility] MCV 91.8 fL (80.0-95.0) [facility] MCH 29.8 pg (27.0-32.0) [facility] MCHC 32.4 g/dL (32.0-36.0) [facility] RDW 15.0 % (10.5-14.5) [facility] PLT 166 10*3/uL (150-450) [facility] MPV 9.0 fL (7.1-10.7) [facility] NEUT % 82.6 % (35.0-75.0) [facility] LYMPH % 11.1 % (16.0-52.0) [facility] MONO % 5.5 % (0.0-8.0) [facility] EOS % 0.5 % (0.0-5.0) [facility] BASO % 0.3 % (0.0-4.0) [facility] NEUT # 8.6 10*3/uL (1.8-7.7) [facility] LYMPH # 1.2 10*3/uL (1.2-4.8) [facility] MONO # 0.6 10*3/uL (0.0-0.8) [facility] Eosinophils [#/volume] in Blood by Automated count 0.1 10*3/uL (0.0-0 .5) [facility] BASO # 0.0 10*3/uL (0.0-0.2) [facility] ID Date Data Source [id number] 06/09/2020 02:25:25 AM EDT [facility] Name Value Range Interpretation Code Description Data Vale rce(s) Supporting Document(s) LACTIC ACID 3.2 mmol/L (0.4-2.0) [facility] [place] ID Date Data Source [id number] 06/09/2020 07:56:16 AM EDT [facility] Name Value Range Interpretation Code Description Data Vale rce(s) Supporting Document(s) POC NOVA GLU 188 mg/dL (70-99) [facility] BY [facility] ID Date Data Source [id number] 06/10/2020 11:49:13 AM EDT [facility] Name Value Range Interpretation Code Description Data Vale rce(s) Supporting Document(s) LACTIC ACID 4.9 mmol/L (0.4-2.0) [facility] [place] [facility] ALERTED CRITICAL RESULT TOAMANDA [id number] ID Date Data Source [id number] 06/08/2020 09:30:00 PM EDT [facility] 134 [address] Name Value Range Interpretation Code Description Data Vale rce(s) Supporting Document(s) TSH 6.240 microintl units/mL 0.358-3.740 H [facility] ID Date Data Source [id number] 06/08/2020 06:00:00 AM EDT [facility] 134 [address] Name Value Range Interpretation Code Description Data Vale rce(s) Supporting Document(s) ID Date Data Source [id number] 06/08/2020 06:00:00 AM EDT [facility] Name Value Range Interpretation Code Description Data Vale rce(s) Supporting Document(s) HCT 41.7 % 42.0-52.0 L [facility] HGB 13.9 g/dL 13.5-17.5 N [facility] MCH 33.3 G/DL pg 32.0-36.5 N [facility] MCHC 30.0 PG % 27.0-33.0 [facility] PLATELETS 141 10 10*3/mm3 150-450 L [facility] RBC 4.64 10 10*6/mm3 4.30-6.10 N [facility] RDW 13.7 % 11.5-14.5 [facility] WBC TOTAL 6.2 4.0-10.0 N [facility] ID Date Data Source [id number] 06/07/2020 06:00:00 AM EDT [facility] Name Value Range Interpretation Code Description Data Vale rce(s) Supporting Document(s) BG FASTING 91 mg/dL 70-100 N [facility] ID Date Data Source [id number] 06/06/2020 08:00:00 AM EDT [facility] Name Value Range Interpretation Code Description Data Vale rce(s) Supporting Document(s) APPEARANCE U CLEAR CLEAR [facility] SPEC GR URIN 1.005 1.002-1.035 N [facility] UA COLOR COLORLESS YELLOW N [facility] ID Date Data Source [id number] 06/06/2020 06:35:00 AM EDT [facility] Name Value Range Interpretation Code Description Data Vale rce(s) Supporting Document(s) HCT 42.4 % 42.0-52.0 N [facility] HGB 13.8 g/dL 13.5-17.5 N [facility] MCH 32.5 G/DL pg 32.0-36.5 N [facility] MCHC 29.7 PG % 27.0-33.0 [facility] PLATELETS 174 10 10*3/mm3 150-450 N [facility] RBC 4.64 10 10*6/mm3 4.30-6.10 N [facility] RDW 14.3 % 11.5-14.5 [facility] WBC TOTAL 9.6 4.0-10.0 N [facility] ID Date Data Source [id number] 06/06/2020 06:35:00 AM EDT [facility] Name Value Range Interpretation Code Description Data Vale rce(s) Supporting Document(s) BG FASTING 71 mg/dL 70-100 N [facility] T4, FREE 0.86 ng/dL 0.76-1.46 N [facility] TSH 4.380 microintl units/mL 0.358-3.740 H [facility] ID Date Data Source HEPATITIS C QUANT BY PCR 02/04/2020 12:00:00 AM EDT eCW1 ([facility]) Name Value Range Interpretation Code Description Data Vale rce(s) Supporting Document(s) HCV Not Detected . HEPATITIS C QUANTIT ATION eCW1 (Pending Sale To [facility]) TNP . Hepatitis C log10 eCW1 (Formerly [facility]) ID Date Data Source LIVER PROFILE 02/04/2020 12:00:00 AM EDT eCW1 ([facility]) Name Value Range Interpretation Code Description Data Vale rce(s) Supporting Document(s) 22 12-78 ALT/SGPT eCW1 ([facility]) 15 7-37 AST/SGOT eCW1 ([facility]) 0.1 0.0-0.2 BILIRUBIN,DIRECT eCW1 ([facility]) 0.5 0.2-1.0 BILIRUBIN,TOTAL eCW1 ([facility]) 7.5 6.4-8.2 TOTAL PROTEIN eCW1 (Pending Sale To [facility]) 83 45-117 ALKALINE PHOSPHATASE eCW1 ([facility]) 4.0 3.2-5.2 ALBUMIN eCW1 ([facility]) 1.14 1.00-1.93 ALBUMIN/GLOBULIN RATIO eCW1 ([facility]) Procedure Social History Code Duration Value Status Description Data Source(s ) Alcohol intake 06/16/2020 12:00:00 AM EDT Yes completed [facility] Cigarette pack-years 06/16/2020 12:00:00 AM EDT UNK completed [facility] Cigarettes smoked current (pack per day) - Reported 06/16/20 20 12:00:00 AM EDT UNK completed [facility] Smoking 06/16/2020 12:00:00 AM EDT Current every day smoker co mpleted Current every day smoker [facility] Vital Signs ID Date Data Source UNK Name Value Range Interpretation Code Description Data Source(s) Oxygen saturation in Arterial blood by Pulse oximetry 98 % 98 % [facility] Respiratory rate 22 /min 22 /min [facility] Body temperature 36.5 Krista 36.5 Krista [facility] Heart rate 88 /min 88 /min [facility] Diastolic blood pressure 93 mm[Hg] 93 mm[Hg] [facility] Systolic blood pressure 139 mm[Hg] 139 mm[Hg] [facility] Body mass index (BMI) [Ratio] 25.28 kg/m2 25.28 kg/m2 [facility] Body weight 68.901 kg 68.901 kg [facility] Body height 165.1 cm 165.1 cm [facility] Diastolic blood pressure 62 mm[Hg] 62 mm[Hg] eCW1 (Pending Sale To [facility]) Systolic blood pressure 104 mm[Hg] 104 mm[Hg] e CW1 (Pending Sale To [facility]) Body temperature 96.1 [degF] 96.1 [degF] eCW1 ( Pending Sale To [facility]) Respiratory rate 16 /min 16 /min eCW1 ([facility]) Heart rate 75 /min 75 /min eCW1 ([facility]) Body mass index (BMI) [Ratio] 24.74 kg/m2 24.74 kg/m2 W1 (Pending Sale To [facility]) Body height 67 [in_us] 67 [in_us] eCW1 ([facility]) Body weight Measured 158 [lb_av] 158 [lb_av] eC W1 (Pending Sale To [facility]) Patient Treatment Plan of Care Planned Activity Planned Date Details Description Data Source (s) Potassium Chloride 10 MEQ Extended Release Oral Tablet 06/16/2020 12:00:00 AM EDT [facility] Furosemide 40 MG Oral Tablet 06/16/2020 12:00:00 AM EDT [facility] apixaban 5 MG Oral Tablet 06/16/2020 12:00:00 AM EDT [facility] Ramipril 5 MG Oral Capsule 06/16/2020 12:00:00 AM EDT [facility] Thiamine 100 MG Oral Tablet 06/16/2020 12:00:00 AM EDT [facility] Nitroglycerin 0.4 MG Sublingual Tablet 06/16/2020 12:00:00 AM EDT [facility] 24 HR metoprolol succinate 100 MG Extended Release Ora l Tablet 06/16/2020 12:00:00 AM EDT [facility] Folic Acid 1 MG Oral Tablet 06/16/2020 12:00:00 AM EDT [facility] DAILY OZIEL (THERAGRAN) per tablet 06/16/2020 12:00:00 AM EDT [facility] atorvastatin 80 MG Oral Tablet 06/16/2020 12:00:00 AM EDT [facility] Aspirin 81 MG Chewable Tablet 06/16/2020 12:00:00 AM EDT [facility] Rifampin 300 MG Oral Capsule 02/29/2020 12:00:00 AM EDT eCW1 (Pending Sale To [facility]) prednicarbate 0.001 MG/MG Topical Ointment 02/29/2020 12:00:00 AM E DT eCW1 (Pending Sale To [facility]) Rifampin 300 MG Oral Capsule [facility] Ibuprofen 800 MG Oral Tablet [facility] Trazodone Hydrochloride 50 MG Oral Tablet [facility] Rifampin 300 MG Oral Capsule [facility] Amlodipine 10 MG Oral Tablet [facility]
[2020-12-31 23:18] LABS: ACETAMINOPHEN LEVEL < 2.0 UG/ML (10.0-30.0); ALBUMIN 3.4 GM/DL (3.2-5.2); ALT/SGPT 23 U/L (12-78); BILIRUBIN,DIRECT < 0.1 MG/DL (0.0-0.2); BILIRUBIN,TOTAL 0.1 MG/DL (0.2-1.0); BLOOD UREA NITROGEN 22 MG/DL (7-18); CALCIUM LEVEL 7.5 MG/DL (8.5-10.1); CARBON DIOXIDE LEVEL 23 MEQ/L (21-32); CHLORIDE LEVEL 112 MEQ/L (98-107); CK-MB VALUE MASS 1.6 NG/ML (<3.6); CPK CREATINE PHOSPHOKINASE 132 U/L (39-308); CREATININE FOR GFR 1.24 MG/DL (0.70-1.30); ETHYL ALCOHOL (ETHANOL) 0.208 % (0.000-0.010); GLOMERULAR FILTRATION RATE > 60.0 (>56); GLUCOSE, FASTING 92 MG/DL (70-100); MB/CK RELATIVE INDEX 1.21 (< OR =4); POTASSIUM SERUM 3.6 MEQ/L (3.5-5.1); SALICYLATE LEVEL 2.3 MG/DL (5.0-30.0); SODIUM LEVEL 145 MEQ/L (136-145); TOTAL PROTEIN 6.5 GM/DL (6.4-8.2); TROPONIN I < 0.02 NG/ML (< 0.10)
[2020-12-31 23:45] VITALS: BP 117/76
--- NOTE | 2021-01-01 09:28 | ECGEPIP ---
[facility] - ED Test Date: 2020-12-31 Pat Name: HIGINIO SMITH Department: Room: - Gender: Male [employer]: : [id number] Requested By: LILA DIXON Order Number: [id number] Reading MD: Rohit Cavanaugh Measurements Intervals [place] Rate: 99 P: PA: QRS: 16 QRSD: 98 T: 2 QT: 360 QTc: 462 Interpretive Statements Atrial fibrillation POOR R WAVE PROGRESSION BASELINE ARTIFACT AFFECTS INTERPRETATION NO PRIORS FOR COMPARISON Electronically Signed on 01-01-2021 9:28:18 EST by Rohit Cavanaugh
== END 2021-01-01 00:04 | disposition home or self-care (01) ==
LOC: M ED 21:59
DX: F10.120 Alcohol abuse with intoxication, uncomplicated (principal); R07.9 Chest pain, unspecified; W10.8XXA Fall (on) (from) other stairs and steps, initial encounter; Y92.9 Unspecified place or not applicable; Y93.9 Activity, unspecified; Y99.9 Unspecified external cause status; I48.91 Unspecified atrial fibrillation; I11.9 Hypertensive heart disease without heart failure; F17.200 Nicotine dependence, unspecified, uncomplicated; Z79.82 Long term (current) use of aspirin; Z79.899 Other long term (current) drug therapy

== ENCOUNTER → 2021-01-16 | Outpatient (CLI) | payer MEDICAID ==
[~2021-01-16] MED LIST: ASPI81TA26; ATOR80TA59; B-1100TA2; ELIQ5TAB; FOLI1TAB11; FURO40TA2; METO1TAB33; POTA1TAB23; RAMI1CAP24; TRAZ-189
== END ==
LOC: M OUTALCOH 07:52
PROVIDERS: ATTEND Psychiatry & Neurology Psychiatry
DX: Z13.9 Encounter for screening, unspecified (principal)

== ENCOUNTER 2021-01-20 10:00 | Outpatient (RCR) | payer MEDICAID | END 2021-02-08 | LOC: M OUTALCOH 10:00 | PROVIDERS: ATTEND Psychiatry & Neurology Psychiatry | DX: F14.10 Cocaine abuse, uncomplicated (principal); F10.20 Alcohol dependence, uncomplicated; F17.200 Nicotine dependence, unspecified, uncomplicated ==